=== PATIENT | female | born 1945 | race Hispanic/Latino ===

== ENCOUNTER 2018-07-01 17:59 | Inpatient (IN) | payer MEDICARE, OTHER ==
[2018-07-01 18:10] VITALS: BMI 19.8
[2018-07-01 19:01] LABS: BASO % 0.1 % (0.0-2.0); EOS % 0.1 % (0.0-4.0); HEMOGLOBIN 13.7 g/dL (11.0-16.0); LYMPH # 0.8 K/uL (1.0-4.3); LYMPH % 6.8 % (20.0-40.0); MEAN CORPUSCULAR HEMOGLOBIN 32.8 pg (27.0-31.0); MEAN CORPUSCULAR HGB CONC 34.2 g/dL (33.0-37.0); MEAN PLATELET VOLUME 7.3 fL (7.2-11.7); MONO # 0.6 K/uL (0.0-0.8); MONO % 5.6 % (0.0-10.0); NEUT # 9.9 K/uL (1.8-7.0); NEUT % 87.4 % (50.0-75.0); RBC 4.17 Mil/uL (3.80-5.20); RED CELL DISTRIBUTION WIDTH 14.4 % (11.5-14.5)
[2018-07-01] MEDS ORDERED: Sodium Chloride 0.9% 1,000 ML IV STA (19:02)
--- NOTE | 2018-07-01 19:04 | C.PDOC ---
History Of Present Illness 72 y/o F p/w general weakness x 5 days. Patient states that on Wednesday, she woke up with lower back pain and began vomiting, NBNB. She states that as the week has gone on, she has been increasingly weak with decreased PO intake and co ntinued NBNB vomiting. She reports abdominal pain and distention, states back pain has gotten better. Went to Dr. De La Torre (GI/PMD) today who instructed patient to come to ED for further evaluation. Denies fever, chills, chest pain, dyspnea, dysuria. Time Seen by Provider: 07/01/18 18:52 Chief Complaint (Nursing): Dizziness/Lightheaded Past Medical History Vital Signs: Last Vital Signs Temp 97.4 F L 07/01/18 18:10 Pulse 84 07/01/18 18:10 Resp 18 07/01/18 18:10 BP 114/73 07/01/18 18:10 Pulse Ox 100 07/01/18 18:10 - Medical History PMH: Anxiety, Back Problems, Hypercholesterolemia, Hyperlipidemia, Hypothyroidism, Rheumatoid Arthritis - [facility] Procedures PSYCHIAT DRUG THERAP NEC (08/27/06) Family History: States: Unknown Family Hx - Social History Hx Alcohol Use: No Hx Substance Use: No - Immunization History Hx Tetanus Toxoid Vaccination: No Hx Influenza Vaccination: No Hx Pneumococcal Vaccination: No Review Of Systems Except As Marked, All Systems Reviewed And Found Negative. Constitutional: Negative for: Fever Cardiovascular: Negative for: Chest Pain Physical Exam - Physical Exam Additional Physical Exam Comments: Gen: NAD Head: NC/AT Eyes: PERRL ENT: Dry mucous membranes Neck: Supple Chest: No tenderness CV: Regular rate Lungs: CTA b/l Abd: Abdominal distention Back: No midline tenderness Extremities: No edema Skin: no rash Neuro: Alert ED Course And Treatment - Laboratory Results Result Diagrams: 07/01/18 18:55 07/01/18 18:55 O2 Sat by Pulse Oximetry: 100 Medical Decision Making Medical Decision Making: EKG NSR 93 bpm, no ST/ elevations CT Impression: Small bowel obstruction. Correlate clinically. Dr. Smith consulted for Surgery, registered nurse surgical services placed NG tube. Dr. Dunbar accepts patient to his service. Disposition - Disposition Disposition: HOSPITALIZED Disposition Time: 22:30 Condition: GUARDED - Clinical Impression Clinical Impression: Small bowel obstruction, Hyponatremia, Hypokalemia, Acute renal insufficiency
[2018-07-01 19:05] LABS: MEAN CELL VOLUME 95.7 fL (81.0-99.0); PLATELET COUNT 486 K/uL (130-400); WHITE BLOOD COUNT 11.4 K/uL (4.8-10.8)
[2018-07-01 19:10] LABS: PROTHROMBIN TIME 10.9 SECONDS (9.7-12.2)
[2018-07-01] MEDS ORDERED: Sodium Chloride 0.9% 1,000 ML ONE (19:10)
[2018-07-01 19:19] LABS: ALB/GLOB RATIO 1.6 (1.0-2.1); ALBUMIN 4.9 g/dL (3.5-5.0); CALCIUM 8.8 mg/dl (8.6-10.4)
[2018-07-01] MEDS ORDERED: Potassium Chloride 20 mEq 100 ML ONE ×2 (19:52→20:53)
[2018-07-01 20:09] LABS: BANDS 2 % (0-2); EOSINOPHIL 1 % (0-4); LYMPHOCYTE 12 % (20-40); MONOCYTE 4 % (0-10); NEUTROPHIL 81 % (50-75); PLATELET ESTIMATE SLIGHTLY INCREASED (NORMAL); TOTAL CELLS COUNTED 100
[2018-07-01] MEDS ORDERED: Ciprofloxacin 400mg/200ml D5W 400 MG/200 ML BAG IVPB ONE (23:55)
--- NOTE | 2018-07-02 00:28 | CP.PCM.CON ---
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 Pt reports her symptoms first began on wednesday when she began to feel bloated. This feeling progressively worsened until wednesday when she had her first episode of emesis. Pt subsequently vomited 3 times over the next 48 hours, non-bloody and non-billious. She reports she has been intermittenly passing flatus throughout this time, but only had one small bowel movement on wednesday. Prior to symptom onset pt has been having difficulty going to the rest room and has been taking Senna and Colace, but with little relief. She denies any associated fevers, chills, sob or chest pain. She has been feeling increasingly weak, and yesterday feel forward due to weakness, scraping her knees. She denies any additional neurological symptoms beyond weakness At the time of consultation, pt noted to be profoundly hyponatremic, hypocholemic, hypokalemic. Her CT shows significant gastric and small bowel distension with a large amount of stool within the colon. An NGT was placed in the ED which has returned >1,000 cc of thick orange foul smelling liquid. Pt vomited an additional ~600cc over the tube. PMH: SIADH PSH: lap adolfo, hysterectomy for reported cervical cancer, b/l oopherectomy (seperate procedure), Review of Systems - Review of Systems All systems: reviewed and no additional remarkable complaints except (as per hpi) Past Patient History - Infectious Disease Hx of Infectious Diseases: None - Past Social History Smoking Status: Never Smoked - CARDIAC Hx Hypercholesterolemia: Yes - ENDOCRINE/METABOLIC Hx Hypothyroidism: Yes - MUSCULOSKELETAL/RHEUMATOLOGICAL Hx Rheumatoid Arthritis: Yes - PSYCHIATRIC Hx Anxiety: Yes Hx Substance Use: No - SURGICAL HISTORY Hx Surgeries: Yes Hx Orthopedic Surgery: Yes (Left shoulder and right arm) Other/Comment: Abdominal surgeries - ANESTHESIA Hx Anesthesia: Yes Hx Anesthesia Reactions: No Meds Allergies/Adverse Reactions: Allergies Allergy/AdvReac Type Severity Reaction Status Date / Time No Known Allergies Allergy Verified 07/01/18 18:06 - Medications Medications: Current Medications Heparin Sodium (Porcine) (Heparin) 5,000 units SC Q8 PARAMJIT Ciprofloxacin (Cipro 400mg/200ml Dsw) 400 mg in 200 mls @ 133 mls/hr IVPB Q12H [facility]AMJ[facility]; Protocol Dextrose/Sodium Chloride (Dextrose 5%/0.9% Ns 1000 Ml) 1,000 mls @ 125 mls/hr IV .Q8H PARAMJIT Pantoprazole Sodium (Protonix Inj) 40 mg IVP DAILY [facility]AMJIT Physical Exam - Constitutional Appears: Non-toxic, No Acute Distress - Head Exam Head Exam: NORMOCEPHALIC - Eye Exam Eye Exam: Normal appearance - ENT Exam ENT Exam: Mucous Membranes Dry - Neck Exam Neck exam: Negative for: Lymphadenopathy, Tenderness, Thyromegaly - Respiratory Exam Respiratory Exam: Clear to Auscultation Bilateral, NORMAL BREATHING PATTERN. absent: Accessory Muscle Use, Respiratory Distress - Cardiovascular Exam Cardiovascular Exam: REGULAR RHYTHM, +S1. absent: Tachycardia, Diastolic murmur, Systolic Murmur - GI/Abdominal Exam GI & Abdominal Exam: Distended, Hypoactive Bowel Sounds, Soft, Tenderness (diffuse but minimal). absent: Firm, Guarding, Hernia, Rebound, Rigid Additional comments: tympanic to percussion - Rectal Exam Rectal Exam: absent: Deferred, Black Stool, Bloody Stool, Hemorrhoids Additional comments: normal tone, no appreciable hemorrhoids or impaction - Extremities Exam Extremities exam: Negative for: pedal edema Additional comments: b/l abrasions to both knees - Neurological Exam Neurological exam: Alert, Oriented x3 - Psychiatric Exam Psychiatric exam: Normal Affect, Normal Mood - Skin Skin Exam: Normal Color Results - Vital Signs Recent Vital Signs: Last Vital Signs Temp 98 F 07/01/18 21:38 Pulse 93 H 07/01/18 21:38 Resp 18 07/01/18 21:38 BP 130/57 L 07/01/18 21:38 Pulse Ox 98 07/01/18 21:38 - Labs Result Diagrams: 07/01/18 18:55 07/01/18 18:55 Labs: Laboratory Results - last 24 hr 07/01/18 07/01/18 07/01/18 18:55 18:55 18:55 WBC 11.4 H D RBC 4.17 Hgb 13.7 Hct 39.9 MCV 95.7 D MCH 32.8 H MCHC 34.2 RDW 14.4 Plt Count 486 H D MPV 7.3 Neut % (Auto) 87.4 H Lymph % (Auto) 6.8 L [place] % (Auto) 5.6 Eos % (Auto) 0.1 Baso % (Auto) 0.1 Neut # (Auto) 9.9 H Lymph # (Auto) 0.8 L [place] # (Auto) 0.6 Eos # (Auto) 0.0 Baso # (Auto) 0.0 Neutrophils % (Manual) 81 H Band Neutrophils % 2 Lymphocytes % (Manual) 12 L Monocytes % (Manual) 4 Eosinophils % (Manual) 1 Platelet Estimate Slightly increased H RBC Morphology Normal PT 10.9 INR 1.0 APTT 30 Sodium 120 L* Potassium 3.0 L Chloride 68 L D Carbon Dioxide 39 H Anion Gap 16 BUN 53 H Creatinine 1.5 H Est GFR ( Amer) 42 Est GFR (Non-Af Amer) 34 Random Glucose 119 H Calcium 8.8 Total Bilirubin 0.9 AST 59 H ALT 54 H D Alkaline Phosphatase 94 Total Protein 8.0 Albumin 4.9 Globulin 3.1 Albumin/Globulin Ratio 1.6 Lipase Blood Type Antibody Screen 07/01/18 07/01/18 19:38 19:58 WBC RBC Hgb Hct MCV MCH MCHC RDW Plt Count MPV Neut % (Auto) Lymph % (Auto) [place] % (Auto) Eos % (Auto) Baso % (Auto) Neut # (Auto) Lymph # (Auto) [place] # (Auto) Eos # (Auto) Baso # (Auto) Neutrophils % (Manual) Band Neutrophils % Lymphocytes % (Manual) Monocytes % (Manual) Eosinophils % (Manual) Platelet Estimate RBC Morphology PT INR APTT Sodium Potassium Chloride Carbon Dioxide Anion Gap BUN Creatinine Est GFR ( Amer) Est GFR (Non-Af Amer) Random Glucose Calcium Total Bilirubin AST ALT Alkaline Phosphatase Total Protein Albumin Globulin Albumin/Globulin Ratio Lipase 270 Blood Type O POSITIVE Antibody Screen Negative Assessment & Plan - Assessment and Plan (Free Text) Assessment: 72F with hyponatremia/hypochloremia 2/2 SIADH, also with possible SBO vs electrolyte imbalance induced ileus Plan: NGT placed for decompression pt needs hydration and correction of electrolytes will order fleet enemas pain control maintain NPO will cont to follow closely d/w Dr Luis Mari, PGY4 <Becky Smith - Last Filed: 07/02/18 17:57> Meds - Medications Medications: Current Medications Bupropion HCl (Wellbutrin) 100 mg NG TID [facility] Last Admin: 07/02/18 17:40 Dose: 100 mg Heparin Sodium (Porcine) (Heparin) 5,000 units SC Q8 [facility] Last Admin: 07/02/18 14:50 Dose: 5,000 units Ciprofloxacin (Cipro 400mg/200ml Dsw) 400 mg in 200 mls @ 133 mls/hr IVPB Q12H [facility]; Protocol Last Admin: 07/02/18 12:33 Dose: 133 mls/hr Potassium Chloride 20 meq/ (Sodium Chloride) 1,010 mls @ 100 mls/hr IV .Q10H6M [facility] Last Admin: 07/02/18 14:51 Dose: 100 mls/hr Folic Acid 1 mg/ Sodium (Chloride) 100.2 mls @ 60 mls/hr IV DAILY [facility] Last Admin: 07/02/18 17:40 Dose: 60 mls/hr Influenza Virus Vaccine (Fluzone Quad [id number]) 60 mcg IM .ONCE ONE Stop: 07/04/18 14:01 Lamotrigine (Lamictal) 200 mg PO DAILY [facility] Last Admin: 07/02/18 17:41 Dose: 200 mg Levothyroxine Sodium (Synthroid) 12.5 mcg IVP 0630 [facility] Methotrexate (Methotrexate) 60 mg PO QWK [facility] Pantoprazole Sodium (Protonix Inj) 40 mg IVP DAILY [facility] Last Admin: 07/02/18 09:49 Dose: 40 mg Saliva Substitute (Mouth Kote 236 Ml) 0 ml MM 5XD PRN PRN Reason: DRY MOUTH Last Admin: 07/02/18 14:50 Dose: 1 spr Results - Vital Signs Recent Vital Signs: Last Vital Signs Temp 97.8 F 07/02/18 07:00 Pulse 91 H 07/02/18 07:48 Resp 18 07/02/18 07:00 BP 100/60 07/02/18 07:00 Pulse Ox 97 07/02/18 07:00 - Labs Result Diagrams: 07/02/18 06:46 07/02/18 14:37 Labs: Laboratory Results - last 24 hr 07/01/18 07/01/18 07/01/18 18:55 18:55 18:55 WBC 11.4 H D RBC 4.17 Hgb 13.7 Hct 39.9 MCV 95.7 D MCH 32.8 H MCHC 34.2 RDW 14.4 Plt Count 486 H D MPV 7.3 Neut % (Auto) 87.4 H Lymph % (Auto) 6.8 L [place] % (Auto) 5.6 Eos % (Auto) 0.1 Baso % (Auto) 0.1 Neut # (Auto) 9.9 H Lymph # (Auto) 0.8 L [place] # (Auto) 0.6 Eos # (Auto) 0.0 Baso # (Auto) 0.0 Neutrophils % (Manual) 81 H Band Neutrophils % 2 Lymphocytes % (Manual) 12 L Monocytes % (Manual) 4 Eosinophils % (Manual) 1 Platelet Estimate Slightly increased H RBC Morphology Normal PT 10.9 INR 1.0 APTT 30 Sodium 120 L* Potassium 3.0 L Chloride 68 L D Carbon Dioxide 39 H Anion Gap 16 BUN 53 H Creatinine 1.5 H Est GFR ( Amer) 42 Est GFR (Non-Af Amer) 34 Random Glucose 119 H Calcium 8.8 Phosphorus Magnesium Total Bilirubin 0.9 AST 59 H ALT 54 H D Alkaline Phosphatase 94 Total Protein 8.0 Albumin 4.9 Globulin 3.1 Albumin/Globulin Ratio 1.6 Lipase Urine Color Urine Clarity Urine pH Ur Specific [place] Urine Protein Urine Glucose (UA) Urine Ketones Urine Blood Urine Nitrate Urine Bilirubin Urine Urobilinogen Ur Leukocyte Esterase Urine WBC (Auto) Urine RBC (Auto) Ur Squamous Epith Cells Urine Bacteria Blood Type Antibody Screen 07/01/18 07/01/18 07/02/18 19:38 19:58 06:46 WBC 6.8 RBC 3.49 L Hgb 11.5 D Hct 33.5 L MCV 95.9 MCH 33.0 H MCHC 34.4 RDW 14.2 Plt Count 373 D MPV 7.4 Neut % (Auto) 77.9 H Lymph % (Auto) 12.5 L [place] % (Auto) 9.0 Eos % (Auto) 0.4 Baso % (Auto) 0.2 Neut # (Auto) 5.3 Lymph # (Auto) 0.8 L [place] # (Auto) 0.6 Eos # (Auto) 0.0 Baso # (Auto) 0.0 Neutrophils % (Manual) Band Neutrophils % Lymphocytes % (Manual) Monocytes % (Manual) Eosinophils % (Manual) Platelet Estimate RBC Morphology PT INR APTT Sodium Potassium Chloride Carbon Dioxide Anion Gap BUN Creatinine Est GFR ( Amer) Est GFR (Non-Af Amer) Random Glucose Calcium Phosphorus Magnesium Total Bilirubin AST ALT Alkaline Phosphatase Total Protein Albumin Globulin Albumin/Globulin Ratio Lipase 270 Urine Color Urine Clarity Urine pH Ur Specific [place] Urine Protein Urine Glucose (UA) Urine Ketones Urine Blood Urine Nitrate Urine Bilirubin Urine Urobilinogen Ur Leukocyte Esterase Urine WBC (Auto) Urine RBC (Auto) Ur Squamous Epith Cells Urine Bacteria Blood Type O POSITIVE Antibody Screen Negative 07/02/18 07/02/18 07/02/18 06:46 07:20 14:37 WBC RBC Hgb Hct MCV MCH MCHC RDW Plt Count MPV Neut % (Auto) Lymph % (Auto) [place] % (Auto) Eos % (Auto) Baso % (Auto) Neut # (Auto) Lymph # (Auto) [place] # (Auto) Eos # (Auto) Baso # (Auto) Neutrophils % (Manual) Band Neutrophils % Lymphocytes % (Manual) Monocytes % (Manual) Eosinophils % (Manual) Platelet Estimate RBC Morphology PT INR APTT Sodium 121 L 123 L Potassium 2.9 L 3.6 Chloride 78 L 82 L Carbon Dioxide 33 H 35 H Anion Gap 12 9 L BUN 39 H 25 H Creatinine 0.9 0.8 Est GFR ( Amer) > 60 > 60 Est GFR (Non-Af Amer) > 60 > 60 Random Glucose 131 H 109 H Calcium 7.5 L 7.5 L Phosphorus 2.7 Magnesium 3.2 H Total Bilirubin 0.5 AST 39 H D ALT 51 Alkaline Phosphatase 66 Total Protein 5.8 L Albumin 3.4 L D Globulin 2.4 Albumin/Globulin Ratio 1.4 Lipase Urine Color Yellow Urine Clarity Hazy Urine pH 6.0 Ur Specific [place] 1.020 Urine Protein Negative Urine Glucose (UA) Normal Urine Ketones Trace Urine Blood 1+ H Urine Nitrate Positive H Urine Bilirubin Negative Urine Urobilinogen Normal Ur Leukocyte Esterase Neg Urine WBC (Auto) 5 Urine RBC (Auto) 2 Ur Squamous Epith Cells 2 Urine Bacteria Mod H Blood Type Antibody Screen Assessment & Plan - Assessment and Plan (Free Text) Plan: I personally saw and examined the patient with the resident staff and agree with the above assessment and plan. I personally reviewed the available diagnostic images and imaging reports. Diffuse small bowel dilation, decompressed loops in right abd. Difficult to asses cause or transition point with non-contrast study. Fleets enema and NGT to Low intermittent wall suction. Correction of eletrolyte abnormalities. Would recommend repeat CTAP with PO and IV contrast to better identify etiology of SBO. Rec ARTIST REPRESENTATIVE consult given history of ARTIST REPRESENTATIVE malignancy and recs for appropriate surveillance. Would also recommend GI consult for repeat colonoscopy given her age and no documentation of prior colonoscopy or findings.
[2018-07-02] MEDS: Ciprofloxacin 400mg/200ml D5W 400 MG/200 ML BAG IVPB SCH ×3 (00:31→22:58)
[2018-07-02] MEDS: Dextrose 5%/0.9% NS 1,000 ML IV SCH ×2 (01:09→08:50)
[2018-07-02 07:05] LABS: BASO % 0.2 % (0.0-2.0); EOS % 0.4 % (0.0-4.0); HEMOGLOBIN 11.5 g/dL (11.0-16.0); LYMPH # 0.8 K/uL (1.0-4.3); LYMPH % 12.5 % (20.0-40.0); MEAN CELL VOLUME 95.9 fL (81.0-99.0); MEAN CORPUSCULAR HGB CONC 34.4 g/dL (33.0-37.0); MEAN PLATELET VOLUME 7.4 fL (7.2-11.7); MONO # 0.6 K/uL (0.0-0.8); NEUT # 5.3 K/uL (1.8-7.0); NEUT % 77.9 % (50.0-75.0); RBC 3.49 Mil/uL (3.80-5.20); RED CELL DISTRIBUTION WIDTH 14.2 % (11.5-14.5); WHITE BLOOD COUNT 6.8 K/uL (4.8-10.8)
[2018-07-02 07:27] LABS: ALB/GLOB RATIO 1.4 (1.0-2.1); ALBUMIN 3.4 g/dL (3.5-5.0); ALT/SGPT 51 U/L (9-52); AST/SGOT 39 U/L (14-36); BLOOD UREA NITROGEN 39 mg/dL (7-17); CALCIUM 7.5 mg/dl (8.6-10.4); GFR NON-AFRICAN AMERICAN > 60
[2018-07-02 07:31] LABS: SQUAMOUS EPITHIAL 2 /hpf (0-5); URINE BACTERIA MOD (<OCC); URINE BILIRUBIN NEGATIVE (NEGATIVE); URINE BLOOD 1+ (NEGATIVE); URINE CLARITY Hazy (Clear); URINE COLOR Yellow (YELLOW); URINE GLUCOSE (UA) NORMAL (Normal); URINE LEUKOCYTE ESTERASE NEG Leu/uL (Negative); URINE PROTEIN NEGATIVE (NEGATIVE); URINE UROBILINOGEN NORMAL mg/dL (0.2-1.0)
--- NOTE | 2018-07-02 12:01 | CP.PCM.CON ---
History of Present Illness - History of Present Illness History of Present Illness: This is a 72 year old woman admitted with back pain and vomiting. Patient was in her usual state of health until Wednesday, when she noted bloating, lower back pain and vomiting. The vomiting continued, brown material, once or twice a day, for the remainder of the week. /o F p/w general weakness x 5 days. She became progressively weaker and was unable to eat and to drink. She also reports having heartburn, but no difficulty swallowing. She has been passing flatus, but was constipated and took a senna-based tea. this produced only one small bowel movement on Wednesday. The last normal bowel movement was last week. She consulted Dr. De La Torre yesterday and was instructed to come to the ER. She denied having fever, chills, chest pain, dyspnea, dysuria, loss of weight. Evaluation in the ER showed multiple electrolyte abnormalities including hyponatremia (sodium 120), hypochloremia (Cl 68) and hypokalemia (K 3.0). CT scan showed distention of the stomach and small bowel and a large amount of stool in the colon. An NG tube was placed in the ED which returned >1,000 cc of thick, orange fluid. She vomited an additional 600 cc as the tube was inserted. Patient states that she had a colonoscopy five years ago which was normal. Review of Systems - Constitutional Constitutional: Weakness. absent: Chills, Fever, Weight Loss - Cardiovascular Cardiovascular: absent: Chest Pain, Dyspnea - Respiratory Respiratory: absent: Dyspnea - Gastrointestinal Gastrointestinal: Bloating, Change in Bowel Habits, Constipation, Heartburn, Nausea, Vomiting. absent: Diarrhea, Dysphagia, Hematochezia, Loose Stools - Genitourinary Genitourinary: absent: Dysuria Past Patient History - Infectious Disease Hx of Infectious Diseases: None - Past Medical History & Family History Past Medical History?: Yes - Past Social History Smoking Status: Never Smoked - CARDIAC Hx Cardiac Disorders: Yes Hx Hypercholesterolemia: Yes - PULMONARY Hx Respiratory Disorders: No - NEUROLOGICAL Hx Neurological Disorder: No - HEENT Hx HEENT Problems: No - RENAL Hx Chronic Kidney Disease: No - ENDOCRINE/METABOLIC Hx Endocrine Disorders: Yes Hx Hypothyroidism: Yes - HEMATOLOGICAL/ONCOLOGICAL Hx Blood Disorders: Yes Hx Cancer: Yes Hx Chemotherapy: (C2 CARCINOMA HYSTERECTOMY 1986 AND OOPHRECTOMY) - INTEGUMENTARY Hx Dermatological Problems: No - MUSCULOSKELETAL/RHEUMATOLOGICAL Hx Musculoskeletal Disorders: Yes Hx Falls: Yes Hx Rheumatoid Arthritis: Yes (FINGERS) - GASTROINTESTINAL Hx Gastrointestinal Disorders: Yes Other/Comment: HX ABD SURGERY - GENITOURINARY/GYNECOLOGICAL Hx Genitourinary Disorders: Yes Hx Cervical Cancer: Yes Hx Ovarian Cancer: Yes - PSYCHIATRIC Hx Psychophysiologic Disorder: Yes Hx Anxiety: Yes Hx Substance Use: No - SURGICAL HISTORY Hx Surgeries: Yes Hx Orthopedic Surgery: Yes (Left shoulder and right arm) Other/Comment: Abdominal surgeries,3 disc replaced in n. [place] - ANESTHESIA Hx Anesthesia: Yes Hx Anesthesia Reactions: No Meds Allergies/Adverse Reactions: Allergies Allergy/AdvReac Type Severity Reaction Status Date / Time No Known Allergies Allergy Verified 07/01/18 18:06 - Medications Medications: Current Medications Heparin Sodium (Porcine) (Heparin) 5,000 units SC Q8 [facility] Last Admin: 07/02/18 05:30 Dose: 5,000 units Ciprofloxacin (Cipro 400mg/200ml Dsw) 400 mg in 200 mls @ 133 mls/hr IVPB Q12H [facility]; Protocol Last Admin: 07/02/18 00:31 Dose: 133 mls/hr Dextrose/Sodium Chloride (Dextrose 5%/0.9% Ns 1000 Ml) 1,000 mls @ 125 mls/hr IV .Q8H [facility] Last Admin: 07/02/18 08:50 Dose: 125 mls/hr Potassium Chloride (Potassium Chloride 20 Meq/100 Ml) 20 meq in 100 mls @ 50 mls/hr IVPB Q2H [facility] Stop: 07/02/18 14:44 Last Admin: 07/02/18 10:55 Dose: 50 mls/hr Influenza Virus Vaccine (Fluzone Quad [id number]) 60 mcg IM .ONCE ONE Stop: 07/04/18 14:01 Pantoprazole Sodium (Protonix Inj) 40 mg IVP DAILY [facility] Last Admin: 07/02/18 09:49 Dose: 40 mg Sodium Phosphate (Fleet Enema) 135 ml NE ONCE ONE Stop: 07/02/18 14:46 Physical Exam - Constitutional Appears: No Acute Distress - Head Exam Head Exam: ATRAUMATIC, NORMOCEPHALIC - Eye Exam Eye Exam: EOMI, PERRL - ENT Exam Additional comments: NG tube in place - Neck Exam Neck exam: Negative for: Lymphadenopathy, Thyromegaly - Respiratory Exam Respiratory Exam: NORMAL BREATHING PATTERN. absent: Rales, Rhonchi, Wheezes - Cardiovascular Exam Cardiovascular Exam: REGULAR RHYTHM, +S1, +S2. absent: Gallop, Rubs, Systolic Murmur - GI/Abdominal Exam GI & Abdominal Exam: Diminished Bowel Sounds, Soft. absent: Mass, Organomegaly, Tenderness - Rectal Exam Rectal Exam: Deferred - Extremities Exam Extremities exam: Negative for: calf tenderness, pedal edema Results - Vital Signs Recent Vital Signs: Last Vital Signs Temp 97.8 F 07/02/18 07:00 Pulse 88 07/02/18 07:00 Resp 18 07/02/18 07:00 BP 100/60 07/02/18 07:00 Pulse Ox 97 07/02/18 07:00 - Labs Result Diagrams: 07/02/18 06:46 07/02/18 06:46 Labs: Laboratory Results - last 24 hr 07/01/18 07/01/18 07/01/18 18:55 18:55 18:55 WBC 11.4 H D RBC 4.17 Hgb 13.7 Hct 39.9 MCV 95.7 D MCH 32.8 H MCHC 34.2 RDW 14.4 Plt Count 486 H D MPV 7.3 Neut % (Auto) 87.4 H Lymph % (Auto) 6.8 L [place] % (Auto) 5.6 Eos % (Auto) 0.1 Baso % (Auto) 0.1 Neut # (Auto) 9.9 H Lymph # (Auto) 0.8 L [place] # (Auto) 0.6 Eos # (Auto) 0.0 Baso # (Auto) 0.0 Neutrophils % (Manual) 81 H Band Neutrophils % 2 Lymphocytes % (Manual) 12 L Monocytes % (Manual) 4 Eosinophils % (Manual) 1 Platelet Estimate Slightly increased H RBC Morphology Normal PT 10.9 INR 1.0 APTT 30 Sodium 120 L* Potassium 3.0 L Chloride 68 L D Carbon Dioxide 39 H Anion Gap 16 BUN 53 H Creatinine 1.5 H Est GFR ( Amer) 42 Est GFR (Non-Af Amer) 34 Random Glucose 119 H Calcium 8.8 Phosphorus Magnesium Total Bilirubin 0.9 AST 59 H ALT 54 H D Alkaline Phosphatase 94 Total Protein 8.0 Albumin 4.9 Globulin 3.1 Albumin/Globulin Ratio 1.6 Lipase Urine Color Urine Clarity Urine pH Ur Specific [place] Urine Protein Urine Glucose (UA) Urine Ketones Urine Blood Urine Nitrate Urine Bilirubin Urine Urobilinogen Ur Leukocyte Esterase Urine WBC (Auto) Urine RBC (Auto) Ur Squamous Epith Cells Urine Bacteria Blood Type Antibody Screen 07/01/18 07/01/18 07/02/18 19:38 19:58 06:46 WBC 6.8 RBC 3.49 L Hgb 11.5 D Hct 33.5 L MCV 95.9 MCH 33.0 H MCHC 34.4 RDW 14.2 Plt Count 373 D MPV 7.4 Neut % (Auto) 77.9 H Lymph % (Auto) 12.5 L [place] % (Auto) 9.0 Eos % (Auto) 0.4 Baso % (Auto) 0.2 Neut # (Auto) 5.3 Lymph # (Auto) 0.8 L [place] # (Auto) 0.6 Eos # (Auto) 0.0 Baso # (Auto) 0.0 Neutrophils % (Manual) Band Neutrophils % Lymphocytes % (Manual) Monocytes % (Manual) Eosinophils % (Manual) Platelet Estimate RBC Morphology PT INR APTT Sodium Potassium Chloride Carbon Dioxide Anion Gap BUN Creatinine Est GFR ( Amer) Est GFR (Non-Af Amer) Random Glucose Calcium Phosphorus Magnesium Total Bilirubin AST ALT Alkaline Phosphatase Total Protein Albumin Globulin Albumin/Globulin Ratio Lipase 270 Urine Color Urine Clarity Urine pH Ur Specific [place] Urine Protein Urine Glucose (UA) Urine Ketones Urine Blood Urine Nitrate Urine Bilirubin Urine Urobilinogen Ur Leukocyte Esterase Urine WBC (Auto) Urine RBC (Auto) Ur Squamous Epith Cells Urine Bacteria Blood Type O POSITIVE Antibody Screen Negative 07/02/18 07/02/18 06:46 07:20 WBC RBC Hgb Hct MCV MCH MCHC RDW Plt Count MPV Neut % (Auto) Lymph % (Auto) [place] % (Auto) Eos % (Auto) Baso % (Auto) Neut # (Auto) Lymph # (Auto) [place] # (Auto) Eos # (Auto) Baso # (Auto) Neutrophils % (Manual) Band Neutrophils % Lymphocytes % (Manual) Monocytes % (Manual) Eosinophils % (Manual) Platelet Estimate RBC Morphology PT INR APTT Sodium 121 L Potassium 2.9 L Chloride 78 L Carbon Dioxide 33 H Anion Gap 12 BUN 39 H Creatinine 0.9 Est GFR ( Amer) > 60 Est GFR (Non-Af Amer) > 60 Random Glucose 131 H Calcium 7.5 L Phosphorus 2.7 Magnesium 3.2 H Total Bilirubin 0.5 AST 39 H D ALT 51 Alkaline Phosphatase 66 Total Protein 5.8 L Albumin 3.4 L D Globulin 2.4 Albumin/Globulin Ratio 1.4 Lipase Urine Color Yellow Urine Clarity Hazy Urine pH 6.0 Ur Specific [place] 1.020 Urine Protein Negative Urine Glucose (UA) Normal Urine Ketones Trace Urine Blood 1+ H Urine Nitrate Positive H Urine Bilirubin Negative Urine Urobilinogen Normal Ur Leukocyte Esterase Neg Urine WBC (Auto) 5 Urine RBC (Auto) 2 Ur Squamous Epith Cells 2 Urine Bacteria Mod H Blood Type Antibody Screen Assessment & Plan (1) Small bowel obstruction Assessment and Plan: Patient presented with bloating, vomiting, multiple electrolyte abnormalities and evidence of small bowel obstruction on CT scan. Patient has had multiple abdominal operations (hysterectomy, oophorectomy, cholecystectomy), so adhesions may be the etiology. Will repeat abdominal c-ray today. Status: Acute
[2018-07-02 14:52] LABS: BLOOD UREA NITROGEN 25 mg/dL (7-17); CALCIUM 7.5 mg/dl (8.6-10.4); GFR NON-AFRICAN AMERICAN > 60
--- NOTE | 2018-07-02 16:53 | RAD ---
Date of service: 07/01/2018 HISTORY: general weakness COMPARISON: 12/20/2015 FINDINGS: LUNGS: No active pulmonary disease. PLEURA: No significant pleural effusion identified, no pneumothorax apparent. CARDIOVASCULAR: No radiographic findings to suggest acute or significant cardiovascular disease. OSSEOUS STRUCTURES: No significant abnormalities. VISUALIZED UPPER ABDOMEN: Normal. OTHER FINDINGS: Right shoulder arthroplasty. Severe degenerative changes left shoulder. IMPRESSION: No active disease. No significant interval change compared to the prior examination(s).
--- NOTE | 2018-07-02 16:56 | RAD ---
Date of service: 07/02/2018 HISTORY: NGT placement COMPARISON: July 01, 2018. FINDINGS: LUNGS: No active pulmonary disease. PLEURA: No significant pleural effusion identified, no pneumothorax apparent. CARDIOVASCULAR: Normal. OSSEOUS STRUCTURES: No significant abnormalities. VISUALIZED UPPER ABDOMEN: Nasogastric tube in satisfactory position in the stomach which is decompressed. The tip is in the gastric body. OTHER FINDINGS: None. IMPRESSION: No active disease. Satisfactory position of nasogastric tube.
--- NOTE | 2018-07-02 17:17 | RAD ---
Date of service: 2018-07-02 13:26:48 PROCEDURE: Radiographs of the chest and abdomen (obstructive series) HISTORY: Follow up small bowel obstruction COMPARISON: Comparison made with chest radiograph 07/01/[address] scan abdomen pelvis 07/01/2018. The the 6 the TECHNIQUE: AP radiograph of the chest, with upright and supine radiographs of the abdomen. FINDINGS: CHEST: Lungs: Mild left basilar atelectasis and or scarring Cardiovascular: Normal size heart. No pulmonary vascular congestion. Pleura: No pleural fluid. No pneumothorax. Other findings: In situ NGT. Right total shoulder replacement. ACDF plate lower cervical spine ABDOMEN AND PELVIS: Bowel: Unremarkable bowel gas pattern. No evidence of mechanical obstruction.. Moderate amount of stool is seen within the right colon consistent with mild fecal retention/constipation. Distal aspect NGT is present. The.. Free air: None. Distal aspect NGT is seen overlying the right parasagittal upper abdomen likely within the distal stomach/duodenum Bones: Unremarkable. Other findings: Metallic clips right upper quadrant of the abdomen consistent prior cholecystectomy. IMPRESSION: Mild left basilar atelectasis and or scarring.. No evidence of mechanical bowel obstruction however findings suggest mild fecal retention/constipation
--- NOTE | 2018-07-02 17:48 | CT ---
Date of service: 07/01/2018 PROCEDURE: CT Abdomen and Pelvis without intravenous contrast HISTORY: Abdominal pain, back pain, vomiting COMPARISON: None. TECHNIQUE: Contiguous helical/transaxial sections of the abdomen pelvis performed without oral or intravenous contrast material. Additional 2D sagittal and coronal reformats generated. Contrast dose: Radiation dose: Total exam DLP = 483.19 mGy-cm. This CT exam was performed using one or more of the following dose reduction techniques: Automated exposure control, adjustment of the mA and/or kV according to patient size, and/or use of iterative reconstruction technique. FINDINGS: LOWER THORAX: Heart appears mildly enlarged. No significant pericardial effusion. LIVER: Liver demonstrates normal size. No evidence of hepatic mass collection or calcification. GALLBLADDER AND BILE DUCTS: Cholecystectomy. PANCREAS: Unremarkable. No gross lesion or ductal dilatation. SPLEEN: Unremarkable. ADRENALS: Nodular appearing left adrenal gland. Follow-up non contrast MRI of the adrenal glands could be performed for further evaluation KIDNEYS AND URETERS: Unremarkable. No hydronephrosis. No solid mass. VASCULATURE: Unremarkable. No aortic aneurysm. BOWEL: The stomach is markedly distended with fluid and some food debris as well as a small amount of air. Multiple distended fluid-filled loops of small bowel are the present consistent with small bowel obstruction with apparent transition point in the right lower abdomen. There is a moderate amount of stool seen within the cecum and ascending colon consistent with mild fecal retention/constipation. Few scattered colonic diverticula along the sigmoid colon noted however no definitive radiographic evidence of acute diverticulitis. APPENDIX: Appendix is not seen with certainty. PERITONEUM: No free or loculated fluid collections. No gross free intraperitoneal air. LYMPH NODES: Unremarkable. No enlarged lymph nodes. BLADDER: Urinary bladder is physiologically distended. No evidence of intraluminal urinary bladder calculi. REPRODUCTIVE: Apparent hysterectomy. BONES: Mild multilevel degenerative spondylosis of the lower thoracic and lumbar spine. OTHER FINDINGS: None. IMPRESSION: Findings consistent with small-bowel obstruction with transition point right lower quadrant of the abdomen. Cholecystectomy. Nodular left adrenal gland. Recommend followup noncontrast MRI of the adrenal glands. Diverticulosis without radiographic evidence of acute diverticulitis. Note that this report was placed in PA review folder for followup. See above discussion for additional details and findings.
[2018-07-03] MEDS: Levothyroxine 100 mcg (0.1 mg) Inj IVP SCH (06:18)
--- NOTE | 2018-07-03 08:24 | CP.PCM.PN ---
<Kim Beal - Last Filed: 07/03/18 08:24> Subjective - Date & Time of Evaluation Date of Evaluation: 07/03/18 Time of Evaluation: 08:23 - Subjective Subjective: General surgery progress note for Dr. Janina Beal, PGY-2 Pt S & E at bedside at 0630 Pt reports irritation at the NGT, no abdominal pain, N & V, F & C, BM, flatus. Pt reports tachycardia over last few years, no cause found. NGT - 400cc yellow liquid/12hrs- 1400cc/24hrs 500cc urine output/12hrs- 1000cc/24hrs Objective - Vital Signs/Intake and Output Vital Signs (last 24 hours): Temp Pulse Resp BP Pulse Ox 98.5 F 94 H 20 123/67 96 07/03/18 04:10 07/03/18 04:10 07/03/18 04:10 07/03/18 04:10 07/03/18 04:10 Intake and Output: 07/03/18 07/03/18 06:59 18:59 Intake Total 800 Output Total 1100 Balance -300 - Medications Medications: Current Medications Bupropion HCl (Wellbutrin) 150 mg NG BID [facility] Heparin Sodium (Porcine) (Heparin) 5,000 units SC Q8 [facility] Last Admin: 07/03/18 06:15 Dose: 5,000 units Ciprofloxacin (Cipro 400mg/200ml Dsw) 400 mg in 200 mls @ 133 mls/hr IVPB Q12H [facility]; Protocol Last Admin: 07/02/18 22:58 Dose: 133 mls/hr Potassium Chloride 20 meq/ (Sodium Chloride) 1,010 mls @ 100 mls/hr IV .Q10H6M [facility] Last Admin: 07/03/18 02:09 Dose: 100 mls/hr Folic Acid 1 mg/ Sodium (Chloride) 100.2 mls @ 60 mls/hr IV DAILY [facility] Last Admin: 07/02/18 17:40 Dose: 60 mls/hr Influenza Virus Vaccine (Fluzone Quad [id number]) 60 mcg IM .ONCE ONE Stop: 07/04/18 14:01 Lamotrigine (Lamictal) 200 mg PO DAILY [facility] Last Admin: 07/02/18 17:41 Dose: 200 mg Levothyroxine Sodium (Synthroid) 12.5 mcg IVP 0630 [facility] Last Admin: 07/03/18 06:18 Dose: 12.5 mcg Methotrexate (Methotrexate) 15 mg PO QWK [facility] Pantoprazole Sodium (Protonix Inj) 40 mg IVP DAILY [facility] Last Admin: 07/02/18 09:49 Dose: 40 mg Saliva Substitute (Mouth Kote 236 Ml) 0 ml MM 5XD PRN PRN Reason: DRY MOUTH Last Admin: 07/02/18 14:50 Dose: 1 spr - Labs Labs: 07/02/18 06:46 07/02/18 14:37 PT 10.9 SECONDS (9.7-12.2) 07/01/18 18:55 INR 1.0 07/01/18 18:55 APTT 30 SECONDS (21-34) 07/01/18 18:55 - Constitutional Appears: Non-toxic, No Acute Distress - Head Exam Head Exam: ATRAUMATIC, NORMAL INSPECTION, NORMOCEPHALIC - Eye Exam Eye Exam: EOMI, Normal appearance - ENT Exam ENT Exam: Mucous Membranes Moist, Normal Exam Additional comments: NGT in place - Neck Exam Neck Exam: Full ROM, Normal Inspection - Respiratory Exam Respiratory Exam: NORMAL BREATHING PATTERN. absent: Rhonchi, Wheezes - Cardiovascular Exam Cardiovascular Exam: REGULAR RHYTHM, +S1, +S2 - GI/Abdominal Exam GI & Abdominal Exam: Soft. absent: Distended, Guarding, Rigid, Tenderness - Extremities Exam Extremities Exam: Normal Inspection - Neurological Exam Neurological Exam: Alert, Awake, CN II-XII Intact, Oriented x3 - Psychiatric Exam Psychiatric exam: Normal Affect, Normal Mood - Skin Skin Exam: Dry, Intact, Normal Color, Warm Assessment and Plan - Assessment and Plan (Free Text) Assessment: 72F w/hyponatremia/hypochloremia 2/2 SIADH- slowly resolving, SBO vs. electrolyte imbalance induced ileus Plan: NGT to low intermittent wall suction Monitor NGT output Monitor UOP Correct electrolytes PRN OK for home meds - crushed, put into NGT, wall suction off for 1 hr, then restarted IVF pain control Further mgmt as per primary team Will DW Dr. Luis Beal, PGY-2 <Becky Smith - Last Filed: 07/03/18 15:53> Objective - Vital Signs/Intake and Output Vital Signs (last 24 hours): Temp Pulse Resp BP Pulse Ox 98.3 F 87 18 117/71 97 07/03/18 07:00 07/03/18 07:00 07/03/18 07:00 07/03/18 07:00 07/03/18 07:00 Intake and Output: 07/03/18 07/03/18 06:59 18:59 Intake Total 800 Output Total 1100 850 Balance -300 -850 - Medications Medications: Current Medications Amitriptyline HCl (Elavil) 40 mg PO HS [facility] Bupropion HCl (Wellbutrin) 150 mg NG BID [facility] Last Admin: 07/03/18 09:21 Dose: 150 mg Heparin Sodium (Porcine) (Heparin) 5,000 units SC Q8 [facility] Last Admin: 07/03/18 14:10 Dose: 5,000 units Ciprofloxacin (Cipro 400mg/200ml Dsw) 400 mg in 200 mls @ 133 mls/hr IVPB Q12H [facility]; Protocol Last Admin: 07/03/18 11:48 Dose: 133 mls/hr Potassium Chloride 20 meq/ (Sodium Chloride) 1,010 mls @ 100 mls/hr IV .Q10H6M [facility] Last Admin: 07/03/18 11:48 Dose: 100 mls/hr Folic Acid 1 mg/ Sodium (Chloride) 100.2 mls @ 60 mls/hr IV DAILY [facility] Last Admin: 07/03/18 09:21 Dose: 60 mls/hr Influenza Virus Vaccine (Fluzone Quad [id number]) 60 mcg IM .ONCE ONE Stop: 07/04/18 14:01 Lamotrigine (Lamictal) 200 mg PO DAILY [facility] Last Admin: 07/03/18 09:21 Dose: 200 mg Levothyroxine Sodium (Synthroid) 12.5 mcg IVP 0630 [facility] Last Admin: 07/03/18 06:18 Dose: 12.5 mcg Methotrexate (Methotrexate) 15 mg PO QWK [facility] Pantoprazole Sodium (Protonix Inj) 40 mg IVP DAILY [facility] Last Admin: 07/03/18 09:22 Dose: 40 mg Saliva Substitute (Mouth Kote 236 Ml) 0 ml MM 5XD PRN PRN Reason: DRY MOUTH Last Admin: 07/03/18 09:22 Dose: 1 spr - Labs Labs: 07/02/18 06:46 07/03/18 07:23 PT 10.9 SECONDS (9.7-12.2) 07/01/18 18:55 INR 1.0 07/01/18 18:55 APTT 30 SECONDS (21-34) 07/01/18 18:55 Assessment and Plan - Assessment and Plan (Free Text) Plan: See further recs from previous note. CTAP with PO IV contrast, [facility] recs for [facility] D[facility]ER cancer history and surveillance, etiology of sbo
[2018-07-03 08:28] LABS: BLOOD UREA NITROGEN 18 mg/dL (7-17); CALCIUM 7.8 mg/dl (8.6-10.4); GFR NON-AFRICAN AMERICAN > 60
[2018-07-03] MEDS: Ciprofloxacin 400mg/200ml D5W 400 MG/200 ML BAG IVPB SCH ×2 (11:48→23:56)
--- NOTE | 2018-07-03 13:06 | CP.PCM.PN ---
Subjective - Date & Time of Evaluation Date of Evaluation: 07/03/18 Time of Evaluation: 13:04 - Subjective Subjective: Patient denies having abdominal pain, though she states that the abdomen is slightly tender to touch. She also denies having nausea, vomiting. She has passed small amounts of flatus but not stool. Objective - Vital Signs/Intake and Output Vital Signs (last 24 hours): Temp Pulse Resp BP Pulse Ox 98.3 F 87 18 117/71 97 07/03/18 07:00 07/03/18 07:00 07/03/18 07:00 07/03/18 07:00 07/03/18 07:00 Intake and Output: 07/03/18 07/03/18 06:59 18:59 Intake Total 800 Output Total 1100 Balance -300 - Medications Medications: Current Medications Amitriptyline HCl (Elavil) 40 mg PO HS [facility] Bupropion HCl (Wellbutrin) 150 mg NG BID [facility] Last Admin: 07/03/18 09:21 Dose: 150 mg Heparin Sodium (Porcine) (Heparin) 5,000 units SC Q8 [facility] Last Admin: 07/03/18 06:15 Dose: 5,000 units Ciprofloxacin (Cipro 400mg/200ml Dsw) 400 mg in 200 mls @ 133 mls/hr IVPB Q12H [facility]; Protocol Last Admin: 07/03/18 11:48 Dose: 133 mls/hr Potassium Chloride 20 meq/ (Sodium Chloride) 1,010 mls @ 100 mls/hr IV .Q10H6M [facility] Last Admin: 07/03/18 11:48 Dose: 100 mls/hr Folic Acid 1 mg/ Sodium (Chloride) 100.2 mls @ 60 mls/hr IV DAILY [facility] Last Admin: 07/03/18 09:21 Dose: 60 mls/hr Influenza Virus Vaccine (Fluzone Quad [id number]) 60 mcg IM .ONCE ONE Stop: 07/04/18 14:01 Lamotrigine (Lamictal) 200 mg PO DAILY [facility] Last Admin: 07/03/18 09:21 Dose: 200 mg Levothyroxine Sodium (Synthroid) 12.5 mcg IVP 0630 [facility] Last Admin: 07/03/18 06:18 Dose: 12.5 mcg Methotrexate (Methotrexate) 15 mg PO QWK [facility] Pantoprazole Sodium (Protonix Inj) 40 mg IVP DAILY [facility] Last Admin: 07/03/18 09:22 Dose: 40 mg Saliva Substitute (Mouth Kote 236 Ml) 0 ml MM 5XD PRN PRN Reason: DRY MOUTH Last Admin: 07/03/18 09:22 Dose: 1 spr - Labs Labs: 07/02/18 06:46 07/03/18 07:23 PT 10.9 SECONDS (9.7-12.2) 07/01/18 18:55 INR 1.0 07/01/18 18:55 APTT 30 SECONDS (21-34) 07/01/18 18:55 - Constitutional Appears: In Acute Distress - Head Exam Head Exam: ATRAUMATIC, NORMOCEPHALIC - ENT Exam Additional comments: NG tube in place - Respiratory Exam Respiratory Exam: NORMAL BREATHING PATTERN. absent: Rales, Rhonchi, Wheezes - Cardiovascular Exam Cardiovascular Exam: REGULAR RHYTHM, +S1, +S2. absent: Gallop, Rubs, Murmur - GI/Abdominal Exam GI & Abdominal Exam: Soft, Hypoactive Bowel Sounds. absent: Tenderness, Mass, Organomegaly - Rectal Exam Rectal Exam: Deferred - Extremities Exam Extremities Exam: absent: Calf Tenderness, Pedal Edema Assessment and Plan (1) Small bowel obstruction Assessment & Plan: Patient denies having abdominal pain. Will check x-ray and consider advancing the diet. Status: Acute
--- NOTE | 2018-07-03 13:51 | CP.PCM.CON ---
History of Present Illness - History of Present Illness History of Present Illness: Pt is 72Fwith PMH of depression who presents to er with 5 days of abdominal pain and distension. Pt reports her symptoms first began on wednesday when she began to feel bloated and had back pain . This feeling progressively worsened until wednesday when she had her first episode of emesis, getting worse, non-bloody and non-billious. She reports she has been intermittenly passing flatus throughout this time, but only had one small bowel movement on wednesday. Prior to symptom onset pt has been having difficulty going to the rest room and has been taking Senna and Colace, but with little relief. She denies any associated fevers, chills, sob or chest pain. She has been feeling increasingly weak, and yesterday feel forward due to weakness, scraping her knees. In ER on initial labs, pt noted to be profoundly hyponatremic ( 120) , hypocholemic, hypokalemic9 3.0). Her CT shows significant gastric and small bowel distension with a large amount of stool within the colon. An NGT was placed in the ED which has returned >1,000 cc of thick orange foul smelling liquid. Pt vomited an additional ~600cc over the tube. renal consult requested for TERRENCE, hyponatremia and hypokalemia PMH: Depression PSH: lap adolfo, hysterectomy , b/l oopherectomy , Social- denies smoking, alcohol or drug use Family- no family history of kidney disease Review of Systems - Constitutional Constitutional: Weakness. absent: Chills, Fever - EENT Eyes: absent: Blurred Vision, Change in Vision Nose/Mouth/Throat: absent: Nasal Congestion, Nasal Discharge - Cardiovascular Cardiovascular: absent: Chest Pain, Dyspnea, Leg Edema - Respiratory Respiratory: absent: Cough, Dyspnea - Gastrointestinal Gastrointestinal: Abdominal Pain, Constipation, Nausea, Vomiting - Genitourinary Genitourinary: absent: Change in Urinary Stream, Flank Pain, Hematuria - Musculoskeletal Musculoskeletal: absent: Back Pain, Muscle Weakness, Myalgias - Integumentary Integumentary: absent: Dry Skin, Rash - Neurological Neurological: absent: As Per HPI, Abnormal Gait, Abnormal Hearing, Abnormal Movements, Abnormal Speech, Behavioral Changes, Burning Sensations, Confusion, Convulsions, Disequilibrium, Dizziness, Numbness, Focal Weakness, Frequent Falls, Headaches, Lack of Coordination, Loss of Vision, Memory Loss, Paresthesias, Radicular Pain, Restless Legs, Sensory Deficit, Syncope, Tingling, Tremor, Vertigo, Weakness, Other Visual Disturbances, Other - Psychiatric Psychiatric: Depression. absent: Anxiety - Endocrine Endocrine: As Per HPI Past Patient History - Infectious Disease Hx of Infectious Diseases: None - Past Medical History & Family History Past Medical History?: Yes - Past Social History Smoking Status: Never Smoked - CARDIAC Hx Cardiac Disorders: Yes Hx Hypercholesterolemia: Yes - PULMONARY Hx Respiratory Disorders: No - NEUROLOGICAL Hx Neurological Disorder: No - HEENT Hx HEENT Problems: No - RENAL Hx Chronic Kidney Disease: No - ENDOCRINE/METABOLIC Hx Endocrine Disorders: Yes Hx Hypothyroidism: Yes - HEMATOLOGICAL/ONCOLOGICAL Hx Blood Disorders: Yes Hx Cancer: Yes Hx Chemotherapy: (C2 CARCINOMA HYSTERECTOMY 1986 AND OOPHRECTOMY) - INTEGUMENTARY Hx Dermatological Problems: No - MUSCULOSKELETAL/RHEUMATOLOGICAL Hx Musculoskeletal Disorders: Yes Hx Falls: Yes Hx Rheumatoid Arthritis: Yes (FINGERS) - GASTROINTESTINAL Hx Gastrointestinal Disorders: Yes Other/Comment: HX ABD SURGERY - GENITOURINARY/GYNECOLOGICAL Hx Genitourinary Disorders: Yes Hx Cervical Cancer: Yes Hx Ovarian Cancer: Yes - PSYCHIATRIC Hx Psychophysiologic Disorder: Yes Hx Anxiety: Yes Hx Substance Use: No - SURGICAL HISTORY Hx Surgeries: Yes Hx Orthopedic Surgery: Yes (Left shoulder and right arm) Other/Comment: Abdominal surgeries,3 disc replaced in [place]. [place] - ANESTHESIA Hx Anesthesia: Yes Hx Anesthesia Reactions: No Meds Allergies/Adverse Reactions: Allergies Allergy/AdvReac Type Severity Reaction Status Date / Time No Known Allergies Allergy Verified 07/01/18 18:06 - Medications Medications: Current Medications Amitriptyline HCl (Elavil) 40 mg PO HS [facility] Bupropion HCl (Wellbutrin) 150 mg NG BID [facility] Last Admin: 07/03/18 09:21 Dose: 150 mg Heparin Sodium (Porcine) (Heparin) 5,000 units SC Q8 [facility] Last Admin: 07/03/18 06:15 Dose: 5,000 units Ciprofloxacin (Cipro 400mg/200ml Dsw) 400 mg in 200 mls @ 133 mls/hr IVPB Q12H [facility]; Protocol Last Admin: 07/03/18 11:48 Dose: 133 mls/hr Potassium Chloride 20 meq/ (Sodium Chloride) 1,010 mls @ 100 mls/hr IV .Q10H6M [facility] Last Admin: 07/03/18 11:48 Dose: 100 mls/hr Folic Acid 1 mg/ Sodium (Chloride) 100.2 mls @ 60 mls/hr IV DAILY [facility] Last Admin: 07/03/18 09:21 Dose: 60 mls/hr Influenza Virus Vaccine (Fluzone Quad [id number]) 60 mcg IM .ONCE ONE Stop: 07/04/18 14:01 Lamotrigine (Lamictal) 200 mg PO DAILY [facility] Last Admin: 07/03/18 09:21 Dose: 200 mg Levothyroxine Sodium (Synthroid) 12.5 mcg IVP 0630 [facility] Last Admin: 07/03/18 06:18 Dose: 12.5 mcg Methotrexate (Methotrexate) 15 mg PO QWK [facility] Pantoprazole Sodium (Protonix Inj) 40 mg IVP DAILY [facility] Last Admin: 07/03/18 09:22 Dose: 40 mg Saliva Substitute (Mouth Kote 236 Ml) 0 ml MM 5XD PRN PRN Reason: DRY MOUTH Last Admin: 07/03/18 09:22 Dose: 1 spr Physical Exam - Constitutional Appears: Well, Non-toxic - Head Exam Head Exam: ATRAUMATIC, NORMOCEPHALIC - Eye Exam Eye Exam: EOMI, PERRL - ENT Exam ENT Exam: Mucous Membranes Dry Additional comments: NGT in place - Neck Exam Neck exam: Negative for: Lymphadenopathy - Respiratory Exam Respiratory Exam: Clear to Auscultation Bilateral. absent: Rhonchi, Wheezes - Cardiovascular Exam Cardiovascular Exam: REGULAR RHYTHM, +S1, +S2 - GI/Abdominal Exam GI & Abdominal Exam: Diminished Bowel Sounds, Soft. absent: Tenderness - Extremities Exam Extremities exam: Negative for: joint swelling, pedal edema Additional comments: rheumatoid changes in hands - Neurological Exam Neurological exam: Alert, Altered, Oriented x3 - Psychiatric Exam Psychiatric exam: Normal Affect, Normal Mood - Skin Skin Exam: Dry, Intact Results - Vital Signs Recent Vital Signs: Last Vital Signs Temp 98.3 F 07/03/18 07:00 Pulse 87 07/03/18 07:00 Resp 18 07/03/18 07:00 BP 117/71 07/03/18 07:00 Pulse Ox 97 07/03/18 07:00 - Labs Result Diagrams: 07/02/18 06:46 07/03/18 07:23 Labs: Laboratory Results - last 24 hr 07/02/18 07/03/18 14:37 07:23 Sodium 123 L 126 L Potassium 3.6 3.5 L Chloride 82 L 88 L Carbon Dioxide 35 H 29 Anion Gap 9 L 12 BUN 25 H 18 H Creatinine 0.8 0.6 L Est GFR ( Amer) > 60 > 60 Est GFR (Non-Af Amer) > 60 > 60 Random Glucose 109 H 90 Calcium 7.5 L 7.8 L Magnesium 2.4 H Assessment & Plan (1) Constipation Status: Acute (2) Chronic depression Status: Acute (3) Acute renal insufficiency Status: Acute (4) Hypokalemia Status: Acute (5) Hyponatremia Status: Acute (6) Small bowel obstruction Status: Acute - Assessment and Plan (Free Text) Plan: TERRENCE secondary to dehydration - decreased intake and vomiting hyponatremia secondary to above as well hypokalemia secondary to decreased intake and gi lossess improving with fluids continue same fluids for now with potassium Cr back to baseline potassium level improved metabolic alkalosis resolving as well management od SBO as per GI labs in am
--- NOTE | 2018-07-03 17:52 | RAD ---
Date of service: 07/03/2018 HISTORY: Follow up SBO COMPARISON: Supine and erect views of the abdomen FINDINGS: Heart size unchanged. Mild bibasilar atelectasis. BOWEL: In situ NGT, the tip of which lies just to the right of midline in the upper abdomen. Nonobstructive/nonspecific bowel gas pattern. No gross free intraperitoneal air seen under the diaphragmatic surfaces. BONES: Right sided total shoulder replacement... Degenerative changes left shoulder girdle. The inferior aspect of an ACDF plate over the cervical region again noted no change sclerotic lesion right iliac bone OTHER FINDINGS: None. IMPRESSION: Mild bibasilar atelectasis No evidence of acute mechanical bowel obstruction.
[2018-07-04] MEDS: Levothyroxine 100 mcg (0.1 mg) Inj IVP SCH (06:26)
[2018-07-04 07:36] LABS: BLOOD UREA NITROGEN 11 mg/dL (7-17); CALCIUM 7.9 mg/dl (8.6-10.4); GFR NON-AFRICAN AMERICAN > 60
--- NOTE | 2018-07-04 08:31 | HP ---
HISTORY OF PRESENT ILLNESS: The patient came to the hospital with chief complaint of shortness of breath, weakness, fatigue, tiredness, abdominal pain, nausea and vomiting. The patient came to ER was found to be markedly dehydrating with a small bowel obstruction. The patient came, advised admission. The patient has a history of depression, history of multiple abdominal surgeries, cancer of cervix. PHYSICAL EXAMINATION: GENERAL: The patient is awake, alert, oriented. VITAL SIGNS: Temperature 98, pulse 90. HEENT: Within normal limits. NECK: Supple. CHEST: Symmetrical. HEART: Regular. ABDOMEN: Soft. EXTREMITIES: No edema. ASSESSMENT AND PLAN: The patient suffers from small bowel obstruction, dehydration and esophagitis. IV fluid, n.p.o, surgical consult. Urmila Dunbar MD
--- NOTE | 2018-07-04 10:05 | CARD ---
APPROVED REPORT Date of service: 07/01/2018 EKG Measurement Heart [id number] ID [id number] <Conclusion> Normal sinus rhythm Possible Left atrial enlargement Prolonged QT Abnormal ECG
--- NOTE | 2018-07-04 10:45 | CP.PCM.PN ---
Subjective - Date & Time of Evaluation Date of Evaluation: 07/04/18 Time of Evaluation: 10:42 - Subjective Subjective: Patient feeling better but still no bowel movement Wants TWE to be given Objective - Vital Signs/Intake and Output Vital Signs (last 24 hours): Temp Pulse Resp BP Pulse Ox 98.7 F 81 20 128/77 95 07/04/18 09:59 07/04/18 09:59 07/04/18 09:59 07/04/18 09:59 07/04/18 09:59 Intake and Output: 07/04/18 07/04/18 06:59 18:59 Output Total 200 Balance -200 - Medications Medications: Current Medications Amitriptyline HCl (Elavil) 40 mg PO HS [facility] Last Admin: 07/03/18 21:01 Dose: 40 mg Bupropion HCl (Wellbutrin) 150 mg NG BID [facility] Last Admin: 07/04/18 09:19 Dose: 150 mg Heparin Sodium (Porcine) (Heparin) 5,000 units SC Q8 [facility] Last Admin: 07/04/18 06:26 Dose: 5,000 units Ciprofloxacin (Cipro 400mg/200ml Dsw) 400 mg in 200 mls @ 133 mls/hr IVPB Q12H [facility]; Protocol Last Admin: 07/03/18 23:56 Dose: 133 mls/hr Folic Acid 1 mg/ Sodium (Chloride) 100.2 mls @ 60 mls/hr IV DAILY [facility] Last Admin: 07/04/18 09:19 Dose: 60 mls/hr Potassium Chloride 40 meq/ (Sodium Chloride) 1,020 mls @ 100 mls/hr IV .[id number] [facility] Last Admin: 07/04/18 10:37 Dose: 100 mls/hr Influenza Virus Vaccine (Fluzone Quad [id number]) 60 mcg IM .ONCE ONE Stop: 07/04/18 14:01 Lamotrigine (Lamictal) 200 mg PO DAILY [facility] Last Admin: 07/04/18 09:18 Dose: 200 mg Levothyroxine Sodium (Synthroid) 12.5 mcg IVP 0630 [facility] Last Admin: 07/04/18 06:26 Dose: 12.5 mcg Methotrexate (Methotrexate) 15 mg PO QWK [facility] Ondansetron HCl (Zofran Inj) 4 mg IVP Q6H PRN PRN Reason: Nausea/Vomiting Last Admin: 07/04/18 09:19 Dose: 4 mg Pantoprazole Sodium (Protonix Inj) 40 mg IVP DAILY [facility] Last Admin: 07/04/18 09:18 Dose: 40 mg Saliva Substitute (Mouth Kote 236 Ml) 0 ml MM 5XD PRN PRN Reason: DRY MOUTH Last Admin: 07/04/18 09:18 Dose: 1 spr - Labs Labs: 07/02/18 06:46 07/04/18 06:35 PT 10.9 SECONDS (9.7-12.2) 07/01/18 18:55 INR 1.0 07/01/18 18:55 APTT 30 SECONDS (21-34) 07/01/18 18:55 - Constitutional Appears: No Acute Distress - Head Exam Head Exam: ATRAUMATIC, NORMOCEPHALIC - Respiratory Exam Respiratory Exam: NORMAL BREATHING PATTERN - Cardiovascular Exam Cardiovascular Exam: REGULAR RHYTHM - GI/Abdominal Exam GI & Abdominal Exam: Soft, Hypoactive Bowel Sounds. absent: Tenderness, Mass, Rebound - Extremities Exam Extremities Exam: Normal Inspection Assessment and Plan (1) Small bowel obstruction due to adhesions Assessment & Plan: Patient clinically improved. NGT with 300cc bile drainage. No tenderness or guarding. Follow up xray studies. Status: Acute (2) Acute renal failure Assessment & Plan: Continue hydration and Na repleation per renal consultants Status: Acute (3) SIADH (syndrome of inappropriate ADH production) Assessment & Plan: correcting as per renal. Status: Acute
--- NOTE | 2018-07-04 10:57 | CP.PCM.PN ---
Subjective - Date & Time of Evaluation Date of Evaluation: 07/04/18 Time of Evaluation: 10:54 - Subjective Subjective: Still no BMs Hyponatremia, TERRENCE improved; K still low Followed by GI for SBO Has possible h/o SIADH from antidepressant meds Objective - Vital Signs/Intake and Output Vital Signs (last 24 hours): Temp Pulse Resp BP Pulse Ox 98.7 F 81 20 128/77 95 07/04/18 09:59 07/04/18 09:59 07/04/18 09:59 07/04/18 09:59 07/04/18 09:59 Intake and Output: 07/04/18 07/04/18 06:59 18:59 Output Total 200 Balance -200 - Medications Medications: Current Medications Amitriptyline HCl (Elavil) 40 mg PO HS [facility] Last Admin: 07/03/18 21:01 Dose: 40 mg Bupropion HCl (Wellbutrin) 150 mg NG BID [facility] Last Admin: 07/04/18 09:19 Dose: 150 mg Heparin Sodium (Porcine) (Heparin) 5,000 units SC Q8 [facility] Last Admin: 07/04/18 06:26 Dose: 5,000 units Ciprofloxacin (Cipro 400mg/200ml Dsw) 400 mg in 200 mls @ 133 mls/hr IVPB Q12H [facility]; Protocol Last Admin: 07/03/18 23:56 Dose: 133 mls/hr Folic Acid 1 mg/ Sodium (Chloride) 100.2 mls @ 60 mls/hr IV DAILY [facility] Last Admin: 07/04/18 09:19 Dose: 60 mls/hr Potassium Chloride 40 meq/ (Sodium Chloride) 1,020 mls @ 100 mls/hr IV .[id number] [facility] Last Admin: 07/04/18 10:37 Dose: 100 mls/hr Influenza Virus Vaccine (Fluzone Quad [id number]) 60 mcg IM .ONCE ONE Stop: 07/04/18 14:01 Lamotrigine (Lamictal) 200 mg PO DAILY [facility] Last Admin: 07/04/18 09:18 Dose: 200 mg Levothyroxine Sodium (Synthroid) 12.5 mcg IVP 0630 [facility] Last Admin: 07/04/18 06:26 Dose: 12.5 mcg Methotrexate (Methotrexate) 15 mg PO QWK [facility] Ondansetron HCl (Zofran Inj) 4 mg IVP Q6H PRN PRN Reason: Nausea/Vomiting Last Admin: 07/04/18 09:19 Dose: 4 mg Pantoprazole Sodium (Protonix Inj) 40 mg IVP DAILY [facility] Last Admin: 07/04/18 09:18 Dose: 40 mg Saliva Substitute (Mouth Kote 236 Ml) 0 ml MM 5XD PRN PRN Reason: DRY MOUTH Last Admin: 07/04/18 09:18 Dose: 1 spr - Labs Labs: 07/02/18 06:46 07/04/18 06:35 PT 10.9 SECONDS (9.7-12.2) 07/01/18 18:55 INR 1.0 07/01/18 18:55 APTT 30 SECONDS (21-34) 07/01/18 18:55 - Constitutional Appears: No Acute Distress, Chronically Ill - Head Exam Head Exam: ATRAUMATIC, NORMAL INSPECTION - Eye Exam Eye Exam: EOMI, Normal appearance - Neck Exam Neck Exam: Normal Inspection. absent: Tenderness - Respiratory Exam Respiratory Exam: Clear to Ausculation Bilateral, NORMAL BREATHING PATTERN - Cardiovascular Exam Cardiovascular Exam: REGULAR RHYTHM, +S1 - GI/Abdominal Exam GI & Abdominal Exam: Soft, Tenderness - Extremities Exam Extremities Exam: Normal Inspection. absent: Tenderness - Neurological Exam Neurological Exam: Alert, CN II-XII Intact - Skin Skin Exam: Dry, Warm Assessment and Plan (1) Acute renal failure Status: Acute (2) Chronic depression Status: Acute (3) Hyponatremia Status: Acute (4) SIADH (syndrome of inappropriate ADH production) Status: Acute (5) Small bowel obstruction Status: Acute - Assessment and Plan (Free Text) Plan: Replete K Same IVs with NS, Kcl Check studies for SIADH SBO management as per GI- pt still NPO
[2018-07-04] MEDS: Ciprofloxacin 400mg/200ml D5W 400 MG/200 ML BAG IVPB SCH (11:36)
[2018-07-04 11:52] LABS: HEMOGLOBIN 10.7 g/dL (11.0-16.0); MEAN CELL VOLUME 96.6 fL (81.0-99.0); MEAN CORPUSCULAR HEMOGLOBIN 33.4 pg (27.0-31.0); MEAN CORPUSCULAR HGB CONC 34.6 g/dL (33.0-37.0); RBC 3.21 Mil/uL (3.80-5.20); RED CELL DISTRIBUTION WIDTH 14.1 % (11.5-14.5); WHITE BLOOD COUNT 5.4 K/uL (4.8-10.8)
[2018-07-04 12:03] LABS: URIC ACID 3.7 mg/dL (2.2-7.5)
--- NOTE | 2018-07-04 13:20 | CP.PCM.PN ---
Subjective - Date & Time of Evaluation Date of Evaluation: 07/04/18 Time of Evaluation: 11:11 - Subjective Subjective: PGY2 Medicine Note for Dr. Dunbar Patient seen and examined this morning at bedside. Patient still has NG tube in place. She reports mild nausea but has not vomited in a couple of days. She has still not had a bowel movement but she started passing flatus this morning. She still has not attempted to eat. Her abdominal pain has improved greatly and she is now only complaining of abdominal soreness. She denies fevers or chills, stating she feels much better. She has been attempting to get up and walk as much as possible. Objective - Vital Signs/Intake and Output Vital Signs (last 24 hours): Temp Pulse Resp BP Pulse Ox 98.7 F 81 20 128/77 95 07/04/18 09:59 07/04/18 09:59 07/04/18 09:59 07/04/18 09:59 07/04/18 09:59 Intake and Output: 07/04/18 07/04/18 06:59 18:59 Output Total 200 Balance -200 - Medications Medications: Current Medications Amitriptyline HCl (Elavil) 40 mg PO HS [facility] Last Admin: 07/03/18 21:01 Dose: 40 mg Bupropion HCl (Wellbutrin) 150 mg NG BID [facility] Last Admin: 07/04/18 09:19 Dose: 150 mg Heparin Sodium (Porcine) (Heparin) 5,000 units SC Q8 [facility] Last Admin: 07/04/18 06:26 Dose: 5,000 units Ciprofloxacin (Cipro 400mg/200ml Dsw) 400 mg in 200 mls @ 133 mls/hr IVPB Q12H [facility]; Protocol Last Admin: 07/04/18 11:36 Dose: 133 mls/hr Folic Acid 1 mg/ Sodium (Chloride) 100.2 mls @ 60 mls/hr IV DAILY [facility] Last Admin: 07/04/18 09:19 Dose: 60 mls/hr Potassium Chloride 40 meq/ (Sodium Chloride) 1,020 mls @ 100 mls/hr IV .[id number] [facility] Last Admin: 07/04/18 10:37 Dose: 100 mls/hr Potassium Chloride (Potassium Chloride 20 Meq/100 Ml) 20 meq in 100 mls @ 50 mls/hr IVPB ONCE ONE Stop: 07/04/18 13:14 Last Admin: 07/04/18 11:35 Dose: 50 mls/hr Influenza Virus Vaccine (Fluzone Quad [id number]) 60 mcg IM .ONCE ONE Stop: 07/04/18 14:01 Lamotrigine (Lamictal) 200 mg PO DAILY [facility] Last Admin: 07/04/18 09:18 Dose: 200 mg Levothyroxine Sodium (Synthroid) 12.5 mcg IVP 0630 [facility] Last Admin: 07/04/18 06:26 Dose: 12.5 mcg Methotrexate (Methotrexate) 15 mg PO QWK [facility] Ondansetron HCl (Zofran Inj) 4 mg IVP Q6H PRN PRN Reason: Nausea/Vomiting Last Admin: 07/04/18 09:19 Dose: 4 mg Pantoprazole Sodium (Protonix Inj) 40 mg IVP DAILY [facility] Last Admin: 07/04/18 09:18 Dose: 40 mg Saliva Substitute (Mouth Kote 236 Ml) 0 ml MM 5XD PRN PRN Reason: DRY MOUTH Last Admin: 07/04/18 09:18 Dose: 1 spr - Labs Labs: 07/04/18 11:44 07/04/18 06:35 PT 10.9 SECONDS (9.7-12.2) 07/01/18 18:55 INR 1.0 07/01/18 18:55 APTT 30 SECONDS (21-34) 07/01/18 18:55 - Constitutional Appears: Non-toxic, No Acute Distress - Head Exam Head Exam: ATRAUMATIC, NORMOCEPHALIC - Eye Exam Eye Exam: Normal appearance - ENT Exam ENT Exam: Mucous Membranes Moist Additional comments: NG tube in place - 400cc output of thick orange colored fluid. currently on intermittent suction. - Respiratory Exam Respiratory Exam: Clear to Ausculation Bilateral, NORMAL BREATHING PATTERN. absent: Accessory Muscle Use, Rales, Rhonchi, Wheezes, Respiratory Distress - Cardiovascular Exam Cardiovascular Exam: REGULAR RHYTHM, +S1, +S2 - GI/Abdominal Exam GI & Abdominal Exam: Soft, Hypoactive Bowel Sounds. absent: Distended, Firm, Guarding, Rigid, Tenderness, Normal Bowel Sounds - Neurological Exam Neurological Exam: Alert, Awake, Oriented x3 - Psychiatric Exam Psychiatric exam: Normal Affect, Normal Mood - Skin Skin Exam: Dry, Warm Assessment and Plan - Assessment and Plan (Free Text) Plan: Small Bowel Obstruction likely 2/2 to adhesions (hx of multiple abdominal surgeries) General Surgery, Dr. Becky Smith GI Consulted, Dr. De La Torre Abd/Pelvis CT (07/01): * Findings consistent with small-bowel obstruction with transition point right lower quadrant of the abdomen. * Cholecystectomy. * Nodular left adrenal gland. Recommend followup noncontrast MRI of the adrenal glands. * Diverticulosis without radiographic evidence of acute diverticulitis. Obstruction Series (07/02): * Mild left basilar atelectasis and or scarring.. No evidence of mechanical bowel obstruction however findings suggest mild fecal retention/constipation. Abdomen X-ray (07/03): * Mild bibasilar atelectasis. * No evidence of acute mechanical bowel obstruction. Abdomen X-ray (07/04): * official report pending NGT in place - 400cc of bilious drainage. Abdominal exam showed no tenderness or guarding. Patient starting to pass flatus, no bowel movement. Will continue to monitor Medications: * Ciprofloxacin 400mg IVPB q12h * Zofran 4mg IVP q6h prn * Protonix 40mg IVP daily * NS w/K 40meq @100mL Hyponatremia (improving) hx of SIADH Nephrology consulted, Dr. Espinosa Hyponatremia labs pending * Urine Osmolality * Random Urine Sodium Hypothyroidism Continue Home Medication: * Synthroid 12.5mcg IVP daily Hx of Cervical Cancer s/p hysterectomy, b/l oopherectomy (seperate procedure) Continue Home Medication: * Methotrexate 15mg PO qWK Hx of Depression Continue Home Medication: * Amitriptyline 40mg PO HS * Bupropion (Wellbutrin) 150mg NG BID [facility] Heparin 5,000units SC q8h Protonix 40mg IVP daily DISPO: Nodular left adrenal gland. It is recommended that patient has a followup noncontrast MRI of the adrenal glands as an outpatient. All medical management per Dr. Manjinder Mendez Crystal PGY2
[2018-07-04] MEDS ORDERED: Influenza Vaccine 60 MCG/0.5 ML SYR (3 yr & up) IM ONE ×2 (14:00→18:00)
--- NOTE | 2018-07-04 14:34 | RAD ---
Date of service: 07/04/2018 HISTORY: SBO COMPARISON: 07/03/2018 FINDINGS: BOWEL: There is interval worsening of mildly dilated gas-filled small bowel loops. There is persistent large amount of stool in the ascending colon and moderate stool in the descending colon and rectum. There are differential air-fluid levels in the upper and mid abdomen. No free intraperitoneal air the nasogastric tube terminates in the stomach. BONES: Normal. OTHER FINDINGS: None. IMPRESSION: Findings are most compatible with acute small bowel obstruction, slightly worse since the prior examination.
[2018-07-04 14:41] LABS: OSMOLALITY,URINE 569 mosm/kg (300-1000)
--- NOTE | 2018-07-04 15:55 | CP.PCM.PN ---
Subjective - Date & Time of Evaluation Date of Evaluation: 07/04/18 Time of Evaluation: 06:05 - Subjective Subjective: General Surgery: Dr Margaret Smith Pt S&E. Had NGT clamped overnight. Complaining of increasing nausea and pain and requesting it be placed back to suction. Has not passed flatus or had BM. Immediate return of 500cc once placed on suction. Pt has been OOB to chair. Denies f/c, sob or palpitations. Na 127 today. Objective - Vital Signs/Intake and Output Vital Signs (last 24 hours): Temp Pulse Resp BP Pulse Ox 98.7 F 81 20 128/77 95 07/04/18 09:59 07/04/18 09:59 07/04/18 09:59 07/04/18 09:59 07/04/18 09:59 Intake and Output: 07/04/18 07/04/18 06:59 18:59 Output Total 200 Balance -200 - Medications Medications: Current Medications Amitriptyline HCl (Elavil) 40 mg PO HS [facility] Last Admin: 07/03/18 21:01 Dose: 40 mg Bupropion HCl (Wellbutrin) 150 mg NG BID [facility] Last Admin: 07/04/18 09:19 Dose: 150 mg Heparin Sodium (Porcine) (Heparin) 5,000 units SC Q8 [facility] Last Admin: 07/04/18 15:09 Dose: 5,000 units Ciprofloxacin (Cipro 400mg/200ml Dsw) 400 mg in 200 mls @ 133 mls/hr IVPB Q12H [facility]; Protocol Last Admin: 07/04/18 11:36 Dose: 133 mls/hr Folic Acid 1 mg/ Sodium (Chloride) 100.2 mls @ 60 mls/hr IV DAILY [facility] Last Admin: 07/04/18 09:19 Dose: 60 mls/hr Potassium Chloride 40 meq/ (Sodium Chloride) 1,020 mls @ 100 mls/hr IV .[id number] [facility] Last Admin: 07/04/18 10:37 Dose: 100 mls/hr Influenza Virus Vaccine (Fluzone Quad [id number]) 60 mcg IM .ONCE ONE Stop: 07/04/18 18:01 Lamotrigine (Lamictal) 200 mg PO DAILY [facility] Last Admin: 07/04/18 09:18 Dose: 200 mg Levothyroxine Sodium (Synthroid) 12.5 mcg IVP 0630 [facility] Last Admin: 07/04/18 06:26 Dose: 12.5 mcg Methotrexate (Methotrexate) 15 mg PO QWK [facility] Ondansetron HCl (Zofran Inj) 4 mg IVP Q6H PRN PRN Reason: Nausea/Vomiting Last Admin: 07/04/18 09:19 Dose: 4 mg Pantoprazole Sodium (Protonix Inj) 40 mg IVP DAILY [facility] Last Admin: 07/04/18 09:18 Dose: 40 mg Saliva Substitute (Mouth Kote 236 Ml) 0 ml MM 5XD PRN PRN Reason: DRY MOUTH Last Admin: 07/04/18 09:18 Dose: 1 spr - Labs Labs: 07/04/18 11:44 07/04/18 06:35 PT 10.9 SECONDS (9.7-12.2) 07/01/18 18:55 INR 1.0 07/01/18 18:55 APTT 30 SECONDS (21-34) 07/01/18 18:55 - Constitutional Appears: Non-toxic, No Acute Distress - Eye Exam Eye Exam: Normal appearance - Respiratory Exam Respiratory Exam: absent: Accessory Muscle Use, Respiratory Distress - Cardiovascular Exam Cardiovascular Exam: REGULAR RHYTHM. absent: Tachycardia - GI/Abdominal Exam GI & Abdominal Exam: Distended (improved), Soft, Tenderness (to deep palpation). absent: Firm, Guarding, Rigid - Rectal Exam Rectal Exam: absent: Fecal Impaction - Neurological Exam Neurological Exam: Alert, Awake, Oriented x3 - Psychiatric Exam Psychiatric exam: Normal Affect, Normal Mood Assessment and Plan - Assessment and Plan (Free Text) Assessment: 72F w/ hyponatremia 2/2 SIADH - w/ SBO Plan: cont NGT to LCS monitor output hyponatremia work up per nephro IVF Previously recommended TRAFFIC CONTROL OPERATOR consult Recommend repeat CTAP w/ PO contrast (omnipaque) - administer via NGT as pt aspiration risk if allowed to drink orally d/w Dr Luis Mari, PGY4
[2018-07-04] MEDS ORDERED: Iohexol 240 (50 ml) PO ONE (17:45)
[2018-07-04] MEDS ORDERED: Iodixanol 320 mg/ml 150 ml Bottle IV ONE (18:12)
[2018-07-05] MEDS: Ciprofloxacin 400mg/200ml D5W 400 MG/200 ML BAG IVPB SCH ×2 (00:26→14:38)
[2018-07-05 07:18] LABS: HEMOGLOBIN 11.3 g/dL (11.0-16.0); MEAN CELL VOLUME 96.6 fL (81.0-99.0); MEAN CORPUSCULAR HEMOGLOBIN 32.9 pg (27.0-31.0); MEAN PLATELET VOLUME 7.3 fL (7.2-11.7); RBC 3.44 Mil/uL (3.80-5.20); RED CELL DISTRIBUTION WIDTH 13.9 % (11.5-14.5); WHITE BLOOD COUNT 6.4 K/uL (4.8-10.8)
--- NOTE | 2018-07-05 08:00 | CP.PCM.PN ---
Addendum entered and electronically signed by Jerardo Light DO 07/05/18 11:22: Recommend electrolyte goal of K 4, Mg 2, Phos 3 Pt seen and examined w Dr. Smith Original Note: <Jerardo Light - Last Filed: 07/05/18 07:56> Subjective - Date & Time of Evaluation Date of Evaluation: 07/05/18 Time of Evaluation: 07:56 - Subjective Subjective: Surgery PT seen and examined. Pt had enema. Denies pain, BM or flatus. Reports nausea but no vomiting. Pt had CT w PO and IV contrast yesterday. Awaiting result. NGT to suction . 1.6 L over 24hrs. bilious output. Rebolledo in place 1.1 L /24hrs. ambulates. Objective - Vital Signs/Intake and Output Vital Signs (last 24 hours): Temp Pulse Resp BP Pulse Ox 98.3 F 97 H 20 126/76 98 07/05/18 07:00 07/05/18 07:00 07/05/18 07:00 07/05/18 07:00 07/05/18 07:00 Intake and Output: 07/05/18 07/05/18 06:59 18:59 Intake Total 750 Output Total 1700 Balance -950 - Medications Medications: Current Medications Amitriptyline HCl (Elavil) 40 mg PO HS [facility] Last Admin: 07/04/18 21:18 Dose: 40 mg Bupropion HCl (Wellbutrin) 150 mg NG BID [facility] Last Admin: 07/04/18 21:19 Dose: 150 mg Ciprofloxacin (Cipro) 500 mg PO Q12H [facility] Heparin Sodium (Porcine) (Heparin) 5,000 units SC Q8 [facility] Last Admin: 07/05/18 06:37 Dose: Not Given Folic Acid 1 mg/ Sodium (Chloride) 100.2 mls @ 60 mls/hr IV DAILY [facility] Last Admin: 07/04/18 09:19 Dose: 60 mls/hr Potassium Chloride 40 meq/ (Sodium Chloride) 1,020 mls @ 100 mls/hr IV .[id number] [facility] Last Admin: 07/04/18 21:20 Dose: 100 mls/hr Lamotrigine (Lamictal) 200 mg PO DAILY [facility] Last Admin: 07/04/18 09:18 Dose: 200 mg Levothyroxine Sodium (Synthroid) 12.5 mcg IVP 0630 [facility] Last Admin: 07/04/18 06:26 Dose: 12.5 mcg Methotrexate (Methotrexate) 15 mg PO QWK [facility] Ondansetron HCl (Zofran Inj) 4 mg IVP Q6H PRN PRN Reason: Nausea/Vomiting Last Admin: 07/04/18 21:20 Dose: 4 mg Pantoprazole Sodium (Protonix Ec Tab) 40 mg PO DAILY [facility] Saliva Substitute (Mouth Kote 236 Ml) 0 ml MM 5XD PRN PRN Reason: DRY MOUTH Last Admin: 07/04/18 09:18 Dose: 1 spr - Labs Labs: 07/05/18 07:11 07/04/18 06:35 PT 10.9 SECONDS (9.7-12.2) 07/01/18 18:55 INR 1.0 07/01/18 18:55 APTT 30 SECONDS (21-34) 07/01/18 18:55 - Constitutional Appears: No Acute Distress - Head Exam Head Exam: ATRAUMATIC, NORMAL INSPECTION, NORMOCEPHALIC - Eye Exam Eye Exam: EOMI, Normal appearance, PERRL Pupil Exam: NORMAL ACCOMODATION, PERRL - ENT Exam ENT Exam: Mucous Membranes Moist, Normal Exam Additional comments: NGT in place bilious 1.6L /24hrs 850cc/8hrs. on low cont suction . - Neck Exam Neck Exam: Full ROM, Normal Inspection - Respiratory Exam Respiratory Exam: NORMAL BREATHING PATTERN - Cardiovascular Exam Cardiovascular Exam: REGULAR RHYTHM, +S1, +S2. absent: Murmur - GI/Abdominal Exam GI & Abdominal Exam: Soft. absent: Distended, Firm, Guarding, Rigid, Tenderness - Exam Exam: NORMAL INSPECTION (Rebolledo in place ) - Extremities Exam Extremities Exam: Full ROM, Normal Capillary Refill, Normal Inspection. absent: Joint Swelling, Pedal Edema - Back Exam Back Exam: NORMAL INSPECTION - Neurological Exam Neurological Exam: Alert, Awake, CN II-XII Intact, Normal Gait, Oriented x3 - Psychiatric Exam Psychiatric exam: Normal Affect, Normal Mood - Skin Skin Exam: Dry, Intact, Normal Color, Warm Assessment and Plan - Assessment and Plan (Free Text) Assessment: 72F w/ hyponatremia 2/2 SIADH - w/ SBO Plan: cont NGT to LCS NPO monitor output hyponatremia work up per nephro Replete electrolyte PRN awaiting labs IVF Previously recommended [employer] consult awaiting official report for repeat CTAP w/ PO contrast (omnipaque) d/w Dr Smith <Becky Smith - Last Filed: 07/06/18 16:48> Objective - Vital Signs/Intake and Output Vital Signs (last 24 hours): Temp Pulse Resp BP Pulse Ox 98.0 F 108 H 20 127/77 97 07/06/18 07:00 07/06/18 12:56 07/06/18 07:00 07/06/18 07:00 07/06/18 07:00 Intake and Output: 07/06/18 07/06/18 06:59 18:59 Intake Total 0 1000 Output Total 1200 480 Balance -1200 520 - Medications Medications: Current Medications Acetaminophen (Tylenol 650mg/20.3ml Solution Ud) 650 mg PO Q6 PRN PRN Reason: headache or fever >100.4F Last Admin: 07/06/18 10:42 Dose: 650 mg Amitriptyline HCl (Elavil) 40 mg PO HS [facility] Last Admin: 07/05/18 22:02 Dose: 40 mg Bupropion HCl (Wellbutrin) 150 mg NG BID [facility] Last Admin: 07/06/18 10:32 Dose: 150 mg Heparin Sodium (Porcine) (Heparin) 5,000 units SC Q8 [facility] Last Admin: 07/06/18 14:05 Dose: 5,000 units Folic Acid 1 mg/ Sodium (Chloride) 100.2 mls @ 60 mls/hr IV DAILY [facility] Last Admin: 07/06/18 10:32 Dose: 60 mls/hr Potassium Chloride 40 meq/ (Sodium Chloride) 1,020 mls @ 100 mls/hr IV .[id number] [facility] Last Admin: 07/06/18 12:59 Dose: Not Given Ciprofloxacin (Cipro 400mg/200ml Dsw) 400 mg in 200 mls @ 133 mls/hr IVPB Q12H [facility]; Protocol Last Admin: 07/06/18 14:06 Dose: 133 mls/hr Lamotrigine (Lamictal) 200 mg PO DAILY [facility] Last Admin: 07/06/18 10:32 Dose: 200 mg Levothyroxine Sodium (Synthroid) 12.5 mcg IVP 0630 [facility] Last Admin: 10/03/18 06:34 Dose: 12.5 mcg Methotrexate (Methotrexate) 15 mg NG QWK@1200 [facility] Last Admin: 07/06/18 12:15 Dose: 15 mg Ondansetron HCl (Zofran Inj) 4 mg IVP Q6H PRN PRN Reason: Nausea/Vomiting Last Admin: 07/04/18 21:20 Dose: 4 mg Pantoprazole Sodium (Protonix Inj) 40 mg IVP DAILY [facility] Last Admin: 07/06/18 10:32 Dose: 40 mg Saliva Substitute (Mouth Kote 236 Ml) 0 ml MM 5XD PRN PRN Reason: DRY MOUTH Last Admin: 07/05/18 09:25 Dose: 1 spr - Labs Labs: 07/05/18 07:11 07/06/18 13:48 PT 10.9 SECONDS (9.7-12.2) 07/01/18 18:55 INR 1.0 07/01/18 18:55 APTT 30 SECONDS (21-34) 07/01/18 18:55 Assessment and Plan - Assessment and Plan (Free Text) Plan: I had a long phone conversation with Ms. Thompson's daughter, and documented power of estate planning attorney, Nessa this afternoon over the phone. We discussed the details of her past surgical history. Per patient's daughter Ms. Thompson underwent hysterectomy and unilateral salpingo-oophorectomy over 20 years ago for presumed cancer diagnosis in [place]. However she does not remember what type of cancer any pathology and no records are available for review. 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 Again, no medical records to confirm the diagnosis or pathology are available. In regards to her medical history, Mr. Thompson sees a medical doctor in [place] for her SIADH and chronic electrolyte abnormalities as well as maintenance of her neuropsych medications. We discussed the length the typical management for presumed adhesive small bowel obstruction. Typically the vast majority of patients with adhesive small bowel obstruction are able to be treated nonoperatively with NG tube decompression. However it is now been 72 hours since admission and she has failed to resolve and continues to have high NG tube output with ongoing electrolyte abnormalities. I expressed to Nessa that I would recommend operative exploration for her persistent small bowel obstruction despite NG tube decompression at this is only going to further lead to electrolyte derangements given the high output of her NG tube. We also discussed the other risks of high-grade small bowel obstruction that fails NG tube decompression including risk for aspiration, bowel ischemia, bowel perforation and peritonitis leading to sepsis. Although the patient is hemodynamically stable and does not have any abdominal peritonitis at this time, some slight tenderness diffusely, operative expiration would be best while she remains clinically well and not at a time if she were to acutely decompensate and it would become more of an emergent situation. I discussed that it is possible to attempt laparoscopic exploration however in these situations, given the degree of dilated small bowel, there would be increased risk of bowel injury she would more than likely require conversion to or an open exploration from the start. Surgery could possibly also include bowel resection and possible ostomy depending on intraoperative findings. Yoly Guevara understands these risks and expressed that she would like to wait and continue NG tube decompression to see if NGT can resolve this bowel obstruction to avoid the need to have any operation at this time. All of her questions were answered. We will continue to follow and do serial abdominal exams. Threshold for operative expiration would include hemodynamic instability, ongoing electrolyte abnormalities due to high NG tube output and continued failure to resolve her bowel obstruction despite adequate decompression, and abdominal peritonitis. Continue strict NPO. NGT to LIWS. Convert all possible medications to IV form as PO meds will not be absorbed given her high grade obstruction. Strict in's out's. Goal UOP 0.5cc/kg/hr. Rec D51/2NS +20K maintenance fluids. Replace NGT output 1:1 via crytalloid IVF. Goal K>4; Mg>2, Phos>3.
[2018-07-05 08:04] LABS: ALB/GLOB RATIO 1.3 (1.0-2.1); ALBUMIN 3.2 g/dL (3.5-5.0); ALT/SGPT 37 U/L (9-52); AST/SGOT 20 U/L (14-36); BLOOD UREA NITROGEN 5 mg/dL (7-17); GFR NON-AFRICAN AMERICAN > 60
--- NOTE | 2018-07-05 09:36 | CP.PCM.PN ---
Subjective - Date & Time of Evaluation Date of Evaluation: 07/05/18 Time of Evaluation: 09:33 - Subjective Subjective: seen and examined NPO, NG tube drained 1.6L pt c/o slight tenderness in abdomen, no BM /flatus. hx of abdominal adhesions. labs noted Objective - Vital Signs/Intake and Output Vital Signs (last 24 hours): Temp Pulse Resp BP Pulse Ox 98.3 F 97 H 20 126/76 98 07/05/18 07:00 07/05/18 07:00 07/05/18 07:00 07/05/18 07:00 07/05/18 07:00 Intake and Output: 07/05/18 07/05/18 06:59 18:59 Intake Total 750 Output Total 1700 Balance -950 - Medications Medications: Current Medications Amitriptyline HCl (Elavil) 40 mg PO HS [facility] Last Admin: 07/04/18 21:18 Dose: 40 mg Bupropion HCl (Wellbutrin) 150 mg NG BID [facility] Last Admin: 07/05/18 09:25 Dose: 150 mg Ciprofloxacin (Cipro) 500 mg PO Q12H [facility] Heparin Sodium (Porcine) (Heparin) 5,000 units SC Q8 [facility] Last Admin: 07/05/18 06:37 Dose: Not Given Folic Acid 1 mg/ Sodium (Chloride) 100.2 mls @ 60 mls/hr IV DAILY [facility] Last Admin: 07/05/18 09:25 Dose: 60 mls/hr Potassium Chloride 40 meq/ (Sodium Chloride) 1,020 mls @ 100 mls/hr IV .[id number] [facility] Last Admin: 07/05/18 09:27 Dose: 100 mls/hr Lamotrigine (Lamictal) 200 mg PO DAILY [facility] Last Admin: 07/05/18 09:25 Dose: 200 mg Levothyroxine Sodium (Synthroid) 12.5 mcg IVP 0630 [facility] Last Admin: 07/04/18 06:26 Dose: 12.5 mcg Methotrexate (Methotrexate) 15 mg PO QWK [facility] Ondansetron HCl (Zofran Inj) 4 mg IVP Q6H PRN PRN Reason: Nausea/Vomiting Last Admin: 07/04/18 21:20 Dose: 4 mg Pantoprazole Sodium (Protonix Inj) 40 mg IVP DAILY [facility] Saliva Substitute (Mouth Kote 236 Ml) 0 ml MM 5XD PRN PRN Reason: DRY MOUTH Last Admin: 07/05/18 09:25 Dose: 1 spr - Labs Labs: 07/05/18 07:11 07/05/18 07:11 PT 10.9 SECONDS (9.7-12.2) 07/01/18 18:55 INR 1.0 07/01/18 18:55 APTT 30 SECONDS (21-34) 07/01/18 18:55 - Constitutional Appears: Non-toxic, No Acute Distress, Chronically Ill - Head Exam Head Exam: NORMAL INSPECTION - Eye Exam Eye Exam: Normal appearance Pupil Exam: PERRL - ENT Exam ENT Exam: Mucous Membranes Dry, Mucous Membranes Moist, Normal Exam - Neck Exam Neck Exam: Full ROM, Normal Inspection - Respiratory Exam Respiratory Exam: Clear to Ausculation Bilateral, NORMAL BREATHING PATTERN - Cardiovascular Exam Cardiovascular Exam: REGULAR RHYTHM, RRR - GI/Abdominal Exam GI & Abdominal Exam: Distended, Soft, Diminished Bowel Sounds - Extremities Exam Extremities Exam: Normal Inspection - Back Exam Back Exam: NORMAL INSPECTION - Neurological Exam Neurological Exam: Alert, Awake, Oriented x3 - Skin Skin Exam: Dry, Intact Assessment and Plan (1) Hypokalemia Status: Acute (2) Hyponatremia Status: Acute (3) SIADH (syndrome of inappropriate ADH production) Status: Acute (4) Small bowel obstruction Status: Acute - Assessment and Plan (Free Text) Assessment: na slowly improving. consider tolvaptan if trends down on iv fluids
--- NOTE | 2018-07-05 09:45 | CP.PCM.PN ---
Subjective - Date & Time of Evaluation Date of Evaluation: 07/05/18 Time of Evaluation: 09:45 - Subjective Subjective: PGY2 Medicine Note for Dr. Dunbar Patient seen and examined this morning at bedside. Patient still has NG tube in place, low continuous suction with 1.6L output over 24 hours. She is still experiencing abdominal soreness and minimal to no pain. She still has not had a bowel movement and denies passing flatus. She feels her abdomen starting to move. She has been attempting to get up and walk as much as possible. She denies fevers or chills, stating she feels much better. She has been attempting to get up and walk as much as possible. Objective - Vital Signs/Intake and Output Vital Signs (last 24 hours): Temp Pulse Resp BP Pulse Ox 98.3 F 97 H 20 126/76 98 07/05/18 07:00 07/05/18 07:00 07/05/18 07:00 07/05/18 07:00 07/05/18 07:00 Intake and Output: 07/05/18 07/05/18 06:59 18:59 Intake Total 750 Output Total 1700 Balance -950 - Medications Medications: Current Medications Amitriptyline HCl (Elavil) 40 mg PO HS [facility] Last Admin: 07/04/18 21:18 Dose: 40 mg Bupropion HCl (Wellbutrin) 150 mg NG BID [facility] Last Admin: 07/05/18 09:25 Dose: 150 mg Ciprofloxacin (Cipro) 500 mg PO Q12H [facility] Heparin Sodium (Porcine) (Heparin) 5,000 units SC Q8 [facility] Last Admin: 07/05/18 06:37 Dose: Not Given Folic Acid 1 mg/ Sodium (Chloride) 100.2 mls @ 60 mls/hr IV DAILY [facility] Last Admin: 07/05/18 09:25 Dose: 60 mls/hr Potassium Chloride 40 meq/ (Sodium Chloride) 1,020 mls @ 100 mls/hr IV .[id number] [facility] Last Admin: 07/05/18 09:27 Dose: 100 mls/hr Lamotrigine (Lamictal) 200 mg PO DAILY [facility] Last Admin: 07/05/18 09:25 Dose: 200 mg Levothyroxine Sodium (Synthroid) 12.5 mcg IVP 0630 [facility] Last Admin: 07/04/18 06:26 Dose: 12.5 mcg Methotrexate (Methotrexate) 15 mg PO QWK [facility] Ondansetron HCl (Zofran Inj) 4 mg IVP Q6H PRN PRN Reason: Nausea/Vomiting Last Admin: 07/04/18 21:20 Dose: 4 mg Pantoprazole Sodium (Protonix Inj) 40 mg IVP DAILY [facility] Saliva Substitute (Mouth Kote 236 Ml) 0 ml MM 5XD PRN PRN Reason: DRY MOUTH Last Admin: 07/05/18 09:25 Dose: 1 spr - Labs Labs: 07/05/18 07:11 07/05/18 07:11 PT 10.9 SECONDS (9.7-12.2) 07/01/18 18:55 INR 1.0 07/01/18 18:55 APTT 30 SECONDS (21-34) 07/01/18 18:55 - Additional Findings Additional findings: - Constitutional Appears: Non-toxic, No Acute Distress - Head Exam Head Exam: ATRAUMATIC, NORMOCEPHALIC - Eye Exam Eye Exam: Normal appearance - ENT Exam ENT Exam: Mucous Membranes Moist Additional comments: NG tube in place - 200cc output of bilious fluid. currently on continuos low suction. - Respiratory Exam Respiratory Exam: Clear to Ausculation Bilateral, NORMAL BREATHING PATTERN. absent: Accessory Muscle Use, Rales, Rhonchi, Wheezes, Respiratory Distress - Cardiovascular Exam Cardiovascular Exam: REGULAR RHYTHM, +S1, +S2 - GI/Abdominal Exam GI & Abdominal Exam: Soft, Hypoactive Bowel Sounds. absent: Distended, Firm, Guarding, Rigid, Tenderness, Normal Bowel Sounds - Neurological Exam Neurological Exam: Alert, Awake, Oriented x3 - Psychiatric Exam Psychiatric exam: Normal Affect, Normal Mood - Skin Skin Exam: Dry, Warm Assessment and Plan - Assessment and Plan (Free Text) Plan: Small Bowel Obstruction likely 2/2 to adhesions (hx of multiple abdominal surgeries) General Surgery, Dr. Becky Smith GI Consulted, Dr. De La Torre Abd/Pelvis CT (07/01): * Findings consistent with small-bowel obstruction with transition point right lower quadrant of the abdomen. * Cholecystectomy. * Nodular left adrenal gland. Recommend followup noncontrast MRI of the adrenal glands. * Diverticulosis without radiographic evidence of acute diverticulitis. Obstruction Series (07/02): * Mild left basilar atelectasis and or scarring.. No evidence of mechanical bowel obstruction however findings suggest mild fecal retention/constipation. Abdomen X-ray (07/03): * Mild bibasilar atelectasis. * No evidence of acute mechanical bowel obstruction. Abdomen X-ray (07/04): * Findings are most compatible with acute small bowel obstruction, slightly worse since the prior examination. Abd/Pelvis CT w/ PO and IV contrast (07/04/18): * Persistent pattern positive for mechanical distal small bowel obstruction with collapsed ileum and otherwise dilated small-bowel loops appreciated stomach is partially decompressed by nasogastric tube oral contrast partially distending the stomach. Poor oral contrast transit is seen through small bowel. No free intra peritoneal gas collection or ascites appreciable at this time. Continued surgical evaluation advised. NGT in place - 200cc of bilious drainage. Abdominal exam showed no tenderness or guarding. No bowel movement, denies flatus. Will continue to monitor Medications: * Ciprofloxacin 400mg IVPB q12h * Zofran 4mg IVP q6h prn * Protonix 40mg IVP daily * NS w/K 40meq @100mL Hyponatremia (improving) hx of SIADH Nephrology consulted, Dr. Espinosa Hyponatremia labs pending * Urine Osmolality * Random Urine Sodium Hypothyroidism Continue Home Medication: * Synthroid 12.5mcg IVP daily Hx of Cervical Cancer s/p hysterectomy, b/l oopherectomy (seperate procedure) Continue Home Medication: * Methotrexate 15mg PO qWK Hx of Depression Continue Home Medication: * Amitriptyline 40mg PO HS * Bupropion (Wellbutrin) 150mg NG BID [facility] Heparin 5,000units SC q8h Protonix 40mg IVP daily PT DISPO: Patient is still obstructed. Discussed with patient and her daughter (POA) about current plan to wait and see approach to current obstruction. Patient and daughter both are very hesitant to surgery but are willing if it becomes necessary. They prefer the non-surgical route with continue NGT suction at this time. Patient also was found to have nodular left adrenal gland. It is recommended that patient has a followup noncontrast MRI of the adrenal glands as an outpatient. All medical management per Dr. Manjinder Mendez Crystal PGY2
[2018-07-05] MEDS ORDERED: Pantoprazole 40 mg EC Tab PO SCH (10:00)
--- NOTE | 2018-07-05 10:32 | CP.PCM.PN ---
Subjective - Date & Time of Evaluation Date of Evaluation: 07/05/18 Time of Evaluation: 10:30 - Subjective Subjective: Patient feeling better. Passing flatus but no stool Repeat CT done showing SBO due to adhesions but not officially reported No N/V, NGT clamped at present Objective - Vital Signs/Intake and Output Vital Signs (last 24 hours): Temp Pulse Resp BP Pulse Ox 98.3 F 97 H 20 126/76 98 07/05/18 07:00 07/05/18 07:00 07/05/18 07:00 07/05/18 07:00 07/05/18 07:00 Intake and Output: 07/05/18 07/05/18 06:59 18:59 Intake Total 750 Output Total 1700 Balance -950 - Medications Medications: Current Medications Amitriptyline HCl (Elavil) 40 mg PO HS [facility] Last Admin: 07/04/18 21:18 Dose: 40 mg Bupropion HCl (Wellbutrin) 150 mg NG BID [facility] Last Admin: 07/05/18 09:25 Dose: 150 mg Ciprofloxacin (Cipro) 500 mg PO Q12H [facility] Heparin Sodium (Porcine) (Heparin) 5,000 units SC Q8 [facility] Last Admin: 07/05/18 06:37 Dose: Not Given Folic Acid 1 mg/ Sodium (Chloride) 100.2 mls @ 60 mls/hr IV DAILY [facility] Last Admin: 07/05/18 09:25 Dose: 60 mls/hr Potassium Chloride 40 meq/ (Sodium Chloride) 1,020 mls @ 100 mls/hr IV .[id number] [facility] Last Admin: 07/05/18 09:27 Dose: 100 mls/hr Lamotrigine (Lamictal) 200 mg PO DAILY [facility] Last Admin: 07/05/18 09:25 Dose: 200 mg Levothyroxine Sodium (Synthroid) 12.5 mcg IVP 0630 [facility] Last Admin: 07/04/18 06:26 Dose: 12.5 mcg Methotrexate (Methotrexate) 15 mg PO QWK [facility] Ondansetron HCl (Zofran Inj) 4 mg IVP Q6H PRN PRN Reason: Nausea/Vomiting Last Admin: 07/04/18 21:20 Dose: 4 mg Pantoprazole Sodium (Protonix Inj) 40 mg IVP DAILY [facility] Saliva Substitute (Mouth Kote 236 Ml) 0 ml MM 5XD PRN PRN Reason: DRY MOUTH Last Admin: 07/05/18 09:25 Dose: 1 spr - Labs Labs: 07/05/18 07:11 07/05/18 07:11 PT 10.9 SECONDS (9.7-12.2) 07/01/18 18:55 INR 1.0 07/01/18 18:55 APTT 30 SECONDS (21-34) 07/01/18 18:55 - Constitutional Appears: No Acute Distress - Head Exam Head Exam: ATRAUMATIC, NORMOCEPHALIC - Eye Exam Eye Exam: EOMI, PERRL - Respiratory Exam Respiratory Exam: NORMAL BREATHING PATTERN - Cardiovascular Exam Cardiovascular Exam: REGULAR RHYTHM, +S1 - GI/Abdominal Exam GI & Abdominal Exam: Soft, Hypoactive Bowel Sounds. absent: Guarding, [place]ness, Mass, Rebound - Extremities Exam Extremities Exam: Normal Inspection Assessment and Plan (1) Small bowel obstruction due to adhesions Assessment & Plan: Surgical follow-up and possible need for laparotomy when metabolically stable. Renal function and Na continue to improve Status: Acute (2) Acute renal failure Assessment & Plan: Resolved with hydration Status: Resolved (3) SIADH (syndrome of inappropriate ADH production) Assessment & Plan: Na continues to improve. Renal follow up. Status: Acute
--- NOTE | 2018-07-05 11:51 | CT ---
Date of service: 07/04/2018 PROCEDURE: CT Abdomen and Pelvis with contrast HISTORY: SBO COMPARISON: Noncontrast abdomen and pelvis CT examination 07/01/2018. TECHNIQUE: Following oral and intravenous contrast administration, a CT examination of the abdomen and pelvis performed from the domes of the diaphragms to the symphysis pubis with reformatted datasets provided not only axial but also sagittal and coronal series. Coronal and sagittal reformats were generated. Contrast dose: Visipaque 320, 100 cc Radiation dose: Total exam DLP = 453.83 mGy-cm. This CT exam was performed using one or more of the following dose reduction techniques: Automated exposure control, adjustment of the mA and/or kV according to patient size, and/or use of iterative reconstruction technique. FINDINGS: LOWER THORAX: Nasogastric tube identified inserted terminating in gastric antrum. LIVER: Homogeneous enhancement seen throughout the liver. Minimal intrahepatic biliary dilatation is appreciate which felt to be a function of prior cholecystectomy. Common bile duct appears normal caliber throughout. No radiodense choledocholithiasis. GALLBLADDER AND BILE DUCTS: Prior cholecystectomy. PANCREAS: Unremarkable. No gross lesion or ductal dilatation. SPLEEN: Unremarkable. ADRENALS: Unremarkable. No mass. KIDNEYS AND URETERS: Minimal cortical defects are seen at the right kidney upper pole antral laterally, suggestive of tiny chronic infarcts. The right kidney is otherwise unremarkable. There are small lucency seen the left kidney which too small to characterize primarily at the mid and lower pole regions. No obstructive uropathy bilaterally. Potential punctate intrarenal calculus lower pole right kidney, nonobstructive. None are identified at the left. VASCULATURE: Unremarkable. No aortic aneurysm. BOWEL: There is persistent small bowel dilatation again appreciated diffusely with only limited oral contrast transit. Terminal ileum remains completely collapsed with retained fecal material scattered throughout proximal large bowel more so than distal large bowel in a pattern remains suggestive of mechanical distal small bowel obstruction. The exact etiology is not clear. Nasogastric tube is identified in the stomach decompressing out partially. Retained oral contrast material mainly is seen in the stomach and proximal small bowel at this time. Stable nonacute sigmoid diverticular reiterated. APPENDIX: No CT evidence of appendicitis. PERITONEUM: Unremarkable. No free fluid. No free air. LYMPH NODES: Unremarkable. No enlarged lymph nodes. BLADDER: Tyler catheter partially decompresses the urinary bladder with the bulb identified within its lumen. REPRODUCTIVE: Prior hysterectomy reiterated. BONES: No acute fracture. OTHER FINDINGS: None. IMPRESSION: Persistent pattern positive for mechanical distal small bowel obstruction with collapsed ileum and otherwise dilated small-bowel loops appreciated stomach is partially decompressed by nasogastric tube oral contrast partially distending the stomach. Poor oral contrast transit is seen through small bowel. No free intra peritoneal gas collection or ascites appreciable at this time. Continued surgical evaluation advised. Other lesser findings as discussed above, reiterated. Concordant preliminary report by baldomero Stewart, 07/04/2018.
--- NOTE | 2018-07-05 16:14 | RAD ---
Date of service: 07/05/2018 HISTORY: evaluate SBO COMPARISON: CT abdomen and pelvis 07/04/2018 FINDINGS: BOWEL: Right stool retention Few small bowel loops the distal segment are probably top-normal in caliber NG tube in gastric antral location Right upper quadrant post cholecystectomy clips BONES: Lumbar spondylosis and L4-5 and L5-S1 facet hypertrophic arthrosis. 18 mm sclerotic appearing lesion projects over the right iliac bone borders the SI joint noted on bone windows of CT. No cortical interruption. Probably benign incidental yet prominent bone island OTHER FINDINGS: None. IMPRESSION: No bowel obstruction Other findings as above.
[2018-07-05] MEDS: Acetaminophen 650mg/20.3ml solution UD PO PRN (17:20)
[2018-07-06] MEDS: Ciprofloxacin 400mg/200ml D5W 400 MG/200 ML BAG IVPB SCH ×2 (02:19→14:06)
[2018-07-06] MEDS: Levothyroxine 100 mcg (0.1 mg) Inj IVP SCH (06:34)
[2018-07-06] MEDS: Acetaminophen 650mg/20.3ml solution UD PO PRN (10:42)
--- NOTE | 2018-07-06 11:27 | CP.PCM.PN ---
Subjective - Date & Time of Evaluation Date of Evaluation: 07/06/18 Time of Evaluation: 11:26 - Subjective Subjective: No stool but more flatus, no pain. Objective - Vital Signs/Intake and Output Vital Signs (last 24 hours): Temp Pulse Resp BP Pulse Ox 98.0 F 89 20 127/77 97 07/06/18 07:00 07/06/18 08:00 07/06/18 07:00 07/06/18 07:00 07/06/18 07:00 Intake and Output: 07/06/18 07/06/18 06:59 18:59 Intake Total 0 Output Total 1200 Balance -1200 - Medications Medications: Current Medications Acetaminophen (Tylenol 650mg/20.3ml Solution Ud) 650 mg PO Q6 PRN PRN Reason: headache or fever >100.4F Last Admin: 07/06/18 10:42 Dose: 650 mg Amitriptyline HCl (Elavil) 40 mg PO HS [facility] Last Admin: 07/05/18 22:02 Dose: 40 mg Bupropion HCl (Wellbutrin) 150 mg NG BID [facility] Last Admin: 07/06/18 10:32 Dose: 150 mg Heparin Sodium (Porcine) (Heparin) 5,000 units SC Q8 [facility] Last Admin: 07/06/18 06:30 Dose: 5,000 units Folic Acid 1 mg/ Sodium (Chloride) 100.2 mls @ 60 mls/hr IV DAILY [facility] Last Admin: 07/06/18 10:32 Dose: 60 mls/hr Potassium Chloride 40 meq/ (Sodium Chloride) 1,020 mls @ 100 mls/hr IV .[id number] [facility] Last Admin: 07/06/18 10:32 Dose: 100 mls/hr Ciprofloxacin (Cipro 400mg/200ml Dsw) 400 mg in 200 mls @ 133 mls/hr IVPB Q12H [facility]; Protocol Last Admin: 07/06/18 02:19 Dose: 133 mls/hr Lamotrigine (Lamictal) 200 mg PO DAILY [facility] Last Admin: 07/06/18 10:32 Dose: 200 mg Levothyroxine Sodium (Synthroid) 12.5 mcg IVP 0630 [facility] Last Admin: 07/06/18 06:34 Dose: 12.5 mcg Methotrexate (Methotrexate) 15 mg NG QWK@1200 [facility] Ondansetron HCl (Zofran Inj) 4 mg IVP Q6H PRN PRN Reason: Nausea/Vomiting Last Admin: 07/04/18 21:20 Dose: 4 mg Pantoprazole Sodium (Protonix Inj) 40 mg IVP DAILY [facility] Last Admin: 07/06/18 10:32 Dose: 40 mg Saliva Substitute (Mouth Kote 236 Ml) 0 ml MM 5XD PRN PRN Reason: DRY MOUTH Last Admin: 07/05/18 09:25 Dose: 1 spr - Labs Labs: 07/05/18 07:11 07/05/18 07:11 PT 10.9 SECONDS (9.7-12.2) 07/01/18 18:55 INR 1.0 07/01/18 18:55 APTT 30 SECONDS (21-34) 07/01/18 18:55 - Constitutional Appears: No Acute Distress - Head Exam Head Exam: ATRAUMATIC, NORMOCEPHALIC Additional comments: NGT 300cc bilious material - Respiratory Exam Respiratory Exam: NORMAL BREATHING PATTERN - Cardiovascular Exam Cardiovascular Exam: REGULAR RHYTHM - GI/Abdominal Exam GI & Abdominal Exam: Soft, Hypoactive Bowel Sounds. absent: Distended, Tenderness, Mass, Rebound Assessment and Plan (1) Small bowel obstruction due to adhesions Assessment & Plan: Surgical follow up Trial of clear liquids with NGT clamped Consider UGI/sbs series if needed Status: Acute (2) Acute renal failure Status: Resolved (3) SIADH (syndrome of inappropriate ADH production) Assessment & Plan: repeat CMP, renal follow up. Status: Acute
--- NOTE | 2018-07-06 13:48 | CP.PCM.PN ---
Subjective - Date & Time of Evaluation Date of Evaluation: 07/06/18 Time of Evaluation: 13:45 - Subjective Subjective: starting clear liquid diet NGT still in place- with drainage Na 128- slow improvement Remains on NS fluids urine parameters c/w SIADH Objective - Vital Signs/Intake and Output Vital Signs (last 24 hours): Temp Pulse Resp BP Pulse Ox 98.0 F 108 H 20 127/77 97 07/06/18 07:00 07/06/18 12:56 07/06/18 07:00 07/06/18 07:00 07/06/18 07:00 Intake and Output: 07/06/18 07/06/18 06:59 18:59 Intake Total 0 Output Total 1200 Balance -1200 - Medications Medications: Current Medications Acetaminophen (Tylenol 650mg/20.3ml Solution Ud) 650 mg PO Q6 PRN PRN Reason: headache or fever >100.4F Last Admin: 07/06/18 10:42 Dose: 650 mg Amitriptyline HCl (Elavil) 40 mg PO HS [facility] Last Admin: 07/05/18 22:02 Dose: 40 mg Bupropion HCl (Wellbutrin) 150 mg NG BID [facility] Last Admin: 07/06/18 10:32 Dose: 150 mg Heparin Sodium (Porcine) (Heparin) 5,000 units SC Q8 [facility] Last Admin: 07/06/18 06:30 Dose: 5,000 units Folic Acid 1 mg/ Sodium (Chloride) 100.2 mls @ 60 mls/hr IV DAILY [facility] Last Admin: 07/06/18 10:32 Dose: 60 mls/hr Potassium Chloride 40 meq/ (Sodium Chloride) 1,020 mls @ 100 mls/hr IV .[id number] [facility] Last Admin: 07/06/18 12:59 Dose: Not Given Ciprofloxacin (Cipro 400mg/200ml Dsw) 400 mg in 200 mls @ 133 mls/hr IVPB Q12H [facility]; Protocol Last Admin: 07/06/18 02:19 Dose: 133 mls/hr Lamotrigine (Lamictal) 200 mg PO DAILY [facility] Last Admin: 07/06/18 10:32 Dose: 200 mg Levothyroxine Sodium (Synthroid) 12.5 mcg IVP 0630 [facility] Last Admin: 07/06/18 06:34 Dose: 12.5 mcg Methotrexate (Methotrexate) 15 mg NG QWK@1200 [facility] Last Admin: 07/06/18 12:15 Dose: 15 mg Ondansetron HCl (Zofran Inj) 4 mg IVP Q6H PRN PRN Reason: Nausea/Vomiting Last Admin: 07/04/18 21:20 Dose: 4 mg Pantoprazole Sodium (Protonix Inj) 40 mg IVP DAILY [facility] Last Admin: 07/06/18 10:32 Dose: 40 mg Saliva Substitute (Mouth Kote 236 Ml) 0 ml MM 5XD PRN PRN Reason: DRY MOUTH Last Admin: 07/05/18 09:25 Dose: 1 spr - Labs Labs: 07/05/18 07:11 07/05/18 07:11 PT 10.9 SECONDS (9.7-12.2) 07/01/18 18:55 INR 1.0 07/01/18 18:55 APTT 30 SECONDS (21-34) 07/01/18 18:55 - Constitutional Appears: No Acute Distress, Chronically Ill - Head Exam Head Exam: ATRAUMATIC, NORMAL INSPECTION - Eye Exam Eye Exam: EOMI, Normal appearance - Neck Exam Neck Exam: Normal Inspection. absent: Tenderness - Respiratory Exam Respiratory Exam: Clear to Ausculation Bilateral, NORMAL BREATHING PATTERN - Cardiovascular Exam Cardiovascular Exam: REGULAR RHYTHM, +S1 - GI/Abdominal Exam GI & Abdominal Exam: Soft, Tenderness - Extremities Exam Extremities Exam: Normal Inspection. absent: Tenderness - Neurological Exam Neurological Exam: Alert, CN II-XII Intact - Skin Skin Exam: Dry, Warm Assessment and Plan (1) Acute renal failure Status: Resolved (2) Chronic depression Status: Acute (3) Hyponatremia Status: Acute (4) SIADH (syndrome of inappropriate ADH production) Status: Acute (5) Small bowel obstruction Status: Acute - Assessment and Plan (Free Text) Plan: Continue IV fluids monitor lytes closely Advance diet as per GI
--- NOTE | 2018-07-06 14:35 | CP.PCM.PN ---
Subjective - Date & Time of Evaluation Date of Evaluation: 07/06/18 Time of Evaluation: 07:00 - Subjective Subjective: PGY2 Medicine Note for Dr. Dunbar Patient seen and examined at bedside and in no acute distress. Patient's NG tube to be clamped and patient to start on clear liquid diet trial. Patient has no had a bowel movement, but is having increased gas. Patient denies abdominal pain. Objective - Vital Signs/Intake and Output Vital Signs (last 24 hours): Temp Pulse Resp BP Pulse Ox 98.0 F 108 H 20 127/77 97 07/06/18 07:00 07/06/18 12:56 07/06/18 07:00 07/06/18 07:00 07/06/18 07:00 Intake and Output: 07/06/18 07/06/18 06:59 18:59 Intake Total 0 Output Total 1200 Balance -1200 - Medications Medications: Current Medications Acetaminophen (Tylenol 650mg/20.3ml Solution Ud) 650 mg PO Q6 PRN PRN Reason: headache or fever >100.4F Last Admin: 07/06/18 10:42 Dose: 650 mg Amitriptyline HCl (Elavil) 40 mg PO HS [facility] Last Admin: 07/05/18 22:02 Dose: 40 mg Bupropion HCl (Wellbutrin) 150 mg NG BID [facility] Last Admin: 07/06/18 10:32 Dose: 150 mg Heparin Sodium (Porcine) (Heparin) 5,000 units SC Q8 [facility] Last Admin: 07/06/18 14:05 Dose: 5,000 units Folic Acid 1 mg/ Sodium (Chloride) 100.2 mls @ 60 mls/hr IV DAILY [facility] Last Admin: 07/06/18 10:32 Dose: 60 mls/hr Potassium Chloride 40 meq/ (Sodium Chloride) 1,020 mls @ 100 mls/hr IV .[id number] [facility] Last Admin: 07/06/18 12:59 Dose: Not Given Ciprofloxacin (Cipro 400mg/200ml Dsw) 400 mg in 200 mls @ 133 mls/hr IVPB Q12H [facility]; Protocol Last Admin: 07/06/18 14:06 Dose: 133 mls/hr Lamotrigine (Lamictal) 200 mg PO DAILY [facility] Last Admin: 07/06/18 10:32 Dose: 200 mg Levothyroxine Sodium (Synthroid) 12.5 mcg IVP 0630 [facility] Last Admin: 07/06/18 06:34 Dose: 12.5 mcg Methotrexate (Methotrexate) 15 mg NG QWK@1200 [facility] Last Admin: 07/06/18 12:15 Dose: 15 mg Ondansetron HCl (Zofran Inj) 4 mg IVP Q6H PRN PRN Reason: Nausea/Vomiting Last Admin: 07/04/18 21:20 Dose: 4 mg Pantoprazole Sodium (Protonix Inj) 40 mg IVP DAILY [facility] Last Admin: 07/06/18 10:32 Dose: 40 mg Saliva Substitute (Mouth Kote 236 Ml) 0 ml MM 5XD PRN PRN Reason: DRY MOUTH Last Admin: 07/05/18 09:25 Dose: 1 spr - Labs Labs: 07/05/18 07:11 07/06/18 13:48 PT 10.9 SECONDS (9.7-12.2) 07/01/18 18:55 INR 1.0 07/01/18 18:55 APTT 30 SECONDS (21-34) 07/01/18 18:55 - Additional Findings Additional findings: - Constitutional Appears: Non-toxic, No Acute Distress - Head Exam Head Exam: ATRAUMATIC, NORMOCEPHALIC - Eye Exam Eye Exam: Normal appearance - ENT Exam ENT Exam: Mucous Membranes Moist Additional comments: NG tube in place -clamped - Respiratory Exam Respiratory Exam: Clear to Ausculation Bilateral, NORMAL BREATHING PATTERN. absent: Accessory Muscle Use, Rales, Rhonchi, Wheezes, Respiratory Distress - Cardiovascular Exam Cardiovascular Exam: REGULAR RHYTHM, +S1, +S2 - GI/Abdominal Exam GI & Abdominal Exam: Soft, Hypoactive Bowel Sounds. absent: Distended, Firm, Guarding, Rigid, Tenderness, Normal Bowel Sounds - Neurological Exam Neurological Exam: Alert, Awake, Oriented x3 - Psychiatric Exam Psychiatric exam: Normal Affect, Normal Mood - Skin Skin Exam: Dry, Warm Assessment and Plan - Assessment and Plan (Free Text) Assessment: Small Bowel Obstruction likely 2/2 to adhesions (hx of multiple abdominal surgeries) General Surgery, Dr. Becky Smith GI Consulted, Dr. De La Torre Abd/Pelvis CT (07/01): * Findings consistent with small-bowel obstruction with transition point right lower quadrant of the abdomen. * Cholecystectomy. * Nodular left adrenal gland. Recommend followup noncontrast MRI of the adrenal glands. * Diverticulosis without radiographic evidence of acute diverticulitis. Obstruction Series (07/02): * Mild left basilar atelectasis and or scarring.. No evidence of mechanical bowel obstruction however findings suggest mild fecal retention/constipation. Abdomen X-ray (07/03): * Mild bibasilar atelectasis. * No evidence of acute mechanical bowel obstruction. Abdomen X-ray (07/04): * Findings are most compatible with acute small bowel obstruction, slightly worse since the prior examination. Abd/Pelvis CT w/ PO and IV contrast (07/04/18): * Persistent pattern positive for mechanical distal small bowel obstruction with collapsed ileum and otherwise dilated small-bowel loops appreciated stomach is partially decompressed by nasogastric tube oral contrast partially distending the stomach. Poor oral contrast transit is seen through small bowel. No free intra peritoneal gas collection or ascites appreciable at this time. Continued surgical evaluation advised. NGT in place - clamped, trial of clear liquids on 07/06 Abdominal exam showed no tenderness or guarding. No bowel movement, admits to flatus . Will continue to monitor Medications: * Ciprofloxacin 400mg IVPB q12h * Zofran 4mg IVP q6h prn * Protonix 40mg IVP daily * NS w/K 40meq @100mL Hyponatremia (improving) hx of SIADH Nephrology consulted, Dr. Espinosa * NS w/K 40meq @100mL Hyponatremia labs pending * Urine Osmolality * Random Urine Sodium Hypothyroidism Continue Home Medication: * Synthroid 12.5mcg IVP daily Hx of Cervical Cancer s/p hysterectomy, b/l oopherectomy (seperate procedure) Continue Home Medication: * Methotrexate 15mg PO qWK Hx of Depression Continue Home Medication: * Amitriptyline 40mg PO HS * Bupropion (Wellbutrin) 150mg NG BID [facility] Heparin 5,000units SC q8h Protonix 40mg IVP daily PT DISPO: Patient is improving. Discussed with patient and her daughter (POA) about current plan to wait and see approach to current obstruction. Patient and daughter both are very hesitant to surgery but are willing if it becomes necessary. They prefer the non-surgical route with continue NGT suction at this time. Patient also was found to have nodular left adrenal gland. It is recomm ended that patient has a followup noncontrast MRI of the adrenal glands as an outpatient. All medical management per Dr. Dunbar
[2018-07-06 15:30] LABS: ALB/GLOB RATIO 1.4 (1.0-2.1); ALBUMIN 4.1 g/dL (3.5-5.0); ALT/SGPT 37 U/L (9-52); AST/SGOT 35 U/L (14-36); BLOOD UREA NITROGEN 6 mg/dL (7-17); CALCIUM 9.1 mg/dl (8.6-10.4); GFR NON-AFRICAN AMERICAN > 60
--- NOTE | 2018-07-06 16:05 | CP.PCM.PN ---
<Jerardo Light - Last Filed: 07/06/18 16:00> Subjective - Date & Time of Evaluation Date of Evaluation: 07/06/18 Time of Evaluation: 16:00 - Subjective Subjective: Surgery Pt seen and examined. Reports passing flatus. Denies abd pain. NGT in place. Bilious output. Ambulates. Rebolledo in place. Objective - Vital Signs/Intake and Output Vital Signs (last 24 hours): Temp Pulse Resp BP Pulse Ox 98.0 F 108 H 20 127/77 97 07/06/18 07:00 07/06/18 12:56 07/06/18 07:00 07/06/18 07:00 07/06/18 07:00 Intake and Output: 07/06/18 07/06/18 06:59 18:59 Intake Total 0 1000 Output Total 1200 480 Balance -1200 520 - Medications Medications: Current Medications Acetaminophen (Tylenol 650mg/20.3ml Solution Ud) 650 mg PO Q6 PRN PRN Reason: headache or fever >100.4F Last Admin: 07/06/18 10:42 Dose: 650 mg Amitriptyline HCl (Elavil) 40 mg PO HS [facility] Last Admin: 07/05/18 22:02 Dose: 40 mg Bupropion HCl (Wellbutrin) 150 mg NG BID [facility] Last Admin: 07/06/18 10:32 Dose: 150 mg Heparin Sodium (Porcine) (Heparin) 5,000 units SC Q8 [facility] Last Admin: 07/06/18 14:05 Dose: 5,000 units Folic Acid 1 mg/ Sodium (Chloride) 100.2 mls @ 60 mls/hr IV DAILY [facility] Last Admin: 07/06/18 10:32 Dose: 60 mls/hr Potassium Chloride 40 meq/ (Sodium Chloride) 1,020 mls @ 100 mls/hr IV .[id number] [facility] Last Admin: 07/06/18 12:59 Dose: Not Given Ciprofloxacin (Cipro 400mg/200ml Dsw) 400 mg in 200 mls @ 133 mls/hr IVPB Q12H [facility]; Protocol Last Admin: 07/06/18 14:06 Dose: 133 mls/hr Lamotrigine (Lamictal) 200 mg PO DAILY [facility] Last Admin: 07/06/18 10:32 Dose: 200 mg Levothyroxine Sodium (Synthroid) 12.5 mcg IVP 0630 [facility] Last Admin: 07/06/18 06:34 Dose: 12.5 mcg Methotrexate (Methotrexate) 15 mg NG QWK@1200 [facility] Last Admin: 07/06/18 12:15 Dose: 15 mg Ondansetron HCl (Zofran Inj) 4 mg IVP Q6H PRN PRN Reason: Nausea/Vomiting Last Admin: 07/04/18 21:20 Dose: 4 mg Pantoprazole Sodium (Protonix Inj) 40 mg IVP DAILY [facility] Last Admin: 07/06/18 10:32 Dose: 40 mg Saliva Substitute (Mouth Kote 236 Ml) 0 ml MM 5XD PRN PRN Reason: DRY MOUTH Last Admin: 07/05/18 09:25 Dose: 1 spr - Labs Labs: 07/05/18 07:11 07/06/18 13:48 PT 10.9 SECONDS (9.7-12.2) 07/01/18 18:55 INR 1.0 07/01/18 18:55 APTT 30 SECONDS (21-34) 07/01/18 18:55 - Constitutional Appears: No Acute Distress - Head Exam Head Exam: ATRAUMATIC, NORMAL INSPECTION, NORMOCEPHALIC - Eye Exam Eye Exam: EOMI, Normal appearance, PERRL Pupil Exam: NORMAL ACCOMODATION, PERRL - ENT Exam ENT Exam: Mucous Membranes Moist, Normal Exam - Neck Exam Neck Exam: Full ROM, Normal Inspection. absent: Lymphadenopathy - Respiratory Exam Respiratory Exam: NORMAL BREATHING PATTERN - Cardiovascular Exam Cardiovascular Exam: REGULAR RHYTHM, +S1, +S2. absent: Murmur - GI/Abdominal Exam GI & Abdominal Exam: Soft. absent: Distended, Tenderness Additional comments: Well healed abd scar - Extremities Exam Extremities Exam: Full ROM, Normal Capillary Refill, Normal Inspection. absent: Joint Swelling, Pedal Edema - Back Exam Back Exam: NORMAL INSPECTION - Neurological Exam Neurological Exam: Alert, Awake, CN II-XII Intact, Normal Gait, Oriented x3 - Psychiatric Exam Psychiatric exam: Normal Affect, Normal Mood - Skin Skin Exam: Dry, Intact, Normal Color, Warm Assessment and Plan - Assessment and Plan (Free Text) Assessment: 72F w/ hyponatremia 2/2 SIADH - w/ SBO NGT output recorded 2L/24hrs. bilious. some are from flushed water. Plan: cont NGT to [facility] NPO monitor output hyponatremia work up per nephro Replete electrolyte PRN IVF Previously recommended [employer] consult d/w Dr Smith <Becky Smith - Last Filed: 07/06/18 16:50> Objective - Vital Signs/Intake and Output Vital Signs (last 24 hours): Temp Pulse Resp BP Pulse Ox 98.0 F 108 H 20 127/77 97 07/06/18 07:00 07/06/18 12:56 07/06/18 07:00 07/06/18 07:00 07/06/18 07:00 Intake and Output: 07/06/18 07/06/18 06:59 18:59 Intake Total 0 1000 Output Total 1200 480 Balance -1200 520 - Medications Medications: Current Medications Acetaminophen (Tylenol 650mg/20.3ml Solution Ud) 650 mg PO Q6 PRN PRN Reason: headache or fever >100.4F Last Admin: 07/06/18 10:42 Dose: 650 mg Amitriptyline HCl (Elavil) 40 mg PO HS [facility] Last Admin: 07/05/18 22:02 Dose: 40 mg Bupropion HCl (Wellbutrin) 150 mg NG BID [facility] Last Admin: 07/06/18 10:32 Dose: 150 mg Heparin Sodium (Porcine) (Heparin) 5,000 units SC Q8 [facility] Last Admin: 07/06/18 14:05 Dose: 5,000 units Folic Acid 1 mg/ Sodium (Chloride) 100.2 mls @ 60 mls/hr IV DAILY [facility] Last Admin: 07/06/18 10:32 Dose: 60 mls/hr Potassium Chloride 40 meq/ (Sodium Chloride) 1,020 mls @ 100 mls/hr IV .[id number] [facility] Last Admin: 07/06/18 12:59 Dose: Not Given Ciprofloxacin (Cipro 400mg/200ml Dsw) 400 mg in 200 mls @ 133 mls/hr IVPB Q12H [facility]; Protocol Last Admin: 07/06/18 14:06 Dose: 133 mls/hr Lamotrigine (Lamictal) 200 mg PO DAILY [facility] Last Admin: 07/06/18 10:32 Dose: 200 mg Levothyroxine Sodium (Synthroid) 12.5 mcg IVP 0630 [facility] Last Admin: 07/06/18 06:34 Dose: 12.5 mcg Methotrexate (Methotrexate) 15 mg NG QWK@1200 [facility] Last Admin: 07/06/18 12:15 Dose: 15 mg Ondansetron HCl (Zofran Inj) 4 mg IVP Q6H PRN PRN Reason: Nausea/Vomiting Last Admin: 07/04/18 21:20 Dose: 4 mg Pantoprazole Sodium (Protonix Inj) 40 mg IVP DAILY [facility] Last Admin: 07/06/18 10:32 Dose: 40 mg Saliva Substitute (Mouth Kote 236 Ml) 0 ml MM 5XD PRN PRN Reason: DRY MOUTH Last Admin: 07/05/18 09:25 Dose: 1 spr - Labs Labs: 07/05/18 07:11 07/06/18 13:48 PT 10.9 SECONDS (9.7-12.2) 07/01/18 18:55 INR 1.0 07/01/18 18:55 APTT 30 SECONDS (21-34) 07/01/18 18:55 Assessment and Plan - Assessment and Plan (Free Text) Plan: Continue Strict NPO. NGT to [facility] at all times. Rec operative exploration if fails to resolve SBO in next 24-48 hours. See addendum from 05/05 for further details
[2018-07-07] MEDS: Ciprofloxacin 400mg/200ml D5W 400 MG/200 ML BAG IVPB SCH ×2 (01:12→13:46)
[2018-07-07] MEDS: Levothyroxine 100 mcg (0.1 mg) Inj IVP SCH (05:47)
[2018-07-07 08:27] LABS: HEMOGLOBIN 11.8 g/dL (11.0-16.0); MEAN CELL VOLUME 95.8 fL (81.0-99.0); MEAN CORPUSCULAR HEMOGLOBIN 32.5 pg (27.0-31.0); MEAN CORPUSCULAR HGB CONC 33.9 g/dL (33.0-37.0); MEAN PLATELET VOLUME 7.9 fL (7.2-11.7); RBC 3.63 Mil/uL (3.80-5.20); RED CELL DISTRIBUTION WIDTH 14.3 % (11.5-14.5); WHITE BLOOD COUNT 8.3 K/uL (4.8-10.8)
[2018-07-07 08:46] LABS: ALB/GLOB RATIO 1.5 (1.0-2.1); ALBUMIN 3.4 g/dL (3.5-5.0); ALT/SGPT 42 U/L (9-52); AST/SGOT 28 U/L (14-36); BLOOD UREA NITROGEN 3 mg/dL (7-17); CALCIUM 8.6 mg/dl (8.6-10.4); GFR NON-AFRICAN AMERICAN > 60
--- NOTE | 2018-07-07 09:48 | CP.PCM.PN ---
Subjective - Date & Time of Evaluation Date of Evaluation: 07/07/18 Time of Evaluation: 09:48 - Subjective Subjective: PGY2 Medicine Note for Dr. Dunbar Patient seen and examined this morning at bedside. Patient states that she had 2 substantial bowel movements yesterday. She feels significantly better today and is not nauseous at all. She is experiencing mild epigastric burning today. She had was able to tolerate some clear liquids earlier today. She is hopeful that the NG tube will be removed today. She denies any fevers, chills, nausea, vomiting, chest pain or shortness of breath. Objective - Vital Signs/Intake and Output Vital Signs (last 24 hours): Temp Pulse Resp BP Pulse Ox 98.3 F 90 20 120/78 98 07/07/18 07:00 07/07/18 07:00 07/07/18 07:00 07/07/18 07:00 07/07/18 07:00 Intake and Output: 07/07/18 07/07/18 06:59 18:59 Intake Total 1900 Output Total 400 Balance 1500 - Medications Medications: Current Medications Acetaminophen (Tylenol 650mg/20.3ml Solution Ud) 650 mg PO Q6 PRN PRN Reason: headache or fever >100.4F Last Admin: 07/06/18 10:42 Dose: 650 mg Amitriptyline HCl (Elavil) 50 mg PO HS [facility] Bupropion HCl (Wellbutrin) 100 mg PO BID [facility] Last Admin: 07/06/18 20:00 Dose: Not Given Heparin Sodium (Porcine) (Heparin) 5,000 units SC Q8 [facility] Last Admin: 07/07/18 05:46 Dose: 5,000 units Folic Acid 1 mg/ Sodium (Chloride) 100.2 mls @ 60 mls/hr IV DAILY [facility] Last Admin: 07/06/18 10:32 Dose: 60 mls/hr Potassium Chloride 40 meq/ (Sodium Chloride) 1,020 mls @ 100 mls/hr IV .[id number] [facility] Last Admin: 07/07/18 06:45 Dose: 100 mls/hr Ciprofloxacin (Cipro 400mg/200ml Dsw) 400 mg in 200 mls @ 133 mls/hr IVPB Q12H [facility]; Protocol Last Admin: 07/07/18 01:12 Dose: 133 mls/hr Lamotrigine (Lamictal) 200 mg PO DAILY [facility] Last Admin: 07/06/18 10:32 Dose: 200 mg Levothyroxine Sodium (Synthroid) 12.5 mcg IVP 0630 [facility] Last Admin: 07/07/18 05:47 Dose: 12.5 mcg Methotrexate (Methotrexate) 15 mg NG QWK@1200 [facility] Last Admin: 07/06/18 12:15 Dose: 15 mg Ondansetron HCl (Zofran Inj) 4 mg IVP Q6H PRN PRN Reason: Nausea/Vomiting Last Admin: 07/04/18 21:20 Dose: 4 mg Pantoprazole Sodium (Protonix Inj) 40 mg IVP DAILY [facility] Last Admin: 07/06/18 10:32 Dose: 40 mg Saliva Substitute (Mouth Kote 236 Ml) 0 ml MM 5XD PRN PRN Reason: DRY MOUTH Last Admin: 07/05/18 09:25 Dose: 1 spr - Labs Labs: 07/07/18 08:15 07/07/18 08:15 PT 10.9 SECONDS (9.7-12.2) 07/01/18 18:55 INR 1.0 07/01/18 18:55 APTT 30 SECONDS (21-34) 07/01/18 18:55 - Additional Findings Additional findings: - Constitutional Appears: Non-toxic, No Acute Distress - Head Exam Head Exam: ATRAUMATIC, NORMOCEPHALIC - Eye Exam Eye Exam: Normal appearance - ENT Exam ENT Exam: Mucous Membranes Moist Additional comments: NG tube in place -clamped - Respiratory Exam Respiratory Exam: Clear to Ausculation Bilateral, NORMAL BREATHING PATTERN. absent: Accessory Muscle Use, Rales, Rhonchi, Wheezes, Respiratory Distress - Cardiovascular Exam Cardiovascular Exam: REGULAR RHYTHM, +S1, +S2 - GI/Abdominal Exam GI & Abdominal Exam: Soft, Hypoactive Bowel Sounds. absent: Distended, Firm, Guarding, Rigid, Tenderness, Normal Bowel Sounds - Neurological Exam Neurological Exam: Alert, Awake, Oriented x3 - Psychiatric Exam Psychiatric exam: Normal Affect, Normal Mood - Skin Skin Exam: Dry, Warm Assessment and Plan - Assessment and Plan (Free Text) Plan: Small Bowel Obstruction likely 2/2 to adhesions (hx of multiple abdominal surgeries) General Surgery, Dr. Becky Smith GI Consulted, Dr. De La Torre Abd/Pelvis CT (07/01): * Findings consistent with small-bowel obstruction with transition point right lower quadrant of the abdomen. * Cholecystectomy. * Nodular left adrenal gland. Recommend followup noncontrast MRI of the adrenal glands. * Diverticulosis without radiographic evidence of acute diverticulitis. Obstruction Series (07/02): * Mild left basilar atelectasis and or scarring.. No evidence of mechanical bowel obstruction however findings suggest mild fecal retention/constipation. Abdomen X-ray (07/03): * Mild bibasilar atelectasis. * No evidence of acute mechanical bowel obstruction. Abdomen X-ray (07/04): * Findings are most compatible with acute small bowel obstruction, slightly worse since the prior examination. Abd/Pelvis CT w/ PO and IV contrast (07/04/18): * Persistent pattern positive for mechanical distal small bowel obstruction with collapsed ileum and otherwise dilated small-bowel loops appreciated stomach is partially decompressed by nasogastric tube oral contrast partially distending the stomach. Poor oral contrast transit is seen through small bowel. No free intra peritoneal gas collection or ascites appreciable at this time. Continued surgical evaluation advised. Abdominal exam showed no tenderness or guarding. Patient had bowel 2 bowel movements yesterday. NG tube removed. Will continue to monitor Medications: * Ciprofloxacin 400mg IVPB q12h * Zofran 4mg IVP q6h prn * Protonix 40mg IVP daily * NS w/K 40meq @100mL Hyponatremia (improving) hx of SIADH Nephrology consulted, Dr. Espinosa * NS w/K 40meq @100mL Hyponatremia labs pending * Urine Osmolality * Random Urine Sodium Hypothyroidism Continue Home Medication: * Synthroid 12.5mcg IVP daily Hx of Cervical Cancer s/p hysterectomy, b/l oopherectomy (seperate procedure) Continue Home Medication: * Methotrexate 15mg PO qWK Hx of Depression Continue Home Medication: * Amitriptyline 40mg PO HS * Bupropion (Wellbutrin) 150mg NG BID [facility] Heparin 5,000units SC q8h Protonix 40mg IVP daily PT All medical management per Dr. Manjinder Mendez Crystal PGY2
--- NOTE | 2018-07-07 10:00 | CP.PCM.PN ---
Subjective - Date & Time of Evaluation Date of Evaluation: 07/07/18 Time of Evaluation: 09:58 - Subjective Subjective: NGT pulled by GI Na dropped 127; NS possibly worsening hyponatremia from SIADH Otherwise feeling ok, tolerated liquid diet Objective - Vital Signs/Intake and Output Vital Signs (last 24 hours): Temp Pulse Resp BP Pulse Ox 98.3 F 90 20 120/78 98 07/07/18 07:00 07/07/18 07:00 07/07/18 07:00 07/07/18 07:00 07/07/18 07:00 Intake and Output: 07/07/18 07/07/18 06:59 18:59 Intake Total 1900 Output Total 400 Balance 1500 - Medications Medications: Current Medications Acetaminophen (Tylenol 650mg/20.3ml Solution Ud) 650 mg PO Q6 PRN PRN Reason: headache or fever >100.4F Last Admin: 07/06/18 10:42 Dose: 650 mg Amitriptyline HCl (Elavil) 50 mg PO HS [facility] Bupropion HCl (Wellbutrin) 100 mg PO BID [facility] Last Admin: 07/06/18 20:00 Dose: Not Given Heparin Sodium (Porcine) (Heparin) 5,000 units SC Q8 [facility] Last Admin: 07/07/18 05:46 Dose: 5,000 units Folic Acid 1 mg/ Sodium (Chloride) 100.2 mls @ 60 mls/hr IV DAILY [facility] Last Admin: 07/06/18 10:32 Dose: 60 mls/hr Potassium Chloride 40 meq/ (Sodium Chloride) 1,020 mls @ 100 mls/hr IV .[id number] [facility] Last Admin: 07/07/18 06:45 Dose: 100 mls/hr Ciprofloxacin (Cipro 400mg/200ml Dsw) 400 mg in 200 mls @ 133 mls/hr IVPB Q12H [facility]; Protocol Last Admin: 07/07/18 01:12 Dose: 133 mls/hr Lamotrigine (Lamictal) 200 mg PO DAILY [facility] Last Admin: 07/06/18 10:32 Dose: 200 mg Levothyroxine Sodium (Synthroid) 12.5 mcg IVP 0630 [facility] Last Admin: 07/07/18 05:47 Dose: 12.5 mcg Methotrexate (Methotrexate) 15 mg NG QWK@1200 [facility] Last Admin: 07/06/18 12:15 Dose: 15 mg Ondansetron HCl (Zofran Inj) 4 mg IVP Q6H PRN PRN Reason: Nausea/Vomiting Last Admin: 07/04/18 21:20 Dose: 4 mg Pantoprazole Sodium (Protonix Inj) 40 mg IVP DAILY [facility] Last Admin: 07/06/18 10:32 Dose: 40 mg Saliva Substitute (Mouth Kote 236 Ml) 0 ml MM 5XD PRN PRN Reason: DRY MOUTH Last Admin: 07/05/18 09:25 Dose: 1 spr - Labs Labs: 07/07/18 08:15 07/07/18 08:15 PT 10.9 SECONDS (9.7-12.2) 07/01/18 18:55 INR 1.0 07/01/18 18:55 APTT 30 SECONDS (21-34) 07/01/18 18:55 - Constitutional Appears: No Acute Distress - Head Exam Head Exam: ATRAUMATIC, NORMAL INSPECTION - Eye Exam Eye Exam: EOMI, Normal appearance - Neck Exam Neck Exam: Normal Inspection. absent: Tenderness - Respiratory Exam Respiratory Exam: Clear to Ausculation Bilateral, NORMAL BREATHING PATTERN - Cardiovascular Exam Cardiovascular Exam: REGULAR RHYTHM, +S1 - GI/Abdominal Exam GI & Abdominal Exam: Soft. absent: Tenderness - Extremities Exam Extremities Exam: Normal Inspection. absent: Tenderness - Neurological Exam Neurological Exam: Alert, CN II-XII Intact - Skin Skin Exam: Dry, Warm Assessment and Plan (1) Acute renal failure Status: Resolved (2) Chronic depression Status: Acute (3) Hyponatremia Status: Acute (4) SIADH (syndrome of inappropriate ADH production) Status: Acute (5) Small bowel obstruction Status: Acute - Assessment and Plan (Free Text) Plan: remove NGT Stop IV NS If na not better by AM will give tovalptan po
--- NOTE | 2018-07-07 10:03 | CP.PCM.PN ---
Subjective - Date & Time of Evaluation Date of Evaluation: 07/07/18 Time of Evaluation: 10:00 - Subjective Subjective: Patient seen with surgical team. Tolerated liquids and had two stools yesterday. No N/V, mild epigastric pain noted. Objective - Vital Signs/Intake and Output Vital Signs (last 24 hours): Temp Pulse Resp BP Pulse Ox 98.3 F 90 20 120/78 98 07/07/18 07:00 07/07/18 07:00 07/07/18 07:00 07/07/18 07:00 07/07/18 07:00 Intake and Output: 07/07/18 07/07/18 06:59 18:59 Intake Total 1900 Output Total 400 Balance 1500 - Medications Medications: Current Medications Acetaminophen (Tylenol 650mg/20.3ml Solution Ud) 650 mg PO Q6 PRN PRN Reason: headache or fever >100.4F Last Admin: 07/06/18 10:42 Dose: 650 mg Amitriptyline HCl (Elavil) 50 mg PO HS [facility] Bupropion HCl (Wellbutrin) 100 mg PO BID [facility] Last Admin: 07/06/18 20:00 Dose: Not Given Heparin Sodium (Porcine) (Heparin) 5,000 units SC Q8 [facility] Last Admin: 07/07/18 05:46 Dose: 5,000 units Folic Acid 1 mg/ Sodium (Chloride) 100.2 mls @ 60 mls/hr IV DAILY [facility] Last Admin: 07/06/18 10:32 Dose: 60 mls/hr Potassium Chloride 40 meq/ (Sodium Chloride) 1,020 mls @ 100 mls/hr IV .[id number] [facility] Last Admin: 07/07/18 06:45 Dose: 100 mls/hr Ciprofloxacin (Cipro 400mg/200ml Dsw) 400 mg in 200 mls @ 133 mls/hr IVPB Q12H [facility]; Protocol Last Admin: 07/07/18 01:12 Dose: 133 mls/hr Lamotrigine (Lamictal) 200 mg PO DAILY [facility] Last Admin: 07/06/18 10:32 Dose: 200 mg Levothyroxine Sodium (Synthroid) 12.5 mcg IVP 0630 [facility] Last Admin: 07/07/18 05:47 Dose: 12.5 mcg Methotrexate (Methotrexate) 15 mg NG QWK@1200 [facility] Last Admin: 07/06/18 12:15 Dose: 15 mg Ondansetron HCl (Zofran Inj) 4 mg IVP Q6H PRN PRN Reason: Nausea/Vomiting Last Admin: 07/04/18 21:20 Dose: 4 mg Pantoprazole Sodium (Protonix Inj) 40 mg IVP DAILY [facility] Last Admin: 07/06/18 10:32 Dose: 40 mg Saliva Substitute (Mouth Kote 236 Ml) 0 ml MM 5XD PRN PRN Reason: DRY MOUTH Last Admin: 07/05/18 09:25 Dose: 1 spr - Labs Labs: 07/07/18 08:15 07/07/18 08:15 PT 10.9 SECONDS (9.7-12.2) 07/01/18 18:55 INR 1.0 07/01/18 18:55 APTT 30 SECONDS (21-34) 07/01/18 18:55 - Constitutional Appears: No Acute Distress - Head Exam Head Exam: ATRAUMATIC, NORMOCEPHALIC - Eye Exam Eye Exam: EOMI, PERRL - Respiratory Exam Respiratory Exam: NORMAL BREATHING PATTERN - Cardiovascular Exam Cardiovascular Exam: REGULAR RHYTHM, +S1 - GI/Abdominal Exam GI & Abdominal Exam: Soft, Hypoactive Bowel Sounds. absent: Distended, Guarding, Tenderness, Mass, Rebound - Extremities Exam Extremities Exam: Normal Inspection Assessment and Plan (1) Small bowel obstruction due to adhesions Assessment & Plan: Clinically resolved. Pain may still represent presence of adhesions. NGT pulled by surgical team today and will advance diet and observe. Stable for discharge to outpatient follow up when Na+ has been corrected by Renal consultants. Resume Protonix po Status: Acute (2) Acute renal failure Status: Resolved (3) SIADH (syndrome of inappropriate ADH production) Assessment & Plan: Case discussed with Dr Espinosa. Will stop IV Saline. Status: Acute
--- NOTE | 2018-07-07 10:09 | CP.PCM.PN ---
Addendum entered and electronically signed by Obed Mari DO 07/07/18 10:42: ok to slowly adv diet over next 24 hours d/c narcotics avoid constipating meds cont pericolace PO in house and upon discharge electrolyte goals need to be met as per previous documentation Original Note: Subjective - Date & Time of Evaluation Date of Evaluation: 07/07/18 Time of Evaluation: 10:05 - Subjective Subjective: General Surgery: Dr Smith Pt S&E. Denies any further N/V. Had NGT clamped for large portion of night, minimal output. Reclamped this AM around 6:15, residuals at 10:05 are 50cc. Pt reports she has had 3 BMs since last night. Passing flatus. Will d/c NGT and trial CLD. Dr De La Torre is bedside, concurs with plan. OOB and ambulating. Na 127 today. Objective - Vital Signs/Intake and Output Vital Signs (last 24 hours): Temp Pulse Resp BP Pulse Ox 98.3 F 90 20 120/78 98 07/07/18 07:00 07/07/18 07:00 07/07/18 07:00 07/07/18 07:00 07/07/18 07:00 Intake and Output: 07/07/18 07/07/18 06:59 18:59 Intake Total 1900 Output Total 400 Balance 1500 - Medications Medications: Current Medications Acetaminophen (Tylenol 650mg/20.3ml Solution Ud) 650 mg PO Q6 PRN PRN Reason: headache or fever >100.4F Last Admin: 07/06/18 10:42 Dose: 650 mg Amitriptyline HCl (Elavil) 50 mg PO HS [facility] Bupropion HCl (Wellbutrin) 100 mg PO BID [facility] Last Admin: 07/06/18 20:00 Dose: Not Given Heparin Sodium (Porcine) (Heparin) 5,000 units SC Q8 [facility] Last Admin: 07/07/18 05:46 Dose: 5,000 units Folic Acid 1 mg/ Sodium (Chloride) 100.2 mls @ 60 mls/hr IV DAILY [facility] Last Admin: 07/07/18 09:57 Dose: 60 mls/hr Ciprofloxacin (Cipro 400mg/200ml Dsw) 400 mg in 200 mls @ 133 mls/hr IVPB Q12H [facility]; Protocol Last Admin: 07/07/18 01:12 Dose: 133 mls/hr Lamotrigine (Lamictal) 200 mg PO DAILY [facility] Last Admin: 07/06/18 10:32 Dose: 200 mg Levothyroxine Sodium (Synthroid) 12.5 mcg IVP 0630 [facility] Last Admin: 07/07/18 05:47 Dose: 12.5 mcg Methotrexate (Methotrexate) 15 mg NG QWK@1200 [facility] Last Admin: 07/06/18 12:15 Dose: 15 mg Ondansetron HCl (Zofran Inj) 4 mg IVP Q6H PRN PRN Reason: Nausea/Vomiting Last Admin: 07/04/18 21:20 Dose: 4 mg Pantoprazole Sodium (Protonix Ec Tab) 40 mg PO DAILY [facility] Potassium Phos/Sodium Phos (Neutra-Phos) 1 pkt PO BID [facility] Saliva Substitute (Mouth Kote 236 Ml) 0 ml MM 5XD PRN PRN Reason: DRY MOUTH Last Admin: 07/05/18 09:25 Dose: 1 spr - Labs Labs: 07/07/18 08:15 07/07/18 08:15 PT 10.9 SECONDS (9.7-12.2) 07/01/18 18:55 INR 1.0 07/01/18 18:55 APTT 30 SECONDS (21-34) 07/01/18 18:55 - Constitutional Appears: Non-toxic, No Acute Distress - Eye Exam Eye Exam: Normal appearance - ENT Exam ENT Exam: Mucous Membranes Moist - Respiratory Exam Respiratory Exam: absent: Accessory Muscle Use, Respiratory Distress - Cardiovascular Exam Cardiovascular Exam: REGULAR RHYTHM. absent: Tachycardia - GI/Abdominal Exam GI & Abdominal Exam: Soft. absent: Distended, Firm, Tenderness - Neurological Exam Neurological Exam: Alert, Awake, Oriented x3 - Psychiatric Exam Psychiatric exam: Normal Affect, Normal Mood - Skin Skin Exam: Normal Color, Warm Assessment and Plan - Assessment and Plan (Free Text) Assessment: 72F with hyponatremia and SBO; resolved Plan: will d/c NGT CLD - pt instructed to drink slowly encourage ambulation mgmt of hyponatremia by primary team - fluctuating 127-128 past several days will d/w Dr Luis Mari, PGY4
[2018-07-07] MEDS: Pantoprazole 40 mg EC Tab PO SCH (11:39)
[2018-07-07] MEDS: Potassium & Sodium Phosphate PO SCH (19:34)
[2018-07-07] MEDS: Acetaminophen 650mg/20.3ml solution UD PO PRN (22:33)
[2018-07-08] MEDS: Ciprofloxacin 400mg/200ml D5W 400 MG/200 ML BAG IVPB SCH ×2 (01:40→14:56)
[2018-07-08] MEDS: Levothyroxine 100 mcg (0.1 mg) Inj IVP SCH (05:37)
--- NOTE | 2018-07-08 08:16 | CP.PCM.PN ---
Subjective - Date & Time of Evaluation Date of Evaluation: 07/08/18 Time of Evaluation: 06:50 - Subjective Subjective: General Surgery Pt seen and examined. No acute issues overnight. Tolerated CLD but feels some bloating today and requested an enema. Pt continues to have BMs. No N/V, fevers, chills. Objective - Vital Signs/Intake and Output Vital Signs (last 24 hours): Temp Pulse Resp BP Pulse Ox 97.7 F 98 H 20 135/76 100 07/07/18 23:00 07/07/18 23:00 07/07/18 23:00 07/07/18 23:00 07/07/18 23:00 Intake and Output: 07/08/18 07/08/18 06:59 18:59 Intake Total 500 Balance 500 - Medications Medications: Current Medications Acetaminophen (Tylenol 650mg/20.3ml Solution Ud) 650 mg PO Q6 PRN PRN Reason: headache or fever >100.4F Last Admin: 07/07/18 22:33 Dose: 650 mg Amitriptyline HCl (Elavil) 50 mg PO HS [facility] Last Admin: 07/07/18 22:46 Dose: 50 mg Bupropion HCl (Wellbutrin) 100 mg PO BID [facility] Last Admin: 07/07/18 19:44 Dose: 100 mg Docusate Sodium (Colace) 100 mg PO TID [facility] Last Admin: 07/07/18 19:34 Dose: 100 mg Heparin Sodium (Porcine) (Heparin) 5,000 units SC Q8 [facility] Last Admin: 07/08/18 05:44 Dose: Not Given Folic Acid 1 mg/ Sodium (Chloride) 100.2 mls @ 60 mls/hr IV DAILY [facility] Last Admin: 07/07/18 09:57 Dose: 60 mls/hr Ciprofloxacin (Cipro 400mg/200ml Dsw) 400 mg in 200 mls @ 133 mls/hr IVPB Q12H [facility]; Protocol Last Admin: 07/08/18 01:40 Dose: 133 mls/hr Lamotrigine (Lamictal) 200 mg PO DAILY [facility] Last Admin: 07/07/18 10:59 Dose: 200 mg Levothyroxine Sodium (Synthroid) 12.5 mcg IVP 0630 [facility] Last Admin: 07/08/18 05:37 Dose: 12.5 mcg Methotrexate (Methotrexate) 15 mg NG QWK@1200 [facility] Last Admin: 07/06/18 12:15 Dose: 15 mg Ondansetron HCl (Zofran Inj) 4 mg IVP Q6H PRN PRN Reason: Nausea/Vomiting Last Admin: 07/07/18 22:35 Dose: 4 mg Pantoprazole Sodium (Protonix Ec Tab) 40 mg PO DAILY [facility] Last Admin: 07/07/18 11:39 Dose: Not Given Potassium Phos/Sodium Phos (Neutra-Phos) 1 pkt PO BID [facility] Last Admin: 07/07/18 19:34 Dose: 1 pkt Saliva Substitute (Mouth Kote 236 Ml) 0 ml MM 5XD PRN PRN Reason: DRY MOUTH Last Admin: 07/05/18 09:25 Dose: 1 spr - Labs Labs: 07/07/18 08:15 07/07/18 08:15 PT 10.9 SECONDS (9.7-12.2) 07/01/18 18:55 INR 1.0 07/01/18 18:55 APTT 30 SECONDS (21-34) 07/01/18 18:55 - Constitutional Appears: Non-toxic, No Acute Distress - Head Exam Head Exam: ATRAUMATIC, NORMOCEPHALIC - Eye Exam Eye Exam: EOMI. absent: Scleral icterus - Respiratory Exam Respiratory Exam: NORMAL BREATHING PATTERN. absent: Respiratory Distress - Cardiovascular Exam Cardiovascular Exam: RRR, +S1, +S2 - GI/Abdominal Exam GI & Abdominal Exam: Soft. absent: Distended, Firm, Guarding, Rigid, Tenderness (minimal at incisions), Rebound - Neurological Exam Neurological Exam: Alert, Awake, Oriented x3 - Skin Skin Exam: Dry, Warm Assessment and Plan - Assessment and Plan (Free Text) Assessment: 72F with hyponatremia and SBO; resolved Plan: CLD - pt does not want to advance until bloating feeling subsides. Continue stool softeners Encouraged ambulation Mgmt of hyponatremia by primary team - fluctuating 127-128 past several days Tap water enema per pt request D/W Dr Luis De Souza PGY4
[2018-07-08 08:38] LABS: ALB/GLOB RATIO 1.5 (1.0-2.1); ALBUMIN 4.7 g/dL (3.5-5.0); ALT/SGPT 91 U/L (9-52); AST/SGOT 102 U/L (14-36); BLOOD UREA NITROGEN 3 mg/dL (7-17); CALCIUM 9.9 mg/dl (8.6-10.4); GFR NON-AFRICAN AMERICAN > 60
[2018-07-08] MEDS: Pantoprazole 40 mg EC Tab PO SCH (09:31)
[2018-07-08] MEDS: Potassium & Sodium Phosphate PO SCH ×2 (09:34→17:15)
--- NOTE | 2018-07-08 10:10 | CP.PCM.PN ---
Subjective - Date & Time of Evaluation Date of Evaluation: 07/08/18 Time of Evaluation: 10:09 - Subjective Subjective: PGY2 Medicine Note for Dr. Dunbar Patient seen and examined this morning at bedside. Patient had clear liquid diet yesterday. She is passing a small amount of flatus but has not had a bowel movement since two days ago. She is requesting an enema to help her have a bowel movement. She feels like her abdomen is distended but has no pain. She has no other complaints at this time. Objective - Vital Signs/Intake and Output Vital Signs (last 24 hours): Temp Pulse Resp BP Pulse Ox 97.9 F 92 H 18 136/73 97 07/08/18 07:00 07/08/18 07:00 07/08/18 07:00 07/08/18 07:00 07/08/18 07:00 Intake and Output: 07/08/18 07/08/18 06:59 18:59 Intake Total 500 Balance 500 - Medications Medications: Current Medications Acetaminophen (Tylenol 650mg/20.3ml Solution Ud) 650 mg PO Q6 PRN PRN Reason: headache or fever >100.4F Last Admin: 07/07/18 22:33 Dose: 650 mg Amitriptyline HCl (Elavil) 50 mg PO HS [facility] Last Admin: 07/07/18 22:46 Dose: 50 mg Bupropion HCl (Wellbutrin) 100 mg PO BID [facility] Last Admin: 07/08/18 09:30 Dose: 100 mg Docusate Sodium (Colace) 100 mg PO TID [facility] Last Admin: 07/08/18 09:33 Dose: 100 mg Heparin Sodium (Porcine) (Heparin) 5,000 units SC Q8 [facility] Last Admin: 07/08/18 05:44 Dose: Not Given Folic Acid 1 mg/ Sodium (Chloride) 100.2 mls @ 60 mls/hr IV DAILY [facility] Last Admin: 07/07/18 09:57 Dose: 60 mls/hr Ciprofloxacin (Cipro 400mg/200ml Dsw) 400 mg in 200 mls @ 133 mls/hr IVPB Q12H [facility]; Protocol Last Admin: 07/08/18 01:40 Dose: 133 mls/hr Lamotrigine (Lamictal) 200 mg PO DAILY [facility] Last Admin: 07/08/18 09:31 Dose: 200 mg Levothyroxine Sodium (Synthroid) 12.5 mcg IVP 0630 [facility] Last Admin: 07/08/18 05:37 Dose: 12.5 mcg Methotrexate (Methotrexate) 15 mg NG QWK@1200 [facility] Last Admin: 07/06/18 12:15 Dose: 15 mg Ondansetron HCl (Zofran Inj) 4 mg IVP Q6H PRN PRN Reason: Nausea/Vomiting Last Admin: 07/07/18 22:35 Dose: 4 mg Pantoprazole Sodium (Protonix Ec Tab) 40 mg PO DAILY [facility] Last Admin: 07/08/18 09:31 Dose: 40 mg Potassium Phos/Sodium Phos (Neutra-Phos) 1 pkt PO BID [facility] Last Admin: 07/08/18 09:34 Dose: 1 pkt Saliva Substitute (Mouth Kote 236 Ml) 0 ml MM 5XD PRN PRN Reason: DRY MOUTH Last Admin: 07/05/18 09:25 Dose: 1 spr - Labs Labs: 07/07/18 08:15 07/08/18 07:43 PT 10.9 SECONDS (9.7-12.2) 07/01/18 18:55 INR 1.0 07/01/18 18:55 APTT 30 SECONDS (21-34) 07/01/18 18:55 - Constitutional Appears: Non-toxic, No Acute Distress - Head Exam Head Exam: ATRAUMATIC, NORMOCEPHALIC - Eye Exam Eye Exam: Normal appearance - ENT Exam ENT Exam: Mucous Membranes Moist - Neck Exam Neck Exam: Full ROM. absent: Lymphadenopathy - Respiratory Exam Respiratory Exam: Clear to Ausculation Bilateral, NORMAL BREATHING PATTERN. absent: Accessory Muscle Use, Rales, Rhonchi, Wheezes, Respiratory Distress - Cardiovascular Exam Cardiovascular Exam: REGULAR RHYTHM, +S1 - GI/Abdominal Exam GI & Abdominal Exam: Distended (mild), Soft, Normal Bowel Sounds. absent: Firm, Guarding, Rigid, Tenderness - Extremities Exam Extremities Exam: absent: Calf Tenderness, Pedal Edema - Neurological Exam Neurological Exam: Alert, Awake, Oriented x3 - Psychiatric Exam Psychiatric exam: Normal Affect, Normal Mood - Skin Skin Exam: Dry, Warm Assessment and Plan - Assessment and Plan (Free Text) Plan: Small Bowel Obstruction likely 2/2 to adhesions (hx of multiple abdominal surgeries) General Surgery, Dr. Becky Smith * Clear liquid diet * Advance as tolerated GI Consulted, Dr. De La Torre Abd/Pelvis CT (07/01): * Findings consistent with small-bowel obstruction with transition point right lower quadrant of the abdomen. * Cholecystectomy. * Nodular left adrenal gland. Recommend followup noncontrast MRI of the adrenal glands. * Diverticulosis without radiographic evidence of acute diverticulitis. Obstruction Series (07/02): * Mild left basilar atelectasis and or scarring.. No evidence of mechanical bowel obstruction however findings suggest mild fecal retention/constipation. Abdomen X-ray (07/03): * Mild bibasilar atelectasis. * No evidence of acute mechanical bowel obstruction. Abdomen X-ray (07/04): * Findings are most compatible with acute small bowel obstruction, slightly worse since the prior examination. Abd/Pelvis CT w/ PO and IV contrast (07/04/18): * Persistent pattern positive for mechanical distal small bowel obstruction with collapsed ileum and otherwise dilated small-bowel loops appreciated stomach is partially decompressed by nasogastric tube oral contrast partially distending the stomach. Poor oral contrast transit is seen through small bowel. No free intra peritoneal gas collection or ascites appreciable at this time. Continued surgical evaluation advised. Abdominal exam showed no tenderness or guarding. Patient had bowel 2 bowel movements on 07/06. Tap water enema given on 07/08 - patient had bowel movement. NG tube removed. Will continue to monitor Medications: * Ciprofloxacin 400mg IVPB q12h * Zofran 4mg IVP q6h prn * Protonix 40mg IVP daily * NS w/K 40meq @100mL - discontinue Hyponatremia (improving) hx of SIADH Nephrology consulted, Dr. Espinosa * NS w/K 40meq @100mL - discontinue Hyponatremia labs pending * Urine Osmolality 569 * Random Urine Sodium 150 Abnormal Transaminases New onset elevation of LFTs may be 2/2 to medications Will continue to monitor Hypothyroidism Continue Home Medication: * Synthroid 12.5mcg IVP daily Hx of Cervical Cancer s/p hysterectomy, b/l oopherectomy (seperate procedure) Continue Home Medication: * Methotrexate 15mg PO qWK Hx of Depression Continue Home Medication: * Amitriptyline 40mg PO HS * Bupropion (Wellbutrin) 150mg NG BID Prophylactic Care Heparin 5,000units SC q8h Protonix 40mg IVP daily PT All medical management per Dr. Manjinder Mendez Crystal PGY2
--- NOTE | 2018-07-08 11:43 | CP.PCM.PN ---
Subjective - Date & Time of Evaluation Date of Evaluation: 07/08/18 Time of Evaluation: 11:41 - Subjective Subjective: Still on clear liquids, stool after enema today. Ve=033 LFT's increased today Objective - Vital Signs/Intake and Output Vital Signs (last 24 hours): Temp Pulse Resp BP Pulse Ox 97.9 F 92 H 18 136/73 97 07/08/18 07:00 07/08/18 07:00 07/08/18 07:00 07/08/18 07:00 07/08/18 07:00 Intake and Output: 07/08/18 07/08/18 06:59 18:59 Intake Total 500 Balance 500 - Medications Medications: Current Medications Acetaminophen (Tylenol 650mg/20.3ml Solution Ud) 650 mg PO Q6 PRN PRN Reason: headache or fever >100.4F Last Admin: 07/07/18 22:33 Dose: 650 mg Amitriptyline HCl (Elavil) 50 mg PO HS [facility] Last Admin: 07/07/18 22:46 Dose: 50 mg Bupropion HCl (Wellbutrin) 100 mg PO BID [facility] Last Admin: 07/08/18 09:30 Dose: 100 mg Docusate Sodium (Colace) 100 mg PO TID [facility] Last Admin: 07/08/18 09:33 Dose: 100 mg Heparin Sodium (Porcine) (Heparin) 5,000 units SC Q8 [facility] Last Admin: 07/08/18 05:44 Dose: Not Given Folic Acid 1 mg/ Sodium (Chloride) 100.2 mls @ 60 mls/hr IV DAILY [facility] Last Admin: 07/08/18 11:24 Dose: 60 mls/hr Ciprofloxacin (Cipro 400mg/200ml Dsw) 400 mg in 200 mls @ 133 mls/hr IVPB Q12H [facility]; Protocol Last Admin: 07/08/18 01:40 Dose: 133 mls/hr Lamotrigine (Lamictal) 200 mg PO DAILY [facility] Last Admin: 07/08/18 09:31 Dose: 200 mg Levothyroxine Sodium (Synthroid) 12.5 mcg IVP 0630 [facility] Last Admin: 07/08/18 05:37 Dose: 12.5 mcg Methotrexate (Methotrexate) 15 mg NG QWK@1200 [facility] Last Admin: 07/06/18 12:15 Dose: 15 mg Ondansetron HCl (Zofran Inj) 4 mg IVP Q6H PRN PRN Reason: Nausea/Vomiting Last Admin: 07/07/18 22:35 Dose: 4 mg Pantoprazole Sodium (Protonix Ec Tab) 40 mg PO DAILY [facility] Last Admin: 07/08/18 09:31 Dose: 40 mg Potassium Phos/Sodium Phos (Neutra-Phos) 1 pkt PO BID [facility] Last Admin: 07/08/18 09:34 Dose: 1 pkt Saliva Substitute (Mouth Kote 236 Ml) 0 ml MM 5XD PRN PRN Reason: DRY MOUTH Last Admin: 07/05/18 09:25 Dose: 1 spr - Labs Labs: 07/07/18 08:15 07/08/18 07:43 PT 10.9 SECONDS (9.7-12.2) 07/01/18 18:55 INR 1.0 07/01/18 18:55 APTT 30 SECONDS (21-34) 07/01/18 18:55 - Constitutional Appears: No Acute Distress - Head Exam Head Exam: ATRAUMATIC, NORMOCEPHALIC - Respiratory Exam Respiratory Exam: NORMAL BREATHING PATTERN - Cardiovascular Exam Cardiovascular Exam: REGULAR RHYTHM, +S1 - GI/Abdominal Exam GI & Abdominal Exam: Distended, Soft, Hypoactive Bowel Sounds. absent: Tenderness - Extremities Exam Extremities Exam: Normal Inspection Assessment and Plan (1) Small bowel obstruction due to adhesions Assessment & Plan: Still with symptoms suggesting chronic adhesions. Advance diet as per surgery May need Laparoscopy at some point in time. Status: Acute (2) Acute renal failure Status: Resolved (3) SIADH (syndrome of inappropriate ADH production) Assessment & Plan: Improving as per renal. Status: Acute (4) Abnormal transaminases Assessment & Plan: New onset elevation suggests medication induced. Repeat LFTs and may need to assess meds recently started, ?antidepressant, MTX, etc. No h/o viral hepatitis nor acute exposure. Status: Acute
--- NOTE | 2018-07-08 13:44 | CP.PCM.PN ---
Subjective - Date & Time of Evaluation Date of Evaluation: 07/08/18 Time of Evaluation: 13:41 - Subjective Subjective: on liquid diet still Na level improved - off saline infusions- c/w SIADH 130 acceptable na level LFTs new elevation noted feels better Objective - Vital Signs/Intake and Output Vital Signs (last 24 hours): Temp Pulse Resp BP Pulse Ox 97.9 F 92 H 18 136/73 97 07/08/18 07:00 07/08/18 07:00 07/08/18 07:00 07/08/18 07:00 07/08/18 07:00 Intake and Output: 07/08/18 07/08/18 06:59 18:59 Intake Total 500 Balance 500 - Medications Medications: Current Medications Acetaminophen (Tylenol 650mg/20.3ml Solution Ud) 650 mg PO Q6 PRN PRN Reason: headache or fever >100.4F Last Admin: 07/07/18 22:33 Dose: 650 mg Amitriptyline HCl (Elavil) 50 mg PO HS [facility] Last Admin: 07/07/18 22:46 Dose: 50 mg Bupropion HCl (Wellbutrin) 100 mg PO BID [facility] Last Admin: 07/08/18 09:30 Dose: 100 mg Docusate Sodium (Colace) 100 mg PO TID [facility] Last Admin: 07/08/18 09:33 Dose: 100 mg Heparin Sodium (Porcine) (Heparin) 5,000 units SC Q8 [facility] Last Admin: 07/08/18 05:44 Dose: Not Given Folic Acid 1 mg/ Sodium (Chloride) 100.2 mls @ 60 mls/hr IV DAILY [facility] Last Admin: 07/08/18 11:24 Dose: 60 mls/hr Ciprofloxacin (Cipro 400mg/200ml Dsw) 400 mg in 200 mls @ 133 mls/hr IVPB Q12H [facility]; Protocol Last Admin: 07/08/18 01:40 Dose: 133 mls/hr Lamotrigine (Lamictal) 200 mg PO DAILY [facility] Last Admin: 07/08/18 09:31 Dose: 200 mg Levothyroxine Sodium (Synthroid) 12.5 mcg IVP 0630 [facility] Last Admin: 07/08/18 05:37 Dose: 12.5 mcg Methotrexate (Methotrexate) 15 mg NG QWK@1200 [facility] Last Admin: 07/06/18 12:15 Dose: 15 mg Ondansetron HCl (Zofran Inj) 4 mg IVP Q6H PRN PRN Reason: Nausea/Vomiting Last Admin: 07/07/18 22:35 Dose: 4 mg Pantoprazole Sodium (Protonix Ec Tab) 40 mg PO DAILY [facility] Last Admin: 07/08/18 09:31 Dose: 40 mg Potassium Phos/Sodium Phos (Neutra-Phos) 1 pkt PO BID [facility] Last Admin: 07/08/18 09:34 Dose: 1 pkt Saliva Substitute (Mouth Kote 236 Ml) 0 ml MM 5XD PRN PRN Reason: DRY MOUTH Last Admin: 07/05/18 09:25 Dose: 1 spr - Labs Labs: 07/07/18 08:15 07/08/18 07:43 PT 10.9 SECONDS (9.7-12.2) 07/01/18 18:55 INR 1.0 07/01/18 18:55 APTT 30 SECONDS (21-34) 07/01/18 18:55 - Constitutional Appears: No Acute Distress, Chronically Ill - Head Exam Head Exam: ATRAUMATIC, NORMAL INSPECTION - Eye Exam Eye Exam: EOMI, Normal appearance - Neck Exam Neck Exam: Normal Inspection. absent: Tenderness - Respiratory Exam Respiratory Exam: Clear to Ausculation Bilateral, NORMAL BREATHING PATTERN - Cardiovascular Exam Cardiovascular Exam: REGULAR RHYTHM, +S1 - GI/Abdominal Exam GI & Abdominal Exam: Soft, Hypoactive Bowel Sounds - Extremities Exam Extremities Exam: Normal Inspection. absent: Tenderness - Neurological Exam Neurological Exam: Alert, CN II-XII Intact - Skin Skin Exam: Dry, Warm Assessment and Plan (1) Acute renal failure Status: Resolved (2) Chronic depression Status: Acute (3) Hyponatremia Status: Acute (4) SIADH (syndrome of inappropriate ADH production) Status: Acute (5) Small bowel obstruction Status: Acute - Assessment and Plan (Free Text) Plan: continue fluid restriction repeat chemistries if na drops to around 125 can use tovalptan
[2018-07-08 14:58] LABS: HEPATITIS B SURFACE AG Negative (NEGATIVE)
[2018-07-08 15:03] LABS: HEPATITIS B CORE AB NEGATIVE (NEGATIVE)
[2018-07-08 15:15] LABS: HEPATITIS C ANTIBODY NEGATIVE (NEGATIVE)
[2018-07-09] MEDS ORDERED: Simethicone 80 mg Chewtab PO ONE (03:39)
[2018-07-09] MEDS: Levothyroxine 100 mcg (0.1 mg) Inj IVP SCH (06:49)
[2018-07-09 07:52] LABS: ALB/GLOB RATIO 1.4 (1.0-2.1); ALBUMIN 3.8 g/dL (3.5-5.0); ALT/SGPT 110 U/L (9-52); AST/SGOT 94 U/L (14-36); BILIRUBIN,DIRECT 0.3 mg/dL (0.0-0.4); BLOOD UREA NITROGEN 9 mg/dL (7-17); GFR NON-AFRICAN AMERICAN > 60
[2018-07-09] MEDS ORDERED: Tolvaptan 15 MG TAB PO ONE (08:39)
--- NOTE | 2018-07-09 08:39 | CP.PCM.PN ---
Subjective - Date & Time of Evaluation Date of Evaluation: 07/09/18 Time of Evaluation: 07:00 - Subjective Subjective: General surgery progress note for Dr. Smith Pt seen and examined at bedside this AM. Pt had epigastric discomfort similar to GERD overnight, denies any BM and minimal flatus, tolerating CLD with intermittent nausea after spicy soup, no emesis, but belching. Around noon patient complained of worsening abdominal distension, abdominal pain, and nausea, and requested an NGT be placed. [place] sump NGT insertion was attempted at bedside with approximately 500cc's of yellow, non-bilious emesis vomited. [place] NGT was then inserted successfully with 1L yellow non-bilious gastric contents immediate output. patient stated her pain was resolved and nausea improved Objective - Vital Signs/Intake and Output Vital Signs (last 24 hours): Temp Pulse Resp BP Pulse Ox 98.3 F 100 H 20 134/76 99 07/09/18 07:15 07/09/18 07:15 07/09/18 07:15 07/09/18 07:15 07/09/18 07:15 - Medications Medications: Current Medications Acetaminophen (Tylenol 650mg/20.3ml Solution Ud) 650 mg PO Q6 PRN PRN Reason: headache or fever >100.4F Last Admin: 07/07/18 22:33 Dose: 650 mg Amitriptyline HCl (Elavil) 50 mg PO HS [facility] Last Admin: 07/08/18 21:34 Dose: 50 mg Bupropion HCl (Wellbutrin) 100 mg PO BID [facility] Last Admin: 07/08/18 17:15 Dose: 100 mg Docusate Sodium (Colace) 100 mg PO TID [facility] Last Admin: 07/08/18 17:15 Dose: 100 mg Heparin Sodium (Porcine) (Heparin) 5,000 units SC Q8 [facility] Last Admin: 07/09/18 06:48 Dose: Not Given Folic Acid 1 mg/ Sodium (Chloride) 100.2 mls @ 60 mls/hr IV DAILY [facility] Last Admin: 07/08/18 11:24 Dose: 60 mls/hr Lamotrigine (Lamictal) 200 mg PO DAILY [facility] Last Admin: 07/08/18 09:31 Dose: 200 mg Levothyroxine Sodium (Synthroid) 12.5 mcg IVP 0630 [facility] Last Admin: 07/09/18 06:49 Dose: 12.5 mcg Methotrexate (Methotrexate) 15 mg NG QWK@1200 [facility] Last Admin: 07/06/18 12:15 Dose: 15 mg Ondansetron HCl (Zofran Inj) 4 mg IVP Q6H PRN PRN Reason: Nausea/Vomiting Last Admin: 07/09/18 02:26 Dose: 4 mg Pantoprazole Sodium (Protonix Ec Tab) 40 mg PO DAILY [facility] Last Admin: 07/08/18 09:31 Dose: 40 mg Potassium Phos/Sodium Phos (Neutra-Phos) 1 pkt PO BID [facility] Last Admin: 07/08/18 17:15 Dose: 1 pkt Saliva Substitute (Mouth Kote 236 Ml) 0 ml MM 5XD PRN PRN Reason: DRY MOUTH Last Admin: 07/05/18 09:25 Dose: 1 spr - Labs Labs: 07/07/18 08:15 07/09/18 07:03 PT 10.9 SECONDS (9.7-12.2) 07/01/18 18:55 INR 1.0 07/01/18 18:55 APTT 30 SECONDS (21-34) 07/01/18 18:55 - Constitutional Appears: Well, Non-toxic, No Acute Distress - Head Exam Head Exam: ATRAUMATIC, NORMOCEPHALIC - Eye Exam Eye Exam: Normal appearance. absent: Conjunctival injection, Scleral icterus - ENT Exam ENT Exam: Mucous Membranes Moist, Normal Oropharynx Additional comments: NGT in right nares - Respiratory Exam Respiratory Exam: NORMAL BREATHING PATTERN. absent: Accessory Muscle Use, Respiratory Distress - Cardiovascular Exam Cardiovascular Exam: Tachycardia, REGULAR RHYTHM - GI/Abdominal Exam GI & Abdominal Exam: Distended, Soft, Tenderness (mild tenderness LUQ). absent: Rebound - Extremities Exam Extremities Exam: absent: Calf Tenderness, Pedal Edema, Tenderness - Neurological Exam Neurological Exam: Alert, Awake, Oriented x3 - Psychiatric Exam Psychiatric exam: Normal Affect, Normal Mood - Skin Skin Exam: Dry, Normal Color, Warm Assessment and Plan - Assessment and Plan (Free Text) Assessment: 72F with SBO vs ileus, worsening today Plan: NGT inserted at bedside Monitor NGT output and urine output NGT to intermittent low wall suction Trend BMP, mag, phos--supplement electrolytes as needed--particularly sodium Encourage ambulation PRN nausea medication Encourage ambulation Discussed with Dr. Smith, Valery Rodriguez, PGY2
--- NOTE | 2018-07-09 08:51 | CP.PCM.PN ---
Subjective - Date & Time of Evaluation Date of Evaluation: 07/09/18 Time of Evaluation: 08:49 - Subjective Subjective: Covering Dr De La Torre Not tolerating diet. Post prandial abdominal pain, belching, nausea. Back pain, weakness. Passing flatus, no BM. Patient wants surgery. LFTs elevated, likely drug induced Objective - Vital Signs/Intake and Output Vital Signs (last 24 hours): Temp Pulse Resp BP Pulse Ox 98.3 F 100 H 20 134/76 99 07/09/18 07:15 07/09/18 07:15 07/09/18 07:15 07/09/18 07:15 07/09/18 07:15 - Medications Medications: Current Medications Acetaminophen (Tylenol 650mg/20.3ml Solution Ud) 650 mg PO Q6 PRN PRN Reason: headache or fever >100.4F Last Admin: 07/07/18 22:33 Dose: 650 mg Amitriptyline HCl (Elavil) 50 mg PO HS [facility] Last Admin: 07/08/18 21:34 Dose: 50 mg Bupropion HCl (Wellbutrin) 100 mg PO BID [facility] Last Admin: 07/08/18 17:15 Dose: 100 mg Docusate Sodium (Colace) 100 mg PO TID [facility] Last Admin: 07/08/18 17:15 Dose: 100 mg Heparin Sodium (Porcine) (Heparin) 5,000 units SC Q8 [facility] Last Admin: 07/09/18 06:48 Dose: Not Given Folic Acid 1 mg/ Sodium (Chloride) 100.2 mls @ 60 mls/hr IV DAILY [facility] Last Admin: 07/08/18 11:24 Dose: 60 mls/hr Lamotrigine (Lamictal) 200 mg PO DAILY [facility] Last Admin: 07/08/18 09:31 Dose: 200 mg Levothyroxine Sodium (Synthroid) 12.5 mcg IVP 0630 [facility] Last Admin: 07/09/18 06:49 Dose: 12.5 mcg Methotrexate (Methotrexate) 15 mg NG QWK@1200 [facility] Last Admin: 07/06/18 12:15 Dose: 15 mg Ondansetron HCl (Zofran Inj) 4 mg IVP Q6H PRN PRN Reason: Nausea/Vomiting Last Admin: 07/09/18 02:26 Dose: 4 mg Pantoprazole Sodium (Protonix Ec Tab) 40 mg PO DAILY [facility] Last Admin: 07/08/18 09:31 Dose: 40 mg Potassium Phos/Sodium Phos (Neutra-Phos) 1 pkt PO BID [facility] Last Admin: 07/08/18 17:15 Dose: 1 pkt Saliva Substitute (Mouth Kote 236 Ml) 0 ml MM 5XD PRN PRN Reason: DRY MOUTH Last Admin: 07/05/18 09:25 Dose: 1 spr Tolvaptan (Samsca) 15 mg PO ONCE ONE Stop: 07/09/18 08:40 - Labs Labs: 07/07/18 08:15 07/09/18 07:03 PT 10.9 SECONDS (9.7-12.2) 07/01/18 18:55 INR 1.0 07/01/18 18:55 APTT 30 SECONDS (21-34) 07/01/18 18:55 - Constitutional Appears: Non-toxic, No Acute Distress - Respiratory Exam Respiratory Exam: Clear to Ausculation Bilateral - Cardiovascular Exam Cardiovascular Exam: REGULAR RHYTHM - GI/Abdominal Exam GI & Abdominal Exam: Soft, Hyperactive Bowel Sounds. absent: Distended, Tenderness, Mass, Rebound - Extremities Exam Extremities Exam: Normal Inspection Assessment and Plan (1) Abnormal transaminases Assessment & Plan: Drug induced. Will monitor. Status: Acute (2) Small bowel obstruction Assessment & Plan: Partial obstruction. Surgery to decide on whether surgical exploration is needed. Will check Obstructive series today Status: Acute
--- NOTE | 2018-07-09 09:45 | CP.PCM.PN ---
Subjective - Date & Time of Evaluation Date of Evaluation: 07/09/18 Time of Evaluation: 09:36 - Subjective Subjective: pt seen and examined complaints of belching still with abdominal discomfort poor po intake sodium 127 today no bowel movement after enema ROS- PER hpi, OTHER THAN THAT 10 POINT ros NEGATIVE Objective - Vital Signs/Intake and Output Vital Signs (last 24 hours): Temp Pulse Resp BP Pulse Ox 98.3 F 100 H 20 134/76 99 07/09/18 07:15 07/09/18 07:15 07/09/18 07:15 07/09/18 07:15 07/09/18 07:15 - Medications Medications: Current Medications Acetaminophen (Tylenol 650mg/20.3ml Solution Ud) 650 mg PO Q6 PRN PRN Reason: headache or fever >100.4F Last Admin: 07/07/18 22:33 Dose: 650 mg Amitriptyline HCl (Elavil) 50 mg PO HS [facility] Last Admin: 07/08/18 21:34 Dose: 50 mg Bupropion HCl (Wellbutrin) 100 mg PO BID [facility] Last Admin: 07/08/18 17:15 Dose: 100 mg Docusate Sodium (Colace) 100 mg PO TID [facility] Last Admin: 07/08/18 17:15 Dose: 100 mg Heparin Sodium (Porcine) (Heparin) 5,000 units SC Q8 [facility] Last Admin: 07/09/18 06:48 Dose: Not Given Folic Acid 1 mg/ Sodium (Chloride) 100.2 mls @ 60 mls/hr IV DAILY [facility] Last Admin: 07/08/18 11:24 Dose: 60 mls/hr Lamotrigine (Lamictal) 200 mg PO DAILY [facility] Last Admin: 07/08/18 09:31 Dose: 200 mg Levothyroxine Sodium (Synthroid) 12.5 mcg IVP 0630 [facility] Last Admin: 07/09/18 06:49 Dose: 12.5 mcg Methotrexate (Methotrexate) 15 mg NG QWK@1200 [facility] Last Admin: 07/06/18 12:15 Dose: 15 mg Ondansetron HCl (Zofran Inj) 4 mg IVP Q6H PRN PRN Reason: Nausea/Vomiting Last Admin: 07/09/18 02:26 Dose: 4 mg Pantoprazole Sodium (Protonix Ec Tab) 40 mg PO DAILY [facility] Last Admin: 07/08/18 09:31 Dose: 40 mg Potassium Phos/Sodium Phos (Neutra-Phos) 1 pkt PO BID [facility] Last Admin: 07/08/18 17:15 Dose: 1 pkt Saliva Substitute (Mouth Kote 236 Ml) 0 ml MM 5XD PRN PRN Reason: DRY MOUTH Last Admin: 07/05/18 09:25 Dose: 1 spr - Labs Labs: 07/07/18 08:15 07/09/18 07:03 PT 10.9 SECONDS (9.7-12.2) 07/01/18 18:55 INR 1.0 07/01/18 18:55 APTT 30 SECONDS (21-34) 07/01/18 18:55 - Constitutional Appears: Well, Non-toxic - Head Exam Head Exam: ATRAUMATIC, NORMOCEPHALIC - Eye Exam Eye Exam: EOMI, PERRL - ENT Exam ENT Exam: Mucous Membranes Moist - Neck Exam Neck Exam: absent: Lymphadenopathy - Respiratory Exam Respiratory Exam: Clear to Ausculation Bilateral. absent: Rhonchi, Wheezes - Cardiovascular Exam Cardiovascular Exam: REGULAR RHYTHM, +S1, +S2 - GI/Abdominal Exam GI & Abdominal Exam: Soft. absent: Tenderness - Extremities Exam Extremities Exam: Full ROM. absent: Pedal Edema - Neurological Exam Neurological Exam: Alert, Awake, Oriented x3 - Psychiatric Exam Psychiatric exam: Depressed - Skin Skin Exam: Warm. absent: Dry Assessment and Plan (1) Constipation Status: Acute (2) Chronic depression Status: Acute (3) Acute renal insufficiency Status: Acute (4) Hypokalemia Status: Acute (5) Hyponatremia Status: Acute (6) Small bowel obstruction Status: Acute - Assessment and Plan (Free Text) Assessment: tolvaptan one dose today cr stable electrolytes acceptable diet as tolerated
[2018-07-09] MEDS: Pantoprazole 40 mg EC Tab PO SCH (10:13)
[2018-07-09] MEDS: Potassium & Sodium Phosphate PO SCH ×2 (10:13→17:49)
[2018-07-09 10:28] LABS: HAV AB (IGM) Nonreactive (Nonreactive)
[2018-07-09 12:06] LABS: BASO % 0.4 % (0.0-2.0); EOS # 0.1 K/uL (0.0-0.7); EOS % 0.5 % (0.0-4.0); HEMOGLOBIN 13.5 g/dL (11.0-16.0); LYMPH % 18.8 % (20.0-40.0); MEAN CELL VOLUME 96.4 fL (81.0-99.0); MEAN CORPUSCULAR HEMOGLOBIN 32.9 pg (27.0-31.0); MEAN CORPUSCULAR HGB CONC 34.1 g/dL (33.0-37.0); MEAN PLATELET VOLUME 6.7 fL (7.2-11.7); NEUT # 7.6 K/uL (1.8-7.0); NEUT % 71.3 % (50.0-75.0); RBC 4.12 Mil/uL (3.80-5.20); RED CELL DISTRIBUTION WIDTH 14.9 % (11.5-14.5); WHITE BLOOD COUNT 10.7 K/uL (4.8-10.8)
[2018-07-09] MEDS ORDERED: Lidocaine 2% Jelly (Uro-Jet) TOP ONE (13:15)
[2018-07-09] MEDS: Acetaminophen 650mg/20.3ml solution UD PO PRN (14:39)
--- NOTE | 2018-07-09 15:59 | RAD ---
Date of service: 07/09/2018 HISTORY: NGT placement COMPARISON: Comparison chest 07/02/2018 FINDINGS: In situ NGT, the tip of which is located in the left upper quadrant of the abdomen. LUNGS: Mild bibasilar atelectasis. PLEURA: No significant pleural effusion identified, no pneumothorax apparent. CARDIOVASCULAR: Normal. 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 VISUALIZED UPPER ABDOMEN: Normal. OTHER FINDINGS: None. IMPRESSION: In situ NGT as described. Bibasilar atelectasis
--- NOTE | 2018-07-09 16:22 | RAD ---
Date of service: 07/09/2018 PROCEDURE: Radiographs of the chest and abdomen (obstructive series) HISTORY: SBO COMPARISON: No prior. TECHNIQUE: AP radiograph of the chest, with upright and supine radiographs of the abdomen. FINDINGS: CHEST: Lungs:. Minor bibasilar atelectasis.. Cardiovascular: Normal size heart. No pulmonary vascular congestion. Pleura: No pleural fluid. No pneumothorax. Other findings: None. ABDOMEN AND PELVIS: Bowel: Unremarkable bowel gas pattern. No evidence of mechanical however there is a distended air-filled loop of bowel within the mid-lower abdomen/upper pelvis region. Free air: None. Bones: Unremarkable. Other findings: None. IMPRESSION: Unremarkable radiographs of chest and abdomen. No evidence of acute mechanical bowel obstruction however there is a distended air-filled loop of bowel seen in the mid lower abdomen/upper pelvis.
--- NOTE | 2018-07-09 16:52 | RAD ---
Date of service: 07/09/2018 HISTORY: worsened SBO COMPARISON: Alma Delia in made with abdominal radiographs and CT scan abdomen pelvis dated 07/05/2018 and 07/04/2018 respectively. 07/05/2018. FINDINGS: In situ NGT the distal aspect of which is coiled within the left upper quadrant of the abdomen with tip located just to the left of midline in the left upper/mid abdomen BOWEL: There is a localized on minimally distended air-filled loop small bowel small bowel in the mid abdomen which probably represents localized ileus. Moderate amount of stool seen within the right colon. BONES: Again noted is an elliptical shaped sclerotic lesion right iliac bone better seen on prior CT scan. OTHER FINDINGS: Cholecystectomy clips again noted. IMPRESSION: No evidence of acute mechanical bowel obstruction. Probable of minor localized ileus as above.
[2018-07-09] MEDS: Sodium Chloride 0.9% 1,000 ML IV SCH (18:54)
[2018-07-10] MEDS: Sodium Chloride 0.9% 1,000 ML IV SCH ×2 (04:30→13:32)
[2018-07-10] MEDS: Levothyroxine 100 mcg (0.1 mg) Inj IVP SCH (06:17)
[2018-07-10 08:00] LABS: ALB/GLOB RATIO 1.4 (1.0-2.1); ALBUMIN 3.3 g/dL (3.5-5.0); ALT/SGPT 83 U/L (9-52); AST/SGOT 46 U/L (14-36); BLOOD UREA NITROGEN 10 mg/dL (7-17); CALCIUM 8.3 mg/dl (8.6-10.4); GFR NON-AFRICAN AMERICAN > 60
--- NOTE | 2018-07-10 08:37 | CP.PCM.PN ---
<KuldeepJerardo - Last Filed: 07/10/18 10:22> Subjective - Date & Time of Evaluation Date of Evaluation: 07/10/18 Time of Evaluation: 08:37 - Subjective Subjective: Surgery PT seen and examined. Pt was vomiting yesterday. NGT was placed. 800cc bilious output since placement yesterday. Deneis nausea, vomiting, flatus, BM. Pain controlled. Family previously didn't want surgery. Objective - Vital Signs/Intake and Output Vital Signs (last 24 hours): Temp Pulse Resp BP Pulse Ox 97.9 F 95 H 20 114/72 95 07/10/18 07:00 07/10/18 07:00 07/10/18 07:00 07/10/18 07:00 07/10/18 07:00 Intake and Output: 07/10/18 07/10/18 06:59 18:59 Intake Total 1600 Output Total 1100 Balance 500 - Medications Medications: Current Medications Acetaminophen (Tylenol 650mg/20.3ml Solution Ud) 650 mg PO Q6 PRN PRN Reason: headache or fever >100.4F Last Admin: 07/09/18 14:39 Dose: 650 mg Amitriptyline HCl (Elavil) 50 mg PO HS [facility] Last Admin: 07/09/18 22:34 Dose: Not Given Bupropion HCl (Wellbutrin) 100 mg PO BID [facility] Last Admin: 07/09/18 17:49 Dose: 100 mg Docusate Sodium (Colace) 100 mg PO TID [facility] Last Admin: 07/09/18 17:49 Dose: 100 mg Folic Acid 1 mg/ Sodium (Chloride) 100.2 mls @ 60 mls/hr IV DAILY [facility] Last Admin: 07/09/18 10:14 Dose: 60 mls/hr Sodium Chloride (Sodium Chloride 0.9%) 1,000 mls @ 100 mls/hr IV .Q10H [facility] Last Admin: 07/10/18 04:30 Dose: 100 mls/hr Lamotrigine (Lamictal) 200 mg PO DAILY [facility] Last Admin: 07/09/18 10:13 Dose: 200 mg Levothyroxine Sodium (Synthroid) 12.5 mcg IVP 0630 [facility] Last Admin: 07/10/18 06:17 Dose: 12.5 mcg Methotrexate (Methotrexate) 15 mg NG QWK@1200 [facility] Last Admin: 07/06/18 12:15 Dose: 15 mg Ondansetron HCl (Zofran Inj) 4 mg IVP Q6H PRN PRN Reason: Nausea/Vomiting Last Admin: 07/09/18 11:28 Dose: 4 mg Pantoprazole Sodium (Protonix Ec Tab) 40 mg PO DAILY [facility] Last Admin: 07/09/18 10:13 Dose: 40 mg Potassium Phos/Sodium Phos (Neutra-Phos) 1 pkt PO BID [facility] Last Admin: 07/09/18 17:49 Dose: 1 pkt Saliva Substitute (Mouth Kote 236 Ml) 0 ml MM 5XD PRN PRN Reason: DRY MOUTH Last Admin: 07/05/18 09:25 Dose: 1 spr Sucralfate (Carafate Tab) 1 gm PO DAILY [facility] Last Admin: 07/09/18 11:34 Dose: Not Given - Labs Labs: 07/09/18 11:58 07/10/18 07:16 PT 10.9 SECONDS (9.7-12.2) 07/01/18 18:55 INR 1.0 07/01/18 18:55 APTT 30 SECONDS (21-34) 07/01/18 18:55 - Constitutional Appears: No Acute Distress - Head Exam Head Exam: ATRAUMATIC, NORMAL INSPECTION, NORMOCEPHALIC - Eye Exam Eye Exam: EOMI, Normal appearance, PERRL Pupil Exam: NORMAL ACCOMODATION, PERRL - ENT Exam Additional comments: NGT in place: biliuous 800cc/24hrs. - Neck Exam Neck Exam: Full ROM - Respiratory Exam Respiratory Exam: NORMAL BREATHING PATTERN - Cardiovascular Exam Cardiovascular Exam: REGULAR RHYTHM, +S1, +S2. absent: Murmur - GI/Abdominal Exam GI & Abdominal Exam: Soft. absent: Distended, Firm, Guarding, Rigid, Tenderness Additional comments: well healed scars. - Extremities Exam Extremities Exam: Full ROM - Back Exam Back Exam: NORMAL INSPECTION - Neurological Exam Neurological Exam: Alert, Awake, CN II-XII Intact, Normal Gait, Oriented x3 - Psychiatric Exam Psychiatric exam: Normal Affect, Normal Mood - Skin Skin Exam: Dry, Intact, Normal Color, Warm Assessment and Plan - Assessment and Plan (Free Text) Assessment: 72 F w SBO NGT to suction NPO IVF pain/nausea meds Pt may need surgery if sx doesn't resolve WIll POONAM Smith <Becky Smith - Last Filed: 07/10/18 18:18> Objective - Vital Signs/Intake and Output Vital Signs (last 24 hours): Temp Pulse Resp BP Pulse Ox 98.2 F 111 H 18 122/71 96 07/10/18 15:07 07/10/18 15:07 07/10/18 15:07 07/10/18 15:07 07/10/18 15:07 Intake and Output: 07/10/18 07/10/18 06:59 18:59 Intake Total 1600 620 Output Total 1100 375 Balance 500 245 - Medications Medications: Current Medications Acetaminophen (Tylenol 650mg/20.3ml Solution Ud) 650 mg PO Q6 PRN PRN Reason: headache or fever >100.4F Last Admin: 07/09/18 14:39 Dose: 650 mg Amitriptyline HCl (Elavil) 50 mg PO HS [facility] Last Admin: 07/09/18 22:34 Dose: Not Given Bupropion HCl (Wellbutrin) 100 mg PO BID [facility] Last Admin: 07/10/18 17:56 Dose: 100 mg Docusate Sodium (Colace) 100 mg PO TID [facility] Last Admin: 07/10/18 17:54 Dose: 100 mg Folic Acid 1 mg/ Sodium (Chloride) 100.2 mls @ 60 mls/hr IV DAILY [facility] Last Admin: 07/10/18 09:44 Dose: 60 mls/hr Sodium Chloride (Sodium Chloride 0.9%) 1,000 mls @ 100 mls/hr IV .Q10H [facility] Last Admin: 07/10/18 13:32 Dose: Not Given Lamotrigine (Lamictal) 200 mg PO DAILY [facility] Last Admin: 07/10/18 09:43 Dose: 200 mg Levothyroxine Sodium (Synthroid) 12.5 mcg IVP 0630 [facility] Last Admin: 07/10/18 06:17 Dose: 12.5 mcg Methotrexate (Methotrexate) 15 mg NG QWK@1200 [facility] Last Admin: 07/06/18 12:15 Dose: 15 mg Ondansetron HCl (Zofran Inj) 4 mg IVP Q6H PRN PRN Reason: Nausea/Vomiting Last Admin: 07/09/18 11:28 Dose: 4 mg Pantoprazole Sodium (Protonix Ec Tab) 40 mg PO DAILY [facility] Last Admin: 07/10/18 09:44 Dose: 40 mg Potassium Phos/Sodium Phos (Neutra-Phos) 1 pkt PO BID [facility] Last Admin: 07/10/18 17:54 Dose: 1 pkt Saliva Substitute (Mouth Kote 236 Ml) 0 ml MM 5XD PRN PRN Reason: DRY MOUTH Last Admin: 07/05/18 09:25 Dose: 1 spr Sucralfate (Carafate Tab) 1 gm PO DAILY [facility] Last Admin: 07/10/18 09:43 Dose: 1 gm - Labs Labs: 07/09/18 11:58 07/10/18 07:16 PT 10.9 SECONDS (9.7-12.2) 07/01/18 18:55 INR 1.0 07/01/18 18:55 APTT 30 SECONDS (21-34) 07/01/18 18:55 Assessment and Plan - Assessment and Plan (Free Text) Plan: Patient seen and examined with resident staff. Agree with above. Failed liquid diet challenge following NGT removal 2 days ago. NGT re-inserted for increased abdominal pain and distension. Recommend operative exploration again as patient has failed conservative management and now in hospital for over a week. Tentatively OR Wednesday for laparoscopic, possible open exploration, if patient and daughter who is POA, agreeable. Cont. Strict NPO. Optimize electrolytes. Coags in am.
[2018-07-10] MEDS: Potassium & Sodium Phosphate PO SCH ×2 (09:43→17:54)
[2018-07-10] MEDS: Pantoprazole 40 mg EC Tab PO SCH (09:44)
--- NOTE | 2018-07-10 11:50 | CP.PCM.PN ---
Subjective - Date & Time of Evaluation Date of Evaluation: 07/10/18 Time of Evaluation: 11:48 - Subjective Subjective: Covering Dr De La Torre NG placed- large bilious output. No BMs/flatus. + nausea and abdominal pain LFTs improving Objective - Vital Signs/Intake and Output Vital Signs (last 24 hours): Temp Pulse Resp BP Pulse Ox 97.9 F 95 H 20 114/72 95 07/10/18 07:00 07/10/18 07:00 07/10/18 07:00 07/10/18 07:00 07/10/18 07:00 Intake and Output: 07/10/18 07/10/18 06:59 18:59 Intake Total 1600 Output Total 1100 Balance 500 - Medications Medications: Current Medications Acetaminophen (Tylenol 650mg/20.3ml Solution Ud) 650 mg PO Q6 PRN PRN Reason: headache or fever >100.4F Last Admin: 07/09/18 14:39 Dose: 650 mg Amitriptyline HCl (Elavil) 50 mg PO HS [facility] Last Admin: 07/09/18 22:34 Dose: Not Given Bupropion HCl (Wellbutrin) 100 mg PO BID [facility] Last Admin: 07/10/18 09:43 Dose: 100 mg Docusate Sodium (Colace) 100 mg PO TID [facility] Last Admin: 07/10/18 09:43 Dose: 100 mg Folic Acid 1 mg/ Sodium (Chloride) 100.2 mls @ 60 mls/hr IV DAILY [facility] Last Admin: 07/10/18 09:44 Dose: 60 mls/hr Sodium Chloride (Sodium Chloride 0.9%) 1,000 mls @ 100 mls/hr IV .Q10H [facility] Last Admin: 07/10/18 04:30 Dose: 100 mls/hr Lamotrigine (Lamictal) 200 mg PO DAILY [facility] Last Admin: 07/10/18 09:43 Dose: 200 mg Levothyroxine Sodium (Synthroid) 12.5 mcg IVP 0630 [facility] Last Admin: 07/10/18 06:17 Dose: 12.5 mcg Methotrexate (Methotrexate) 15 mg NG QWK@1200 [facility] Last Admin: 07/06/18 12:15 Dose: 15 mg Ondansetron HCl (Zofran Inj) 4 mg IVP Q6H PRN PRN Reason: Nausea/Vomiting Last Admin: 07/09/18 11:28 Dose: 4 mg Pantoprazole Sodium (Protonix Ec Tab) 40 mg PO DAILY [facility] Last Admin: 07/10/18 09:44 Dose: 40 mg Potassium Phos/Sodium Phos (Neutra-Phos) 1 pkt PO BID [facility] Last Admin: 07/10/18 09:43 Dose: 1 pkt Saliva Substitute (Mouth Kote 236 Ml) 0 ml MM 5XD PRN PRN Reason: DRY MOUTH Last Admin: 07/05/18 09:25 Dose: 1 spr Sucralfate (Carafate Tab) 1 gm PO DAILY [facility] Last Admin: 07/10/18 09:43 Dose: 1 gm - Labs Labs: 07/09/18 11:58 07/10/18 07:16 PT 10.9 SECONDS (9.7-12.2) 07/01/18 18:55 INR 1.0 07/01/18 18:55 APTT 30 SECONDS (21-34) 07/01/18 18:55 - Constitutional Appears: Well, No Acute Distress - Head Exam Head Exam: NORMOCEPHALIC - Eye Exam Eye Exam: absent: Scleral icterus - Respiratory Exam Respiratory Exam: NORMAL BREATHING PATTERN - Cardiovascular Exam Cardiovascular Exam: REGULAR RHYTHM - GI/Abdominal Exam GI & Abdominal Exam: Soft, Tenderness, Normal Bowel Sounds. absent: Distended, Guarding Assessment and Plan (1) Abnormal transaminases Assessment & Plan: Improving Likely drug induced Continue to monitor Status: Acute (2) Small bowel obstruction Assessment & Plan: Symptomatic Surgery monitoring- may need exploration. Status: Acute
[2018-07-10] MEDS: Dextrose 5%/0.45% NS 1,000 ML IV SCH (19:49)
[2018-07-11] MEDS: Dextrose 5%/0.45% NS 1,000 ML IV SCH (05:15)
[2018-07-11] MEDS: Levothyroxine 100 mcg (0.1 mg) Inj IVP SCH (05:16)
[2018-07-11 07:44] LABS: BASO # 0.1 K/uL (0.0-0.2); BASO % 0.6 % (0.0-2.0); EOS # 0.1 K/uL (0.0-0.7); EOS % 1.1 % (0.0-4.0); LYMPH # 1.6 K/uL (1.0-4.3); LYMPH % 17.5 % (20.0-40.0); MEAN CELL VOLUME 97.6 fL (81.0-99.0); MEAN CORPUSCULAR HEMOGLOBIN 33.7 pg (27.0-31.0); MEAN CORPUSCULAR HGB CONC 34.6 g/dL (33.0-37.0); MEAN PLATELET VOLUME 7.3 fL (7.2-11.7); MONO # 0.8 K/uL (0.0-0.8); NEUT # 6.5 K/uL (1.8-7.0); NEUT % 71.8 % (50.0-75.0); RBC 3.34 Mil/uL (3.80-5.20); RED CELL DISTRIBUTION WIDTH 14.7 % (11.5-14.5)
[2018-07-11 07:54] LABS: INR 1.2; PROTHROMBIN TIME 12.8 SECONDS (9.7-12.2)
[2018-07-11 07:59] LABS: ALB/GLOB RATIO 1.3 (1.0-2.1); ALT/SGPT 62 U/L (9-52); AST/SGOT 27 U/L (14-36); BLOOD UREA NITROGEN 11 mg/dL (7-17); CALCIUM 8.4 mg/dl (8.6-10.4); GFR NON-AFRICAN AMERICAN > 60
[2018-07-11 08:00] LABS: HEMOGLOBIN 11.3 g/dL (11.0-16.0)
--- NOTE | 2018-07-11 09:40 | CP.PCM.PN ---
Subjective - Date & Time of Evaluation Date of Evaluation: 07/11/18 Time of Evaluation: 07:00 - Subjective Subjective: PGY2- Progress Note for Dr. Dunbar Patient seen and examined at bedside and in no acute distress. Patient had NG tube placed on 07/09 due to vomiting. Patient currently says she is feeling better. Patient is passing some gas. Patient denies any nausea or vomiting. Patient has not had a bowel movement. Objective - Vital Signs/Intake and Output Vital Signs (last 24 hours): Temp Pulse Resp BP Pulse Ox 98.0 F 87 18 119/71 97 07/11/18 07:00 07/11/18 07:00 07/11/18 07:00 07/11/18 07:00 07/11/18 07:00 Intake and Output: 07/11/18 07/11/18 06:59 18:59 Intake Total 880 Output Total 285 Balance 595 - Medications Medications: Current Medications Acetaminophen (Tylenol 650mg/20.3ml Solution Ud) 650 mg PO Q6 PRN PRN Reason: headache or fever >100.4F Last Admin: 07/09/18 14:39 Dose: 650 mg Amitriptyline HCl (Elavil) 50 mg PO HS [facility] Last Admin: 07/10/18 22:08 Dose: 50 mg Bupropion HCl (Wellbutrin) 100 mg PO BID [facility] Last Admin: 07/10/18 17:56 Dose: 100 mg Docusate Sodium (Colace) 100 mg PO TID [facility] Last Admin: 07/10/18 17:54 Dose: 100 mg Heparin Sodium (Porcine) (Heparin) 5,000 units SC Q12 [facility] Last Admin: 07/10/18 22:09 Dose: 5,000 units Folic Acid 1 mg/ Sodium (Chloride) 100.2 mls @ 60 mls/hr IV DAILY [facility] Last Admin: 07/10/18 09:44 Dose: 60 mls/hr Dextrose/Sodium Chloride (Dextrose 5%/0.9% Ns 1000 Ml) 1,000 mls @ 100 mls/hr IV .Q10H [facility] Lamotrigine (Lamictal) 200 mg PO DAILY [facility] Last Admin: 07/10/18 09:43 Dose: 200 mg Levothyroxine Sodium (Synthroid) 12.5 mcg IVP 0630 [facility] Last Admin: 07/11/18 05:16 Dose: 12.5 mcg Methotrexate (Methotrexate) 15 mg NG QWK@1200 [facility] Last Admin: 07/06/18 12:15 Dose: 15 mg Ondansetron HCl (Zofran Inj) 4 mg IVP Q6H PRN PRN Reason: Nausea/Vomiting Last Admin: 07/09/18 11:28 Dose: 4 mg Pantoprazole Sodium (Protonix Ec Tab) 40 mg PO DAILY [facility] Last Admin: 07/10/18 09:44 Dose: 40 mg Potassium Phos/Sodium Phos (Neutra-Phos) 1 pkt PO BID [facility] Last Admin: 07/10/18 17:54 Dose: 1 pkt Saliva Substitute (Mouth Kote 236 Ml) 0 ml MM 5XD PRN PRN Reason: DRY MOUTH Last Admin: 07/05/18 09:25 Dose: 1 spr Sucralfate (Carafate Tab) 1 gm PO DAILY [facility] Last Admin: 07/10/18 09:43 Dose: 1 gm - Labs Labs: 07/11/18 07:34 07/11/18 07:34 PT 12.8 SECONDS (9.7-12.2) H 07/11/18 07:34 INR 1.2 07/11/18 07:34 APTT 37 SECONDS (21-34) H 07/11/18 07:34 - Additional Findings Additional findings: - Constitutional Appears: No Acute Distress - Head Exam Head Exam: ATRAUMATIC, NORMAL INSPECTION, NORMOCEPHALIC - Eye Exam Eye Exam: EOMI, Normal appearance, PERRL Pupil Exam: NORMAL ACCOMODATION, PERRL - ENT Exam Additional comments: NGT in place: bilious - Neck Exam Neck Exam: Full ROM - Respiratory Exam Respiratory Exam: NORMAL BREATHING PATTERN - Cardiovascular Exam Cardiovascular Exam: REGULAR RHYTHM, +S1, +S2. absent: Murmur - GI/Abdominal Exam GI & Abdominal Exam: Soft. absent: Distended, Firm, Guarding, Rigid, Tenderness Additional comments: well healed scars. - Extremities Exam Extremities Exam: Full ROM - Back Exam Back Exam: NORMAL INSPECTION - Neurological Exam Neurological Exam: Alert, Awake, CN II-XII Intact, Normal Gait, Oriented x3 - Psychiatric Exam Psychiatric exam: Normal Affect, Normal Mood - Skin Skin Exam: Dry, Intact, Normal Color, Warm Assessment and Plan - Assessment and Plan (Free Text) Assessment: Small Bowel Obstruction likely 2/2 to adhesions (hx of multiple abdominal surgeries) General Surgery, Dr. Becky Smith * Clear liquid diet * Advance as tolerated GI Consulted, Dr. De La Torre Abd/Pelvis CT (07/01): * Findings consistent with small-bowel obstruction with transition point right lower quadrant of the abdomen. * Cholecystectomy. * Nodular left adrenal gland. Recommend followup noncontrast MRI of the adrenal glands. * Diverticulosis without radiographic evidence of acute diverticulitis. Obstruction Series (07/02): * Mild left basilar atelectasis and or scarring.. No evidence of mechanical bowel obstruction however findings suggest mild fecal retention/constipation. Abdomen X-ray (07/03): * Mild bibasilar atelectasis. * No evidence of acute mechanical bowel obstruction. Abdomen X-ray (07/04): * Findings are most compatible with acute small bowel obstruction, slightly worse since the prior examination. Abd/Pelvis CT w/ PO and IV contrast (07/04/18): * Persistent pattern positive for mechanical distal small bowel obstruction with collapsed ileum and otherwise dilated small-bowel loops appreciated stomach is partially decompressed by nasogastric tube oral contrast partially distending the stomach. Poor oral contrast transit is seen through small bowel. No free intra peritoneal gas collection or ascites appreciable at this time. Continued surgical evaluation advised. Abdominal exam showed no tenderness or guarding. Patient had bowel 2 bowel movements on 07/06. Tap water enema given on 07/08 - patient had bowel movement. NG tube removed. Will continue to monitor Medications: * Ciprofloxacin 400mg IVPB q12h * Zofran 4mg IVP q6h prn * Protonix 40mg IVP daily * D5 NS at 100cc/hr Hyponatremia (improving) hx of SIADH Nephrology consulted, Dr. Espinosa * Tolvaptan given on 07/09 * Urine Osmolality 569 * Random Urine Sodium 150 Abnormal Transaminases New onset elevation of LFTs may be 2/2 to medications Will continue to monitor Hypothyroidism Continue Home Medication: * Synthroid 12.5mcg IVP daily Hx of Cervical Cancer s/p hysterectomy, b/l oopherectomy (seperate procedure) Continue Home Medication: * Methotrexate 15mg PO qWK Hx of Depression Continue Home Medication: * Amitriptyline 40mg PO HS * Bupropion (Wellbutrin) 150mg NG BID [facility] Heparin 5,000units SC q8h Protonix 40mg IVP daily PT All medical management per Dr. Dunbar
--- NOTE | 2018-07-11 09:59 | CP.PCM.PN ---
Subjective - Date & Time of Evaluation Date of Evaluation: 07/11/18 Time of Evaluation: 16:02 - Subjective Subjective: General Surgery: Dr Smith PT S&E. Resting comfortably. Had NGT replaced over the weekend due to distension and nausea. Has not passed flatus or had BM since wednesday. Intermittent nausea, typically when NGT is clamped and pt goes to ambulate. Denies pain at this time. Abdomen is soft, non-tympanic, and non-distended. No other complaints at this time. Objective - Vital Signs/Intake and Output Vital Signs (last 24 hours): Temp Pulse Resp BP Pulse Ox 98.0 F 87 18 119/71 97 07/11/18 07:00 07/11/18 07:00 07/11/18 07:00 07/11/18 07:00 07/11/18 07:00 Intake and Output: 07/11/18 07/11/18 06:59 18:59 Intake Total 880 Output Total 285 Balance 595 - Medications Medications: Current Medications Acetaminophen (Tylenol 650mg/20.3ml Solution Ud) 650 mg PO Q6 PRN PRN Reason: headache or fever >100.4F Last Admin: 07/09/18 14:39 Dose: 650 mg Amitriptyline HCl (Elavil) 50 mg PO HS [facility] Last Admin: 07/10/18 22:08 Dose: 50 mg Bupropion HCl (Wellbutrin) 100 mg PO BID [facility] Last Admin: 07/10/18 17:56 Dose: 100 mg Docusate Sodium (Colace) 100 mg PO TID [facility] Last Admin: 07/10/18 17:54 Dose: 100 mg Heparin Sodium (Porcine) (Heparin) 5,000 units SC Q12 [facility] Last Admin: 07/10/18 22:09 Dose: 5,000 units Folic Acid 1 mg/ Sodium (Chloride) 100.2 mls @ 60 mls/hr IV DAILY [facility] Last Admin: 07/10/18 09:44 Dose: 60 mls/hr Dextrose/Sodium Chloride (Dextrose 5%/0.9% Ns 1000 Ml) 1,000 mls @ 100 mls/hr IV .Q10H [facility] Lamotrigine (Lamictal) 200 mg PO DAILY [facility] Last Admin: 07/10/18 09:43 Dose: 200 mg Levothyroxine Sodium (Synthroid) 12.5 mcg IVP 0630 [facility] Last Admin: 07/11/18 05:16 Dose: 12.5 mcg Methotrexate (Methotrexate) 15 mg NG QWK@1200 [facility] Last Admin: 07/06/18 12:15 Dose: 15 mg Ondansetron HCl (Zofran Inj) 4 mg IVP Q6H PRN PRN Reason: Nausea/Vomiting Last Admin: 07/09/18 11:28 Dose: 4 mg Pantoprazole Sodium (Protonix Ec Tab) 40 mg PO DAILY [facility] Last Admin: 07/10/18 09:44 Dose: 40 mg Potassium Phos/Sodium Phos (Neutra-Phos) 1 pkt PO BID [facility] Last Admin: 07/10/18 17:54 Dose: 1 pkt Saliva Substitute (Mouth Kote 236 Ml) 0 ml MM 5XD PRN PRN Reason: DRY MOUTH Last Admin: 07/05/18 09:25 Dose: 1 spr Sucralfate (Carafate Tab) 1 gm PO DAILY [facility] Last Admin: 07/10/18 09:43 Dose: 1 gm - Labs Labs: 07/11/18 07:34 07/11/18 07:34 PT 12.8 SECONDS (9.7-12.2) H 07/11/18 07:34 INR 1.2 07/11/18 07:34 APTT 37 SECONDS (21-34) H 07/11/18 07:34 - Constitutional Appears: Non-toxic, No Acute Distress - Eye Exam Eye Exam: Normal appearance - ENT Exam ENT Exam: Mucous Membranes Dry - Respiratory Exam Respiratory Exam: absent: Accessory Muscle Use, Respiratory Distress - Cardiovascular Exam Cardiovascular Exam: absent: Tachycardia - GI/Abdominal Exam GI & Abdominal Exam: Soft. absent: Distended, Firm, Tenderness Additional comments: lower abdominal fullness - Extremities Exam Extremities Exam: absent: Pedal Edema - Neurological Exam Neurological Exam: Alert, Awake, Oriented x3 - Psychiatric Exam Psychiatric exam: Normal Affect, Normal Mood Assessment and Plan - Assessment and Plan (Free Text) Assessment: 72F w/ SBO Plan: cont NPO NGT to strict LIS ambulation when able - if not ambulating pt should be on SUCTION cont IVF - replacement of electrolytes pending clinical course pt may need operation - currently pt is non-distended, non-tender, with no peritoneal signs will tentatively plan for OR tomorrow d/w Dr Luis Mari, PGY4
[2018-07-11] MEDS: Potassium & Sodium Phosphate PO SCH ×2 (10:00→17:38)
[2018-07-11] MEDS: Pantoprazole 40 mg EC Tab PO SCH (10:01)
--- NOTE | 2018-07-11 10:11 | CP.PCM.PN ---
Subjective - Date & Time of Evaluation Date of Evaluation: 07/11/18 Time of Evaluation: 10:10 - Subjective Subjective: seen and examined labs noted NGT in place, dark contenets, minimal output denies any abdominal pain still no bm Objective - Vital Signs/Intake and Output Vital Signs (last 24 hours): Temp Pulse Resp BP Pulse Ox 98.0 F 87 18 119/71 97 07/11/18 07:00 07/11/18 07:00 07/11/18 07:00 07/11/18 07:00 07/11/18 07:00 Intake and Output: 07/11/18 07/11/18 06:59 18:59 Intake Total 880 Output Total 285 Balance 595 - Medications Medications: Current Medications Acetaminophen (Tylenol 650mg/20.3ml Solution Ud) 650 mg PO Q6 PRN PRN Reason: headache or fever >100.4F Last Admin: 07/09/18 14:39 Dose: 650 mg Amitriptyline HCl (Elavil) [address] [facility] Last Admin: 07/10/18 22:08 Dose: 50 mg Bupropion HCl (Wellbutrin) [address] [facility] Last Admin: 07/11/18 10:09 Dose: 100 mg Docusate Sodium (Colace) [address] [facility] Last Admin: 07/11/18 10:00 Dose: 100 mg Heparin Sodium (Porcine) (Heparin) 5,[address] [facility] Last Admin: 07/11/18 10:09 Dose: 5,000 units Folic Acid 1 mg/ Sodium (Chloride) 100.2 mls @ 60 mls/hr IV DAILY [facility] Last Admin: 07/11/18 09:59 Dose: 60 mls/hr Dextrose/Sodium Chloride (Dextrose 5%/0.9% Ns 1000 Ml) 1,000 mls @ 100 mls/hr IV .Q10H [facility] Lamotrigine (Lamictal) [address] [facility] Last Admin: 07/11/18 10:00 Dose: 200 mg Levothyroxine Sodium (Synthroid) 12.[address] [facility] Last Admin: 07/11/18 05:16 Dose: 12.5 mcg Methotrexate (Methotrexate) 15 mg NG QWK@1200 [facility] Last Admin: 07/06/18 12:15 Dose: 15 mg Ondansetron HCl (Zofran Inj) 4 mg IVP Q6H PRN PRN Reason: Nausea/Vomiting Last Admin: 07/09/18 11:28 Dose: 4 mg Pantoprazole Sodium (Protonix Ec Tab) [address] [facility] Last Admin: 07/11/18 10:01 Dose: 40 mg Potassium Phos/Sodium Phos (Neutra-Phos) [address] [facility] Last Admin: 07/11/18 10:00 Dose: 1 pkt Saliva Substitute (Mouth Kote 236 Ml) 0 ml MM 5XD PRN PRN Reason: DRY MOUTH Last Admin: 07/05/18 09:25 Dose: 1 spr Sucralfate (Carafate Tab) [address] [facility] Last Admin: 07/11/18 10:00 Dose: 1 gm - Labs Labs: 07/11/18 07:34 07/11/18 07:34 PT 12.8 SECONDS (9.7-12.2) H 07/11/18 07:34 INR 1.2 07/11/18 07:34 APTT 37 SECONDS (21-34) H 07/11/18 07:34 - Constitutional Appears: No Acute Distress, Chronically Ill - Head Exam Head Exam: NORMAL INSPECTION, NORMOCEPHALIC - Eye Exam Eye Exam: Normal appearance, PERRL - ENT Exam ENT Exam: Mucous Membranes Dry (ng tube) - Neck Exam Neck Exam: Full ROM, Normal Inspection - Respiratory Exam Respiratory Exam: Clear to Ausculation Bilateral, NORMAL BREATHING PATTERN - Cardiovascular Exam Cardiovascular Exam: REGULAR RHYTHM, RRR - GI/Abdominal Exam GI & Abdominal Exam: Distended, Soft, Hypoactive Bowel Sounds - Extremities Exam Extremities Exam: Full ROM, Normal Inspection - Neurological Exam Neurological Exam: Alert, Awake, Oriented x3 - Psychiatric Exam Psychiatric exam: Normal Affect, Normal Mood - Skin Skin Exam: Dry, Intact Assessment and Plan (1) Hypokalemia Status: Acute (2) Hyponatremia Status: Acute (3) SIADH (syndrome of inappropriate ADH production) Status: Acute (4) Small bowel obstruction Status: Acute - Assessment and Plan (Free Text) Assessment: hyponatremia / siadh: improved. s/p tolvaptan wednesday monitor chem closely
--- NOTE | 2018-07-11 14:24 | RAD ---
Date of service: 2018-07-11 09:14:53 HISTORY: Evaluate gas pattern - obstruction vs ileus COMPARISON: No prior. FINDINGS: In situ NGT, the tip of which lies within the left parasagittal upper abdomen likely within the mid stomach region.. Metallic clips right upper quadrant of the abdomen consistent with prior cholecystectomy. BOWEL: There are a few mildly distended air-filled loops of small bowel in the mid and right parasagittal abdomen 1 of which remains most prominent; findings may represent localized ileus. Moderate amount of stool is also again seen in the cecum and at ascending as well as proximal transverse colon consistent with mild fecal retention/constipation no gross free intraperitoneal air BONES: Elliptical shaped sclerotic lesion within the right iliac bone unchanged OTHER FINDINGS: None. IMPRESSION: Situ NGT. Several mildly distended air-filled loops of small bowel in the mid and right abdomen may represent localized ileus.. Findings also suggest mild constipation. No gross free intraperitoneal air.
[2018-07-11] MEDS: Dextrose 5%/0.9% NS 1,000 ML IV SCH ×2 (16:11→21:00)
--- NOTE | 2018-07-11 17:01 | CP.PCM.PN ---
Subjective - Date & Time of Evaluation Date of Evaluation: 07/11/18 Time of Evaluation: 16:58 - Subjective Subjective: REcurrence of SBO noted over the weekend and NGT replaced. No flatus or stool. Less pain and distension but still epigastric discomfort. (chronic and acute) Objective - Vital Signs/Intake and Output Vital Signs (last 24 hours): Temp Pulse Resp BP Pulse Ox 97.6 F 95 H 20 138/74 97 07/11/18 15:00 07/11/18 15:00 07/11/18 15:00 07/11/18 15:00 07/11/18 15:00 Intake and Output: 07/11/18 07/11/18 06:59 18:59 Intake Total 880 Output Total 285 Balance 595 - Medications Medications: Current Medications Acetaminophen (Tylenol 650mg/20.3ml Solution Ud) 650 mg PO Q6 PRN PRN Reason: headache or fever >100.4F Last Admin: 07/09/18 14:39 Dose: 650 mg Amitriptyline HCl (Elavil) 50 mg PO HS [facility] Last Admin: 07/10/18 22:08 Dose: 50 mg Bupropion HCl (Wellbutrin) 100 mg PO BID [facility] Last Admin: 07/11/18 10:09 Dose: 100 mg Docusate Sodium (Colace) 100 mg PO TID [facility] Last Admin: 07/11/18 10:00 Dose: 100 mg Heparin Sodium (Porcine) (Heparin) 5,000 units SC Q12 [facility] Last Admin: 07/11/18 10:09 Dose: 5,000 units Folic Acid 1 mg/ Sodium (Chloride) 100.2 mls @ 60 mls/hr IV DAILY [facility] Last Admin: 07/11/18 09:59 Dose: 60 mls/hr Dextrose/Sodium Chloride (Dextrose 5%/0.9% Ns 1000 Ml) 1,000 mls @ 100 mls/hr IV .Q10H [facility] Last Admin: 07/11/18 16:11 Dose: Not Given Lamotrigine (Lamictal) 200 mg PO DAILY [facility] Last Admin: 07/11/18 10:00 Dose: 200 mg Levothyroxine Sodium (Synthroid) 12.5 mcg IVP 0630 [facility] Last Admin: 07/11/18 05:16 Dose: 12.5 mcg Methotrexate (Methotrexate) 15 mg NG QWK@1200 [facility] Last Admin: 07/06/18 12:15 Dose: 15 mg Ondansetron HCl (Zofran Inj) 4 mg IVP Q6H PRN PRN Reason: Nausea/Vomiting Last Admin: 07/09/18 11:28 Dose: 4 mg Pantoprazole Sodium (Protonix Ec Tab) 40 mg PO DAILY [facility] Last Admin: 07/11/18 10:01 Dose: 40 mg Potassium Phos/Sodium Phos (Neutra-Phos) 1 pkt PO BID [facility] Last Admin: 07/11/18 10:00 Dose: 1 pkt Saliva Substitute (Mouth Kote 236 Ml) 0 ml MM 5XD PRN PRN Reason: DRY MOUTH Last Admin: 07/05/18 09:25 Dose: 1 spr Sucralfate (Carafate Tab) 1 gm PO DAILY [facility] Last Admin: 07/11/18 10:00 Dose: 1 gm - Labs Labs: 07/11/18 07:34 07/11/18 07:34 PT 12.8 SECONDS (9.7-12.2) H 07/11/18 07:34 INR 1.2 07/11/18 07:34 APTT 37 SECONDS (21-34) H 07/11/18 07:34 - Constitutional Appears: No Acute Distress - ENT Exam Additional comments: NGT with small amount of bilious fluid 20cc - Respiratory Exam Respiratory Exam: NORMAL BREATHING PATTERN - Cardiovascular Exam Cardiovascular Exam: REGULAR RHYTHM - GI/Abdominal Exam GI & Abdominal Exam: Soft, Hypoactive Bowel Sounds. absent: Distended, Guarding, Tenderness, Mass, Organomegaly, Rebound Assessment and Plan (1) Small bowel obstruction due to adhesions Assessment & Plan: Patient now day 12 since admission with SBO that has recurred after conservative treatment. At this point in time I would strongly favor a definitive laparoscopy with lysis of adhesions and diagnotic procedure to treat the obstruction. SHe is at high risk for recurrence when she begins eating again. Attempts to page ophthalmic surgical assistant were unsuccessful at this time. Keep NPO. Status: Acute (2) Acute renal failure Status: Resolved (3) SIADH (syndrome of inappropriate ADH production) Assessment & Plan: Wh=801 now. Metabolic parameters appear ok for OR. Renal follow up. Status: Acute (4) Abnormal transaminases Assessment & Plan: Etiology unclear. LFTs decreasing the past two days. Status: Acute
[2018-07-11] MEDS: Benzocaine/Menthol (Cepacol) Lozenge MT PRN (22:24)
[2018-07-12] MEDS: Acetaminophen 650mg/20.3ml solution UD PO PRN ×2 (05:48→16:15)
[2018-07-12] MEDS: Benzocaine/Menthol (Cepacol) Lozenge MT PRN ×5 (05:49→21:32)
[2018-07-12] MEDS: Levothyroxine 100 mcg (0.1 mg) Inj IVP SCH (05:50)
[2018-07-12 06:20] LABS: BASO % 0.4 % (0.0-2.0); EOS # 0.1 K/uL (0.0-0.7); EOS % 1.5 % (0.0-4.0); LYMPH # 1.4 K/uL (1.0-4.3); LYMPH % 17.5 % (20.0-40.0); MEAN CELL VOLUME 96.8 fL (81.0-99.0); MEAN CORPUSCULAR HGB CONC 34.1 g/dL (33.0-37.0); MEAN PLATELET VOLUME 6.8 fL (7.2-11.7); MONO # 0.6 K/uL (0.0-0.8); MONO % 7.8 % (0.0-10.0); NEUT # 5.8 K/uL (1.8-7.0); NEUT % 72.8 % (50.0-75.0); RBC 3.34 Mil/uL (3.80-5.20); RED CELL DISTRIBUTION WIDTH 15.1 % (11.5-14.5)
[2018-07-12 06:49] LABS: ALB/GLOB RATIO 1.3 (1.0-2.1); ALBUMIN 3.1 g/dL (3.5-5.0); ALT/SGPT 55 U/L (9-52); AST/SGOT 22 U/L (14-36); BLOOD UREA NITROGEN 7 mg/dL (7-17); CALCIUM 8.2 mg/dl (8.6-10.4); GFR NON-AFRICAN AMERICAN > 60
[2018-07-12] MEDS: Dextrose 5%/0.9% NS 1,000 ML IV SCH ×3 (07:20→21:31)
--- NOTE | 2018-07-12 08:53 | CP.PCM.PN ---
Subjective - Date & Time of Evaluation Date of Evaluation: 07/12/18 Time of Evaluation: 08:51 - Subjective Subjective: No new c/o, passing some flatus Objective - Vital Signs/Intake and Output Vital Signs (last 24 hours): Temp Pulse Resp BP Pulse Ox 98.1 F 68 18 136/77 98 07/12/18 07:00 07/12/18 07:00 07/12/18 07:00 07/12/18 07:00 07/12/18 07:00 Intake and Output: 07/12/18 07/12/18 06:59 18:59 Intake Total 800 Output Total 340 Balance 460 - Medications Medications: Current Medications Acetaminophen (Tylenol 650mg/20.3ml Solution Ud) 650 mg PO Q6 PRN PRN Reason: headache or fever >100.4F Last Admin: 07/12/18 05:48 Dose: 650 mg Amitriptyline HCl (Elavil) 50 mg PO HS [facility] Last Admin: 07/11/18 21:47 Dose: 50 mg Benzocaine/Menthol (Cepacol Sore Throat) 1 sharmila MT Q2H PRN PRN Reason: Sore Throat Last Admin: 07/12/18 05:49 Dose: 1 sharmila Bupropion HCl (Wellbutrin) 100 mg PO BID [facility] Last Admin: 07/11/18 17:37 Dose: 100 mg Docusate Sodium (Colace) 100 mg PO TID [facility] Last Admin: 07/11/18 17:38 Dose: 100 mg Heparin Sodium (Porcine) (Heparin) 5,000 units SC Q12 [facility] Last Admin: 07/11/18 10:09 Dose: 5,000 units Folic Acid 1 mg/ Sodium (Chloride) 100.2 mls @ 60 mls/hr IV DAILY [facility] Last Admin: 07/11/18 09:59 Dose: 60 mls/hr Dextrose/Sodium Chloride (Dextrose 5%/0.9% Ns 1000 Ml) 1,000 mls @ 100 mls/hr IV .Q10H [facility] Last Admin: 07/12/18 07:20 Dose: Not Given Lamotrigine (Lamictal) 200 mg PO DAILY [facility] Last Admin: 07/11/18 10:00 Dose: 200 mg Levothyroxine Sodium (Synthroid) 12.5 mcg IVP 0630 [facility] Last Admin: 07/12/18 05:50 Dose: 12.5 mcg Methotrexate (Methotrexate) 15 mg NG QWK@1200 [facility] Last Admin: 07/06/18 12:15 Dose: 15 mg Ondansetron HCl (Zofran Inj) 4 mg IVP Q6H PRN PRN Reason: Nausea/Vomiting Last Admin: 07/09/18 11:28 Dose: 4 mg Pantoprazole Sodium (Protonix Ec Tab) 40 mg PO DAILY [facility] Last Admin: 07/11/18 10:01 Dose: 40 mg Potassium Phos/Sodium Phos (Neutra-Phos) 1 pkt PO BID [facility] Last Admin: 07/11/18 17:38 Dose: 1 pkt Saliva Substitute (Mouth Kote 236 Ml) 0 ml MM 5XD PRN PRN Reason: DRY MOUTH Last Admin: 07/11/18 21:47 Dose: 1 spr Sucralfate (Carafate Tab) 1 gm PO DAILY [facility] Last Admin: 07/11/18 10:00 Dose: 1 gm - Labs Labs: 07/12/18 06:08 07/12/18 06:08 PT 12.8 SECONDS (9.7-12.2) H 07/11/18 07:34 INR 1.2 07/11/18 07:34 APTT 37 SECONDS (21-34) H 07/11/18 07:34 - Constitutional Appears: No Acute Distress - Head Exam Head Exam: ATRAUMATIC, NORMOCEPHALIC - Respiratory Exam Respiratory Exam: NORMAL BREATHING PATTERN - GI/Abdominal Exam GI & Abdominal Exam: Soft, Hypoactive Bowel Sounds. absent: Guarding, Tenderness, Mass, Rebound Assessment and Plan (1) Small bowel obstruction due to adhesions Assessment & Plan: Awaiting surgical followup. Laparoscopy advised for definitive treatment and high likelihood of recurrence. Day #12 of SBO. Status: Acute (2) Acute renal failure Status: Resolved (3) SIADH (syndrome of inappropriate ADH production) Status: Acute (4) Abnormal transaminases Assessment & Plan: Monitor LFTs. Viral markers pending Status: Acute
--- NOTE | 2018-07-12 09:13 | CP.PCM.PN ---
Subjective - Date & Time of Evaluation Date of Evaluation: 07/12/18 Time of Evaluation: 09:12 - Subjective Subjective: Medicine Progress Note - Dr Dunbar's Service Patient seen and examined at bedside. Per nursing no acute events overnight. Patient states she has not passed gas or had a bowel movement. NGT in place. Reports having gas pains. Offers no other complaints at this time. Denies nausea/vomiting, headaches, dizziness, cp, palpitations, sob, urinary symptoms. Objective - Vital Signs/Intake and Output Vital Signs (last 24 hours): Temp Pulse Resp BP Pulse Ox 98.1 F 68 18 136/77 98 07/12/18 07:00 07/12/18 07:00 07/12/18 07:00 07/12/18 07:00 07/12/18 07:00 Intake and Output: 07/12/18 07/12/18 06:59 18:59 Intake Total 800 Output Total 340 Balance 460 - Medications Medications: Current Medications Acetaminophen (Tylenol 650mg/20.3ml Solution Ud) 650 mg PO Q6 PRN PRN Reason: headache or fever >100.4F Last Admin: 07/12/18 05:48 Dose: 650 mg Amitriptyline HCl (Elavil) 50 mg PO HS [facility] Last Admin: 07/11/18 21:47 Dose: 50 mg Benzocaine/Menthol (Cepacol Sore Throat) 1 sharmila MT Q2H PRN PRN Reason: Sore Throat Last Admin: 07/12/18 05:49 Dose: 1 sharmila Bupropion HCl (Wellbutrin) 100 mg PO BID [facility] Last Admin: 07/11/18 17:37 Dose: 100 mg Docusate Sodium (Colace) 100 mg PO TID [facility] Last Admin: 07/11/18 17:38 Dose: 100 mg Heparin Sodium (Porcine) (Heparin) 5,000 units SC Q12 [facility] Last Admin: 07/11/18 10:09 Dose: 5,000 units Folic Acid 1 mg/ Sodium (Chloride) 100.2 mls @ 60 mls/hr IV DAILY [facility] Last Admin: 07/11/18 09:59 Dose: 60 mls/hr Dextrose/Sodium Chloride (Dextrose 5%/0.9% Ns 1000 Ml) 1,000 mls @ 100 mls/hr IV .Q10H [facility] Last Admin: 07/12/18 07:20 Dose: Not Given Lamotrigine (Lamictal) 200 mg PO DAILY [facility] Last Admin: 07/11/18 10:00 Dose: 200 mg Levothyroxine Sodium (Synthroid) 12.5 mcg IVP 0630 [facility] Last Admin: 07/12/18 05:50 Dose: 12.5 mcg Methotrexate (Methotrexate) 15 mg NG QWK@1200 [facility] Last Admin: 07/06/18 12:15 Dose: 15 mg Ondansetron HCl (Zofran Inj) 4 mg IVP Q6H PRN PRN Reason: Nausea/Vomiting Last Admin: 07/09/18 11:28 Dose: 4 mg Pantoprazole Sodium (Protonix Ec Tab) 40 mg PO DAILY [facility] Last Admin: 07/11/18 10:01 Dose: 40 mg Potassium Phos/Sodium Phos (Neutra-Phos) 1 pkt PO BID [facility] Last Admin: 07/11/18 17:38 Dose: 1 pkt Saliva Substitute (Mouth Kote 236 Ml) 0 ml MM 5XD PRN PRN Reason: DRY MOUTH Last Admin: 07/11/18 21:47 Dose: 1 spr Sucralfate (Carafate Tab) 1 gm PO DAILY [facility] Last Admin: 07/11/18 10:00 Dose: 1 gm - Labs Labs: 07/12/18 06:08 07/12/18 06:08 PT 12.8 SECONDS (9.7-12.2) H 07/11/18 07:34 INR 1.2 07/11/18 07:34 APTT 37 SECONDS (21-34) H 07/11/18 07:34 - Additional Findings Additional findings: - Constitutional Appears: No Acute Distress - Head Exam Head Exam: ATRAUMATIC, NORMAL INSPECTION, NORMOCEPHALIC - Eye Exam Eye Exam: EOMI, Normal appearance, PERRL Pupil Exam: NORMAL ACCOMODATION, PERRL - ENT Exam Additional comments: NGT in place: bilious - Neck Exam Neck Exam: Full ROM - Respiratory Exam Respiratory Exam: NORMAL BREATHING PATTERN - Cardiovascular Exam Cardiovascular Exam: REGULAR RHYTHM, +S1, +S2. absent: Murmur - GI/Abdominal Exam GI & Abdominal Exam: Soft. absent: Distended, Firm, Guarding, Rigid, Tenderness Additional comments: well healed scars. - Extremities Exam Extremities Exam: Full ROM - Back Exam Back Exam: NORMAL INSPECTION - Neurological Exam Neurological Exam: Alert, Awake, CN II-XII Intact, Normal Gait, Oriented x3 - Psychiatric Exam Psychiatric exam: Normal Affect, Normal Mood - Skin Skin Exam: Dry, Intact, Normal Color, Warm Assessment and Plan - Assessment and Plan (Free Text) Assessment: Small Bowel Obstruction likely 2/2 to adhesions (hx of multiple abdominal surgeries) General Surgery, Dr. Becky Smith GI Consulted, Dr. De La Torre Abd/Pelvis CT (07/01): * Findings consistent with small-bowel obstruction with transition point right lower quadrant of the abdomen. * Cholecystectomy. * Nodular left adrenal gland. Recommend followup noncontrast MRI of the adrenal glands. * Diverticulosis without radiographic evidence of acute diverticulitis. Obstruction Series (07/02): * Mild left basilar atelectasis and or scarring.. No evidence of mechanical bowel obstruction however findings suggest mild fecal retention/constipation. Abdomen X-ray (07/03): * Mild bibasilar atelectasis. * No evidence of acute mechanical bowel obstruction. Abdomen X-ray (07/04): * Findings are most compatible with acute small bowel obstruction, slightly worse since the prior examination. Abd/Pelvis CT w/ PO and IV contrast (07/04/18): * Persistent pattern positive for mechanical distal small bowel obstruction with collapsed ileum and otherwise dilated small-bowel loops appreciated stomach is partially decompressed by nasogastric tube oral contrast partially distending the stomach. Poor oral contrast transit is seen through small bowel. No free intra peritoneal gas collection or ascites appreciable at this time. Continued surgical evaluation advised. Abdominal exam showed no tenderness or guarding. Tap water enema given on 07/08 - patient had bowel movement. NG tube in place Patient for the OR tentatively tomorrow 07/13/18 Will continue to monitor Medications: * Zofran 4mg IVP q6h prn * Protonix 40mg IVP daily * D5 NS at 100cc/hr Hyponatremia (improving) hx of SIADH Nephrology consulted, Dr. Espinosa * Tolvaptan given on 07/09 * Urine Osmolality 569 * Random Urine Sodium 150 Abnormal Transaminases New onset elevation of LFTs may be 2/2 to medications Will continue to monitor Hypothyroidism Continue Home Medication: * Synthroid 12.5mcg IVP daily Hx of Cervical Cancer s/p hysterectomy, b/l oopherectomy (seperate procedure) Continue Home Medication: * Methotrexate 15mg PO qWK Hx of Depression Continue Home Medication: * Amitriptyline 40mg PO HS * Bupropion (Wellbutrin) 150mg NG BID [facility] Heparin 5,000units SC q8h Protonix 40mg IVP daily PT All medical management per Dr. Manjinder Polanco DO PGY-2
--- NOTE | 2018-07-12 09:28 | CP.PCM.PN ---
<Kit De Souza - Last Filed: 07/12/18 09:24> Subjective - Date & Time of Evaluation Date of Evaluation: 07/12/18 Time of Evaluation: 06:45 - Subjective Subjective: General Surgery Pt seen and examined. No BM since Wednesday, but having small flatus. Ambulating. Denies pain at this time. NGT in place. Abdomen is soft, non-tympanic, and non- distended. No other complaints at this time. Objective - Vital Signs/Intake and Output Vital Signs (last 24 hours): Temp Pulse Resp BP Pulse Ox 98.1 F 68 18 136/77 98 07/12/18 07:00 07/12/18 07:00 07/12/18 07:00 07/12/18 07:00 07/12/18 07:00 Intake and Output: 07/12/18 07/12/18 06:59 18:59 Intake Total 800 Output Total 340 Balance 460 - Medications Medications: Current Medications Acetaminophen (Tylenol 650mg/20.3ml Solution Ud) 650 mg PO Q6 PRN PRN Reason: headache or fever >100.4F Last Admin: 07/12/18 05:48 Dose: 650 mg Amitriptyline HCl (Elavil) 50 mg PO HS [facility] Last Admin: 07/11/18 21:47 Dose: 50 mg Benzocaine/Menthol (Cepacol Sore Throat) 1 sharmila MT Q2H PRN PRN Reason: Sore Throat Last Admin: 07/12/18 05:49 Dose: 1 sharmila Bupropion HCl (Wellbutrin) 100 mg PO BID [facility] Last Admin: 07/11/18 17:37 Dose: 100 mg Docusate Sodium (Colace) 100 mg PO TID [facility] Last Admin: 07/11/18 17:38 Dose: 100 mg Heparin Sodium (Porcine) (Heparin) 5,000 units SC Q12 [facility] Last Admin: 07/11/18 10:09 Dose: 5,000 units Folic Acid 1 mg/ Sodium (Chloride) 100.2 mls @ 60 mls/hr IV DAILY [facility] Last Admin: 07/11/18 09:59 Dose: 60 mls/hr Dextrose/Sodium Chloride (Dextrose 5%/0.9% Ns 1000 Ml) 1,000 mls @ 100 mls/hr IV .Q10H [facility] Last Admin: 07/12/18 07:20 Dose: Not Given Lamotrigine (Lamictal) 200 mg PO DAILY [facility] Last Admin: 07/11/18 10:00 Dose: 200 mg Levothyroxine Sodium (Synthroid) 12.5 mcg IVP 0630 [facility] Last Admin: 07/12/18 05:50 Dose: 12.5 mcg Methotrexate (Methotrexate) 15 mg NG QWK@1200 [facility] Last Admin: 07/06/18 12:15 Dose: 15 mg Ondansetron HCl (Zofran Inj) 4 mg IVP Q6H PRN PRN Reason: Nausea/Vomiting Last Admin: 07/09/18 11:28 Dose: 4 mg Pantoprazole Sodium (Protonix Ec Tab) 40 mg PO DAILY [facility] Last Admin: 07/11/18 10:01 Dose: 40 mg Potassium Phos/Sodium Phos (Neutra-Phos) 1 pkt PO BID [facility] Last Admin: 07/11/18 17:38 Dose: 1 pkt Saliva Substitute (Mouth Kote 236 Ml) 0 ml MM 5XD PRN PRN Reason: DRY MOUTH Last Admin: 07/11/18 21:47 Dose: 1 spr Sucralfate (Carafate Tab) 1 gm PO DAILY [facility] Last Admin: 07/11/18 10:00 Dose: 1 gm - Labs Labs: 07/12/18 06:08 07/12/18 06:08 PT 12.8 SECONDS (9.7-12.2) H 07/11/18 07:34 INR 1.2 07/11/18 07:34 APTT 37 SECONDS (21-34) H 07/11/18 07:34 - Constitutional Appears: Non-toxic, No Acute Distress - Head Exam Head Exam: ATRAUMATIC, NORMOCEPHALIC - Eye Exam Eye Exam: EOMI. absent: Scleral icterus - Respiratory Exam Respiratory Exam: NORMAL BREATHING PATTERN. absent: Accessory Muscle Use, Respiratory Distress - Cardiovascular Exam Cardiovascular Exam: RRR, +S1, +S2 - GI/Abdominal Exam GI & Abdominal Exam: Soft. absent: Distended, Firm, Guarding, Tenderness, Rebound - Extremities Exam Extremities Exam: absent: Calf Tenderness, Pedal Edema - Neurological Exam Neurological Exam: Alert, Awake, Oriented x3 - Skin Skin Exam: Dry, Warm Assessment and Plan - Assessment and Plan (Free Text) Assessment: 72F w/ SBO Plan: Planning for OR tomorrow. Pt agrees. Continue NPO, IVF Hold 07/13/18 Heparin Abd XR D/W Dr. Luis De Souza PGY4 <Becky Smith - Last Filed: 07/13/18 12:42> Objective - Vital Signs/Intake and Output Vital Signs (last 24 hours): Temp Pulse Resp BP Pulse Ox 97.8 F 84 20 123/72 99 07/13/18 07:00 07/13/18 07:00 07/13/18 07:00 07/13/18 07:00 07/13/18 07:00 Intake and Output: 07/13/18 07/13/18 06:59 18:59 Intake Total 1600 Output Total 450 Balance 1150 - Medications Medications: Current Medications Acetaminophen (Tylenol 650mg/20.3ml Solution Ud) 650 mg PO Q6 PRN PRN Reason: headache or fever >100.4F Last Admin: 07/12/18 16:15 Dose: 650 mg Amitriptyline HCl (Elavil) 50 mg PO HS [facility] Last Admin: 07/12/18 21:27 Dose: 50 mg Benzocaine/Menthol (Cepacol Sore Throat) 1 sharmila MT Q2H PRN PRN Reason: Sore Throat Last Admin: 07/13/18 10:58 Dose: 1 sharmila Bupropion HCl (Wellbutrin) 100 mg PO BID [facility] Last Admin: 07/13/18 10:15 Dose: Not Given Docusate Sodium (Colace) 100 mg PO TID [facility] Last Admin: 07/13/18 10:15 Dose: Not Given Heparin Sodium (Porcine) (Heparin) 5,000 units SC Q12 [facility] Last Admin: 07/12/18 21:27 Dose: 5,000 units Folic Acid 1 mg/ Sodium (Chloride) 100.2 mls @ 60 mls/hr IV DAILY [facility] Last Admin: 07/12/18 09:55 Dose: 60 mls/hr Dextrose/Sodium Chloride (Dextrose 5%/0.9% Ns 1000 Ml) 1,000 mls @ 100 mls/hr IV .Q10H [facility] Last Admin: 07/13/18 01:43 Dose: 100 mls/hr Potassium Chloride (Potassium Chloride 20 Meq/100 Ml) 20 meq in 100 mls @ 50 mls/hr IVPB ONCE ONE Stop: 07/13/18 13:59 Lamotrigine (Lamictal) 200 mg PO DAILY [facility] Last Admin: 07/13/18 10:15 Dose: Not Given Levothyroxine Sodium (Synthroid) 12.5 mcg IVP 0630 [facility] Last Admin: 07/13/18 05:36 Dose: 12.5 mcg Methotrexate (Methotrexate) 15 mg NG QWK@1200 [facility] Last Admin: 07/06/18 12:15 Dose: 15 mg Ondansetron HCl (Zofran Inj) 4 mg IVP Q6H PRN PRN Reason: Nausea/Vomiting Last Admin: 07/13/18 01:43 Dose: 4 mg Pantoprazole Sodium (Protonix Ec Tab) 40 mg PO DAILY [facility] Last Admin: 07/13/18 10:15 Dose: Not Given Potassium Phos/Sodium Phos (Neutra-Phos) 1 pkt PO BID [facility] Last Admin: 07/13/18 10:15 Dose: Not Given Saliva Substitute (Mouth Kote 236 Ml) 0 ml MM 5XD PRN PRN Reason: DRY MOUTH Last Admin: 07/11/18 21:47 Dose: 1 spr Sucralfate (Carafate Tab) 1 gm PO DAILY [facility] Last Admin: 07/13/18 10:15 Dose: Not Given - Labs Labs: 07/13/18 06:30 07/13/18 06:30 PT 12.3 SECONDS (9.7-12.2) H 07/13/18 09:48 INR 1.1 07/13/18 09:48 APTT 35 SECONDS (21-34) H 07/13/18 09:48 Assessment and Plan - Assessment and Plan (Free Text) Plan: Late Entry: Patient seen and examined at bedside with resident staff at 5:15pm with patient and daughter, Yoly CADENA at bedside. Again we discussed my recommendations for surgical exploration and lysis of adhesions, now that the patient has failed NGT trial x2 for adhesive small bowel obstruction with history of pelvic surgery. Reiterated points discussed over the phone with daughter last week, and on the phone earlier today at 2pm. We would plan to start laparoscopically and proceed if safe to do so depending on degree of adhesions and bowel dilation to allow adequate visualization. If not we would convert to open using most of previous incision. Recovery time would vary depending on intra-operative findings and whether or not procedure done laparosc opically vs. open. Criteria for discharge post-op would be, bowel function, toleration of diet, adequate pain control, no electrolyte derangements. All questions answered. Will have anesthesia perform SHERIDAN block to minimize post- operative narcotic requirements. Discussed risk and benefits of exploratory laparoscopy, possible open, lysis of adhesion, possible bowel resection, including but not limited to, bleeding, wound infection, abscess, post-operative ileus, bowel injury, recurrent adhesive bowel obstructions and need for open surgery. Informed consent signed by patient with daughter at bedside after review. Surgery tomorrow at 12:30pm Strict NPO. Am labs, coags, optimize electrolytes. Hold lovenox.
--- NOTE | 2018-07-12 09:33 | CP.PCM.PN ---
Subjective - Date & Time of Evaluation Date of Evaluation: 07/12/18 Time of Evaluation: 09:31 - Subjective Subjective: remains npo ngt in place, minimal drainage passing flatus 10 point ROS obtained and negative except above labs noted Objective - Vital Signs/Intake and Output Vital Signs (last 24 hours): Temp Pulse Resp BP Pulse Ox 98.1 F 68 18 136/77 98 07/12/18 07:00 07/12/18 07:00 07/12/18 07:00 07/12/18 07:00 07/12/18 07:00 Intake and Output: 07/12/18 07/12/18 06:59 18:59 Intake Total 800 Output Total 340 Balance 460 - Medications Medications: Current Medications Acetaminophen (Tylenol 650mg/20.3ml Solution Ud) 650 mg PO Q6 PRN PRN Reason: headache or fever >100.4F Last Admin: 07/12/18 05:48 Dose: 650 mg Amitriptyline HCl (Elavil) 50 mg PO HS [facility] Last Admin: 07/11/18 21:47 Dose: 50 mg Benzocaine/Menthol (Cepacol Sore Throat) 1 sharmila MT Q2H PRN PRN Reason: Sore Throat Last Admin: 07/12/18 05:49 Dose: 1 sharmila Bupropion HCl (Wellbutrin) 100 mg PO BID [facility] Last Admin: 07/11/18 17:37 Dose: 100 mg Docusate Sodium (Colace) 100 mg PO TID [facility] Last Admin: 07/11/18 17:38 Dose: 100 mg Heparin Sodium (Porcine) (Heparin) 5,000 units SC Q12 [facility] Last Admin: 07/11/18 10:09 Dose: 5,000 units Folic Acid 1 mg/ Sodium (Chloride) 100.2 mls @ 60 mls/hr IV DAILY [facility] Last Admin: 07/11/18 09:59 Dose: 60 mls/hr Dextrose/Sodium Chloride (Dextrose 5%/0.9% Ns 1000 Ml) 1,000 mls @ 100 mls/hr IV .Q10H [facility] Last Admin: 07/12/18 07:20 Dose: Not Given Lamotrigine (Lamictal) 200 mg PO DAILY [facility] Last Admin: 07/11/18 10:00 Dose: 200 mg Levothyroxine Sodium (Synthroid) 12.5 mcg IVP 0630 [facility] Last Admin: 07/12/18 05:50 Dose: 12.5 mcg Methotrexate (Methotrexate) 15 mg NG QWK@1200 [facility] Last Admin: 07/06/18 12:15 Dose: 15 mg Ondansetron HCl (Zofran Inj) 4 mg IVP Q6H PRN PRN Reason: Nausea/Vomiting Last Admin: 07/09/18 11:28 Dose: 4 mg Pantoprazole Sodium (Protonix Ec Tab) 40 mg PO DAILY [facility] Last Admin: 07/11/18 10:01 Dose: 40 mg Potassium Phos/Sodium Phos (Neutra-Phos) 1 pkt PO BID [facility] Last Admin: 07/11/18 17:38 Dose: 1 pkt Saliva Substitute (Mouth Kote 236 Ml) 0 ml MM 5XD PRN PRN Reason: DRY MOUTH Last Admin: 07/11/18 21:47 Dose: 1 spr Sucralfate (Carafate Tab) 1 gm PO DAILY [facility] Last Admin: 07/11/18 10:00 Dose: 1 gm - Labs Labs: 07/12/18 06:08 07/12/18 06:08 PT 12.8 SECONDS (9.7-12.2) H 07/11/18 07:34 INR 1.2 07/11/18 07:34 APTT 37 SECONDS (21-34) H 07/11/18 07:34 - Constitutional Appears: Non-toxic, No Acute Distress, Chronically Ill - Head Exam Head Exam: NORMAL INSPECTION - Eye Exam Eye Exam: Normal appearance, PERRL - ENT Exam ENT Exam: Mucous Membranes Dry (NGTube) - Neck Exam Neck Exam: Full ROM, Normal Inspection - Respiratory Exam Respiratory Exam: Clear to Ausculation Bilateral, NORMAL BREATHING PATTERN - Cardiovascular Exam Cardiovascular Exam: REGULAR RHYTHM, RRR - GI/Abdominal Exam GI & Abdominal Exam: Distended, Soft, Hypoactive Bowel Sounds - Extremities Exam Extremities Exam: Normal Inspection - Neurological Exam Neurological Exam: Alert, Awake, Oriented x3 - Psychiatric Exam Psychiatric exam: Normal Affect, Normal Mood - Skin Skin Exam: Dry, Intact Assessment and Plan (1) Hypokalemia Status: Acute (2) Hyponatremia Status: Acute (3) SIADH (syndrome of inappropriate ADH production) Status: Acute (4) Small bowel obstruction Status: Acute - Assessment and Plan (Free Text) Assessment: na stable on iv fluids noted monitor daily chems recommend PPN if pt to remain npo
[2018-07-12] MEDS: Pantoprazole 40 mg EC Tab PO SCH (09:54)
[2018-07-12] MEDS: Potassium & Sodium Phosphate PO SCH ×2 (09:54→18:14)
--- NOTE | 2018-07-12 12:39 | RAD ---
Date of service: 07/12/2018 HISTORY: obstruction COMPARISON: CT abdomen and pelvis study date 07/01/2018 FINDINGS: BOWEL: Air fluid levels at splenic flexure suggested . smaller air-fluid levels left paracentral mid abdomen. Mid and proximal small bowel dilatation--a.m. Mid to distal small bowel partial obstruction consideration. Stool in a nondistended right colon present. BONES: Sclerotic lesion bordering superior SI joint-complying to the iliac bone per CT 07/01/2018 study. OTHER FINDINGS: NG tube partly coiling in gastric fundus-tip near antrum. Right upper quadrant cholecystectomy clips. IMPRESSION: Small bowel [id number] junctional small-bowel obstruction is a consideration. This has been noted previously.. At this time no complete obstruction is present. Continued close follow-up recommended. Comments: Study marked for PA review .
[2018-07-13] MEDS: Dextrose 5%/0.9% NS 1,000 ML IV SCH (01:43)
[2018-07-13] MEDS: Levothyroxine 100 mcg (0.1 mg) Inj IVP SCH (05:36)
[2018-07-13 06:59] LABS: ALB/GLOB RATIO 1.3 (1.0-2.1); ALBUMIN 2.8 g/dL (3.5-5.0); ALT/SGPT 49 U/L (9-52); AST/SGOT 20 U/L (14-36); BLOOD UREA NITROGEN 4 mg/dL (7-17); GFR NON-AFRICAN AMERICAN > 60
[2018-07-13 07:19] LABS: BASO % 0.6 % (0.0-2.0); EOS # 0.1 K/uL (0.0-0.7); EOS % 1.4 % (0.0-4.0); HEMOGLOBIN 10.2 g/dL (11.0-16.0); LYMPH # 1.3 K/uL (1.0-4.3); LYMPH % 20.3 % (20.0-40.0); MEAN CELL VOLUME 96.9 fL (81.0-99.0); MEAN CORPUSCULAR HEMOGLOBIN 32.9 pg (27.0-31.0); MEAN PLATELET VOLUME 7.7 fL (7.2-11.7); MONO # 0.5 K/uL (0.0-0.8); MONO % 8.1 % (0.0-10.0); NEUT # 4.6 K/uL (1.8-7.0); NEUT % 69.6 % (50.0-75.0); RBC 3.09 Mil/uL (3.80-5.20); RED CELL DISTRIBUTION WIDTH 14.9 % (11.5-14.5); WHITE BLOOD COUNT 6.6 K/uL (4.8-10.8)
[2018-07-13] MEDS ORDERED: Magnesium Sulfate 1 gm in D5W 1 GM/100 ML BAG IVPB ONE (08:25)
[2018-07-13] MEDS: Benzocaine/Menthol (Cepacol) Lozenge MT PRN ×2 (08:50→10:58)
[2018-07-13 10:02] LABS: INR 1.1; PROTHROMBIN TIME 12.3 SECONDS (9.7-12.2)
[2018-07-13] MEDS: Pantoprazole 40 mg EC Tab PO SCH (10:15)
[2018-07-13] MEDS: Potassium & Sodium Phosphate PO SCH ×2 (10:15→18:39)
--- NOTE | 2018-07-13 10:22 | CP.PCM.PN ---
Subjective - Date & Time of Evaluation Date of Evaluation: 07/13/18 Time of Evaluation: 10:20 - Subjective Subjective: No stool, mild flatus NGT intact with mild drainage Objective - Vital Signs/Intake and Output Vital Signs (last 24 hours): Temp Pulse Resp BP Pulse Ox 97.8 F 84 20 123/72 99 07/13/18 07:00 07/13/18 07:00 07/13/18 07:00 07/13/18 07:00 07/13/18 07:00 Intake and Output: 07/13/18 07/13/18 06:59 18:59 Intake Total 1600 Output Total 450 Balance 1150 - Medications Medications: Current Medications Acetaminophen (Tylenol 650mg/20.3ml Solution Ud) 650 mg PO Q6 PRN PRN Reason: headache or fever >100.4F Last Admin: 07/12/18 16:15 Dose: 650 mg Amitriptyline HCl (Elavil) 50 mg PO HS [facility] Last Admin: 07/12/18 21:27 Dose: 50 mg Benzocaine/Menthol (Cepacol Sore Throat) 1 sharmila MT Q2H PRN PRN Reason: Sore Throat Last Admin: 07/13/18 08:50 Dose: 1 sharmila Bupropion HCl (Wellbutrin) 100 mg PO BID [facility] Last Admin: 07/13/18 10:15 Dose: Not Given Docusate Sodium (Colace) 100 mg PO TID [facility] Last Admin: 07/13/18 10:15 Dose: Not Given Heparin Sodium (Porcine) (Heparin) 5,000 units SC Q12 [facility] Last Admin: 07/12/18 21:27 Dose: 5,000 units Folic Acid 1 mg/ Sodium (Chloride) 100.2 mls @ 60 mls/hr IV DAILY [facility] Last Admin: 07/12/18 09:55 Dose: 60 mls/hr Dextrose/Sodium Chloride (Dextrose 5%/0.9% Ns 1000 Ml) 1,000 mls @ 100 mls/hr IV .Q10H [facility] Last Admin: 07/13/18 01:43 Dose: 100 mls/hr Potassium Chloride (Potassium Chloride 20 Meq/100 Ml) 20 meq in 100 mls @ 50 mls/hr IVPB ONCE ONE Stop: 07/13/18 11:22 Last Admin: 07/13/18 10:12 Dose: 50 mls/hr Potassium Chloride (Potassium Chloride 20 Meq/100 Ml) 20 meq in 100 mls @ 50 mls/hr IVPB ONCE ONE Stop: 07/13/18 13:59 Lamotrigine (Lamictal) 200 mg PO DAILY [facility] Last Admin: 07/13/18 10:15 Dose: Not Given Levothyroxine Sodium (Synthroid) 12.5 mcg IVP 0630 [facility] Last Admin: 07/13/18 05:36 Dose: 12.5 mcg Methotrexate (Methotrexate) 15 mg NG QWK@1200 [facility] Last Admin: 07/06/18 12:15 Dose: 15 mg Ondansetron HCl (Zofran Inj) 4 mg IVP Q6H PRN PRN Reason: Nausea/Vomiting Last Admin: 07/13/18 01:43 Dose: 4 mg Pantoprazole Sodium (Protonix Ec Tab) 40 mg PO DAILY [facility] Last Admin: 07/13/18 10:15 Dose: Not Given Potassium Phos/Sodium Phos (Neutra-Phos) 1 pkt PO BID [facility] Last Admin: 07/13/18 10:15 Dose: Not Given Saliva Substitute (Mouth Kote 236 Ml) 0 ml MM 5XD PRN PRN Reason: DRY MOUTH Last Admin: 07/11/18 21:47 Dose: 1 spr Sucralfate (Carafate Tab) 1 gm PO DAILY [facility] Last Admin: 07/13/18 10:15 Dose: Not Given - Labs Labs: 07/13/18 06:30 07/13/18 06:30 PT 12.3 SECONDS (9.7-12.2) H 07/13/18 09:48 INR 1.1 07/13/18 09:48 APTT 35 SECONDS (21-34) H 07/13/18 09:48 - Constitutional Appears: No Acute Distress - Head Exam Head Exam: NORMAL INSPECTION - Eye Exam Eye Exam: EOMI, PERRL - Respiratory Exam Respiratory Exam: NORMAL BREATHING PATTERN - Cardiovascular Exam Cardiovascular Exam: REGULAR RHYTHM - GI/Abdominal Exam GI & Abdominal Exam: Soft, Hypoactive Bowel Sounds. absent: Distended, Guardi ng, Rigid, Tenderness, Mass, Rebound - Extremities Exam Extremities Exam: Normal Inspection Assessment and Plan (1) Small bowel obstruction due to adhesions Assessment & Plan: For OR today for definitive treatment and lysis of adhesions as needed. Patient aware of need following almost two weeks of conservative therapy. Status: Acute (2) Acute renal failure Status: Resolved (3) SIADH (syndrome of inappropriate ADH production) Status: Resolved (4) Abnormal transaminases Assessment & Plan: LFTs now normal. No further work up at present. Status: Acute
[2018-07-13] MEDS ORDERED: Propofol 10 mg/ml Inj (20 ML) ONE (12:32)
[2018-07-13] MEDS ORDERED: Midazolam 2 MG/2 ML VIAL ONE (12:32)
[2018-07-13] MEDS ORDERED: Bupivacaine HCl 0.25% PF (10 ml) Inj ONE ×2 (12:38→15:12)
[2018-07-13] MEDS ORDERED: ceFAZolin IV 1 gm in Dextrose 1 GM/50 ML BAG IVPB ONE (12:38)
[2018-07-13] MEDS ORDERED: Lidocaine/Epinephrine 1% 1:100000 10 ML IJ ONE (12:39)
[2018-07-13] MEDS ORDERED: metroNIDAZOLE IV 500 mg/100 ml 500 MG/100 ML BAG ONE (12:39)
[2018-07-13] MEDS ORDERED: Neostigmine Methylsulfate 3mg/3ml Syringe IV ONE (14:48)
[2018-07-13] MEDS ORDERED: Bupivacaine 0.5% Inj(30mL) IJ STA (15:03)
--- NOTE | 2018-07-13 15:55 | PCM.SURG1 ---
Surgeon's Initial Post Op Note - Surgeon's Notes Surgeon: Dr Smith Supervisor [employer]: Dr Mari PGY4, Chris MS4 Type of Anesthesia: General Endo Pre-Operative Diagnosis: small bowel obstruction Operative Findings: extensive adhesions throughout abdomen. single band adhesion in RLQ causing obstruction Post-Operative Diagnosis: adhesive small bowel obstruction Operation Performed: diagnostic laparoscopic. extensive lysis of adhesions. SHERIDAN block by anesthesia Specimen/Specimens Removed: none Estimated Blood Loss: EBL {In ML}: 50 Blood Products Given: N/A Drains Used: Jeramy Post-Op Condition: Good Date of Surgery/Procedure: 07/13/18 Time of Surgery/Procedure: 15:55
[2018-07-13] MEDS: HYDROmorphone 0.5 mg/0.5 ml ISec IVP PRN ×5 (16:00→22:11)
[2018-07-13] MEDS ORDERED: Lactated Ringer's 1,000 ML IV SCH (16:00)
[2018-07-13] MEDS ORDERED: HYDROmorphone 0.5 mg/0.5 ml ISec ONE (16:02)
[2018-07-13 16:29] LABS: BLOOD UREA NITROGEN 4 mg/dL (7-17); CALCIUM 8.1 mg/dl (8.6-10.4); GFR NON-AFRICAN AMERICAN > 60
--- NOTE | 2018-07-13 18:09 | CP.PCM.PN ---
Subjective - Date & Time of Evaluation Date of Evaluation: 07/13/18 Time of Evaluation: 09:45 - Subjective Subjective: Progress note ( Dr. Dunbar's service) Patient was seen and examined at bedside. Patient states that she is doing well and has no acute issues. Patient is still with NGT and understands that she will be having a laparoscopic abdominal surgery today. Patient denies abdominal pain, fever, chills, nausea or any other acute symptoms. Objective - Vital Signs/Intake and Output Vital Signs (last 24 hours): Temp Pulse Resp BP Pulse Ox 97.3 F L 88 10 L 120/57 L 100 07/13/18 15:46 07/13/18 17:45 07/13/18 17:45 07/13/18 17:45 07/13/18 17:45 Intake and Output: 07/13/18 07/13/18 06:59 18:59 Intake Total 1600 1250 Output Total 450 275 Balance 1150 975 - Medications Medications: Current Medications Amitriptyline HCl (Elavil) 50 mg PO HS [facility] Last Admin: 07/12/18 21:27 Dose: 50 mg Benzocaine/Menthol (Cepacol Sore Throat) 1 sharmila MT Q2H PRN PRN Reason: Sore Throat Last Admin: 07/13/18 10:58 Dose: 1 sharmila Bupropion HCl (Wellbutrin) 100 mg PO BID [facility] Last Admin: 07/13/18 10:15 Dose: Not Given Heparin Sodium (Porcine) (Heparin) 5,000 units SC Q12 [facility] Last Admin: 07/12/18 21:27 Dose: 5,000 units Hydromorphone HCl (Dilaudid) 0.5 mg IVP Q4H PRN PRN Reason: Pain, severe (8-10) Folic Acid 1 mg/ Sodium (Chloride) 100.2 mls @ 60 mls/hr IV DAILY [facility] Last Admin: 07/13/18 14:31 Dose: Not Given Cefazolin Sodium 500 mg/ (Sodium Chloride) 50 mls @ 100 mls/hr IVPB Q8H [facility]; Protocol Stop: 07/14/18 13:29 Potassium Chloride 20 meq/ (Lactated Ringer's) 1,010 mls @ 80 mls/hr IV .[id number] [facility] Acetaminophen 1,000 mg/ (Miscellaneous) 100 mls @ 400 mls/hr IV Q8H [facility] Stop: 07/14/18 23:01 Lamotrigine (Lamictal) 200 mg PO DAILY [facility] Last Admin: 07/13/18 10:15 Dose: Not Given Levothyroxine Sodium (Synthroid) 12.5 mcg IVP 0630 [facility] Last Admin: 07/13/18 05:36 Dose: 12.5 mcg Methotrexate (Methotrexate) 15 mg NG QWK@1200 [facility] Last Admin: 07/13/18 14:32 Dose: Not Given Ondansetron HCl (Zofran Inj) 4 mg IVP Q6H PRN PRN Reason: Nausea/Vomiting Last Admin: 07/13/18 01:43 Dose: 4 mg Pantoprazole Sodium (Protonix Ec Tab) 40 mg PO DAILY [facility] Last Admin: 07/13/18 10:15 Dose: Not Given Potassium Phos/Sodium Phos (Neutra-Phos) 1 pkt PO BID [facility] Last Admin: 07/13/18 10:15 Dose: Not Given Saliva Substitute (Mouth Kote 236 Ml) 0 ml MM 5XD PRN PRN Reason: DRY MOUTH Last Admin: 07/11/18 21:47 Dose: 1 spr Sucralfate (Carafate Tab) 1 gm PO DAILY [facility] Last Admin: 07/13/18 10:15 Dose: Not Given - Labs Labs: 07/13/18 06:30 07/13/18 16:14 PT 12.3 SECONDS (9.7-12.2) H 07/13/18 09:48 INR 1.1 07/13/18 09:48 APTT 35 SECONDS (21-34) H 07/13/18 09:48 - Constitutional Appears: Well, No Acute Distress - Head Exam Head Exam: ATRAUMATIC - Eye Exam Eye Exam: EOMI - ENT Exam ENT Exam: Mucous Membranes Moist - Respiratory Exam Respiratory Exam: Clear to Ausculation Bilateral, NORMAL BREATHING PATTERN. absent: Prolonged Expiratory Phase, Rhonchi, Wheezes, Respiratory Distress - Cardiovascular Exam Cardiovascular Exam: REGULAR RHYTHM, +S1, +S2 - GI/Abdominal Exam GI & Abdominal Exam: Soft, Hypoactive Bowel Sounds, Normal Bowel Sounds. ab sent: Firm, Guarding, Rigid, Tenderness Additional comments: NGT in place during the morning encounter - Extremities Exam Extremities Exam: Normal Inspection. absent: Calf Tenderness, Pedal Edema - Neurological Exam Neurological Exam: Alert, Awake, Oriented x3 - Psychiatric Exam Psychiatric exam: Normal Affect, Normal Mood - Skin Skin Exam: Normal Color Assessment and Plan (1) Small bowel obstruction due to adhesions Assessment & Plan: likely 2/2 to adhesions (hx of multiple abdominal surgeries) General Surgery, Dr. Becky Smith * S/P diagnostic laparoscopic. extensive lysis of adhesions POD #0 * NGT not in place * Pain management as per surgery GI Consulted, Dr. De La Torre * management as per recommendation Abd/Pelvis CT (07/01): * Findings consistent with small-bowel obstruction with transition point right lower quadrant of the abdomen. * Cholecystectomy. * Nodular left adrenal gland. Recommend followup noncontrast MRI of the adrenal glands. * Diverticulosis without radiographic evidence of acute diverticulitis. Obstruction Series (07/02): * Mild left basilar atelectasis and or scarring.. No evidence of mechanical bowel obstruction however findings suggest mild fecal retention/constipation. Abdomen X-ray (07/03): * Mild bibasilar atelectasis. * No evidence of acute mechanical bowel obstruction. Abdomen X-ray (07/04): * Findings are most compatible with acute small bowel obstruction, slightly worse since the prior examination. Abd/Pelvis CT w/ PO and IV contrast (07/04/18): * Persistent pattern positive for mechanical distal small bowel obstruction with collapsed ileum and otherwise dilated small-bowel loops appreciated stomach is partially decompressed by nasogastric tube oral contrast partially distending the stomach. Poor oral contrast transit is seen through small bowel. No free intra peritoneal gas collection or ascites appreciable at this time. Continued surgical evaluation advised. Abdominal exam showed no tenderness or guarding. Tap water enema given on 07/08 - patient had bowel movement. NG tube in place Patient for the OR tentatively tomorrow 07/13/18 Will continue to monitor Medications: * Zofran 4mg IVP q6h prn * Protonix 40mg IVP daily * Colace 100mg PO TID * D5 NS at 100cc/hr Status: Acute (2) Hyponatremia Assessment & Plan: hx of SIADH Nephrology consulted, Dr. Espinosa * Tolvaptan given on 07/09 * Urine Osmolality 569 * Random Urine Sodium 150 Status: Acute (3) Abnormal transaminases Assessment & Plan: Resolving New onset elevation of LFTs may be 2/2 to medications Will continue to monitor Status: Acute (4) Hypothyroid Assessment & Plan: Continue Home Medication: * Synthroid 12.5mcg IVP daily Status: Acute (5) History of cervical cancer Assessment & Plan: s/p hysterectomy, b/l oopherectomy (seperate procedure) Continue Home Medication: * Methotrexate 15mg PO qWK Status: Acute (6) Depression Assessment & Plan: Continue Home Medication: * Amitriptyline 40mg PO HS * Bupropion (Wellbutrin) 150mg NG BID Status: Acute (7) Prophylactic measure Assessment & Plan: Heparin 5,000units SC q8h ( hold) Protonix 40mg IVP daily PT All medical management per Dr. Dunbar Status: Acute
[2018-07-13] MEDS: Potassium Chloride 20 MEQ in Lactated Ringer's 1,000 ML IV SCH (20:07)
[2018-07-13] MEDS ORDERED: Acetaminophen IV 1,000 MG in Premixed IV 1 EA IV SCH (23:00)
[2018-07-14] MEDS: HYDROmorphone 0.5 mg/0.5 ml ISec IVP PRN ×3 (02:26→16:55)
[2018-07-14] MEDS: Potassium Chloride 20 MEQ in Lactated Ringer's 1,000 ML IV SCH (06:00)
[2018-07-14 07:02] LABS: BASO % 0.5 % (0.0-2.0); EOS # 0.1 K/uL (0.0-0.7); EOS % 0.8 % (0.0-4.0); HEMOGLOBIN 10.3 g/dL (11.0-16.0); LYMPH # 1.5 K/uL (1.0-4.3); MEAN CELL VOLUME 97.2 fL (81.0-99.0); MEAN CORPUSCULAR HEMOGLOBIN 33.2 pg (27.0-31.0); MEAN CORPUSCULAR HGB CONC 34.2 g/dL (33.0-37.0); MEAN PLATELET VOLUME 7.5 fL (7.2-11.7); MONO # 0.6 K/uL (0.0-0.8); MONO % 6.2 % (0.0-10.0); NEUT # 8.2 K/uL (1.8-7.0); NEUT % 78.5 % (50.0-75.0); NRBC % 0.1 % (0.0-2.0); RBC 3.11 Mil/uL (3.80-5.20); RED CELL DISTRIBUTION WIDTH 14.7 % (11.5-14.5)
[2018-07-14 07:05] LABS: WHITE BLOOD COUNT 10.4 K/uL (4.8-10.8)
[2018-07-14 08:19] LABS: ALB/GLOB RATIO 1.2 (1.0-2.1); ALBUMIN 2.5 g/dL (3.5-5.0); ALT/SGPT 43 U/L (9-52); AST/SGOT 23 U/L (14-36); BLOOD UREA NITROGEN 7 mg/dL (7-17); CALCIUM 7.9 mg/dl (8.6-10.4); GFR NON-AFRICAN AMERICAN > 60
--- NOTE | 2018-07-14 08:23 | CP.PCM.PN ---
<Jerardo Light - Last Filed: 07/14/18 08:20> Subjective - Date & Time of Evaluation Date of Evaluation: 07/14/18 Time of Evaluation: 08:20 - Subjective Subjective: Surgery PT seen and examined. Pt underwent surgery yesterday. TOlerated it well. Denies fever, nausea, vomiting, BM, flatus. Voiding freely. Pain controlled. Received. 2 doses of dilaudid 0.5mg since OR. Drain in place. Minimal SS ouput. Objective - Vital Signs/Intake and Output Vital Signs (last 24 hours): Temp Pulse Resp BP Pulse Ox 98.7 F 85 20 97/54 L 96 07/14/18 06:07 07/14/18 06:07 07/14/18 06:07 07/14/18 06:07 07/14/18 06:07 Intake and Output: 07/14/18 07/14/18 06:59 18:59 Intake Total 400 Output Total 120 Balance 280 - Medications Medications: Current Medications Amitriptyline HCl (Elavil) 50 mg PO HS [facility] Last Admin: 07/13/18 22:14 Dose: Not Given Benzocaine/Menthol (Cepacol Sore Throat) 1 sharmila MT Q2H PRN PRN Reason: Sore Throat Last Admin: 07/13/18 10:58 Dose: 1 sharmila Bupropion HCl (Wellbutrin) 100 mg PO BID [facility] Last Admin: 07/13/18 18:39 Dose: Not Given Heparin Sodium (Porcine) (Heparin) 5,000 units SC Q12 [facility] Last Admin: 07/13/18 22:14 Dose: Not Given Hydromorphone HCl (Dilaudid) 0.5 mg IVP Q4H PRN PRN Reason: Pain, severe (8-10) Last Admin: 07/14/18 02:26 Dose: 0.5 mg Folic Acid 1 mg/ Sodium (Chloride) 100.2 mls @ 60 mls/hr IV DAILY [facility] Last Admin: 07/13/18 14:31 Dose: Not Given Cefazolin Sodium 500 mg/ (Sodium Chloride) 50 mls @ 100 mls/hr IVPB Q8H [facility]; Protocol Stop: 07/14/18 13:29 Last Admin: 07/14/18 06:54 Dose: 100 mls/hr Potassium Chloride 20 meq/ (Lactated Ringer's) 1,010 mls @ 80 mls/hr IV .[id number] [facility] Last Admin: 07/14/18 06:00 Dose: Not Given Ketorolac Tromethamine (Toradol) 15 mg IVP Q6 [facility] Stop: 07/14/18 18:01 Last Admin: 07/14/18 06:00 Dose: Not Given Lamotrigine (Lamictal) 200 mg PO DAILY [facility] Last Admin: 07/13/18 10:15 Dose: Not Given Levothyroxine Sodium (Synthroid) 12.5 mcg IVP 0630 [facility] Last Admin: 07/13/18 05:36 Dose: 12.5 mcg Methotrexate (Methotrexate) 15 mg NG QWK@1200 [facility] Last Admin: 07/13/18 14:32 Dose: Not Given Ondansetron HCl (Zofran Inj) 4 mg IVP Q6H PRN PRN Reason: Nausea/Vomiting Last Admin: 07/13/18 01:43 Dose: 4 mg Pantoprazole Sodium (Protonix Inj) 40 mg IVP DAILY [facility] Potassium Phos/Sodium Phos (Neutra-Phos) 1 pkt PO BID [facility] Last Admin: 07/13/18 18:39 Dose: Not Given Saliva Substitute (Mouth Kote 236 Ml) 0 ml MM 5XD PRN PRN Reason: DRY MOUTH Last Admin: 07/11/18 21:47 Dose: 1 spr Sucralfate (Carafate Tab) 1 gm PO DAILY [facility] Last Admin: 07/13/18 10:15 Dose: Not Given - Labs Labs: 07/14/18 06:45 07/14/18 06:45 PT 12.3 SECONDS (9.7-12.2) H 07/13/18 09:48 INR 1.1 07/13/18 09:48 APTT 35 SECONDS (21-34) H 07/13/18 09:48 - Constitutional Appears: No Acute Distress - Head Exam Head Exam: ATRAUMATIC, NORMAL INSPECTION, NORMOCEPHALIC - Eye Exam Eye Exam: EOMI, Normal appearance, PERRL Pupil Exam: NORMAL ACCOMODATION, PERRL - ENT Exam ENT Exam: Mucous Membranes Moist, Normal Exam - Neck Exam Neck Exam: Full ROM, Normal Inspection. absent: Lymphadenopathy - Respiratory Exam Respiratory Exam: NORMAL BREATHING PATTERN - Cardiovascular Exam Cardiovascular Exam: REGULAR RHYTHM - GI/Abdominal Exam GI & Abdominal Exam: Soft, Tenderness. absent: Distended, Firm, Guarding, Rigi d, Hernia, Mass, Rebound Additional comments: Drain in place. SS fluids 50cc/since OR. Dressing C/D/I. Incision TTP. - Exam Exam: NORMAL INSPECTION - Extremities Exam Extremities Exam: Full ROM, Normal Capillary Refill, Normal Inspection. absent: Joint Swelling, Pedal Edema - Back Exam Back Exam: NORMAL INSPECTION - Neurological Exam Neurological Exam: Alert, Awake, CN II-XII Intact, Oriented x3 - Psychiatric Exam Psychiatric exam: Normal Affect, Normal Mood - Skin Skin Exam: Dry, Intact, Normal Color, Warm Assessment and Plan - Assessment and Plan (Free Text) Assessment: POD 1 s/p laparoscopic lysis of adhesion Drain 50cc ss /since OR VOiding freely 50cc/hr -NPO -IVF -MOnitor BM /flatus -Pain control -Nausea control -Ambulate -IS Will DW Dr. Smith <Becky Smith - Last Filed: 07/14/18 12:42> Subjective - Subjective Subjective: Patient seen and examined independent of resident staff. Agree with above. POD1 s/p diagnostic laparoscopy and extensive lysis of adhesions for adhesive sbo. No acute events. Feels better than preop. No bowel function. Would anticipate prolonged ileus NPO. chewing gum ok D51/2NS +20K. If no return of bowel function will start PPN/TPN as patient has been without nutrition for 2 weeks now replete K>4.0 HSQ OOB early ambulation D/c AD drain on POD2 Objective - Vital Signs/Intake and Output Vital Signs (last 24 hours): Temp Pulse Resp BP Pulse Ox 98.4 F 88 18 108/68 97 07/14/18 08:00 07/14/18 08:00 07/14/18 08:00 07/14/18 08:00 07/14/18 08:00 Intake and Output: 07/14/18 07/14/18 06:59 18:59 Intake Total 1040 Output Total 760 Balance 280 - Medications Medications: Current Medications Amitriptyline HCl (Elavil) 50 mg PO HS [facility] Last Admin: 07/13/18 22:14 Dose: Not Given Benzocaine/Menthol (Cepacol Sore Throat) 1 sharmila MT Q2H PRN PRN Reason: Sore Throat Last Admin: 07/13/18 10:58 Dose: 1 sharmila Bupropion HCl (Wellbutrin) 100 mg PO BID [facility] Last Admin: 07/14/18 10:26 Dose: 100 mg Heparin Sodium (Porcine) (Heparin) 5,000 units SC Q12 [facility] Last Admin: 07/14/18 10:26 Dose: 5,000 units Hydromorphone HCl (Dilaudid) 0.5 mg IVP Q4H PRN PRN Reason: Pain, severe (8-10) Last Admin: 07/14/18 10:34 Dose: 0.5 mg Folic Acid 1 mg/ Sodium (Chloride) 100.2 mls @ 60 mls/hr IV DAILY [facility] Last Admin: 07/14/18 10:27 Dose: 60 mls/hr Cefazolin Sodium 500 mg/ (Sodium Chloride) 50 mls @ 100 mls/hr IVPB Q8H [facility]; Protocol Stop: 07/14/18 13:29 Last Admin: 07/14/18 06:54 Dose: 100 mls/hr Potassium Chloride/Dextrose/Sod Cl (Potassium Chl 20 Meq In D5-1/2ns) 1,000 mls @ 80 mls/hr IV .[id number] [facility] Lamotrigine (Lamictal) 200 mg PO DAILY [facility] Last Admin: 07/14/18 10:26 Dose: 200 mg Levothyroxine Sodium (Synthroid) 12.5 mcg IVP 0630 [facility] Last Admin: 07/14/18 08:24 Dose: 12.5 mcg Ondansetron HCl (Zofran Inj) 4 mg IVP Q6H PRN PRN Reason: Nausea/Vomiting Last Admin: 07/13/18 01:43 Dose: 4 mg Pantoprazole Sodium (Protonix Inj) 40 mg IVP DAILY [facility] Last Admin: 07/14/18 10:25 Dose: 40 mg Saliva Substitute (Mouth Kote 236 Ml) 0 ml MM 5XD PRN PRN Reason: DRY MOUTH Last Admin: 07/11/18 21:47 Dose: 1 spr - Labs Labs: 07/14/18 06:45 07/14/18 06:45 PT 12.3 SECONDS (9.7-12.2) H 07/13/18 09:48 INR 1.1 07/13/18 09:48 APTT 35 SECONDS (21-34) H 07/13/18 09:48
[2018-07-14] MEDS: Levothyroxine 100 mcg (0.1 mg) Inj IVP SCH (08:24)
[2018-07-14] MEDS: Potassium & Sodium Phosphate PO SCH (10:26)
--- NOTE | 2018-07-14 10:28 | CP.PCM.PN ---
Subjective - Date & Time of Evaluation Date of Evaluation: 07/14/18 Time of Evaluation: 10:25 - Subjective Subjective: Patient with mild incisional pain. No flatus as of yet. Objective - Vital Signs/Intake and Output Vital Signs (last 24 hours): Temp Pulse Resp BP Pulse Ox 98.4 F 88 18 108/68 97 07/14/18 08:00 07/14/18 08:00 07/14/18 08:00 07/14/18 08:00 07/14/18 08:00 Intake and Output: 07/14/18 07/14/18 06:59 18:59 Intake Total 1040 Output Total 760 Balance 280 - Medications Medications: Current Medications Amitriptyline HCl (Elavil) 50 mg PO HS [facility] Last Admin: 07/13/18 22:14 Dose: Not Given Benzocaine/Menthol (Cepacol Sore Throat) 1 sharmila MT Q2H PRN PRN Reason: Sore Throat Last Admin: 07/13/18 10:58 Dose: 1 sharmila Bupropion HCl (Wellbutrin) 100 mg PO BID [facility] Last Admin: 07/13/18 18:39 Dose: Not Given Heparin Sodium (Porcine) (Heparin) 5,000 units SC Q12 [facility] Last Admin: 07/13/18 22:14 Dose: Not Given Hydromorphone HCl (Dilaudid) 0.5 mg IVP Q4H PRN PRN Reason: Pain, severe (8-10) Last Admin: 07/14/18 02:26 Dose: 0.5 mg Folic Acid 1 mg/ Sodium (Chloride) 100.2 mls @ 60 mls/hr IV DAILY [facility] Last Admin: 07/13/18 14:31 Dose: Not Given Cefazolin Sodium 500 mg/ (Sodium Chloride) 50 mls @ 100 mls/hr IVPB Q8H [facility]; Protocol Stop: 07/14/18 13:29 Last Admin: 07/14/18 06:54 Dose: 100 mls/hr Potassium Chloride 20 meq/ (Lactated Ringer's) 1,010 mls @ 80 mls/hr IV .[id number] [facility] Last Admin: 07/14/18 06:00 Dose: Not Given Lamotrigine (Lamictal) 200 mg PO DAILY [facility] Last Admin: 07/13/18 10:15 Dose: Not Given Levothyroxine Sodium (Synthroid) 12.5 mcg IVP 0630 [facility] Last Admin: 07/14/18 08:24 Dose: 12.5 mcg Methotrexate (Methotrexate) 15 mg NG QWK@1200 [facility] Last Admin: 07/13/18 14:32 Dose: Not Given Ondansetron HCl (Zofran Inj) 4 mg IVP Q6H PRN PRN Reason: Nausea/Vomiting Last Admin: 07/13/18 01:43 Dose: 4 mg Pantoprazole Sodium (Protonix Inj) 40 mg IVP DAILY [facility] Potassium Phos/Sodium Phos (Neutra-Phos) 1 pkt PO BID [facility] Last Admin: 07/13/18 18:39 Dose: Not Given Saliva Substitute (Mouth Kote 236 Ml) 0 ml MM 5XD PRN PRN Reason: DRY MOUTH Last Admin: 07/11/18 21:47 Dose: 1 spr Sucralfate (Carafate Tab) 1 gm PO DAILY [facility] Last Admin: 07/13/18 10:15 Dose: Not Given - Labs Labs: 07/14/18 06:45 07/14/18 06:45 PT 12.3 SECONDS (9.7-12.2) H 07/13/18 09:48 INR 1.1 07/13/18 09:48 APTT 35 SECONDS (21-34) H 07/13/18 09:48 - Constitutional Appears: No Acute Distress - Head Exam Head Exam: ATRAUMATIC, NORMOCEPHALIC - Eye Exam Eye Exam: EOMI, PERRL - Respiratory Exam Respiratory Exam: NORMAL BREATHING PATTERN - Cardiovascular Exam Cardiovascular Exam: REGULAR RHYTHM - GI/Abdominal Exam GI & Abdominal Exam: Soft, Tenderness, Hypoactive Bowel Sounds Additional comments: incisional dressing intact at laparoscopy sites. No drainage. - Extremities Exam Extremities Exam: Normal Inspection Assessment and Plan (1) Small bowel obstruction due to adhesions Assessment & Plan: S/P lysis of multiple adhesions POD#1 Post op care per surgical team. Will follow as needed. Continue Protonix for treatment of underlying GERD Status: Acute (2) Acute renal failure Status: Resolved (3) SIADH (syndrome of inappropriate ADH production) Status: Resolved (4) Abnormal transaminases Assessment & Plan: LFTs now normalized. Status: Resolved
[2018-07-14] MEDS ORDERED: Potassium Chloride 40 MEQ in Lactated Ringer's 1,000 ML IV SCH (11:00)
[2018-07-14] MEDS ORDERED: Potassium Ch 20mEq in D5-1/2NS 1,000 ML IV SCH (12:15)
[2018-07-14] MEDS: Lidocaine 5% Patch TD SCH (13:44)
--- NOTE | 2018-07-14 13:45 | CP.PCM.PN ---
Subjective - Date & Time of Evaluation Date of Evaluation: 07/14/18 Time of Evaluation: 13:44 - Subjective Subjective: s/p abdominal surgery, adhesion lysis yesterday comfortable in chair slight abdominal pain npo Objective - Vital Signs/Intake and Output Vital Signs (last 24 hours): Temp Pulse Resp BP Pulse Ox 98.4 F 88 18 108/68 97 07/14/18 08:00 07/14/18 08:00 07/14/18 08:00 07/14/18 08:00 07/14/18 08:00 Intake and Output: 07/14/18 07/14/18 06:59 18:59 Intake Total 1040 Output Total 760 Balance 280 - Medications Medications: Current Medications Amitriptyline HCl (Elavil) 50 mg PO HS [facility] Last Admin: 07/13/18 22:14 Dose: Not Given Benzocaine/Menthol (Cepacol Sore Throat) 1 sharmila MT Q2H PRN PRN Reason: Sore Throat Last Admin: 07/13/18 10:58 Dose: 1 sharmila Bupropion HCl (Wellbutrin) 100 mg PO BID [facility] Last Admin: 07/14/18 10:26 Dose: 100 mg Heparin Sodium (Porcine) (Heparin) 5,000 units SC Q12 [facility] Last Admin: 07/14/18 10:26 Dose: 5,000 units Hydromorphone HCl (Dilaudid) 0.5 mg IVP Q4H PRN PRN Reason: Pain, severe (8-10) Last Admin: 07/14/18 10:34 Dose: 0.5 mg Folic Acid 1 mg/ Sodium (Chloride) 100.2 mls @ 60 mls/hr IV DAILY [facility] Last Admin: 07/14/18 10:27 Dose: 60 mls/hr Potassium Chloride 20 meq/ (Sodium Chloride) 1,010 mls @ 70 mls/hr IV .[id number] [facility] Lamotrigine (Lamictal) 200 mg PO DAILY [facility] Last Admin: 07/14/18 10:26 Dose: 200 mg Levothyroxine Sodium (Synthroid) 12.5 mcg IVP 0630 [facility] Last Admin: 07/14/18 08:24 Dose: 12.5 mcg Lidocaine (Lidoderm) 1 ea TD DAILY [facility] Ondansetron HCl (Zofran Inj) 4 mg IVP Q6H PRN PRN Reason: Nausea/Vomiting Last Admin: 07/13/18 01:43 Dose: 4 mg Pantoprazole Sodium (Protonix Inj) 40 mg IVP DAILY [facility] Last Admin: 07/14/18 10:25 Dose: 40 mg Saliva Substitute (Mouth Kote 236 Ml) 0 ml MM 5XD PRN PRN Reason: DRY MOUTH Last Admin: 07/11/18 21:47 Dose: 1 spr - Labs Labs: 07/14/18 06:45 07/14/18 06:45 PT 12.3 SECONDS (9.7-12.2) H 07/13/18 09:48 INR 1.1 07/13/18 09:48 APTT 35 SECONDS (21-34) H 07/13/18 09:48 - Constitutional Appears: No Acute Distress, Chronically Ill - Head Exam Head Exam: NORMAL INSPECTION, NORMOCEPHALIC - Eye Exam Eye Exam: Normal appearance, PERRL - ENT Exam ENT Exam: Mucous Membranes Moist, Normal Exam - Neck Exam Neck Exam: Full ROM, Normal Inspection - Respiratory Exam Respiratory Exam: Clear to Ausculation Bilateral, NORMAL BREATHING PATTERN - Cardiovascular Exam Cardiovascular Exam: REGULAR RHYTHM, RRR - GI/Abdominal Exam GI & Abdominal Exam: Distended, Soft, Tenderness - Extremities Exam Extremities Exam: Normal Inspection, Pedal Edema - Neurological Exam Neurological Exam: Alert, Awake, Oriented x3 - Skin Skin Exam: Normal Color, Warm Assessment and Plan (1) Hypokalemia Status: Acute (2) Hyponatremia Status: Acute (3) SIADH (syndrome of inappropriate ADH production) Status: Resolved (4) Small bowel obstruction Status: Acute - Assessment and Plan (Free Text) Assessment: avoid hypotonic iv fluids, switched to NS w/ potassium electrolytes acceptable
[2018-07-14 16:52] VITALS: RESP 20
[2018-07-14] MEDS: Benzocaine/Menthol (Cepacol) Lozenge MT PRN (19:46)
[2018-07-15] MEDS: HYDROmorphone 0.5 mg/0.5 ml ISec IVP PRN ×2 (03:30→09:18)
[2018-07-15] MEDS: Levothyroxine 100 mcg (0.1 mg) Inj IVP SCH (06:49)
[2018-07-15 07:33] LABS: BASO % 0.3 % (0.0-2.0); EOS # 0.1 K/uL (0.0-0.7); HEMOGLOBIN 11.2 g/dL (11.0-16.0); LYMPH # 1.3 K/uL (1.0-4.3); LYMPH % 14.8 % (20.0-40.0); MEAN CELL VOLUME 97.8 fL (81.0-99.0); MEAN CORPUSCULAR HEMOGLOBIN 33.2 pg (27.0-31.0); MEAN CORPUSCULAR HGB CONC 33.9 g/dL (33.0-37.0); MEAN PLATELET VOLUME 7.4 fL (7.2-11.7); MONO # 0.4 K/uL (0.0-0.8); MONO % 5.1 % (0.0-10.0); NEUT # 6.7 K/uL (1.8-7.0); NEUT % 78.8 % (50.0-75.0); RBC 3.36 Mil/uL (3.80-5.20); WHITE BLOOD COUNT 8.6 K/uL (4.8-10.8)
--- NOTE | 2018-07-15 07:48 | CP.PCM.PN ---
<Obed Mari Nathanael - Last Filed: 07/15/18 07:43> Subjective - Date & Time of Evaluation Date of Evaluation: 07/15/18 Time of Evaluation: 07:43 - Subjective Subjective: General Surgery: Dr Smith Pt S&E. POD#2 s/p laparoscopic KETAN. Pt states pain is well controlled. Has been OOB and doing multiple laps. Chewing gum. Remains NPO, has not yet passed flatus. Denies nausea or vomiting. Denies f/c, sob or chest pain. Objective - Vital Signs/Intake and Output Vital Signs (last 24 hours): Temp Pulse Resp BP Pulse Ox 98.7 F 91 H 20 142/68 95 07/14/18 22:15 07/15/18 03:30 07/14/18 22:15 07/15/18 03:30 07/14/18 22:15 Intake and Output: 07/15/18 07/15/18 06:59 18:59 Intake Total 560 Output Total 90 Balance 470 - Medications Medications: Current Medications Amitriptyline HCl (Elavil) 50 mg PO HS [facility] Last Admin: 07/14/18 22:01 Dose: 50 mg Benzocaine/Menthol (Cepacol Sore Throat) 1 sharmila MT Q2H PRN PRN Reason: Sore Throat Last Admin: 07/14/18 19:46 Dose: 1 sharmila Bupropion HCl (Wellbutrin) 100 mg PO BID [facility] Last Admin: 07/14/18 19:46 Dose: 100 mg Heparin Sodium (Porcine) (Heparin) 5,000 units SC Q8 [facility] Hydromorphone HCl (Dilaudid) 0.5 mg IVP Q4H PRN PRN Reason: Pain, severe (8-10) Last Admin: 07/15/18 03:30 Dose: 0.5 mg Folic Acid 1 mg/ Sodium (Chloride) 100.2 mls @ 60 mls/hr IV DAILY [facility] Last Admin: 07/14/18 10:27 Dose: 60 mls/hr Potassium Chloride 20 meq/ (Sodium Chloride) 1,010 mls @ 70 mls/hr IV .[id number] [facility] Last Admin: 07/14/18 18:30 Dose: 70 mls/hr Lamotrigine (Lamictal) 200 mg PO DAILY [facility] Last Admin: 07/14/18 10:26 Dose: 200 mg Levothyroxine Sodium (Synthroid) 12.5 mcg IVP 0630 [facility] Last Admin: 07/15/18 06:49 Dose: 12.5 mcg Lidocaine (Lidoderm) 1 ea TD DAILY [facility] Last Admin: 07/14/18 13:44 Dose: 1 ea Ondansetron HCl (Zofran Inj) 4 mg IVP Q6H PRN PRN Reason: Nausea/Vomiting Last Admin: 07/13/18 01:43 Dose: 4 mg Pantoprazole Sodium (Protonix Inj) 40 mg IVP DAILY [facility] Last Admin: 07/14/18 10:25 Dose: 40 mg Saliva Substitute (Mouth Kote 236 Ml) 0 ml MM 5XD PRN PRN Reason: DRY MOUTH Last Admin: 07/11/18 21:47 Dose: 1 spr - Labs Labs: 07/15/18 07:00 07/14/18 06:45 PT 12.3 SECONDS (9.7-12.2) H 07/13/18 09:48 INR 1.1 07/13/18 09:48 APTT 35 SECONDS (21-34) H 07/13/18 09:48 - Constitutional Appears: Non-toxic, No Acute Distress - ENT Exam ENT Exam: Mucous Membranes Dry - Respiratory Exam Respiratory Exam: absent: Accessory Muscle Use, Respiratory Distress - Cardiovascular Exam Cardiovascular Exam: REGULAR RHYTHM. absent: Tachycardia - GI/Abdominal Exam GI & Abdominal Exam: Soft, Tenderness (post-op and appropriate), Diminished Bowel Sounds. absent: Distended, Firm, Guarding, Rigid, Rebound - Neurological Exam Neurological Exam: Alert, Awake, Oriented x3 - Psychiatric Exam Psychiatric exam: Normal Affect, Normal Mood - Skin Skin Exam: Normal Color, Warm Assessment and Plan - Assessment and Plan (Free Text) Assessment: 72F POD#2 s/p diagnostic lap w/ lysis of adhesions Plan: will order PICC today start TPN cont OOB and ambulate, IS use, chewing gum electrolyte replacement PRN d/w Dr Luis Mari, PGY4 <Becky Smith - Last Filed: 07/15/18 12:37> Objective - Vital Signs/Intake and Output Vital Signs (last 24 hours): Temp Pulse Resp BP Pulse Ox 98.1 F 85 20 130/72 95 07/15/18 08:00 07/15/18 08:00 07/15/18 08:00 07/15/18 08:00 07/15/18 08:00 Intake and Output: 07/15/18 07/15/18 06:59 18:59 Intake Total 560 Output Total 90 Balance 470 - Medications Medications: Current Medications Amitriptyline HCl (Elavil) 50 mg PO HS [facility] Last Admin: 07/14/18 22:01 Dose: 50 mg Benzocaine/Menthol (Cepacol Sore Throat) 1 sharmila MT Q2H PRN PRN Reason: Sore Throat Last Admin: 07/14/18 19:46 Dose: 1 sharmila Bupropion HCl (Wellbutrin) 100 mg PO BID [facility] Last Admin: 07/15/18 11:53 Dose: 100 mg Heparin Sodium (Porcine) (Heparin) 5,000 units SC Q8 [facility] Last Admin: 07/15/18 07:52 Dose: Not Given Hydromorphone HCl (Dilaudid) 0.5 mg IVP Q4H PRN PRN Reason: Pain, severe (8-10) Last Admin: 07/15/18 09:18 Dose: 0.5 mg Folic Acid 1 mg/ Sodium (Chloride) 100.2 mls @ 60 mls/hr IV DAILY [facility] Last Admin: 07/15/18 12:09 Dose: 60 mls/hr Potassium Chloride (Potassium Chloride 10 Meq/100 Ml) 10 meq in 100 mls @ 100 mls/hr IVPB Q1H [facility] Stop: 07/15/18 12:59 Last Admin: 07/15/18 12:08 Dose: 100 mls/hr Magnesium Sulfate/Dextrose (Magnesium Sulfate 1 Gm/100 Ml D5w) 1 gm in 100 mls @ 200 mls/hr IVPB ONCE ONE Stop: 07/15/18 12:29 Last Admin: 07/15/18 12:07 Dose: 200 mls/hr Lamotrigine (Lamictal) 200 mg PO DAILY [facility] Last Admin: 07/15/18 11:53 Dose: 200 mg Levothyroxine Sodium (Synthroid) 12.5 mcg IVP 0630 [facility] Last Admin: 07/15/18 06:49 Dose: 12.5 mcg Lidocaine (Lidoderm) 1 ea TD DAILY [facility] Last Admin: 07/15/18 11:52 Dose: 1 ea Ondansetron HCl (Zofran Inj) 4 mg IVP Q6H PRN PRN Reason: Nausea/Vomiting Last Admin: 07/13/18 01:43 Dose: 4 mg Pantoprazole Sodium (Protonix Inj) 40 mg IVP DAILY [facility] Last Admin: 07/15/18 11:53 Dose: 40 mg Saliva Substitute (Mouth Kote 236 Ml) 0 ml MM 5XD PRN PRN Reason: DRY MOUTH Last Admin: 07/11/18 21:47 Dose: 1 spr - Labs Labs: 07/15/18 07:00 07/15/18 07:00 PT 12.3 SECONDS (9.7-12.2) H 07/13/18 09:48 INR 1.1 07/13/18 09:48 APTT 35 SECONDS (21-34) H 07/13/18 09:48 Assessment and Plan - Assessment and Plan (Free Text) Plan: Patient seen and examined at bedside independent of resident staff. Agree with above. Feeling better overall. No nausea or flatus. Ambulating with PT. AVSS. Serous AD output. Abd soft. min distension with stable tympany on percussion. appropriate incision tenderness POD 2 lap lysis of adhesions awaiting bowel function. Cont. NPO PICC line and start TPN + lipids 83cc/hr. Minimize fluid overload. titrate total IVF to goal UOP 0.5cc/kg/hour Dulcolax supps. OOB. PT recs PPI. SCD at all times in bed. HSQ TID AD drain to bulb suction. Will plan to remove in am
[2018-07-15 07:53] LABS: ALB/GLOB RATIO 1.2 (1.0-2.1); ALBUMIN 3.1 g/dL (3.5-5.0); ALT/SGPT 36 U/L (9-52); AST/SGOT 25 U/L (14-36); BLOOD UREA NITROGEN 6 mg/dL (7-17); CALCIUM 8.4 mg/dl (8.6-10.4); GFR NON-AFRICAN AMERICAN > 60
[2018-07-15 08:25] LABS: HDL CHOLESTEROL 51 mg/dL (30-70)
[2018-07-15 08:35] LABS: LDL CHOLESTEROL 41 mg/dL (0-129)
[2018-07-15] MEDS ORDERED: Magnesium Sulfate 1 gm in D5W 1 GM/100 ML BAG IVPB ONE ×2 (09:00→12:00)
--- NOTE | 2018-07-15 10:49 | PCM.SURG1 ---
Surgeon's Initial Post Op Note - Surgeon's Notes Surgeon: Ben Metcalf MD Granulator Machine Operator: NONE Type of Anesthesia: Local Pre-Operative Diagnosis: Malnutrition Operative Findings: US showed patent right basilic vein. Post-Operative Diagnosis: Malnutrition Operation Performed: Single lumen picc placement right arm, 37 cm. Specimen/Specimens Removed: NONE Estimated Blood Loss: EBL {In ML}: 2 Blood Products Given: N/A Drains Used: No Drains Post-Op Condition: Fair Date of Surgery/Procedure: 07/15/18 Time of Surgery/Procedure: 10:45
--- NOTE | 2018-07-15 11:13 | RAD ---
PROCEDURE: Date of procedure: 07/15/2018 Procedure: 1. Placement of a right arm PICC with ultrasound and fluoroscopic guidance, CPT 57174 2. PICC tip confirmation with spot radiograph and is in the superior vena cava Medications: 1 percent lidocaine Total Fluoro time: 2.9 Seconds Radiation: 0.5 MGy EBL: 2 cc HISTORY: Malnutrition TECHNIQUE: Following informed consent and procedure time-out, the patient was placed supine on the interventional table and the right arm prepped and draped in the usual sterile fashion. Ultrasound showed a patent and compressible right basilic vein. After the skin was anesthetized with lidocaine, the basilic vein was accessed with micro micropuncture technique using ultrasound guidance. A guidewire was then advanced under fluoroscopic guidance into the superior vena cava. An image documenting ultrasound guidance for vascular access was permanently saved. The length of the single-lumen 4 [place] PICC was trimmed to 37 centimeters and advanced through a peel-away sheath. The PICC was position with tip of PICC confirm a spot radiograph the superior vena cava. The PICC was secured to the patient's skin. The PICC was flushed. A biopatch and sterile dressing was applied. IMPRESSION: Placement of a single-lumen 4 [place] PICC trimmed to 37 centimeters via right basilic vein. The tip of the PICC is confirmed with spot radiograph and is in the superior vena cava.
--- NOTE | 2018-07-15 11:25 | CP.PCM.PN ---
Subjective - Date & Time of Evaluation Date of Evaluation: 07/15/18 Time of Evaluation: 08:30 - Subjective Subjective: Progress note ( Dr. Garcia covering for Dr. Dunbar's service) Patient was seen and examined at bedside. Patient is S/P diagnostic laparoscopic extensive lysis of adhesions POD #2. Patient states that she is doing well with tolerable pain. Patient admits appropriate abdominal pain, which is appropriate as she is s/p diagnostic laparoscopic. Patient denies any symptoms of nausea, vomiting, chest pain, palpitations, fever, chills, dizziness, passing flatus and bowel movement. Patient states that she has been able to ambulate as much as she can since the surgery. Patient has been started TPN. Patient's diet will be advanced as per surgery. Objective - Vital Signs/Intake and Output Vital Signs (last 24 hours): Temp Pulse Resp BP Pulse Ox 98.1 F 85 20 130/72 95 07/15/18 08:00 07/15/18 08:00 07/15/18 08:00 07/15/18 08:00 07/15/18 08:00 Intake and Output: 07/15/18 07/15/18 06:59 18:59 Intake Total 560 Output Total 90 Balance 470 - Medications Medications: Current Medications Amitriptyline HCl (Elavil) 50 mg PO HS [facility] Last Admin: 07/14/18 22:01 Dose: 50 mg Benzocaine/Menthol (Cepacol Sore Throat) 1 sharmila MT Q2H PRN PRN Reason: Sore Throat Last Admin: 07/14/18 19:46 Dose: 1 sharmila Bupropion HCl (Wellbutrin) 100 mg PO BID [facility] Last Admin: 07/14/18 19:46 Dose: 100 mg Heparin Sodium (Porcine) (Heparin) 5,000 units SC Q8 [facility] Last Admin: 07/15/18 07:52 Dose: Not Given Hydromorphone HCl (Dilaudid) 0.5 mg IVP Q4H PRN PRN Reason: Pain, severe (8-10) Last Admin: 07/15/18 09:18 Dose: 0.5 mg Folic Acid 1 mg/ Sodium (Chloride) 100.2 mls @ 60 mls/hr IV DAILY [facility] Last Admin: 07/14/18 10:27 Dose: 60 mls/hr Potassium Chloride 20 meq/ (Sodium Chloride) 1,010 mls @ 70 mls/hr IV .[id number] [facility] Last Admin: 07/14/18 18:30 Dose: 70 mls/hr Potassium Chloride (Potassium Chloride 10 Meq/100 Ml) 10 meq in 100 mls @ 100 mls/hr IVPB Q1H [facility] Stop: 07/15/18 12:59 Magnesium Sulfate/Dextrose (Magnesium Sulfate 1 Gm/100 Ml D5w) 1 gm in 100 mls @ 200 mls/hr IVPB ONCE ONE Stop: 07/15/18 12:29 Lamotrigine (Lamictal) 200 mg PO DAILY [facility] Last Admin: 07/14/18 10:26 Dose: 200 mg Levothyroxine Sodium (Synthroid) 12.5 mcg IVP 0630 [facility] Last Admin: 07/15/18 06:49 Dose: 12.5 mcg Lidocaine (Lidoderm) 1 ea TD DAILY [facility] Last Admin: 07/14/18 13:44 Dose: 1 ea Ondansetron HCl (Zofran Inj) 4 mg IVP Q6H PRN PRN Reason: Nausea/Vomiting Last Admin: 07/13/18 01:43 Dose: 4 mg Pantoprazole Sodium (Protonix Inj) 40 mg IVP DAILY [facility] Last Admin: 07/14/18 10:25 Dose: 40 mg Saliva Substitute (Mouth Kote 236 Ml) 0 ml MM 5XD PRN PRN Reason: DRY MOUTH Last Admin: 07/11/18 21:47 Dose: 1 spr - Labs Labs: 07/15/18 07:00 07/15/18 07:00 PT 12.3 SECONDS (9.7-12.2) H 07/13/18 09:48 INR 1.1 07/13/18 09:48 APTT 35 SECONDS (21-34) H 07/13/18 09:48 - Constitutional Appears: Well, No Acute Distress - Head Exam Head Exam: ATRAUMATIC, NORMAL INSPECTION - Eye Exam Eye Exam: EOMI - ENT Exam ENT Exam: Mucous Membranes Moist - Respiratory Exam Respiratory Exam: Clear to Ausculation Bilateral, NORMAL BREATHING PATTERN. absent: Prolonged Expiratory Phase, Rhonchi, Wheezes, Respiratory Distress Additional comments: Continual use of spirometer - Cardiovascular Exam Cardiovascular Exam: REGULAR RHYTHM, +S1, +S2. absent: Tachycardia, Clicks, Diastolic murmur, Murmur - GI/Abdominal Exam GI & Abdominal Exam: Soft, Normal Bowel Sounds. absent: Distended, Firm, Guarding, Rigid, Tenderness Additional comments: Incision is on the right lower quadrant is clean, dry and intact AD drain in place and draining - Extremities Exam Extremities Exam: Normal Inspection. absent: Calf Tenderness, Pedal Edema - Neurological Exam Neurological Exam: Alert, Awake, Oriented x3 - Psychiatric Exam Psychiatric exam: Normal Affect, Normal Mood - Skin Skin Exam: Normal Color Assessment and Plan (1) Small bowel obstruction due to adhesions Assessment & Plan: likely 2/2 to adhesions (hx of multiple abdominal surgeries) General Surgery, Dr. Becky Smith * S/P diagnostic laparoscopic. extensive lysis of adhesions POD #2, AD drain in palce * Pain management as per surgery GI Consulted, Dr. De La Torre * management as per recommendation Abd/Pelvis CT (07/01): * Findings consistent with small-bowel obstruction with transition point right lower quadrant of the abdomen. * Cholecystectomy. * Nodular left adrenal gland. Recommend followup noncontrast MRI of the adrenal glands. * Diverticulosis without radiographic evidence of acute diverticulitis. Obstruction Series (07/02): * Mild left basilar atelectasis and or scarring.. No evidence of mechanical bowel obstruction however findings suggest mild fecal retention/constipation. Abdomen X-ray (07/03): * Mild bibasilar atelectasis. * No evidence of acute mechanical bowel obstruction. Abdomen X-ray (07/04): * Findings are most compatible with acute small bowel obstruction, slightly worse since the prior examination. Abd/Pelvis CT w/ PO and IV contrast (07/04/18): * Persistent pattern positive for mechanical distal small bowel obstruction with collapsed ileum and otherwise dilated small-bowel loops appreciated stomach is partially decompressed by nasogastric tube oral contrast partially distending the stomach. Poor oral contrast transit is seen through small bowel. No free intra peritoneal gas collection or ascites appreciable at this time. Continued surgical evaluation advised. Abdominal exam showed no tenderness or guarding. Tap water enema given on 07/08 - patient had bowel movement. NG tube in place Patient for the OR tentatively tomorrow 07/13/18 Will continue to monitor Medications: * TPN for nutrition * Zofran 4mg IVP q6h prn * Protonix 40mg IVP daily * D5 NS at 100cc/hr Status: Acute (2) Hyponatremia Assessment & Plan: Resolving hx of SIADH possible 2/2 to anti-psychotic medications Nephrology consulted, Dr. Espinosa and Elly * Tolvaptan given on 07/09 * Urine Osmolality 569 * Random Urine Sodium 150 * Currently maintained on NS ( 20 meq potassium) at 70mls/hr Status: Acute (3) Abnormal transaminases Assessment & Plan: Resolved New onset elevation of LFTs may be 2/2 to medications Will continue to monitor Status: Resolved (4) Hypothyroid Assessment & Plan: Continue Home Medication: * Synthroid 12.5mcg IVP daily Status: Acute (5) History of cervical cancer Assessment & Plan: s/p hysterectomy, b/l oopherectomy (seperate procedure) Continue Home Medication: * Methotrexate 15mg PO qWK Status: Acute (6) Depression Assessment & Plan: Continue Home Medication: * Amitriptyline 40mg PO HS * Bupropion (Wellbutrin) 100mg PO BID * Lamptrigine 200mg PO daily Status: Acute (7) Prophylactic measure Assessment & Plan: Heparin 5,000units SC q8h ( hold); will be resumed by surgical team. Patient is ambulating Protonix 40mg IVP daily PT/OT All medical management discussed with Dr. Garcia, who is covering for Dr. Dunbar Status: Acute
[2018-07-15] MEDS: Lidocaine 5% Patch TD SCH (11:52)
--- NOTE | 2018-07-15 11:52 | CP.PCM.PN ---
Subjective - Date & Time of Evaluation Date of Evaluation: 07/15/18 Time of Evaluation: 11:50 - Subjective Subjective: plan for tpn noted labs noted pt denies any abdominal pain n/v/d/dizziness/f/c/headache/cp/cough feels like she is going to have a BM Objective - Vital Signs/Intake and Output Vital Signs (last 24 hours): Temp Pulse Resp BP Pulse Ox 98.1 F 85 20 130/72 95 07/15/18 08:00 07/15/18 08:00 07/15/18 08:00 07/15/18 08:00 07/15/18 08:00 Intake and Output: 07/15/18 07/15/18 06:59 18:59 Intake Total 560 Output Total 90 Balance 470 - Medications Medications: Current Medications Amitriptyline HCl (Elavil) 50 mg PO HS [facility] Last Admin: 07/14/18 22:01 Dose: 50 mg Benzocaine/Menthol (Cepacol Sore Throat) 1 sharmila MT Q2H PRN PRN Reason: Sore Throat Last Admin: 07/14/18 19:46 Dose: 1 sharmila Bupropion HCl (Wellbutrin) 100 mg PO BID [facility] Last Admin: 07/14/18 19:46 Dose: 100 mg Heparin Sodium (Porcine) (Heparin) 5,000 units SC Q8 [facility] Last Admin: 07/15/18 07:52 Dose: Not Given Hydromorphone HCl (Dilaudid) 0.5 mg IVP Q4H PRN PRN Reason: Pain, severe (8-10) Last Admin: 07/15/18 09:18 Dose: 0.5 mg Folic Acid 1 mg/ Sodium (Chloride) 100.2 mls @ 60 mls/hr IV DAILY [facility] Last Admin: 07/14/18 10:27 Dose: 60 mls/hr Potassium Chloride 20 meq/ (Sodium Chloride) 1,010 mls @ 70 mls/hr IV .[id number] [facility] Last Admin: 07/14/18 18:30 Dose: 70 mls/hr Potassium Chloride (Potassium Chloride 10 Meq/100 Ml) 10 meq in 100 mls @ 100 mls/hr IVPB Q1H [facility] Stop: 07/15/18 12:59 Magnesium Sulfate/Dextrose (Magnesium Sulfate 1 Gm/100 Ml D5w) 1 gm in 100 mls @ 200 mls/hr IVPB ONCE ONE Stop: 07/15/18 12:29 Lamotrigine (Lamictal) 200 mg PO DAILY [facility] Last Admin: 07/14/18 10:26 Dose: 200 mg Levothyroxine Sodium (Synthroid) 12.5 mcg IVP 0630 [facility] Last Admin: 07/15/18 06:49 Dose: 12.5 mcg Lidocaine (Lidoderm) 1 ea TD DAILY [facility] Last Admin: 07/14/18 13:44 Dose: 1 ea Ondansetron HCl (Zofran Inj) 4 mg IVP Q6H PRN PRN Reason: Nausea/Vomiting Last Admin: 07/13/18 01:43 Dose: 4 mg Pantoprazole Sodium (Protonix Inj) 40 mg IVP DAILY [facility] Last Admin: 07/14/18 10:25 Dose: 40 mg Saliva Substitute (Mouth Kote 236 Ml) 0 ml MM 5XD PRN PRN Reason: DRY MOUTH Last Admin: 07/11/18 21:47 Dose: 1 spr - Labs Labs: 07/15/18 07:00 07/15/18 07:00 PT 12.3 SECONDS (9.7-12.2) H 07/13/18 09:48 INR 1.1 07/13/18 09:48 APTT 35 SECONDS (21-34) H 07/13/18 09:48 - Constitutional Appears: No Acute Distress, Chronically Ill - Head Exam Head Exam: NORMAL INSPECTION, NORMOCEPHALIC - Eye Exam Eye Exam: Normal appearance, PERRL - ENT Exam ENT Exam: Mucous Membranes Moist, Normal Exam - Neck Exam Neck Exam: Full ROM, Normal Inspection - Respiratory Exam Respiratory Exam: Clear to Ausculation Bilateral, NORMAL BREATHING PATTERN - Cardiovascular Exam Cardiovascular Exam: REGULAR RHYTHM, RRR - GI/Abdominal Exam GI & Abdominal Exam: Distended, Soft, Hypoactive Bowel Sounds - Extremities Exam Extremities Exam: Full ROM, Normal Inspection - Neurological Exam Neurological Exam: Alert, Awake, Oriented x3 - Psychiatric Exam Psychiatric exam: Normal Affect, Normal Mood - Skin Skin Exam: Dry, Intact, Warm Assessment and Plan (1) Hypokalemia Status: Acute (2) Hyponatremia Status: Acute (3) SIADH (syndrome of inappropriate ADH production) Status: Resolved (4) Small bowel obstruction Status: Acute - Assessment and Plan (Free Text) Assessment: started on tpn na stable, k mag acceptable. follow electrolytes, daily bmp dc iv fluids
--- NOTE | 2018-07-15 12:04 | US ---
Date of procedure: 07/15/2018 Procedure: Ultrasound guidance for vascular access HISTORY: Infection requiring long-term IV antibiotics TECHNIQUE: Following informed consent and procedure time-out, the patient placed supine on the interventional table and the right arm prepped and draped in the usual sterile fashion. Ultrasound showed a patent and compressible basilic vein. After the skin was anesthetized with lidocaine, the basilic vein was accessed with micro micropuncture technique using ultrasound guidance. An image documenting ultrasound guidance for vascular access was permanently saved. IMPRESSION: Ultrasound guidance for vascular access for placement of PICC.
--- NOTE | 2018-07-15 12:34 | CP.PCM.PN ---
Subjective - Date & Time of Evaluation Date of Evaluation: 07/15/18 Time of Evaluation: 12:31 - Subjective Subjective: No flatus or stool. PICC line inserted for nutritional support. Moderate incisional pain. Objective - Vital Signs/Intake and Output Vital Signs (last 24 hours): Temp Pulse Resp BP Pulse Ox 98.1 F 85 20 130/72 95 07/15/18 08:00 07/15/18 08:00 07/15/18 08:00 07/15/18 08:00 07/15/18 08:00 Intake and Output: 07/15/18 07/15/18 06:59 18:59 Intake Total 560 Output Total 90 Balance 470 - Medications Medications: Current Medications Amitriptyline HCl (Elavil) 50 mg PO HS [facility] Last Admin: 07/14/18 22:01 Dose: 50 mg Benzocaine/Menthol (Cepacol Sore Throat) 1 sharmila MT Q2H PRN PRN Reason: Sore Throat Last Admin: 07/14/18 19:46 Dose: 1 sharmila Bupropion HCl (Wellbutrin) 100 mg PO BID [facility] Last Admin: 07/15/18 11:53 Dose: 100 mg Heparin Sodium (Porcine) (Heparin) 5,000 units SC Q8 [facility] Last Admin: 07/15/18 07:52 Dose: Not Given Hydromorphone HCl (Dilaudid) 0.5 mg IVP Q4H PRN PRN Reason: Pain, severe (8-10) Last Admin: 07/15/18 09:18 Dose: 0.5 mg Folic Acid 1 mg/ Sodium (Chloride) 100.2 mls @ 60 mls/hr IV DAILY [facility] Last Admin: 07/15/18 12:09 Dose: 60 mls/hr Potassium Chloride (Potassium Chloride 10 Meq/100 Ml) 10 meq in 100 mls @ 100 mls/hr IVPB Q1H [facility] Stop: 07/15/18 12:59 Last Admin: 07/15/18 12:08 Dose: 100 mls/hr Multivitamins/Vitamin C 10 ml/Chromium/Copper/Manganese/Zinc 1 ml/ Amino Acids/Electrolytes/Dextrose 1,011 mls @ 83 mls/hr IV .[id number] ONE Stop: 07/16/18 06:10 Amino Acids/Electrolytes/Dextrose (Clinimix 5/20 % "E" (1000 Ml)) 1,000 mls @ 83 mls/hr IV .Q12H3M ONE Stop: 07/16/18 18:12 Lamotrigine (Lamictal) 200 mg PO DAILY [facility] Last Admin: 07/15/18 11:53 Dose: 200 mg Levothyroxine Sodium (Synthroid) 12.5 mcg IVP 0630 [facility] Last Admin: 07/15/18 06:49 Dose: 12.5 mcg Lidocaine (Lidoderm) 1 ea TD DAILY [facility] Last Admin: 07/15/18 11:52 Dose: 1 ea Ondansetron HCl (Zofran Inj) 4 mg IVP Q6H PRN PRN Reason: Nausea/Vomiting Last Admin: 07/13/18 01:43 Dose: 4 mg Pantoprazole Sodium (Protonix Inj) 40 mg IVP DAILY [facility] Last Admin: 07/15/18 11:53 Dose: 40 mg Saliva Substitute (Mouth Kote 236 Ml) 0 ml MM 5XD PRN PRN Reason: DRY MOUTH Last Admin: 07/11/18 21:47 Dose: 1 spr - Labs Labs: 07/15/18 07:00 07/15/18 07:00 PT 12.3 SECONDS (9.7-12.2) H 07/13/18 09:48 INR 1.1 07/13/18 09:48 APTT 35 SECONDS (21-34) H 07/13/18 09:48 - Constitutional Appears: No Acute Distress - Head Exam Head Exam: ATRAUMATIC, NORMOCEPHALIC - Respiratory Exam Respiratory Exam: NORMAL BREATHING PATTERN - Cardiovascular Exam Cardiovascular Exam: REGULAR RHYTHM, +S1 - GI/Abdominal Exam GI & Abdominal Exam: Guarding, Soft, Tenderness, Hypoactive Bowel Sounds Additional comments: incisional dressings intact. +AD drain in LLQ with 15cc serosanguinous fluid since last night. - Extremities Exam Extremities Exam: Normal Inspection Assessment and Plan (1) Small bowel obstruction due to adhesions Assessment & Plan: POD #2. Post op care per surgery. Patient is hungry but not passing flatus as of yet. Continue supportive care. PICC line for nutritional support, would D/C as soon as possible due to added infection risk. Albumen>3.0. Status: Acute (2) Acute renal failure Status: Resolved (3) SIADH (syndrome of inappropriate ADH production) Status: Resolved (4) Abnormal transaminases Assessment & Plan: LFTs continue to be normal. No further work up at this time. Status: Resolved
[2018-07-15] MEDS ORDERED: TPN #1 IV ONE (18:00)
[2018-07-16] MEDS: Levothyroxine 100 mcg (0.1 mg) Inj IVP SCH (05:54)
[2018-07-16] MEDS: HYDROmorphone 0.5 mg/0.5 ml ISec IVP PRN ×3 (05:55→23:17)
[2018-07-16] MEDS ORDERED: TPN #2 IV ONE (06:10)
[2018-07-16 08:14] LABS: BLOOD UREA NITROGEN 12 mg/dL (7-17); GFR NON-AFRICAN AMERICAN > 60
[2018-07-16] MEDS: Lidocaine 5% Patch TD SCH (09:19)
[2018-07-16] MEDS: Benzocaine/Menthol (Cepacol) Lozenge MT PRN (09:21)
--- NOTE | 2018-07-16 09:26 | CP.PCM.PN ---
Subjective - Date & Time of Evaluation Date of Evaluation: 07/16/18 Time of Evaluation: 09:00 - Subjective Subjective: f/u abdom pain, SBO. Covering Dr De La Torre Reports less abdom pain. Denies fever, chills, Rb, melena, RANKIN, cough, Sz, Cp, SOB Objective - Vital Signs/Intake and Output Vital Signs (last 24 hours): Temp Pulse Resp BP Pulse Ox 98.6 F 64 20 112/61 97 07/16/18 07:30 07/16/18 07:30 07/16/18 07:30 07/16/18 07:30 07/16/18 07:30 Intake and Output: 07/16/18 07/16/18 06:59 18:59 Intake Total 415 Output Total 38 Balance 377 - Medications Medications: Current Medications Amitriptyline HCl (Elavil) 50 mg PO HS [facility] Last Admin: 07/15/18 21:47 Dose: 50 mg Benzocaine/Menthol (Cepacol Sore Throat) 1 sharmila MT Q2H PRN PRN Reason: Sore Throat Last Admin: 07/16/18 09:21 Dose: 1 sharmila Bupropion HCl (Wellbutrin) 100 mg PO BID [facility] Last Admin: 07/16/18 09:21 Dose: 100 mg Heparin Sodium (Porcine) (Heparin) 5,000 units SC Q8 [facility] Last Admin: 07/16/18 05:53 Dose: 5,000 units Hydromorphone HCl (Dilaudid) 0.5 mg IVP Q4H PRN PRN Reason: Pain, severe (8-10) Last Admin: 07/16/18 05:55 Dose: 0.5 mg Folic Acid 1 mg/ Sodium (Chloride) 100.2 mls @ 60 mls/hr IV DAILY [facility] Last Admin: 07/16/18 09:20 Dose: 60 mls/hr Amino Acids/Electrolytes/Dextrose (Clinimix 5/20 % "E" (1000 Ml)) 1,000 mls @ 83 mls/hr IV .Q12H3M ONE Stop: 07/16/18 18:12 Last Admin: 07/16/18 05:54 Dose: 83 mls/hr Lamotrigine (Lamictal) 200 mg PO DAILY [facility] Last Admin: 07/16/18 09:20 Dose: 200 mg Levothyroxine Sodium (Synthroid) 12.5 mcg IVP 0630 [facility] Last Admin: 07/16/18 05:54 Dose: 12.5 mcg Lidocaine (Lidoderm) 1 ea TD DAILY [facility] Last Admin: 07/16/18 09:19 Dose: 1 ea Ondansetron HCl (Zofran Inj) 4 mg IVP Q6H PRN PRN Reason: Nausea/Vomiting Last Admin: 07/13/18 01:43 Dose: 4 mg Pantoprazole Sodium (Protonix Inj) 40 mg IVP DAILY [facility] Last Admin: 07/16/18 09:20 Dose: 40 mg Saliva Substitute (Mouth Kote 236 Ml) 0 ml MM 5XD PRN PRN Reason: DRY MOUTH Last Admin: 07/11/18 21:47 Dose: 1 spr - Labs Labs: 07/15/18 07:00 07/16/18 07:29 PT 12.3 SECONDS (9.7-12.2) H 07/13/18 09:48 INR 1.1 07/13/18 09:48 APTT 35 SECONDS (21-34) H 07/13/18 09:48 - Constitutional Appears: Non-toxic - Respiratory Exam Respiratory Exam: Clear to Ausculation Bilateral - Cardiovascular Exam Cardiovascular Exam: RRR - GI/Abdominal Exam GI & Abdominal Exam: Tenderness, Normal Bowel Sounds. absent: Rebound - Extremities Exam Extremities Exam: absent: Calf Tenderness - Neurological Exam Neurological Exam: Alert, Oriented x3 Assessment and Plan (1) Anemia Assessment & Plan: mild anemia Status: Acute (2) Hypothyroid Status: Acute (3) Small bowel obstruction Assessment & Plan: s/p surgery Status: Acute (4) SIADH (syndrome of inappropriate ADH production) Status: Resolved
--- NOTE | 2018-07-16 11:29 | CP.PCM.PN ---
Subjective - Date & Time of Evaluation Date of Evaluation: 07/16/18 Time of Evaluation: 11:27 - Subjective Subjective: hungry passed gas this am labs reviewed on PPN to start clear fluids no fever or chills no sob no chest pain no rash no headaches no arthralgias Objective - Vital Signs/Intake and Output Vital Signs (last 24 hours): Temp Pulse Resp BP Pulse Ox 98.6 F 64 20 112/61 97 07/16/18 07:30 07/16/18 07:30 07/16/18 07:30 07/16/18 07:30 07/16/18 07:30 Intake and Output: 07/16/18 07/16/18 06:59 18:59 Intake Total 415 Output Total 38 Balance 377 - Medications Medications: Current Medications Amitriptyline HCl (Elavil) 50 mg PO HS [facility] Last Admin: 07/15/18 21:47 Dose: 50 mg Benzocaine/Menthol (Cepacol Sore Throat) 1 sharmila MT Q2H PRN PRN Reason: Sore Throat Last Admin: 07/16/18 09:21 Dose: 1 sharmila Bupropion HCl (Wellbutrin) 100 mg PO BID [facility] Last Admin: 07/16/18 09:21 Dose: 100 mg Heparin Sodium (Porcine) (Heparin) 5,000 units SC Q8 [facility] Last Admin: 07/16/18 05:53 Dose: 5,000 units Hydromorphone HCl (Dilaudid) 0.5 mg IVP Q4H PRN PRN Reason: Pain, severe (8-10) Last Admin: 07/16/18 05:55 Dose: 0.5 mg Folic Acid 1 mg/ Sodium (Chloride) 100.2 mls @ 60 mls/hr IV DAILY [facility] Last Admin: 07/16/18 09:20 Dose: 60 mls/hr Amino Acids/Electrolytes/Dextrose (Clinimix 5/20 % "E" (1000 Ml)) 1,000 mls @ 83 mls/hr IV .Q12H3M [facility] Stop: 07/16/18 18:12 Last Admin: 07/16/18 05:54 Dose: 83 mls/hr Potassium Chloride (Potassium Chloride 20 Meq/100 Ml) 20 meq in 100 mls @ 50 mls/hr IVPB ONCE [facility] Stop: 07/16/18 12:28 Multivitamins/Vitamin C 10 ml/Chromium/Copper/Manganese/Zinc 1 ml/ Amino Acids/Electrolytes/Dextrose 1,011 mls @ 83 mls/hr IV .[id number] [facility] Stop: 07/17/18 06:10 Amino Acids/Electrolytes/Dextrose (Clinimix 5/20 % "E" (1000 Ml)) 1,000 mls @ 83 mls/hr IV .Q12H3M [facility] Stop: 07/17/18 18:12 Lamotrigine (Lamictal) 200 mg PO DAILY [facility] Last Admin: 07/16/18 09:20 Dose: 200 mg Levothyroxine Sodium (Synthroid) 12.5 mcg IVP 0630 [facility] Last Admin: 07/16/18 05:54 Dose: 12.5 mcg Lidocaine (Lidoderm) 1 ea TD DAILY [facility] Last Admin: 07/16/18 09:19 Dose: 1 ea Ondansetron HCl (Zofran Inj) 4 mg IVP Q6H PRN PRN Reason: Nausea/Vomiting Last Admin: 07/13/18 01:43 Dose: 4 mg Pantoprazole Sodium (Protonix Inj) 40 mg IVP DAILY [facility] Last Admin: 07/16/18 09:20 Dose: 40 mg Saliva Substitute (Mouth Kote 236 Ml) 0 ml MM 5XD PRN PRN Reason: DRY MOUTH Last Admin: 07/11/18 21:47 Dose: 1 spr - Labs Labs: 07/15/18 07:00 07/16/18 07:29 PT 12.3 SECONDS (9.7-12.2) H 07/13/18 09:48 INR 1.1 07/13/18 09:48 APTT 35 SECONDS (21-34) H 07/13/18 09:48 - Constitutional Appears: No Acute Distress, Chronically Ill - Head Exam Head Exam: ATRAUMATIC, NORMAL INSPECTION - Eye Exam Eye Exam: EOMI - ENT Exam ENT Exam: Mucous Membranes Moist - Neck Exam Neck Exam: Full ROM. absent: Lymphadenopathy - Respiratory Exam Respiratory Exam: NORMAL BREATHING PATTERN. absent: Respiratory Distress - Cardiovascular Exam Cardiovascular Exam: REGULAR RHYTHM. absent: Rubs - GI/Abdominal Exam GI & Abdominal Exam: Distended, Hypoactive Bowel Sounds. absent: Tenderness - Neurological Exam Neurological Exam: Alert, Oriented x3 Assessment and Plan - Assessment and Plan (Free Text) Assessment: post KETAN for SBO introduction of clear fluids today chronic, stable hyponatremia, continue to monitor daily labs
--- NOTE | 2018-07-16 13:03 | CP.PCM.PN ---
Subjective - Date & Time of Evaluation Date of Evaluation: 07/16/18 Time of Evaluation: 06:30 - Subjective Subjective: General Surgery progress note for Dr. Smith Pt seen and examined this AM. No adverse events overnight. Patient had a small solid BM yesterday and feels hungry. Denies any nausea, vomiting, fevers, chills, and pain is tolerated on current regimen Objective - Vital Signs/Intake and Output Vital Signs (last 24 hours): Temp Pulse Resp BP Pulse Ox 98.6 F 64 20 112/61 97 07/16/18 07:30 07/16/18 07:30 07/16/18 07:30 07/16/18 07:30 07/16/18 07:30 Intake and Output: 07/16/18 07/16/18 06:59 18:59 Intake Total 415 Output Total 38 Balance 377 - Medications Medications: Current Medications Amitriptyline HCl (Elavil) 50 mg PO HS [facility] Last Admin: 07/15/18 21:47 Dose: 50 mg Benzocaine/Menthol (Cepacol Sore Throat) 1 sharmila MT Q2H PRN PRN Reason: Sore Throat Last Admin: 07/16/18 09:21 Dose: 1 sharmila Bupropion HCl (Wellbutrin) 100 mg PO BID [facility] Last Admin: 07/16/18 09:21 Dose: 100 mg Heparin Sodium (Porcine) (Heparin) 5,000 units SC Q8 [facility] Last Admin: 07/16/18 05:53 Dose: 5,000 units Hydromorphone HCl (Dilaudid) 0.5 mg IVP Q4H PRN PRN Reason: Pain, severe (8-10) Last Admin: 07/16/18 05:55 Dose: 0.5 mg Folic Acid 1 mg/ Sodium (Chloride) 100.2 mls @ 60 mls/hr IV DAILY [facility] Last Admin: 07/16/18 09:20 Dose: 60 mls/hr Amino Acids/Electrolytes/Dextrose (Clinimix 5/20 % "E" (1000 Ml)) 1,000 mls @ 83 mls/hr IV .Q12H3M ONE Stop: 07/16/18 18:12 Last Admin: 07/16/18 05:54 Dose: 83 mls/hr Multivitamins/Vitamin C 10 ml/Chromium/Copper/Manganese/Zinc 1 ml/ Amino Acids/Electrolytes/Dextrose 1,011 mls @ 83 mls/hr IV .[id number] ONE Stop: 07/17/18 06:10 Amino Acids/Electrolytes/Dextrose (Clinimix 5/20 % "E" (1000 Ml)) 1,000 mls @ 83 mls/hr IV .Q12H3M ONE Stop: 07/17/18 18:12 Lamotrigine (Lamictal) 200 mg PO DAILY [facility] Last Admin: 07/16/18 09:20 Dose: 200 mg Levothyroxine Sodium (Synthroid) 12.5 mcg IVP 0630 [facility] Last Admin: 07/16/18 05:54 Dose: 12.5 mcg Lidocaine (Lidoderm) 1 ea TD DAILY [facility] Last Admin: 07/16/18 09:19 Dose: 1 ea Ondansetron HCl (Zofran Inj) 4 mg IVP Q6H PRN PRN Reason: Nausea/Vomiting Last Admin: 07/13/18 01:43 Dose: 4 mg Pantoprazole Sodium (Protonix Inj) 40 mg IVP DAILY [facility] Last Admin: 07/16/18 09:20 Dose: 40 mg Saliva Substitute (Mouth Kote 236 Ml) 0 ml MM 5XD PRN PRN Reason: DRY MOUTH Last Admin: 07/11/18 21:47 Dose: 1 spr - Labs Labs: 07/15/18 07:00 07/16/18 07:29 PT 12.3 SECONDS (9.7-12.2) H 07/13/18 09:48 INR 1.1 07/13/18 09:48 APTT 35 SECONDS (21-34) H 07/13/18 09:48 - Constitutional Appears: Well, Non-toxic, No Acute Distress - Head Exam Head Exam: ATRAUMATIC, NORMOCEPHALIC - Eye Exam Eye Exam: Normal appearance. absent: Conjunctival injection, Scleral icterus - ENT Exam ENT Exam: Mucous Membranes Moist, Normal Oropharynx - Respiratory Exam Respiratory Exam: NORMAL BREATHING PATTERN. absent: Accessory Muscle Use, Respiratory Distress - Cardiovascular Exam Cardiovascular Exam: RRR - GI/Abdominal Exam GI & Abdominal Exam: Soft, Tenderness (mild tenderness to palpation around the pat drain site). absent: Distended Additional comments: incisions well approximated, no erythema, no drainage Pat drain in the RLQ with small amount of serosanguinous fluid - Extremities Exam Extremities Exam: absent: Calf Tenderness, Pedal Edema, Tenderness - Neurological Exam Neurological Exam: Alert, Awake, Oriented x3 - Psychiatric Exam Psychiatric exam: Normal Affect, Normal Mood Assessment and Plan - Assessment and Plan (Free Text) Assessment: 72F POD#3 s/p laparoscopic lysis of adhesions for SBO Plan: Patient improving, passing flatus and small BM CLD D/C pat drain Continue PRN pain and nausea medication Continue TPN replete electrolytes as needed Encourage ambulation Subcutaneous heparin Discussed with Dr. Smith, who agrees with above Valery Rodriguez, PGY2
[2018-07-16] MEDS ORDERED: Potassium Chloride 20 mEq ER Tab PO ONE (13:10)
[2018-07-16] MEDS ORDERED: Potassium & Sodium Phosphate PO ONE (13:12)
[2018-07-16] MEDS ORDERED: Magnesium Oxide 400 mg Tab UD PO ONE (13:13)
[2018-07-16] MEDS ORDERED: TPN #3 IV ONE (18:00)
[2018-07-17] MEDS: Levothyroxine 100 mcg (0.1 mg) Inj IVP SCH (05:57)
[2018-07-17] MEDS: HYDROmorphone 0.5 mg/0.5 ml ISec IVP PRN ×3 (06:08→21:40)
[2018-07-17] MEDS ORDERED: TPN #4 IV ONE (06:10)
--- NOTE | 2018-07-17 07:14 | CP.PCM.PN ---
<KamaljitAyan cortesabilio Huffman - Last Filed: 07/17/18 07:10> Subjective - Date & Time of Evaluation Date of Evaluation: 07/17/18 Time of Evaluation: 07:11 - Subjective Subjective: General Surgery: Dr Smith Pt S&E. Resting comfortably. Has been OOB ambulating frequently. Tolerating CLD. No episodes of nausea or emesis. Had a bowel movement this morning. Pain is minimal. On TPN. VSS. afebrile. Objective - Vital Signs/Intake and Output Vital Signs (last 24 hours): Temp Pulse Resp BP Pulse Ox 98.2 F 95 H 20 102/62 95 07/16/18 23:35 07/16/18 23:35 07/16/18 23:35 07/16/18 23:35 07/16/18 23:35 Intake and Output: 07/17/18 07/17/18 06:59 18:59 Intake Total 166 Balance 166 - Medications Medications: Current Medications Amitriptyline HCl (Elavil) 50 mg PO HS [facility] Last Admin: 07/16/18 21:32 Dose: 50 mg Benzocaine/Menthol (Cepacol Sore Throat) 1 sharmila MT Q2H PRN PRN Reason: Sore Throat Last Admin: 07/16/18 09:21 Dose: 1 sharmila Bupropion HCl (Wellbutrin) 100 mg PO BID [facility] Last Admin: 07/16/18 18:23 Dose: 100 mg Heparin Sodium (Porcine) (Heparin) 5,000 units SC Q8 [facility] Last Admin: 07/17/18 06:32 Dose: 5,000 units Hydromorphone HCl (Dilaudid) 0.5 mg IVP Q4H PRN PRN Reason: Pain, severe (8-10) Last Admin: 07/17/18 06:08 Dose: 0.5 mg Folic Acid 1 mg/ Sodium (Chloride) 100.2 mls @ 60 mls/hr IV DAILY [facility] Last Admin: 07/16/18 09:20 Dose: 60 mls/hr Amino Acids/Electrolytes/Dextrose (Clinimix 5/20 % "E" (1000 Ml)) 1,000 mls @ 83 mls/hr IV .Q12H3M ONE Stop: 07/17/18 18:12 Last Admin: 07/17/18 06:29 Dose: 83 mls/hr Lamotrigine (Lamictal) 200 mg PO DAILY [facility] Last Admin: 07/16/18 09:20 Dose: 200 mg Levothyroxine Sodium (Synthroid) 12.5 mcg IVP 0630 [facility] Last Admin: 07/17/18 05:57 Dose: 12.5 mcg Lidocaine (Lidoderm) 1 ea TD DAILY [facility] Last Admin: 07/16/18 09:19 Dose: 1 ea Ondansetron HCl (Zofran Inj) 4 mg IVP Q6H PRN PRN Reason: Nausea/Vomiting Last Admin: 07/13/18 01:43 Dose: 4 mg Pantoprazole Sodium (Protonix Inj) 40 mg IVP DAILY [facility] Last Admin: 07/16/18 09:20 Dose: 40 mg Saliva Substitute (Mouth Kote 236 Ml) 0 ml MM 5XD PRN PRN Reason: DRY MOUTH Last Admin: 07/11/18 21:47 Dose: 1 spr - Labs Labs: 07/15/18 07:00 07/16/18 07:29 PT 12.3 SECONDS (9.7-12.2) H 07/13/18 09:48 INR 1.1 07/13/18 09:48 APTT 35 SECONDS (21-34) H 07/13/18 09:48 - Constitutional Appears: Non-toxic, No Acute Distress - ENT Exam ENT Exam: Mucous Membranes Moist - Respiratory Exam Respiratory Exam: absent: Accessory Muscle Use, Respiratory Distress - Cardiovascular Exam Cardiovascular Exam: REGULAR RHYTHM. absent: Tachycardia - GI/Abdominal Exam GI & Abdominal Exam: Soft. absent: Distended, Firm, Guarding, Tenderness Additional comments: incisions c/d/i - Rectal Exam Rectal Exam: absent: Deferred - Extremities Exam Extremities Exam: absent: Pedal Edema - Neurological Exam Neurological Exam: Alert, Awake, Oriented x3 - Psychiatric Exam Psychiatric exam: Normal Affect, Normal Mood - Skin Skin Exam: Normal Color, Warm Assessment and Plan - Assessment and Plan (Free Text) Assessment: 72F POD#4 s/p laparoscopic KETAN for SBO Plan: cont ambulation cont IS will cont TPN replace electrolytes PRN -- please do not give oral supplementation - IV ONLY cont CLD d/w Dr Luis Mari, PGY4 <Becky Smith - Last Filed: 07/17/18 09:12> Objective - Vital Signs/Intake and Output Vital Signs (last 24 hours): Temp Pulse Resp BP Pulse Ox 97.9 F 101 H 20 117/70 96 07/17/18 07:00 07/17/18 07:00 07/17/18 07:00 07/17/18 07:00 07/17/18 07:00 Intake and Output: 07/17/18 07/17/18 06:59 18:59 Intake Total 166 Balance 166 - Medications Medications: Current Medications Amitriptyline HCl (Elavil) 50 mg PO HS [facility] Last Admin: 07/16/18 21:32 Dose: 50 mg Benzocaine/Menthol (Cepacol Sore Throat) 1 sharmila MT Q2H PRN PRN Reason: Sore Throat Last Admin: 07/16/18 09:21 Dose: 1 sharmila Bupropion HCl (Wellbutrin) 100 mg PO BID [facility] Last Admin: 07/16/18 18:23 Dose: 100 mg Heparin Sodium (Porcine) (Heparin) 5,000 units SC Q8 [facility] Last Admin: 07/17/18 06:32 Dose: 5,000 units Hydromorphone HCl (Dilaudid) 0.5 mg IVP Q4H PRN PRN Reason: Pain, severe (8-10) Last Admin: 07/17/18 06:08 Dose: 0.5 mg Folic Acid 1 mg/ Sodium (Chloride) 100.2 mls @ 60 mls/hr IV DAILY [facility] Last Admin: 07/16/18 09:20 Dose: 60 mls/hr Amino Acids/Electrolytes/Dextrose (Clinimix 5/20 % "E" (1000 Ml)) 1,000 mls @ 83 mls/hr IV .Q12H3M ONE Stop: 07/17/18 18:12 Last Admin: 07/17/18 06:29 Dose: 83 mls/hr Lamotrigine (Lamictal) 200 mg PO DAILY [facility] Last Admin: 07/16/18 09:20 Dose: 200 mg Levothyroxine Sodium (Synthroid) 12.5 mcg IVP 0630 [facility] Last Admin: 07/17/18 05:57 Dose: 12.5 mcg Lidocaine (Lidoderm) 1 ea TD DAILY [facility] Last Admin: 07/16/18 09:19 Dose: 1 ea Ondansetron HCl (Zofran Inj) 4 mg IVP Q6H PRN PRN Reason: Nausea/Vomiting Last Admin: 07/13/18 01:43 Dose: 4 mg Pantoprazole Sodium (Protonix Inj) 40 mg IVP DAILY [facility] Last Admin: 07/16/18 09:20 Dose: 40 mg Saliva Substitute (Mouth Kote 236 Ml) 0 ml MM 5XD PRN PRN Reason: DRY MOUTH Last Admin: 07/11/18 21:47 Dose: 1 spr - Labs Labs: 07/17/18 07:15 07/17/18 07:15 PT 12.3 SECONDS (9.7-12.2) H 07/13/18 09:48 INR 1.1 07/13/18 09:48 APTT 35 SECONDS (21-34) H 07/13/18 09:48 Assessment and Plan - Assessment and Plan (Free Text) Plan: Seen and examined. Agree with above. Flatus and watery BM x 1. Tolerating clears. AVSS. Abd soft, mild distension and tympanic, appropriate incisional tenderness. Ok to advance to full liquids, no carbonated beverages this evening. Continue TPN. OOB.Ambulation.
[2018-07-17 07:23] LABS: HEMOGLOBIN 11.6 g/dL (11.0-16.0); MEAN CELL VOLUME 97.3 fL (81.0-99.0); MEAN CORPUSCULAR HEMOGLOBIN 32.8 pg (27.0-31.0); MEAN CORPUSCULAR HGB CONC 33.7 g/dL (33.0-37.0); MEAN PLATELET VOLUME 8.2 fL (7.2-11.7); RBC 3.52 Mil/uL (3.80-5.20); RED CELL DISTRIBUTION WIDTH 15.2 % (11.5-14.5); WHITE BLOOD COUNT 5.2 K/uL (4.8-10.8)
[2018-07-17 07:59] LABS: BLOOD UREA NITROGEN 18 mg/dL (7-17); CALCIUM 8.2 mg/dl (8.6-10.4); GFR NON-AFRICAN AMERICAN > 60
--- NOTE | 2018-07-17 09:57 | PCM.OP ---
Operative Report - Operative Report Date of Surgery/Procedure: 07/13/18 Time of Surgery/Procedure: 13:30 Surgeon: Becky Smith MD Admin Dir: Piero Mari DO (PGY4 resident) Anesthesia/Sedation: General endotracheal; 1% lidocaine + 0.25% Marcaine mix local anesthesia. TAP block (performed by anesthesia and dictated separately) Pre-Operative Diagnosis: High grade adhesive small bowel obstruction. History of total abdominal hysterectomy and bilateral oopherectomy. [facility] Post-Operative Diagnosis: High grade adhesive small bowel obstruction. History of total abdominal hysterectomy and bilateral oopherectomy. SIA Indication for Surgery: 72 female distant history of DRAF[employer] (CAD) cancer s/p total abdominal hysterectomy unilateral salpingoopherectomy followed many years later with salpingoopherectomy of contralateral side for presumable recurrence [place] (no operative record or old hospital records available) admitted 2 weeks ago with adhesive small bowel obstruction. Failed initial NGT decompression and patient and family initially refused early operative exploration. After failing her second attempt at NGT insertion and de compression, she continued to have abdomina pain and high NGT output. Details of HPI and consent process in clinical chart. Risks and benefits of diagnostic laparoscopy, possible laparotomy, and lysis of adhesions discussed with patient and family as dictated in clinical chart. Informed consent obtained prior to operation. Operative Findings: Distal small bowel obstruction due to thick fibrous bands in lower abdomen and right pelvis x3. Fibrous band from small bowel to lower andterior abdominal wall x1, Fibrous band from small bowel to right pelvis side wall x1, and another thick from small bowel to small bowel in right lower abdomen, clearly causing obstruction. Additional interloop adhesions in distal jejunum. Procedure/Operation Description: Procedure Performed: 1. Diagnostic laparoscopy. 2. Extensive laparoscopic lysis of adhesions. DETAILS OF PROCEDURE: The patient was given a preoperative cefoxitin 20 minutes prior to incision.. SCD boots were placed for DVT prophylaxis. An orogastric tube placed in order to empty the stomach after the induction of general anesthesia. Upper and lower body warmer placed to maintain normothermia. Small smith was placed to decompress the bladder. Hair removal performed with shaver. Abdomen was prepped and draped in sterile fashion. Timeout was performed prior to incison. All skin incisions were made with an 11 blade knife after being pre-anesthetized with local anesthesia. Abdominal entry was gained using an 5mm optically viewing trocar with A 5mm 0-degree laparoscope placed in [facility] point in the right upper quadrant to avoid midline incision as well as dilated loops in left upper quadrant seen on pre-op imaging. All layers of the abdominal wall were seen and peritoneal entry directly visualized. The abdomen was then insufflated with C02 pneumoperitoneum to 15mmhg. A 5mm 0-degree laparoscope was then inserted and the abdomen was generally inspected. There were no signs of injury from initial entry. There was a large amount of omentum stuck to the anterior abdominal wall. Two additional 5mm working ports were then placed in the right lower abdomen and supra-pubic midline under direct vision, to faciliate running the bowel later on and for wide exploration. A 10mm 30 degree laparoscope was then inserted and used for the remainder of case. The abdomen was generally insepected. There was a moderate amout of simple ascites fluid that was suctioned out, consistent with having her obstruction for 2 weeks. Omentum was densely adherent to the midline anterior abdominal wall from the previous incision site. A total of 45 minutes were spent meticulously taken down these omental adhesions bluntly off the abdominal wall as well as thin adhesions from small bowel to the anterior abdominal wall were taken down sharply. Additionaly a thick fibrous band from the abdomen to distal small bowel was taken down sharply which relieved a point of possible transition. We then placed addtional working ports in the left hemiabdomen to facilitate running the enirety of small bowel. A 12mm port was placed in the left upper quadrant and another 5mm port in the left lower quadrant. Starting at the cecum, the small bowel was run backwards. Another thick fibrous band was noted to be causing kinking and point of obstruction form the side wall to the small bowel. This was taken down sharply. We continued proximally and found another adhesive band between two segments of small bowel that was causing a lead point obstruction. This was taken down sharply. We then continued proximally for about 150cm and took down few interloop adhesions sharply. At this point I switched my approach to running the small bowel from the ligament of treitz backwards. The transverse colon mesentery was retracted cephalad and the ligament of treitz identified at the base of the mesentery. We ran the small bowel for approximately 120cm before encountering a segment of interloop adhesion, spanning appromixately 2cm causing omega loop and possible point of obstruction. This was taken down sharply without compromise of serosa. Hydrodissection was used to help meticulously identify the planes of dissection. We continued to run the bowel distally to the previous point and thus the entirety of the small bowel was inspected. Dilated loops of small bowel encountered earlier had decompressed. A 19fr round pat drain was placed in the pelvis to collect ascites fluid, brought out through the left lower quadrant 5mm port site and secured to skin with 2-0 nylon suture. Instruments and ports removed under direct vision. The abdomen was then desufflated. The 12mm port site was closed with 0-vycrl suture in a figure of eight fashion. The skin was closed with 4-0 monocryl and dermabond. All sponge, needle and instrument counts were correct. Anesthesia then performed a TAP block on the patient while still intubated (dictated separately). Following this, the patient was extubated in the operating room, and taken to the recovery room in stable condition. I was present for the entirety of the operation. Estimated Blood Loss: 50mL Complications: none Discharge & Condition: Above
[2018-07-17] MEDS ORDERED: Albumin Human 25% (12.5 gm/50 ml) IV ONE (11:00)
[2018-07-17] MEDS: Lidocaine 5% Patch TD SCH (12:22)
--- NOTE | 2018-07-17 17:37 | CP.PCM.PN ---
Subjective - Date & Time of Evaluation Date of Evaluation: 07/17/18 Time of Evaluation: 17:35 - Subjective Subjective: f/u SBO. Covering Dr De La Torre. Reports less abdom pain. Has mult small BMs. Denies Rb, melena, fever, chills, SZ, CP, SOB Objective - Vital Signs/Intake and Output Vital Signs (last 24 hours): Temp Pulse Resp BP Pulse Ox 97.7 F 96 H 20 130/80 94 L 07/17/18 15:00 07/17/18 15:00 07/17/18 15:00 07/17/18 16:30 07/17/18 15:00 Intake and Output: 07/17/18 07/17/18 06:59 18:59 Intake Total 166 632 Output Total 300 Balance 166 332 - Medications Medications: Current Medications Amitriptyline HCl (Elavil) 50 mg PO HS [facility] Last Admin: 07/16/18 21:32 Dose: 50 mg Benzocaine/Menthol (Cepacol Sore Throat) 1 sharmila MT Q2H PRN PRN Reason: Sore Throat Last Admin: 07/16/18 09:21 Dose: 1 sharmila Bupropion HCl (Wellbutrin) 100 mg PO BID [facility] Last Admin: 07/17/18 12:23 Dose: 100 mg Heparin Sodium (Porcine) (Heparin) 5,000 units SC Q8 [facility] Last Admin: 07/17/18 13:58 Dose: 5,000 units Hydromorphone HCl (Dilaudid) 0.5 mg IVP Q4H PRN PRN Reason: Pain, severe (8-10) Last Admin: 07/17/18 16:35 Dose: 0.5 mg Amino Acids/Electrolytes/Dextrose (Clinimix 5/20 % "E" (1000 Ml)) 1,000 mls @ 83 mls/hr IV .Q12H3M ONE Stop: 07/17/18 18:12 Last Admin: 07/17/18 06:29 Dose: 83 mls/hr Amino Acids/Electrolytes/Dextrose (Clinimix 5/20 % "E" (1000 Ml)) 1,000 mls @ 83 mls/hr IV .Q12H3M ONE Stop: 07/18/18 06:02 Amino Acids/Electrolytes/Dextrose (Clinimix 5/20 % "E" (1000 Ml)) 1,000 mls @ 83 mls/hr IV .Q12H3M ONE Stop: 07/18/18 18:02 Levothyroxine Sodium (Synthroid) 12.5 mcg IVP 0630 [facility] Last Admin: 07/17/18 05:57 Dose: 12.5 mcg Lidocaine (Lidoderm) 1 ea TD DAILY [facility] Last Admin: 07/17/18 12:22 Dose: 1 ea Ondansetron HCl (Zofran Inj) 4 mg IVP Q6H PRN PRN Reason: Nausea/Vomiting Last Admin: 07/13/18 01:43 Dose: 4 mg Pantoprazole Sodium (Protonix Inj) 40 mg IVP DAILY [facility] Last Admin: 07/17/18 12:22 Dose: 40 mg - Labs Labs: 07/17/18 07:15 07/17/18 07:15 PT 12.3 SECONDS (9.7-12.2) H 07/13/18 09:48 INR 1.1 07/13/18 09:48 APTT 35 SECONDS (21-34) H 07/13/18 09:48 - Constitutional Appears: Well - Respiratory Exam Respiratory Exam: Clear to Ausculation Bilateral - Cardiovascular Exam Cardiovascular Exam: RRR - GI/Abdominal Exam GI & Abdominal Exam: Soft, Tenderness, Normal Bowel Sounds. absent: Guarding, Mass, Rebound - Back Exam Back Exam: absent: CVA tenderness (L) - Neurological Exam Neurological Exam: Alert, Awake, Oriented x3 Assessment and Plan (1) Anemia Assessment & Plan: Hb=11 Status: Acute (2) Hypothyroid Status: Acute (3) Small bowel obstruction Assessment & Plan: s/p surg. Improving Status: Acute (4) SIADH (syndrome of inappropriate ADH production) Assessment & Plan: Improving Status: Resolved
[2018-07-17] MEDS ORDERED: TPN #5 IV ONE (18:00)
[2018-07-18] MEDS ORDERED: TPN #6 IV ONE (06:00)
[2018-07-18] MEDS: Levothyroxine 100 mcg (0.1 mg) Inj IVP SCH (06:22)
[2018-07-18] MEDS: HYDROmorphone 0.5 mg/0.5 ml ISec IVP PRN ×3 (06:28→19:46)
--- NOTE | 2018-07-18 07:22 | CP.PCM.PN ---
Subjective - Date & Time of Evaluation Date of Evaluation: 07/18/18 Time of Evaluation: 06:30 - Subjective Subjective: General Surgery Pt seen and examined. Multiple liquid BMs, also reports she spit up a small amount of non-bilious fluid yesterday afternoon which she related to getting IV lasix and dilaudid. None since, and has been tolerating her diet. Ambulating frequently. No other complaints. Objective - Vital Signs/Intake and Output Vital Signs (last 24 hours): Temp Pulse Resp BP Pulse Ox 97.5 F L 102 H 20 126/74 96 07/17/18 23:15 07/17/18 23:15 07/17/18 23:15 07/17/18 23:15 07/17/18 23:15 Intake and Output: 07/18/18 07/18/18 06:59 18:59 Intake Total 572 Output Total 850 Balance -278 - Medications Medications: Current Medications Amitriptyline HCl (Elavil) 50 mg PO HS [facility] Last Admin: 07/17/18 21:40 Dose: 50 mg Benzocaine/Menthol (Cepacol Sore Throat) 1 sharmila MT Q2H PRN PRN Reason: Sore Throat Last Admin: 07/16/18 09:21 Dose: 1 sharmila Bupropion HCl (Wellbutrin) 100 mg PO BID [facility] Last Admin: 07/17/18 17:48 Dose: 100 mg Heparin Sodium (Porcine) (Heparin) 5,000 units SC Q8 [facility] Last Admin: 07/18/18 06:22 Dose: 5,000 units Hydromorphone HCl (Dilaudid) 0.5 mg IVP Q4H PRN PRN Reason: Pain, severe (8-10) Last Admin: 07/18/18 06:28 Dose: 0.5 mg Amino Acids/Electrolytes/Dextrose (Clinimix 5/20 % "E" (1000 Ml)) 1,000 mls @ 83 mls/hr IV .Q12H3M ONE Stop: 07/18/18 18:02 Last Admin: 07/18/18 06:19 Dose: 83 mls/hr Levothyroxine Sodium (Synthroid) 12.5 mcg IVP 0630 [facility] Last Admin: 07/18/18 06:22 Dose: 12.5 mcg Lidocaine (Lidoderm) 1 ea TD DAILY [facility] Last Admin: 07/17/18 12:22 Dose: 1 ea Ondansetron HCl (Zofran Inj) 4 mg IVP Q6H PRN PRN Reason: Nausea/Vomiting Last Admin: 07/18/18 06:50 Dose: 4 mg Pantoprazole Sodium (Protonix Inj) 40 mg IVP DAILY [facility] Last Admin: 07/17/18 12:22 Dose: 40 mg - Labs Labs: 07/17/18 07:15 07/17/18 07:15 PT 12.3 SECONDS (9.7-12.2) H 07/13/18 09:48 INR 1.1 07/13/18 09:48 APTT 35 SECONDS (21-34) H 07/13/18 09:48 - Constitutional Appears: Non-toxic, No Acute Distress - Head Exam Head Exam: ATRAUMATIC, NORMOCEPHALIC - Eye Exam Eye Exam: EOMI. absent: Scleral icterus - Respiratory Exam Respiratory Exam: NORMAL BREATHING PATTERN. absent: Respiratory Distress - Cardiovascular Exam Cardiovascular Exam: RRR, +S1, +S2 - GI/Abdominal Exam GI & Abdominal Exam: Soft. absent: Distended, Firm, Guarding, Rigid, Tenderness Additional comments: incisions C/D/I - Extremities Exam Extremities Exam: absent: Calf Tenderness, Pedal Edema Additional comments: PICC line in R upper arm - Neurological Exam Neurological Exam: Alert, Awake, Oriented x3 - Skin Skin Exam: Dry, Warm Assessment and Plan - Assessment and Plan (Free Text) Assessment: 72F POD#5 s/p laparoscopic KETAN for SBO Plan: Cont ambulation Cont IS use Cont TPN Replace electrolytes by IV PRN Cont FLD Monitor urine output, strict I&Os Will D/W Dr. Luis De Souza PGY4
[2018-07-18 07:24] LABS: BLOOD UREA NITROGEN 19 mg/dL (7-17); CALCIUM 8.2 mg/dl (8.6-10.4); GFR NON-AFRICAN AMERICAN > 60
--- NOTE | 2018-07-18 07:51 | CP.PCM.PN ---
Subjective - Date & Time of Evaluation Date of Evaluation: 07/18/18 Time of Evaluation: 07:51 - Subjective Subjective: Medicine Progress Note - Dr Dunbar Patient seen and examined at bedside. Per nursing no acute events overnight. Patient is tolerating full liquid diet. States that she has also been having loose bowel movements. Offers no other complaints at this time. Denies headaches, dizziness, cp, palpitations, sob, urinary symptoms. Objective - Vital Signs/Intake and Output Vital Signs (last 24 hours): Temp Pulse Resp BP Pulse Ox 97.5 F L 102 H 20 126/74 96 07/17/18 23:15 07/17/18 23:15 07/17/18 23:15 07/17/18 23:15 07/17/18 23:15 Intake and Output: 07/18/18 07/18/18 06:59 18:59 Intake Total 1236 Output Total 850 Balance 386 - Medications Medications: Current Medications Amitriptyline HCl (Elavil) 50 mg PO HS [facility] Last Admin: 07/17/18 21:40 Dose: 50 mg Benzocaine/Menthol (Cepacol Sore Throat) 1 sharmila MT Q2H PRN PRN Reason: Sore Throat Last Admin: 07/16/18 09:21 Dose: 1 sharmila Bupropion HCl (Wellbutrin) 100 mg PO BID [facility] Last Admin: 07/17/18 17:48 Dose: 100 mg Heparin Sodium (Porcine) (Heparin) 5,000 units SC Q8 [facility] Last Admin: 07/18/18 06:22 Dose: 5,000 units Hydromorphone HCl (Dilaudid) 0.5 mg IVP Q4H PRN PRN Reason: Pain, severe (8-10) Last Admin: 07/18/18 06:28 Dose: 0.5 mg Amino Acids/Electrolytes/Dextrose (Clinimix 5/20 % "E" (1000 Ml)) 1,000 mls @ 83 mls/hr IV .Q12H3M ONE Stop: 07/18/18 18:02 Last Admin: 07/18/18 06:19 Dose: 83 mls/hr Potassium Chloride (Potassium Chloride 20 Meq/100 Ml) 20 meq in 100 mls @ 50 mls/hr IVPB Q2 [facility] Stop: 07/18/18 11:59 Levothyroxine Sodium (Synthroid) 12.5 mcg IVP 0630 [facility] Last Admin: 07/18/18 06:22 Dose: 12.5 mcg Lidocaine (Lidoderm) 1 ea TD DAILY [facility] Last Admin: 07/17/18 12:22 Dose: 1 ea Ondansetron HCl (Zofran Inj) 4 mg IVP Q6H PRN PRN Reason: Nausea/Vomiting Last Admin: 07/18/18 06:50 Dose: 4 mg Pantoprazole Sodium (Protonix Inj) 40 mg IVP DAILY [facility] Last Admin: 07/17/18 12:22 Dose: 40 mg - Labs Labs: 07/17/18 07:15 07/18/18 06:54 PT 12.3 SECONDS (9.7-12.2) H 07/13/18 09:48 INR 1.1 07/13/18 09:48 APTT 35 SECONDS (21-34) H 07/13/18 09:48 - Additional Findings Additional findings: - Constitutional Appears: Well, No Acute Distress - Head Exam Head Exam: ATRAUMATIC, NORMAL INSPECTION - Eye Exam Eye Exam: EOMI - ENT Exam ENT Exam: Mucous Membranes Moist - Respiratory Exam Respiratory Exam: Clear to Ausculation Bilateral, NORMAL BREATHING PATTERN. absent: Prolonged Expiratory Phase, Rhonchi, Wheezes, Respiratory Distress Additional comments: Continual use of spirometer - Cardiovascular Exam Cardiovascular Exam: REGULAR RHYTHM, +S1, +S2. absent: Tachycardia, Clicks, Diastolic murmur, Murmur - GI/Abdominal Exam GI & Abdominal Exam: Soft, Normal Bowel Sounds. absent: Distended, Firm, Guarding, Rigid, Tenderness Additional comments: Incision clean, dry and intact - Extremities Exam Extremities Exam: Normal Inspection. absent: Calf Tenderness, Pedal Edema - Neurological Exam Neurological Exam: Alert, Awake, Oriented x3 - Psychiatric Exam Psychiatric exam: Normal Affect, Normal Mood - Skin Skin Exam: Normal Color Assessment and Plan - Assessment and Plan (Free Text) Assessment: (1) Small bowel obstruction due to adhesions Assessment & Plan: likely 2/2 to adhesions (hx of multiple abdominal surgeries) General Surgery, Dr. Becky Smith * S/P diagnostic laparoscopic. extensive lysis of adhesions POD #5 * Pain management as per surgery * Advance diet as tolerated GI Consulted, Dr. De La Torre * management as per recommendation Abd/Pelvis CT (07/01): * Findings consistent with small-bowel obstruction with transition point right lower quadrant of the abdomen. * Cholecystectomy. * Nodular left adrenal gland. Recommend followup noncontrast MRI of the adrenal glands. * Diverticulosis without radiographic evidence of acute diverticulitis. Obstruction Series (07/02): * Mild left basilar atelectasis and or scarring.. No evidence of mechanical bowel obstruction however findings suggest mild fecal retention/constipation. Abdomen X-ray (07/03): * Mild bibasilar atelectasis. * No evidence of acute mechanical bowel obstruction. Abdomen X-ray (07/04): * Findings are most compatible with acute small bowel obstruction, slightly worse since the prior examination. Abd/Pelvis CT w/ PO and IV contrast (07/04/18): * Persistent pattern positive for mechanical distal small bowel obstruction with collapsed ileum and otherwise dilated small-bowel loops appreciated stomach is partially decompressed by nasogastric tube oral contrast partially distending the stomach. Poor oral contrast transit is seen through small bowel. No free intra peritoneal gas collection or ascites appreciable at this time. Continued surgical evaluation advised Status: Acute (2) Hyponatremia Assessment & Plan: Resolving hx of SIADH possible 2/2 to anti-psychotic medications Nephrology consulted, Dr. Espinosa and Elly * Tolvaptan given on 07/09 * Urine Osmolality 569 * Random Urine Sodium 150 Status: Acute (3) Abnormal transaminases Assessment & Plan: Resolved New onset elevation of LFTs may be 2/2 to medications Will continue to monitor Status: Resolved (4) Hypothyroid Assessment & Plan: Continue Home Medication: * Synthroid 12.5mcg IVP daily Status: Acute (5) History of cervical cancer Assessment & Plan: s/p hysterectomy, b/l oopherectomy (seperate procedure) Status: Acute (6) Depression Assessment & Plan: Continue Home Medication: * Amitriptyline 40mg PO HS * Bupropion (Wellbutrin) 100mg PO BID * Lamptrigine 200mg PO daily (discontinued by general surgery) Status: Acute (7) Prophylactic measure Assessment & Plan: Heparin 5,000units SC q8h ( hold); will be resumed by surgical team. Patient is ambulating Protonix 40mg IVP daily PT/OT Plan discussed with Dr Manjinder Polanco DO PGY-2
[2018-07-18] MEDS ORDERED: Albumin Human 25% (12.5 gm/50 ml) IV ONE (08:30)
[2018-07-18] MEDS: Pantoprazole 40 mg EC Tab PO SCH (09:16)
[2018-07-18] MEDS: Lidocaine 5% Patch TD SCH (09:16)
--- NOTE | 2018-07-18 12:26 | CP.PCM.PN ---
Subjective - Date & Time of Evaluation Date of Evaluation: 07/18/18 Time of Evaluation: 12:25 - Subjective Subjective: seen and examined events noted having small BMs, on clear liquid diet now on tpn na 132, received lasix Objective - Vital Signs/Intake and Output Vital Signs (last 24 hours): Temp Pulse Resp BP Pulse Ox 97.7 F 103 H 20 104/67 95 07/18/18 08:30 07/18/18 08:30 07/18/18 08:30 07/18/18 08:30 07/18/18 08:30 Intake and Output: 07/18/18 07/18/18 06:59 18:59 Intake Total 1236 Output Total 850 Balance 386 - Medications Medications: Current Medications Amitriptyline HCl (Elavil) 50 mg PO HS [facility] Last Admin: 07/17/18 21:40 Dose: 50 mg Benzocaine/Menthol (Cepacol Sore Throat) 1 sharmila MT Q2H PRN PRN Reason: Sore Throat Last Admin: 07/16/18 09:21 Dose: 1 sharmila Bupropion HCl (Wellbutrin) 100 mg PO BID [facility] Last Admin: 07/18/18 09:16 Dose: 100 mg Heparin Sodium (Porcine) (Heparin) 5,000 units SC Q8 [facility] Last Admin: 07/18/18 06:22 Dose: 5,000 units Hydromorphone HCl (Dilaudid) 0.5 mg IVP Q4H PRN PRN Reason: Pain, severe (8-10) Last Admin: 07/18/18 11:07 Dose: 0.5 mg Amino Acids/Electrolytes/Dextrose (Clinimix 5/20 % "E" (1000 Ml)) 1,000 mls @ 83 mls/hr IV .Q12H3M ONE Stop: 07/18/18 18:02 Last Admin: 07/18/18 06:19 Dose: 83 mls/hr Potassium Chloride (Potassium Chloride 20 Meq/100 Ml) 20 meq in 100 mls @ 50 mls/hr IVPB Q2H [facility] Stop: 07/18/18 12:59 Last Admin: 07/18/18 10:38 Dose: 50 mls/hr Levothyroxine Sodium (Synthroid) 12.5 mcg IVP 0630 [facility] Last Admin: 07/18/18 06:22 Dose: 12.5 mcg Lidocaine (Lidoderm) 1 ea TD DAILY [facility] Last Admin: 07/18/18 09:16 Dose: 1 ea Ondansetron HCl (Zofran Inj) 4 mg IVP Q6H PRN PRN Reason: Nausea/Vomiting Last Admin: 07/18/18 06:50 Dose: 4 mg Pantoprazole Sodium (Protonix Ec Tab) 40 mg PO DAILY [facility] Last Admin: 07/18/18 09:16 Dose: 40 mg - Labs Labs: 07/17/18 07:15 07/18/18 06:54 PT 12.3 SECONDS (9.7-12.2) H 07/13/18 09:48 INR 1.1 07/13/18 09:48 APTT 35 SECONDS (21-34) H 07/13/18 09:48 - Constitutional Appears: Non-toxic, No Acute Distress, Chronically Ill - Head Exam Head Exam: NORMAL INSPECTION, NORMOCEPHALIC - Eye Exam Eye Exam: Normal appearance, PERRL - ENT Exam ENT Exam: Mucous Membranes Moist, Normal Exam - Neck Exam Neck Exam: Full ROM, Normal Inspection - Respiratory Exam Respiratory Exam: Clear to Ausculation Bilateral, NORMAL BREATHING PATTERN - Cardiovascular Exam Cardiovascular Exam: REGULAR RHYTHM, RRR - Extremities Exam Extremities Exam: Full ROM, Normal Inspection - Back Exam Back Exam: NORMAL INSPECTION - Neurological Exam Neurological Exam: Alert, Awake, Oriented x3 - Psychiatric Exam Psychiatric exam: Normal Affect, Normal Mood - Skin Skin Exam: Dry, Intact Assessment and Plan (1) Hypokalemia Status: Acute (2) Hyponatremia Status: Acute (3) SIADH (syndrome of inappropriate ADH production) Status: Resolved (4) Small bowel obstruction Status: Acute - Assessment and Plan (Free Text) Assessment: na acceptable avoid excessive water intake continue to monitor
[2018-07-18] MEDS ORDERED: TPN #7 IV ONE (18:00)
[2018-07-19] MEDS: Levothyroxine 100 mcg (0.1 mg) Inj IVP SCH (05:34)
[2018-07-19] MEDS ORDERED: TPN #8 IV ONE (06:00)
[2018-07-19] MEDS: HYDROmorphone 0.5 mg/0.5 ml ISec IVP PRN (06:28)
[2018-07-19 07:35] LABS: MEAN CELL VOLUME 97.7 fL (81.0-99.0); MEAN CORPUSCULAR HEMOGLOBIN 33.2 pg (27.0-31.0); MEAN PLATELET VOLUME 7.3 fL (7.2-11.7); RBC 2.9 Mil/uL (3.80-5.20); RED CELL DISTRIBUTION WIDTH 14.6 % (11.5-14.5); WHITE BLOOD COUNT 3.9 K/uL (4.8-10.8)
[2018-07-19 07:41] LABS: HEMOGLOBIN 9.6 g/dL (11.0-16.0)
[2018-07-19 07:46] LABS: BLOOD UREA NITROGEN 16 mg/dL (7-17); CALCIUM 8.2 mg/dl (8.6-10.4); GFR NON-AFRICAN AMERICAN > 60
--- NOTE | 2018-07-19 07:55 | CP.PCM.PN ---
<Kit De Souza - Last Filed: 07/19/18 07:48> Subjective - Date & Time of Evaluation Date of Evaluation: 07/19/18 Time of Evaluation: 06:40 - Subjective Subjective: General Surgery Pt seen and examined. Reported a severe coughing fit that caused her to have a small amount of nonbloody, nonbilious emesis. Continues to have loose BMs. Tolerating liquids but not taking as much of the thicker fluids. No new complaints. Objective - Vital Signs/Intake and Output Vital Signs (last 24 hours): Temp Pulse Resp BP Pulse Ox 98.1 F 101 H 20 114/70 96 07/18/18 23:35 07/19/18 06:27 07/18/18 23:35 07/19/18 06:27 07/18/18 23:35 Intake and Output: 07/19/18 07/19/18 06:59 18:59 Intake Total 664 Balance 664 - Medications Medications: Current Medications Amitriptyline HCl (Elavil) 50 mg PO HS [facility] Last Admin: 07/18/18 22:27 Dose: 50 mg Benzocaine/Menthol (Cepacol Sore Throat) 1 sharmila MT Q2H PRN PRN Reason: Sore Throat Last Admin: 07/16/18 09:21 Dose: 1 sharmila Bupropion HCl (Wellbutrin) 100 mg PO BID [facility] Last Admin: 07/18/18 18:42 Dose: 100 mg Heparin Sodium (Porcine) (Heparin) 5,000 units SC Q8 [facility] Last Admin: 07/19/18 05:35 Dose: 5,000 units Hydromorphone HCl (Dilaudid) 0.5 mg IVP Q4H PRN PRN Reason: Pain, severe (8-10) Last Admin: 07/19/18 06:28 Dose: 0.5 mg Amino Acids/Electrolytes/Dextrose (Clinimix 5/20 % "E" (1000 Ml)) 1,000 mls @ 8 3 mls/hr IV .Q12H3M ONE Stop: 07/19/18 18:02 Last Admin: 07/19/18 05:35 Dose: 83 mls/hr Levothyroxine Sodium (Synthroid) 12.5 mcg IVP 0630 [facility] Last Admin: 07/19/18 05:34 Dose: 12.5 mcg Lidocaine (Lidoderm) 1 ea TD DAILY [facility] Last Admin: 07/18/18 09:16 Dose: 1 ea Ondansetron HCl (Zofran Inj) 4 mg IVP Q6H PRN PRN Reason: Nausea/Vomiting Last Admin: 07/18/18 06:50 Dose: 4 mg Pantoprazole Sodium (Protonix Ec Tab) 40 mg PO DAILY [facility] Last Admin: 07/18/18 09:16 Dose: 40 mg - Labs Labs: 07/19/18 07:22 07/19/18 07:22 PT 12.3 SECONDS (9.7-12.2) H 07/13/18 09:48 INR 1.1 07/13/18 09:48 APTT 35 SECONDS (21-34) H 07/13/18 09:48 - Constitutional Appears: Non-toxic, No Acute Distress - Head Exam Head Exam: ATRAUMATIC, NORMOCEPHALIC - Eye Exam Eye Exam: EOMI. absent: Scleral icterus - Respiratory Exam Respiratory Exam: NORMAL BREATHING PATTERN. absent: Respiratory Distress - Cardiovascular Exam Cardiovascular Exam: Tachycardia (mild), +S1, +S2 - GI/Abdominal Exam GI & Abdominal Exam: Soft, Tenderness (appropriate at incisions). absent: Distended, Firm, Guarding Additional comments: incisions C/D/I - Extremities Exam Extremities Exam: absent: Calf Tenderness, Pedal Edema Additional comments: PICC line in R upper arm - Neurological Exam Neurological Exam: Alert, Awake, Oriented x3 - Skin Skin Exam: Dry, Warm Assessment and Plan - Assessment and Plan (Free Text) Assessment: 72F POD#6 s/p laparoscopic KETAN for SBO Plan: Low grade tachycardia, UOP inaccurate. Cont ambulation Cont IS use Cont TPN Replace electrolytes by IV PRN Cont FLD Monitor urine output, strict I&Os Will D/W Dr. Luis De Souza PGY4 <Becky Smith - Last Filed: 07/20/18 09:50> Objective - Vital Signs/Intake and Output Vital Signs (last 24 hours): Temp Pulse Resp BP Pulse Ox 97.8 F 114 H 20 118/72 94 L 07/20/18 07:00 07/20/18 07:00 07/20/18 07:00 07/20/18 07:00 07/20/18 07:00 Intake and Output: 07/20/18 07/20/18 06:59 18:59 Intake Total 1064 Output Total 700 Balance 364 - Medications Medications: Current Medications Acetaminophen (Tylenol 325mg Tab) 650 mg PO Q6 PRN PRN Reason: Pain, Mild (1-3) Last Admin: 07/19/18 15:00 Dose: 650 mg Albumin Human (Albumin Human 25% (12.5 Gm/50 Ml)) 12.5 gm IV ONCE ONE Stop: 07/20/18 11:01 Amitriptyline HCl (Elavil) 50 mg PO HS [facility] Last Admin: 07/19/18 21:13 Dose: 50 mg Bupropion HCl (Wellbutrin) 100 mg PO BID [facility] Last Admin: 07/19/18 18:16 Dose: 100 mg Heparin Sodium (Porcine) (Heparin) 5,000 units SC Q8 [facility] Last Admin: 07/20/18 05:33 Dose: 5,000 units Amino Acids/Electrolytes/Dextrose (Clinimix 5/20 % "E" (1000 Ml)) 1,000 mls @ 83 mls/hr IV .Q12H3M ONE Stop: 07/20/18 18:05 Last Admin: 07/20/18 05:32 Dose: 83 mls/hr Levothyroxine Sodium (Synthroid) 12.5 mcg IVP 0630 [facility] Last Admin: 07/20/18 05:33 Dose: 12.5 mcg Lidocaine (Lidoderm) 1 ea TD DAILY [facility] Last Admin: 07/19/18 10:58 Dose: 1 ea Methotrexate (Methotrexate) 15 mg PO QWK [facility] Ondansetron HCl (Zofran Inj) 4 mg IVP Q6H PRN PRN Reason: Nausea/Vomiting Last Admin: 07/18/18 06:50 Dose: 4 mg Oxycodone HCl (Oxycodone Immediate Release Tab) 5 mg PO Q6 PRN PRN Reason: Pain, severe (8-10) Last Admin: 07/20/18 05:52 Dose: 5 mg Pantoprazole Sodium (Protonix Ec Tab) 40 mg PO DAILY [facility] Last Admin: 07/19/18 10:58 Dose: 40 mg Rosuvastatin Calcium (Crestor) 40 mg PO HS [facility] Last Admin: 07/19/18 22:08 Dose: 40 mg - Labs Labs: 07/20/18 06:35 07/20/18 06:35 PT 12.3 SECONDS (9.7-12.2) H 07/13/18 09:48 INR 1.1 07/13/18 09:48 APTT 35 SECONDS (21-34) H 07/13/18 09:48 Assessment and Plan - Assessment and Plan (Free Text) Plan: Seen and examined independent of resident staff. Agree with above.
[2018-07-19] MEDS ORDERED: Tramadol 25 mg PO PRN (09:26)
--- NOTE | 2018-07-19 10:01 | CP.PCM.PN ---
Subjective - Date & Time of Evaluation Date of Evaluation: 07/19/18 Time of Evaluation: 10:00 - Subjective Subjective: seen and examined labs noted on TPN, clear liquid diet passing gas, no bm since this am no n/v/dizziness/cp/sob/cough/f/c/headache/rash Objective - Vital Signs/Intake and Output Vital Signs (last 24 hours): Temp Pulse Resp BP Pulse Ox 97.8 F 100 H 20 103/61 99 07/19/18 07:00 07/19/18 07:00 07/19/18 07:00 07/19/18 07:00 07/19/18 07:00 Intake and Output: 07/19/18 07/19/18 06:59 18:59 Intake Total 664 Balance 664 - Medications Medications: Current Medications Acetaminophen (Tylenol 325mg Tab) 650 mg PO Q6 PRN PRN Reason: Pain, Mild (1-3) Amitriptyline HCl (Elavil) 50 mg PO HS [facility] Last Admin: 07/18/18 22:27 Dose: 50 mg Bupropion HCl (Wellbutrin) 100 mg PO BID [facility] Last Admin: 07/18/18 18:42 Dose: 100 mg Heparin Sodium (Porcine) (Heparin) 5,000 units SC Q8 [facility] Last Admin: 07/19/18 05:35 Dose: 5,000 units Amino Acids/Electrolytes/Dextrose (Clinimix 5/20 % "E" (1000 Ml)) 1,000 mls @ 83 mls/hr IV .Q12H3M ONE Stop: 07/19/18 18:02 Last Admin: 07/19/18 05:35 Dose: 83 mls/hr Levothyroxine Sodium (Synthroid) 12.5 mcg IVP 0630 [facility] Last Admin: 07/19/18 05:34 Dose: 12.5 mcg Lidocaine (Lidoderm) 1 ea TD DAILY [facility] Last Admin: 07/18/18 09:16 Dose: 1 ea Ondansetron HCl (Zofran Inj) 4 mg IVP Q6H PRN PRN Reason: Nausea/Vomiting Last Admin: 07/18/18 06:50 Dose: 4 mg Pantoprazole Sodium (Protonix Ec Tab) 40 mg PO DAILY [facility] Last Admin: 07/18/18 09:16 Dose: 40 mg Tramadol HCl (Ultram) 25 mg PO TID PRN PRN Reason: Pain, moderate (4-7) - Labs Labs: 07/19/18 07:22 07/19/18 07:22 PT 12.3 SECONDS (9.7-12.2) H 07/13/18 09:48 INR 1.1 07/13/18 09:48 APTT 35 SECONDS (21-34) H 07/13/18 09:48 - Constitutional Appears: Non-toxic, No Acute Distress - Head Exam Head Exam: NORMAL INSPECTION, NORMOCEPHALIC - Eye Exam Eye Exam: Normal appearance, PERRL - ENT Exam ENT Exam: Mucous Membranes Moist, Normal Exam - Neck Exam Neck Exam: Full ROM, Normal Inspection - Respiratory Exam Respiratory Exam: Clear to Ausculation Bilateral, NORMAL BREATHING PATTERN - Cardiovascular Exam Cardiovascular Exam: REGULAR RHYTHM, RRR - GI/Abdominal Exam GI & Abdominal Exam: Distended, Soft, Hypoactive Bowel Sounds - Extremities Exam Extremities Exam: Full ROM, Normal Inspection - Neurological Exam Neurological Exam: Alert, Awake - Psychiatric Exam Psychiatric exam: Normal Affect, Normal Mood - Skin Skin Exam: Intact, Normal Color Assessment and Plan (1) Hypokalemia Status: Acute (2) Hyponatremia Status: Acute (3) SIADH (syndrome of inappropriate ADH production) Status: Resolved (4) Small bowel obstruction Status: Acute - Assessment and Plan (Free Text) Assessment: na acceptable no need for lasix or albumin advance diet per surgery. on tpn
--- NOTE | 2018-07-19 10:53 | CP.PCM.PN ---
Subjective - Date & Time of Evaluation Date of Evaluation: 07/19/18 Time of Evaluation: 10:50 - Subjective Subjective: having loose stools, some emesis yesterday with coughing Objective - Vital Signs/Intake and Output Vital Signs (last 24 hours): Temp Pulse Resp BP Pulse Ox 97.8 F 100 H 20 103/61 99 07/19/18 07:00 07/19/18 07:00 07/19/18 07:00 07/19/18 07:00 07/19/18 07:00 Intake and Output: 07/19/18 07/19/18 06:59 18:59 Intake Total 664 Balance 664 - Medications Medications: Current Medications Acetaminophen (Tylenol 325mg Tab) 650 mg PO Q6 PRN PRN Reason: Pain, Mild (1-3) Amitriptyline HCl (Elavil) 50 mg PO HS [facility] Last Admin: 07/18/18 22:27 Dose: 50 mg Bupropion HCl (Wellbutrin) 100 mg PO BID [facility] Last Admin: 07/18/18 18:42 Dose: 100 mg Heparin Sodium (Porcine) (Heparin) 5,000 units SC Q8 [facility] Last Admin: 07/19/18 05:35 Dose: 5,000 units Amino Acids/Electrolytes/Dextrose (Clinimix 5/20 % "E" (1000 Ml)) 1,000 mls @ 83 mls/hr IV .Q12H3M ONE Stop: 07/19/18 18:02 Last Admin: 07/19/18 05:35 Dose: 83 mls/hr Amino Acids/Electrolytes/Dextrose (Clinimix 5/20 % "E" (1000 Ml)) 1,000 mls @ 83 mls/hr IV .Q12H3M ONE Stop: 07/20/18 06:02 Levothyroxine Sodium (Synthroid) 12.5 mcg IVP 0630 [facility] Last Admin: 07/19/18 05:34 Dose: 12.5 mcg Lidocaine (Lidoderm) 1 ea TD DAILY [facility] Last Admin: 07/18/18 09:16 Dose: 1 ea Ondansetron HCl (Zofran Inj) 4 mg IVP Q6H PRN PRN Reason: Nausea/Vomiting Last Admin: 07/18/18 06:50 Dose: 4 mg Pantoprazole Sodium (Protonix Ec Tab) 40 mg PO DAILY [facility] Last Admin: 07/18/18 09:16 Dose: 40 mg Tramadol HCl (Ultram) 25 mg PO TID PRN PRN Reason: Pain, moderate (4-7) - Labs Labs: 07/19/18 07:22 07/19/18 07:22 PT 12.3 SECONDS (9.7-12.2) H 07/13/18 09:48 INR 1.1 07/13/18 09:48 APTT 35 SECONDS (21-34) H 07/13/18 09:48 - Constitutional Appears: No Acute Distress - Head Exam Head Exam: ATRAUMATIC, NORMOCEPHALIC - Respiratory Exam Respiratory Exam: NORMAL BREATHING PATTERN - Cardiovascular Exam Cardiovascular Exam: REGULAR RHYTHM - GI/Abdominal Exam GI & Abdominal Exam: Guarding, Soft, Normal Bowel Sounds. absent: Tenderness Additional comments: incisions clean and dry. less tender. - Extremities Exam Extremities Exam: Normal Inspection Assessment and Plan (1) Small bowel obstruction due to adhesions Assessment & Plan: Post op care per surgery advance diet as tolerated Status: Acute (2) Acute renal failure Status: Resolved (3) SIADH (syndrome of inappropriate ADH production) Status: Resolved (4) Abnormal transaminases Status: Resolved (5) Diarrhea Assessment & Plan: Post op diarrhea may be due to resolution of ileus, r/o C diff due to antibiotic use during admission. Check stool C diff ag. Status: Acute
[2018-07-19] MEDS: Lidocaine 5% Patch TD SCH (10:58)
[2018-07-19] MEDS: Pantoprazole 40 mg EC Tab PO SCH (10:58)
--- NOTE | 2018-07-19 13:19 | CP.PCM.PN ---
Subjective - Date & Time of Evaluation Date of Evaluation: 07/19/18 Time of Evaluation: 08:40 - Subjective Subjective: PGY-2 medicine progress note (Dr. Dunbar's service) Patient was seen and examined at bedside. Patient states that she is doing well and not in acute distress. Patient denies any symptoms of fever, chills, nausea, vomiting, abdominal pain, chest pain, palpitations, shortness of breath. Patient admits to passing flatus and bowel movement. Patient is currently tolerating liquid diet. Objective - Vital Signs/Intake and Output Vital Signs (last 24 hours): Temp Pulse Resp BP Pulse Ox 97.8 F 100 H 20 103/61 99 07/19/18 07:00 07/19/18 07:00 07/19/18 07:00 07/19/18 07:00 07/19/18 07:00 Intake and Output: 07/19/18 07/19/18 06:59 18:59 Intake Total 664 Balance 664 - Medications Medications: Current Medications Acetaminophen (Tylenol 325mg Tab) 650 mg PO Q6 PRN PRN Reason: Pain, Mild (1-3) Amitriptyline HCl (Elavil) 50 mg PO HS [facility] Last Admin: 07/18/18 22:27 Dose: 50 mg Bupropion HCl (Wellbutrin) 100 mg PO BID [facility] Last Admin: 07/19/18 10:58 Dose: 100 mg Heparin Sodium (Porcine) (Heparin) 5,000 units SC Q8 [facility] Last Admin: 07/19/18 05:35 Dose: 5,000 units Amino Acids/Electrolytes/Dextrose (Clinimix 5/20 % "E" (1000 Ml)) 1,000 mls @ 83 mls/hr IV .Q12H3M ONE Stop: 07/19/18 18:02 Last Admin: 07/19/18 05:35 Dose: 83 mls/hr Amino Acids/Electrolytes/Dextrose (Clinimix 5/20 % "E" (1000 Ml)) 1,000 mls @ 83 mls/hr IV .Q12H3M ONE Stop: 07/20/18 06:02 Amino Acids/Electrolytes/Dextrose (Clinimix 5/20 % "E" (1000 Ml)) 1,000 mls @ 83 mls/hr IV .Q12H3M ONE Stop: 07/20/18 18:05 Levothyroxine Sodium (Synthroid) 12.5 mcg IVP 0630 [facility] Last Admin: 07/19/18 05:34 Dose: 12.5 mcg Lidocaine (Lidoderm) 1 ea TD DAILY [facility] Last Admin: 07/19/18 10:58 Dose: 1 ea Ondansetron HCl (Zofran Inj) 4 mg IVP Q6H PRN PRN Reason: Nausea/Vomiting Last Admin: 07/18/18 06:50 Dose: 4 mg Pantoprazole Sodium (Protonix Ec Tab) 40 mg PO DAILY [facility] Last Admin: 07/19/18 10:58 Dose: 40 mg Tramadol HCl (Ultram) 25 mg PO TID PRN PRN Reason: Pain, moderate (4-7) - Labs Labs: 07/19/18 07:22 07/19/18 07:22 PT 12.3 SECONDS (9.7-12.2) H 07/13/18 09:48 INR 1.1 07/13/18 09:48 APTT 35 SECONDS (21-34) H 07/13/18 09:48 - Constitutional Appears: Well, No Acute Distress - Head Exam Head Exam: ATRAUMATIC, NORMAL INSPECTION - Eye Exam Eye Exam: EOMI, Normal appearance - ENT Exam ENT Exam: Mucous Membranes Moist - Respiratory Exam Respiratory Exam: Clear to Ausculation Bilateral, NORMAL BREATHING PATTERN. absent: Rhonchi, Wheezes, Respiratory Distress - Cardiovascular Exam Cardiovascular Exam: REGULAR RHYTHM, +S1, +S2 - GI/Abdominal Exam GI & Abdominal Exam: Soft, Normal Bowel Sounds. absent: Distended, Firm, Guarding, Rigid, Tenderness Additional comments: S/P diagnostic laparoscopic. extensive lysis of adhesions (07/13/18) AD drain discontinued Incision is clean, dry and intact, - Extremities Exam Extremities Exam: Normal Inspection. absent: Calf Tenderness, Pedal Edema - Neurological Exam Neurological Exam: Alert, Awake, Normal Gait, Oriented x3 - Psychiatric Exam Psychiatric exam: Normal Affect, Normal Mood - Skin Skin Exam: Normal Color Assessment and Plan (1) Small bowel obstruction due to adhesions Assessment & Plan: likely 2/2 to adhesions (hx of multiple abdominal surgeries) General Surgery, Dr. Becky Smith * S/P diagnostic laparoscopic. extensive lysis of adhesions POD #5 * Pain management as per surgery * Advance diet as tolerated as per surgery GI Consulted, Dr. De La Torre * management as per recommendation Abd/Pelvis CT (07/01): * Findings consistent with small-bowel obstruction with transition point right lower quadrant of the abdomen. * Cholecystectomy. * Nodular left adrenal gland. Recommend followup noncontrast MRI of the adrenal glands. * Diverticulosis without radiographic evidence of acute diverticulitis. Obstruction Series (07/02): * Mild left basilar atelectasis and or scarring.. No evidence of mechanical bowel obstruction however findings suggest mild fecal retention/constipation. Abdomen X-ray (07/03): * Mild bibasilar atelectasis. * No evidence of acute mechanical bowel obstruction. Abdomen X-ray (07/04): * Findings are most compatible with acute small bowel obstruction, slightly worse since the prior examination. Abd/Pelvis CT w/ PO and IV contrast (07/04/18): * Persistent pattern positive for mechanical distal small bowel obstruction with collapsed ileum and otherwise dilated small-bowel loops appreciated stomach is partially decompressed by nasogastric tube oral contrast partially distending the stomach. Poor oral contrast transit is seen through small bowel. No free intra peritoneal gas collection or ascites appreciable at this time. Continued surgical evaluation advised Status: Acute (2) Hyponatremia Assessment & Plan: Resolving hx of SIADH possible 2/2 to anti-psychotic medications Nephrology consulted, Dr. Espinosa and Elly * Tolvaptan given on 07/09 * Urine Osmolality 569 * Random Urine Sodium 150 Status: Acute (3) Abnormal transaminases Assessment & Plan: Resolved Status: Resolved (4) Hypothyroid Assessment & Plan: Continue Home Medication: * Synthroid 12.5mcg IVP daily Status: Acute (5) History of cervical cancer Assessment & Plan: s/p hysterectomy, b/l oopherectomy (seperate procedure) Status: Acute (6) Depression Assessment & Plan: Continue Home Medication: * Amitriptyline 40mg PO HS * Bupropion (Wellbutrin) 100mg PO BID * Lamptrigine 200mg PO daily (discontinued by general surgery) Status: Acute (7) Rheumatoid arthritis Assessment & Plan: Methotrexate 15mg PO QWK, every Wednesday Status: Acute (8) Prophylactic measure Assessment & Plan: Heparin 5,000 units SC q8h Protonix 40mg PO daily PT/OT Disposition: Possible discharge tomorrow depending on tolerance of regular diet Status: Acute
[2018-07-19] MEDS ORDERED: TPN IV ONE (18:00)
[2018-07-19] MEDS: oxyCODONE 5 mg Immediate Release Tab PO PRN (19:57)
[2018-07-20] MEDS: Levothyroxine 100 mcg (0.1 mg) Inj IVP SCH (05:33)
[2018-07-20] MEDS: oxyCODONE 5 mg Immediate Release Tab PO PRN (05:52)
[2018-07-20] MEDS ORDERED: TPN IV ONE (06:03)
[2018-07-20 06:44] LABS: HEMOGLOBIN 9.9 g/dL (11.0-16.0); MEAN CELL VOLUME 97.5 fL (81.0-99.0); MEAN CORPUSCULAR HEMOGLOBIN 32.6 pg (27.0-31.0); MEAN CORPUSCULAR HGB CONC 33.4 g/dL (33.0-37.0); MEAN PLATELET VOLUME 7.1 fL (7.2-11.7); RBC 3.04 Mil/uL (3.80-5.20); RED CELL DISTRIBUTION WIDTH 15.2 % (11.5-14.5); WHITE BLOOD COUNT 4.5 K/uL (4.8-10.8)
--- NOTE | 2018-07-20 07:32 | CP.PCM.PN ---
Subjective - Date & Time of Evaluation Date of Evaluation: 07/20/18 Time of Evaluation: 07:29 - Subjective Subjective: diarrhea recently on soft diet still on TPN no chest pain no sob vomiting + no rash no headache chronic edema no sinus pain no fever urinating normally Objective - Vital Signs/Intake and Output Vital Signs (last 24 hours): Temp Pulse Resp BP Pulse Ox 97.5 F L 108 H 20 120/77 96 07/19/18 23:25 07/20/18 05:51 07/19/18 23:25 07/20/18 05:51 07/19/18 23:25 Intake and Output: 07/20/18 07/20/18 06:59 18:59 Intake Total 1064 Output Total 700 Balance 364 - Medications Medications: Current Medications Acetaminophen (Tylenol 325mg Tab) 650 mg PO Q6 PRN PRN Reason: Pain, Mild (1-3) Last Admin: 07/19/18 15:00 Dose: 650 mg Amitriptyline HCl (Elavil) 50 mg PO HS [facility] Last Admin: 07/19/18 21:13 Dose: 50 mg Bupropion HCl (Wellbutrin) 100 mg PO BID [facility] Last Admin: 07/19/18 18:16 Dose: 100 mg Heparin Sodium (Porcine) (Heparin) 5,000 units SC Q8 [facility] Last Admin: 07/20/18 05:33 Dose: 5,000 units Amino Acids/Electrolytes/Dextrose (Clinimix 5/20 % "E" (1000 Ml)) 1,000 mls @ 83 mls/hr IV .Q12H3M ONE Stop: 07/20/18 18:05 Last Admin: 07/20/18 05:32 Dose: 83 mls/hr Levothyroxine Sodium (Synthroid) 12.5 mcg IVP 0630 [facility] Last Admin: 07/20/18 05:33 Dose: 12.5 mcg Lidocaine (Lidoderm) 1 ea TD DAILY [facility] Last Admin: 07/19/18 10:58 Dose: 1 ea Methotrexate (Methotrexate) 15 mg PO QWK [facility] Ondansetron HCl (Zofran Inj) 4 mg IVP Q6H PRN PRN Reason: Nausea/Vomiting Last Admin: 07/18/18 06:50 Dose: 4 mg Oxycodone HCl (Oxycodone Immediate Release Tab) 5 mg PO Q6 PRN PRN Reason: Pain, severe (8-10) Last Admin: 07/20/18 05:52 Dose: 5 mg Pantoprazole Sodium (Protonix Ec Tab) 40 mg PO DAILY [facility] Last Admin: 07/19/18 10:58 Dose: 40 mg Rosuvastatin Calcium (Crestor) 40 mg PO HS [facility] Last Admin: 07/19/18 22:08 Dose: 40 mg - Labs Labs: 07/20/18 06:35 07/19/18 07:22 PT 12.3 SECONDS (9.7-12.2) H 07/13/18 09:48 INR 1.1 07/13/18 09:48 APTT 35 SECONDS (21-34) H 07/13/18 09:48 - Constitutional Appears: Non-toxic, Chronically Ill - Head Exam Head Exam: ATRAUMATIC, NORMAL INSPECTION - Eye Exam Eye Exam: EOMI - ENT Exam ENT Exam: Mucous Membranes Moist - Neck Exam Neck Exam: Full ROM. absent: Lymphadenopathy - Respiratory Exam Respiratory Exam: Decreased Breath Sounds. absent: Accessory Muscle Use - GI/Abdominal Exam GI & Abdominal Exam: Distended, Hypoactive Bowel Sounds. absent: Tenderness - Extremities Exam Extremities Exam: Pedal Edema Assessment and Plan - Assessment and Plan (Free Text) Assessment: monitor Na consideration to reducing volume of TPN f/u stool cultures for cdiff
[2018-07-20 07:36] LABS: ALB/GLOB RATIO 1.2 (1.0-2.1); ALBUMIN 2.9 g/dL (3.5-5.0); ALT/SGPT 51 U/L (9-52); AST/SGOT 44 U/L (14-36); BLOOD UREA NITROGEN 16 mg/dL (7-17); CALCIUM 8.5 mg/dl (8.6-10.4); GFR NON-AFRICAN AMERICAN > 60
--- NOTE | 2018-07-20 10:23 | CP.PCM.PN ---
Subjective - Date & Time of Evaluation Date of Evaluation: 07/20/18 Time of Evaluation: 10:21 - Subjective Subjective: Tolerating soft diet and no diarrhea per patient. Wants to go home. Labs reviewed. Objective - Vital Signs/Intake and Output Vital Signs (last 24 hours): Temp Pulse Resp BP Pulse Ox 97.8 F 114 H 20 118/72 94 L 07/20/18 07:00 07/20/18 07:00 07/20/18 07:00 07/20/18 07:00 07/20/18 07:00 Intake and Output: 07/20/18 07/20/18 06:59 18:59 Intake Total 1064 Output Total 700 Balance 364 - Medications Medications: Current Medications Acetaminophen (Tylenol 325mg Tab) 650 mg PO Q6 PRN PRN Reason: Pain, Mild (1-3) Last Admin: 07/19/18 15:00 Dose: 650 mg Albumin Human (Albumin Human 25% (12.5 Gm/50 Ml)) 12.5 gm IV ONCE ONE Stop: 07/20/18 11:01 Amitriptyline HCl (Elavil) 50 mg PO HS [facility] Last Admin: 07/19/18 21:13 Dose: 50 mg Bupropion HCl (Wellbutrin) 100 mg PO BID [facility] Last Admin: 07/19/18 18:16 Dose: 100 mg Heparin Sodium (Porcine) (Heparin) 5,000 units SC Q8 [facility] Last Admin: 07/20/18 05:33 Dose: 5,000 units Amino Acids/Electrolytes/Dextrose (Clinimix 5/20 % "E" (1000 Ml)) 1,000 mls @ 83 mls/hr IV .Q12H3M ONE Stop: 07/20/18 18:05 Last Admin: 07/20/18 05:32 Dose: 83 mls/hr Levothyroxine Sodium (Synthroid) 12.5 mcg IVP 0630 [facility] Last Admin: 07/20/18 05:33 Dose: 12.5 mcg Lidocaine (Lidoderm) 1 ea TD DAILY [facility] Last Admin: 07/19/18 10:58 Dose: 1 ea Methotrexate (Methotrexate) 15 mg PO QWK [facility] Ondansetron HCl (Zofran Inj) 4 mg IVP Q6H PRN PRN Reason: Nausea/Vomiting Last Admin: 07/18/18 06:50 Dose: 4 mg Oxycodone HCl (Oxycodone Immediate Release Tab) 5 mg PO Q6 PRN PRN Reason: Pain, severe (8-10) Last Admin: 07/20/18 05:52 Dose: 5 mg Pantoprazole Sodium (Protonix Ec Tab) 40 mg PO DAILY [facility] Last Admin: 07/19/18 10:58 Dose: 40 mg Rosuvastatin Calcium (Crestor) 40 mg PO HS [facility] Last Admin: 07/19/18 22:08 Dose: 40 mg - Labs Labs: 07/20/18 06:35 07/20/18 06:35 PT 12.3 SECONDS (9.7-12.2) H 07/13/18 09:48 INR 1.1 07/13/18 09:48 APTT 35 SECONDS (21-34) H 07/13/18 09:48 - Constitutional Appears: No Acute Distress - Head Exam Head Exam: ATRAUMATIC, NORMOCEPHALIC - Eye Exam Eye Exam: EOMI, PERRL - Respiratory Exam Respiratory Exam: NORMAL BREATHING PATTERN - Cardiovascular Exam Cardiovascular Exam: REGULAR RHYTHM - GI/Abdominal Exam GI & Abdominal Exam: Guarding, Soft, Normal Bowel Sounds. absent: Tenderness, Mass, Rebound Assessment and Plan (1) Small bowel obstruction due to adhesions Assessment & Plan: Post op care per surgical team. Advance diet as tolerated. Out patient follow up with me in 2-3 weeks. Will follow only as needed for remainder of admission. Status: Acute (2) Acute renal failure Status: Resolved (3) SIADH (syndrome of inappropriate ADH production) Status: Resolved (4) Abnormal transaminases Status: Resolved (5) Diarrhea Status: Resolved
[2018-07-20] MEDS ORDERED: Albumin Human 25% (12.5 gm/50 ml) IV ONE ×2 (11:00→13:00)
--- NOTE | 2018-07-20 11:24 | RAD ---
Date of service: 07/19/2018 HISTORY: post op follow up COMPARISON: Abdomen obstructive series 07/12/2018. FINDINGS: BOWEL: Gas seen distending what appears to be transverse and hepatic flexure segments predominantly with moderate distention of the ascending colon. Limited gas seen in the distal rectosigmoid. Small bowel distention is diminished significantly with only a few loops partially distended with gas in the central abdomen and pelvis as well as left lower quadrant. Pattern of obstruction/ileus appears to be largely resolved though there is some large-bowel distension identified currently. Moderate retained fecal material seen in various large-bowel segments. Postop changes are again seen the right upper quadrant abdomen with nasogastric tube now removed. No free intra peritoneal gas identified. Limited inferior abdominal air-fluid levels are identified including the region of the cecum/proximal ascending colon. BONES: Multilevel degenerative spondylosis and facet arthropathy seen in the visualized lumbar spine with degenerative joint changes at the bilateral hips. Sclerotic right iliac density unchanged. OTHER FINDINGS: None. IMPRESSION: Gas is seen primarily in large-bowel as opposed to small bowel as previously shown indicating resolution or near resolution of ileus/small-bowel obstruction pattern previously evident. Transverse and panic flexure segments of large bowel are somewhat distended in the interval. Limited residual air-fluid levels are identified in the lower abdomen pelvis as discussed above.
[2018-07-20] MEDS: Lidocaine 5% Patch TD SCH (11:25)
[2018-07-20] MEDS: Pantoprazole 40 mg EC Tab PO SCH (11:28)
--- NOTE | 2018-07-20 12:16 | CP.PCM.PN ---
Subjective - Date & Time of Evaluation Date of Evaluation: 07/20/18 Time of Evaluation: 09:50 - Subjective Subjective: PGY 2 Medicine progress note ( Dr. Dunbar's service) Patient was seen and examined at bedside. Patient states that she is doing well and no major or acute complaints. Patient denies any symptoms of fever, chills, nausea, vomiting, abdominal pain, chest pain, palpitations, SOB, dizziness. Patient is tolerated regular diet yesterday and ambulating without difficulties. Objective - Vital Signs/Intake and Output Vital Signs (last 24 hours): Temp Pulse Resp BP Pulse Ox 97.8 F 114 H 20 118/72 94 L 07/20/18 07:00 07/20/18 07:00 07/20/18 07:00 07/20/18 07:00 07/20/18 07:00 Intake and Output: 07/20/18 07/20/18 06:59 18:59 Intake Total 1064 Output Total 700 Balance 364 - Medications Medications: Current Medications Acetaminophen (Tylenol 325mg Tab) 1,000 mg PO Q6 PRN PRN Reason: Pain, Mild (1-3) Amitriptyline HCl (Elavil) 50 mg PO HS [facility] Last Admin: 07/19/18 21:13 Dose: 50 mg Bisacodyl (Dulcolax) 10 mg UT DAILY [facility] Bupropion HCl (Wellbutrin) 100 mg PO BID [facility] Last Admin: 07/20/18 11:31 Dose: 100 mg Heparin Sodium (Porcine) (Heparin) 5,000 units SC Q8 [facility] Last Admin: 07/20/18 05:33 Dose: 5,000 units Amino Acids/Electrolytes/Dextrose (Clinimix 5/20 % "E" (1000 Ml)) 1,000 mls @ 83 mls/hr IV .Q12H3M ONE Stop: 07/20/18 18:05 Last Admin: 07/20/18 05:32 Dose: 83 mls/hr Levothyroxine Sodium (Synthroid) 12.5 mcg IVP 0630 [facility] Last Admin: 07/20/18 05:33 Dose: 12.5 mcg Lidocaine (Lidoderm) 1 ea TD DAILY [facility] Last Admin: 07/20/18 11:25 Dose: 1 ea Methotrexate (Methotrexate) 15 mg PO QWK [facility] Last Admin: 07/20/18 11:26 Dose: 15 mg Ondansetron HCl (Zofran Inj) 4 mg IVP Q6H PRN PRN Reason: Nausea/Vomiting Last Admin: 07/18/18 06:50 Dose: 4 mg Pantoprazole Sodium (Protonix Ec Tab) 40 mg PO DAILY [facility] Last Admin: 07/20/18 11:28 Dose: 40 mg Rosuvastatin Calcium (Crestor) 40 mg PO HS [facility] Last Admin: 07/19/18 22:08 Dose: 40 mg Senna/Docusate Sodium (Senokot S 50 Mg-8.6 Mg) 1 tab PO BID [facility] - Labs Labs: 07/20/18 06:35 07/20/18 06:35 PT 12.3 SECONDS (9.7-12.2) H 07/13/18 09:48 INR 1.1 07/13/18 09:48 APTT 35 SECONDS (21-34) H 07/13/18 09:48 - Constitutional Appears: Well, No Acute Distress - Head Exam Head Exam: ATRAUMATIC, NORMAL INSPECTION - Eye Exam Eye Exam: EOMI, Normal appearance - ENT Exam ENT Exam: Mucous Membranes Moist - Respiratory Exam Respiratory Exam: Clear to Ausculation Bilateral, NORMAL BREATHING PATTERN. absent: Prolonged Expiratory Phase, Rhonchi, Wheezes, Respiratory Distress - Cardiovascular Exam Cardiovascular Exam: Tachycardia, REGULAR RHYTHM, +S1, +S2 - GI/Abdominal Exam GI & Abdominal Exam: Soft, Normal Bowel Sounds. absent: Distended, Firm, Guarding, Rigid, Tenderness Additional comments: Incision is clean, dry and intact - Extremities Exam Extremities Exam: Normal Inspection. absent: Calf Tenderness, Pedal Edema - Neurological Exam Neurological Exam: Alert, Awake, Oriented x3 - Psychiatric Exam Psychiatric exam: Flat Affect Additional comments: Mild flat affect - Skin Skin Exam: Normal Color Assessment and Plan (1) Small bowel obstruction due to adhesions Assessment & Plan: likely 2/2 to adhesions (hx of multiple abdominal surgeries) General Surgery, Dr. Becky Smith * S/P diagnostic laparoscopic. extensive lysis of adhesions (07/13/18) * Pain management as per surgery; narcotics discontinued * Advance diet as tolerated as per surgery GI Consulted, Dr. De La Torre * management as per recommendation Abd/Pelvis CT (07/01): * Findings consistent with small-bowel obstruction with transition point right lower quadrant of the abdomen. * Cholecystectomy. * Nodular left adrenal gland. Recommend followup noncontrast MRI of the adrenal glands. * Diverticulosis without radiographic evidence of acute diverticulitis. Obstruction Series (07/02): * Mild left basilar atelectasis and or scarring.. No evidence of mechanical bowel obstruction however findings suggest mild fecal retention/constipation. Abdomen X-ray (07/03): * Mild bibasilar atelectasis. * No evidence of acute mechanical bowel obstruction. Abdomen X-ray (07/04): * Findings are most compatible with acute small bowel obstruction, slightly worse since the prior examination. Abd/Pelvis CT w/ PO and IV contrast (07/04/18): * Persistent pattern positive for mechanical distal small bowel obstruction with collapsed ileum and otherwise dilated small-bowel loops appreciated stomach is partially decompressed by nasogastric tube oral contrast partially distending the stomach. Poor oral contrast transit is seen through small bowel. No free intra peritoneal gas collection or ascites appreciable at this time. Cont inued surgical evaluation advised Status: Acute (2) Colon distention Assessment & Plan: Abdominal X-ray (07/19/18): Gas is seen primarily in large-bowel as opposed to small bowel as previously shown indicating resolution or near resolution of ileus/small-bowel obstruction pattern previously evident. Transverse and panic flexure segments of large bowel are somewhat distended in the interval. Limited residual air-fluid levels are identified in the lower abdomen pelvis as discussed above. 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 Espinosa and Elly * Tolvaptan given on 07/09 * Urine Osmolality 569 * Random Urine Sodium 150 Status: Acute (4) Abnormal transaminases Assessment & Plan: Resolving Status: Resolved (5) Hypothyroid Assessment & Plan: Continue Home Medication: * Synthroid 12.5mcg IVP daily Status: Acute (6) History of cervical cancer Assessment & Plan: s/p hysterectomy, b/l oopherectomy (seperate procedure) Status: Acute (7) Depression Assessment & Plan: Continue Home Medication: * Amitriptyline 40mg PO HS * Bupropion (Wellbutrin) 100mg PO BID * Lamptrigine 200mg PO daily (discontinued by general surgery) Status: Acute (8) Rheumatoid arthritis Assessment & Plan: Methotrexate 15mg PO QWK, every Wednesday Status: Acute (9) Prophylactic measure Assessment & Plan: Heparin 5,000 units SC q8h Protonix 40mg PO daily PT/OT All plans and management discussed with Dr. Dunbar Status: Acute
--- NOTE | 2018-07-20 12:43 | CP.PCM.PN ---
Subjective - Date & Time of Evaluation Date of Evaluation: 07/20/18 Time of Evaluation: 12:40 - Subjective Subjective: General Surgery: Dr Smith Pt S&E. CARLO. Complaining of pain in LUQ, bearable. Tolerating soft diet. Passing flatus. Has not had BM since wednesday. Remains on TPN. Has been OOB and ambulating. Afebrile, VSS. Objective - Vital Signs/Intake and Output Vital Signs (last 24 hours): Temp Pulse Resp BP Pulse Ox 97.8 F 114 H 20 118/72 94 L 07/20/18 07:00 07/20/18 07:00 07/20/18 07:00 07/20/18 07:00 07/20/18 07:00 Intake and Output: 07/20/18 07/20/18 06:59 18:59 Intake Total 1064 Output Total 700 Balance 364 - Medications Medications: Current Medications Acetaminophen (Tylenol 325mg Tab) 1,000 mg PO Q6 PRN PRN Reason: Pain, Mild (1-3) Amitriptyline HCl (Elavil) 50 mg PO HS [facility] Last Admin: 07/19/18 21:13 Dose: 50 mg Bisacodyl (Dulcolax) 10 mg ND DAILY [facility] Bupropion HCl (Wellbutrin) 100 mg PO BID [facility] Last Admin: 07/20/18 11:31 Dose: 100 mg Heparin Sodium (Porcine) (Heparin) 5,000 units SC Q8 [facility] Last Admin: 07/20/18 05:33 Dose: 5,000 units Amino Acids/Electrolytes/Dextrose (Clinimix 5/20 % "E" (1000 Ml)) 1,000 mls @ 83 mls/hr IV .Q12H3M ONE Stop: 07/20/18 18:05 Last Admin: 07/20/18 05:32 Dose: 83 mls/hr Levothyroxine Sodium (Synthroid) 12.5 mcg IVP 0630 [facility] Last Admin: 07/20/18 05:33 Dose: 12.5 mcg Lidocaine (Lidoderm) 1 ea TD DAILY [facility] Last Admin: 07/20/18 11:25 Dose: 1 ea Methotrexate (Methotrexate) 15 mg PO QWK [facility] Last Admin: 07/20/18 11:26 Dose: 15 mg Ondansetron HCl (Zofran Inj) 4 mg IVP Q6H PRN PRN Reason: Nausea/Vomiting Last Admin: 07/18/18 06:50 Dose: 4 mg Pantoprazole Sodium (Protonix Ec Tab) 40 mg PO DAILY [facility] Last Admin: 07/20/18 11:28 Dose: 40 mg Rosuvastatin Calcium (Crestor) 40 mg PO HS [facility] Last Admin: 07/19/18 22:08 Dose: 40 mg Senna/Docusate Sodium (Senokot S 50 Mg-8.6 Mg) 1 tab PO BID [facility] - Labs Labs: 07/20/18 06:35 07/20/18 06:35 PT 12.3 SECONDS (9.7-12.2) H 07/13/18 09:48 INR 1.1 07/13/18 09:48 APTT 35 SECONDS (21-34) H 07/13/18 09:48 - Constitutional Appears: Non-toxic, No Acute Distress - Eye Exam Eye Exam: Normal appearance. absent: Scleral icterus - ENT Exam ENT Exam: Mucous Membranes Moist - Respiratory Exam Respiratory Exam: absent: Accessory Muscle Use, Respiratory Distress - Cardiovascular Exam Cardiovascular Exam: REGULAR RHYTHM. absent: Tachycardia - GI/Abdominal Exam GI & Abdominal Exam: Soft, Tenderness (LUQ but minimal), Normal Bowel Sounds. absent: Distended, Firm, Guarding, Rebound Additional comments: incisions c/d/i - Extremities Exam Extremities Exam: absent: Pedal Edema - Neurological Exam Neurological Exam: Alert, Awake, Oriented x3 - Psychiatric Exam Psychiatric exam: Normal Affect, Normal Mood Assessment and Plan - Assessment and Plan (Free Text) Assessment: 72F POD#7 s/p laparoscopic KETAN Plan: yesterdays imaging reviewed with radiologist - loops are distended colon will maintain soft diet daily dulcolax suppository Senna/Colace BID d/c all narcotics can take 1g PO tylenol if needed d/w Dr Luis Mari, PGY4
[2018-07-20] MEDS: Docusate-Senna 50 mg-8.6 mg Tab PO SCH (19:00)
[2018-07-21] MEDS: Levothyroxine 100 mcg (0.1 mg) Inj IVP SCH (06:25)
[2018-07-21 07:36] LABS: BASO % 0.7 % (0.0-2.0); EOS # 0.1 K/uL (0.0-0.7); EOS % 2.1 % (0.0-4.0); HEMOGLOBIN 10.8 g/dL (11.0-16.0); LYMPH # 1.2 K/uL (1.0-4.3); LYMPH % 24.7 % (20.0-40.0); MEAN CELL VOLUME 97.8 fL (81.0-99.0); MEAN CORPUSCULAR HEMOGLOBIN 32.6 pg (27.0-31.0); MEAN CORPUSCULAR HGB CONC 33.4 g/dL (33.0-37.0); MEAN PLATELET VOLUME 7.3 fL (7.2-11.7); MONO # 0.5 K/uL (0.0-0.8); MONO % 10.6 % (0.0-10.0); NEUT % 61.9 % (50.0-75.0); NRBC % 0.1 % (0.0-2.0); RBC 3.32 Mil/uL (3.80-5.20); RED CELL DISTRIBUTION WIDTH 15.3 % (11.5-14.5); WHITE BLOOD COUNT 4.8 K/uL (4.8-10.8)
[2018-07-21 07:44] LABS: ALB/GLOB RATIO 1.3 (1.0-2.1); ALBUMIN 3.4 g/dL (3.5-5.0); ALT/SGPT 64 U/L (9-52); AST/SGOT 56 U/L (14-36); BLOOD UREA NITROGEN 14 mg/dL (7-17); CALCIUM 8.9 mg/dl (8.6-10.4); GFR NON-AFRICAN AMERICAN > 60
--- NOTE | 2018-07-21 08:47 | CP.PCM.PN ---
Subjective - Date & Time of Evaluation Date of Evaluation: 07/21/18 Time of Evaluation: 07:00 - Subjective Subjective: Surgery progress note for Dr. Smith Pt seen and examined this AM. No adverse events overnight, patient states RUQ pain improved, and she had 2 large solid BM's yesterday after dulcolax suppositories. Patient tolerated diet and is eager to go home. Objective - Vital Signs/Intake and Output Vital Signs (last 24 hours): Temp Pulse Resp BP Pulse Ox 98 F 95 H 20 104/60 97 07/21/18 00:00 07/21/18 00:00 07/21/18 00:00 07/21/18 00:00 07/21/18 00:00 Intake and Output: 07/21/18 07/21/18 06:59 18:59 Intake Total 1114 Balance 1114 - Medications Medications: Current Medications Acetaminophen (Tylenol 325mg Tab) 1,000 mg PO Q6 PRN PRN Reason: Pain, Mild (1-3) Last Admin: 07/21/18 04:33 Dose: 1,000 mg Amitriptyline HCl (Elavil) 50 mg PO HS [facility] Last Admin: 07/20/18 23:00 Dose: Not Given Bisacodyl (Dulcolax) 10 mg CA DAILY [facility] Last Admin: 07/20/18 13:20 Dose: 10 mg Bisacodyl (Dulcolax) 10 mg CA ONCE ONE Stop: 07/21/18 08:45 Bisacodyl (Dulcolax) 10 mg CA ONCE ONE Stop: 07/21/18 13:01 Bupropion HCl (Wellbutrin) 100 mg PO BID [facility] Last Admin: 07/20/18 19:00 Dose: 100 mg Heparin Sodium (Porcine) (Heparin) 5,000 units SC Q8 [facility] Last Admin: 07/21/18 06:25 Dose: 5,000 units Magnesium Sulfate/Dextrose (Magnesium Sulfate 1 Gm/100 Ml D5w) 1 gm in 100 mls @ 200 mls/hr IVPB ONCE ONE Stop: 07/21/18 09:11 Levothyroxine Sodium (Synthroid) 12.5 mcg IVP 0630 [facility] Last Admin: 07/21/18 06:25 Dose: 12.5 mcg Lidocaine (Lidoderm) 1 ea TD DAILY [facility] Last Admin: 07/20/18 11:25 Dose: 1 ea Methotrexate (Methotrexate) 15 mg PO QWK [facility] Last Admin: 07/20/18 11:26 Dose: 15 mg Ondansetron HCl (Zofran Inj) 4 mg IVP Q6H PRN PRN Reason: Nausea/Vomiting Last Admin: 07/21/18 04:33 Dose: 4 mg Pantoprazole Sodium (Protonix Ec Tab) 40 mg PO DAILY [facility] Last Admin: 07/20/18 11:28 Dose: 40 mg Rosuvastatin Calcium (Crestor) 40 mg PO HS [facility] Last Admin: 07/20/18 23:24 Dose: 40 mg Senna/Docusate Sodium (Senokot S 50 Mg-8.6 Mg) 1 tab PO BID [facility] Last Admin: 07/20/18 19:00 Dose: 1 tab - Labs Labs: 07/21/18 07:07 07/21/18 07:07 PT 12.3 SECONDS (9.7-12.2) H 07/13/18 09:48 INR 1.1 07/13/18 09:48 APTT 35 SECONDS (21-34) H 07/13/18 09:48 - Constitutional Appears: Well, Non-toxic, No Acute Distress - Head Exam Head Exam: ATRAUMATIC, NORMOCEPHALIC - Eye Exam Eye Exam: Normal appearance. absent: Conjunctival injection, Scleral icterus - ENT Exam ENT Exam: Mucous Membranes Moist, Normal Oropharynx - Respiratory Exam Respiratory Exam: NORMAL BREATHING PATTERN. absent: Accessory Muscle Use, Respiratory Distress - Cardiovascular Exam Cardiovascular Exam: Tachycardia, REGULAR RHYTHM - GI/Abdominal Exam GI & Abdominal Exam: Soft. absent: Distended, Tenderness Additional comments: incisions well approximated, no erythema or drainage - Extremities Exam Extremities Exam: absent: Calf Tenderness, Pedal Edema, Tenderness - Neurological Exam Neurological Exam: Alert, Awake, Oriented x3 - Psychiatric Exam Psychiatric exam: Normal Affect, Normal Mood - Skin Skin Exam: Dry, Normal Color, Warm Assessment and Plan - Assessment and Plan (Free Text) Assessment: 72F POD#8 s/p laparoscopic lysis of adhesions for SBO Plan: Patient is cleared for discharge from a surgical standpoint with pericolace, PO pain medication, and phosphorus supplementation if deemed beneficial by medicine team. Follow up with Dr. Smith in his office in 2 weeks--earlier if there are any concerns Per PT patient would benefit from home PT--discussed with case management Patient should call Dr. Smith's office or come to ER for fever >100.4, severe abdominal pain, nausea and vomiting, or prolonged constipation or any other concerning symptoms. Discussed with Dr. Luis Rodriguez, PGY2
[2018-07-21] MEDS ORDERED: Magnesium Sulfate 1 gm in D5W 1 GM/100 ML BAG IVPB ONE ×2 (09:00→11:00)
[2018-07-21 09:26] VITALS: BP 120/68; PULSE 111; TEMP 98; O2SAT 95
[2018-07-21] MEDS: Pantoprazole 40 mg EC Tab PO SCH (09:35)
--- NOTE | 2018-07-21 09:37 | CP.PCM.PN ---
Subjective - Date & Time of Evaluation Date of Evaluation: 07/21/18 Time of Evaluation: 09:37 - Subjective Subjective: Medicine Progress Note - Dr Dunbar's Service Patient seen and examined at bedside. Per nursing no acute events overnight. Patient is doing well, states that she has occasional gas pain. She is ambulating and tolerating diet. She reports having two solid bowel movements last night. Offers no other complaints at this time. Denies fevers, nausea/vomiting, chest pain, palpitations, shortness of breath, urinary symptoms. Objective - Vital Signs/Intake and Output Vital Signs (last 24 hours): Temp Pulse Resp BP Pulse Ox 98.0 F 111 H 20 120/68 95 07/21/18 07:24 07/21/18 07:24 07/21/18 07:24 07/21/18 07:24 07/21/18 07:24 Intake and Output: 07/21/18 07/21/18 06:59 18:59 Intake Total 1114 Balance 1114 - Medications Medications: Current Medications Acetaminophen (Tylenol 325mg Tab) 1,000 mg PO Q6 PRN PRN Reason: Pain, Mild (1-3) Last Admin: 07/21/18 04:33 Dose: 1,000 mg Amitriptyline HCl (Elavil) 50 mg PO HS [facility] Last Admin: 07/20/18 23:00 Dose: Not Given Bisacodyl (Dulcolax) 10 mg AR DAILY [facility] Last Admin: 07/20/18 13:20 Dose: 10 mg Bisacodyl (Dulcolax) 10 mg AR ONCE ONE Stop: 07/21/18 13:01 Bupropion HCl (Wellbutrin) 100 mg PO BID [facility] Last Admin: 07/20/18 19:00 Dose: 100 mg Heparin Sodium (Porcine) (Heparin) 5,000 units SC Q8 [facility] Last Admin: 07/21/18 06:25 Dose: 5,000 units Levothyroxine Sodium (Synthroid) 12.5 mcg IVP 0630 [facility] Last Admin: 07/21/18 06:25 Dose: 12.5 mcg Lidocaine (Lidoderm) 1 ea TD DAILY [facility] Last Admin: 07/20/18 11:25 Dose: 1 ea Methotrexate (Methotrexate) 15 mg PO QWK [facility] Last Admin: 07/20/18 11:26 Dose: 15 mg Ondansetron HCl (Zofran Inj) 4 mg IVP Q6H PRN PRN Reason: Nausea/Vomiting Last Admin: 07/21/18 04:33 Dose: 4 mg Pantoprazole Sodium (Protonix Ec Tab) 40 mg PO DAILY [facility] Last Admin: 07/20/18 11:28 Dose: 40 mg Rosuvastatin Calcium (Crestor) 40 mg PO HS [facility] Last Admin: 07/20/18 23:24 Dose: 40 mg Senna/Docusate Sodium (Senokot S 50 Mg-8.6 Mg) 1 tab PO BID [facility] Last Admin: 07/20/18 19:00 Dose: 1 tab - Labs Labs: 07/21/18 07:07 07/21/18 07:07 PT 12.3 SECONDS (9.7-12.2) H 07/13/18 09:48 INR 1.1 07/13/18 09:48 APTT 35 SECONDS (21-34) H 07/13/18 09:48 - Additional Findings Additional findings: - Constitutional Appears: Well, No Acute Distress - Head Exam Head Exam: ATRAUMATIC, NORMAL INSPECTION - Eye Exam Eye Exam: EOMI, Normal appearance - ENT Exam ENT Exam: Mucous Membranes Moist - Respiratory Exam Respiratory Exam: Clear to Auscultation Bilateral, NORMAL BREATHING PATTERN. absent: Prolonged Expiratory Phase, Rhonchi, Wheezes, Respiratory Distress - Cardiovascular Exam Cardiovascular Exam: Tachycardia, REGULAR RHYTHM, +S1, +S2 - GI/Abdominal Exam GI & Abdominal Exam: Soft, Normal Bowel Sounds. absent: Distended, Firm, Guarding, Rigid, Tenderness Additional comments: Incision is clean, dry and intact - Extremities Exam Extremities Exam: Normal Inspection. absent: Calf Tenderness, Pedal Edema - Neurological Exam Neurological Exam: Alert, Awake, Oriented x3 - Psychiatric Exam Psychiatric exam: absent: anxious, depression Assessment and Plan - Assessment and Plan (Free Text) Assessment: (1) Small bowel obstruction due to adhesions Assessment & Plan: Likely 2/2 to adhesions (hx of multiple abdominal surgeries) General Surgery, Dr. Becky Smith * S/P diagnostic laparoscopic. extensive lysis of adhesions (07/13/18) * Pain management as per surgery; narcotics discontinued * Advance diet as tolerated as per surgery * Patient cleared for discharge home - patient to follow general surgery and GI outpatient GI Consulted, Dr. De La Torre * management as per recommendation Abd/Pelvis CT (07/01): * Findings consistent with small-bowel obstruction with transition point right lower quadrant of the abdomen. * Cholecystectomy. * Nodular left adrenal gland. Recommend followup noncontrast MRI of the adrenal glands. * Diverticulosis without radiographic evidence of acute diverticulitis. Obstruction Series (07/02): * Mild left basilar atelectasis and or scarring.. No evidence of mechanical bowel obstruction however findings suggest mild fecal retention/constipation. Abdomen X-ray (07/03): * Mild bibasilar atelectasis. * No evidence of acute mechanical bowel obstruction. Abdomen X-ray (07/04): * Findings are most compatible with acute small bowel obstruction, slightly worse since the prior examination. Abd/Pelvis CT w/ PO and IV contrast (07/04/18): * Persistent pattern positive for mechanical distal small bowel obstruction with collapsed ileum and otherwise dilated small-bowel loops appreciated stomach is partially decompressed by nasogastric tube oral contrast partially distending the stomach. Poor oral contrast transit is seen through small bowel. No free intra peritoneal gas collection or ascites appreciable at this time. Continued surgical evaluation advised Status: Acute (2) Colon distention Assessment & Plan: Abdominal X-ray (07/19/18): Gas is seen primarily in large-bowel as opposed to small bowel as previously shown indicating resolution or near resolution of ileus/small-bowel obstruction pattern previously evident. Transverse and panic flexure segments of large bowel are somewhat distended in the interval. Limited residual air-fluid levels are identified in the lower abdomen pelvis as discussed above. 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 Espinosa and Elly * Tolvaptan given on 07/09 * Urine Osmolality 569 * Random Urine Sodium 150 Status: Acute (4) Abnormal transaminases Assessment & Plan: Resolving Status: Resolved (5) Hypothyroid Assessment & Plan: Continue Home Medication: * Synthroid 12.5mcg IVP daily Status: Acute (6) History of cervical cancer Assessment & Plan: s/p hysterectomy, b/l oopherectomy (seperate procedure) Status: Acute (7) Depression Assessment & Plan: Continue Home Medication: * Amitriptyline 40mg PO HS * Bupropion (Wellbutrin) 100mg PO BID * Lamptrigine 200mg PO daily (discontinued by general surgery) Status: Acute (8) Rheumatoid arthritis Assessment & Plan: Methotrexate 15mg PO QWK, every Wednesday Status: Acute (9) Prophylactic measure Assessment & Plan: Heparin 5,000 units SC q8h Protonix 40mg PO daily PT/OT All plans and management discussed with Dr. Manjinder Polanco DO PGY-2
[2018-07-21] MEDS: Lidocaine 5% Patch TD SCH (09:47)
[2018-07-21] MEDS: Docusate-Senna 50 mg-8.6 mg Tab PO SCH (09:47)
[2018-07-21] MEDS ORDERED: Influenza Vaccine 60 MCG/0.5 ML SYR (3 yr & up) IM ONE (11:20)
== END 2018-07-21 14:19 | disposition home or self-care (01) | DRG 336 ==
LOC: C.ER 17:59 → C.9E 23:30 → C.6T 07-02 00:03 → C.5S 07-20 14:56
PROVIDERS: ADMIT Internal Medicine Pulmonary Disease; ATTEND Internal Medicine Pulmonary Disease
PROC: 0DNU4ZZ Release Omentum, Percutaneous Endoscopic Approach (ICD-10-PCS; 2018-07-13)
PROC: 0W9F40Z Drainage of Abdominal Wall with Drainage Device, Percutaneous Endoscopic Approach (ICD-10-PCS; 2018-07-13)
PROC: 0DN84ZZ Release Small Intestine, Percutaneous Endoscopic Approach (ICD-10-PCS; principal; 2018-07-13 12:30)
PROC: 02HV33Z Insertion of Infusion Device into Superior Vena Cava, Percutaneous Approach (ICD-10-PCS; 2018-07-15)
DX: K56.50 Intestinal adhesions [bands], unspecified as to partial versus complete obstruction (principal); E22.2 Syndrome of inappropriate secretion of antidiuretic hormone; N17.9 Acute kidney failure, unspecified; J98.11 Atelectasis; R18.8 Other ascites; E87.3 Alkalosis; F41.9 Anxiety disorder, unspecified; E86.0 Dehydration; E87.6 Hypokalemia; Z85.41 Personal history of malignant neoplasm of cervix uteri; E03.9 Hypothyroidism, unspecified; M06.9 Rheumatoid arthritis, unspecified; R00.0 Tachycardia, unspecified; K63.89 Other specified diseases of intestine